=== PATIENT | male | born 1950 | race Caucasian/White ===

== ENCOUNTER 2016-08-18 12:33 | Outpatient (CLI) | payer BC, OTHER ==
[~2016-08-18] VITALS: Ht 182.9 cm; Wt 64.2 kg
[~2016-08-18 12:33] MED LIST: HYDR-3454 PO; MULT-974 PO; OMG1KC PO; TRAM50TA2 PO; [UNRECOGNIZED DRUG - OTHER] PO
--- OUTSIDE RECORDS SUMMARY | 2016-08-18 12:37 | XMS REPORT | Continuity of Care Document ---
Author Author [facility] Organization [facility] Address Unknown Phone Unavailable Care Team Providers Care Laborer Starch Factory Name Role Phone PÉREZ GREEN DO PCP Insurance Providers Payer Name Policy Number Subscriber Name Relationship [facility] [id number] Lc Hines 18 Self / Same As Patient Advance Directives Directive Response Recorded Date/Time Advance Directives No 11/25/15 4:27pm Health Care Power of Reinforcing Steel Worker Wire Mesh No 11/25/15 4:27pm Organ Donor No 11/25/15 4:27pm Problems Active Problems Medical Problem Onset Date Status Malignant melanoma of skin of left elbow Unknown Acute Medications Current Home Medications Medication Dose Units Route Directions Days/Qty Instructions Start Date [place] 3 Polyunsat Fatty Acids 1,000 Mg 1,000 [...] Discharge/Depart Date Attending Provider Registered Clinic [facility] 02/02/16 8:57am PRICILLA CURRAN Discharged Recurring [facility] 01/26/16 2:26pm 11:59pm JENIFFER PEREZ MD
[2016-08-18] MEDS ORDERED: ACYC200C PO (12:52)
[2016-08-18 12:54] VITALS: BP 119/76
== END 2016-08-18 14:08 | disposition home or self-care (01) ==
LOC: PREOP 12:33
PROVIDERS: ATTEND Surgery
DX: Z01.818 Encounter for other preprocedural examination (principal); Z11.2 Encounter for screening for other bacterial diseases; C43.59 Malignant melanoma of other part of trunk
CPT/HCPCS: 87081

== ENCOUNTER 2016-08-24 08:28 | Day surgery (SDC) | payer BC, OTHER ==
[~2016-08-24] VITALS: Ht 182.9 cm; Wt 64.2 kg
[2016-08-24] VITALS (7 sets, daily range): BP systolic 130–151; BP diastolic 71–88
[~2016-08-24 08:28] MED LIST changes: +ACYC200C PO
--- OUTSIDE RECORDS SUMMARY | 2016-08-24 08:31 | XMS REPORT | Continuity of Care Document ---
Author Author [facility] Organization [facility] Address Unknown Phone Unavailable Care Team Providers Care Head Greenskeeper Name Role Phone PÉREZ GREEN DO PCP Insurance Providers Payer Name Policy Number Subscriber Name Relationship [facility] [id number] Lc Hines 18 Self / Same As Patient Advance Directives Directive Response Recorded Date/Time Advance Directives No 08/18/16 12:48pm Health Care Power of Frozen Yogurt Maker No 08/18/16 12:48pm Organ Donor No 08/18/16 12:48pm Resuscitation Status Full Code 08/18/16 12:48pm Problems Active Problems Medical Problem Onset Date Status Malignant melanoma of skin of left elbow Unknown Acute Medications Current Home Medications Medication Dose Units Route Directions Days/Qty Instructions Start Date [place] 3 Polyunsat Fatty Acids 1,000 Mg 1,000 Mg Oral Daily 10/27/15 Multivitamin 1 Each 1 Each Oral Daily 10/27/15 Acyclovir 200 Mg 200 Mg Oral Three Times A Day 08/18/16 Past Home Medications Medication Directions Ordered Status [Canxida] , 1 Tab Oral Daily 10/27/15 Discontinued Tramadol Hcl 50 Mg Tablet, 50 Mg Oral Every 12 Hours as needed for Pain 10/27 Discontinued Tramadol Hcl 50 Mg Tablet, 50 Mg Oral Every 12 Hours as needed for Pain 10/27 Discontinued Hydrocodone/Acetaminophen 1 Each Tablet, 1 Each Oral Every 4HRS as needed for Pain 11/25/15 Discontinued Hydrocodone/Acetaminophen 1 Each Tablet, 1 Each Oral Every 4HRS as needed for Pain 11/25/15 Discontinued Social History Social History Problem Response Recorded Date/Time Alcohol Use Denies Use 11/25/2015 4:23pm Recreational Drug Use No 11/25/2015 4:23pm Recent Foreign Travel No 08/18/2016 12:42pm Recent Infectious Disease Exposure No 08/18/2016 12:42pm Sexually Transmitted Disease Y HERPES 08/18/2016 12:48pm HIV/AIDS No 08/18/2016 12:48pm Smoking Status Never a Smoker 08/18/2016 12:48pm Recent Hopitalizations No 08/18/2016 12:48pm Sexually Transmitted Disease Y HERPES 08/18/2016 12:48pm Query Response Start Date Stop Date Smoking Status Never a Smoker Hospital Discharge Instructions No hospital discharge instructions. Plan of Care Discharge Date 08/18/16 2:08pm Prescriptions See Medication Section Functional Status No functional status results. Allergies, Adverse Reactions, Alerts Allergen Type Severity Reaction Status Last Updated epinephrine HCl Allergy Unknown Active 10/28/15 Lidocaine Allergy Unknown Active 10/28/15 Epinephrine Allergy Unknown Active 10/28/15 Immunizations No immunization records. Vital Signs Acute Vital Signs Vital Response Date/Time Pulse Rate (adult) 102 bpm (60 - 90) 08/18/2016 12:54pm Respiratory Rate 16 bpm (12 - 24) 08/18/2016 12:54pm O2 Sat by Pulse Oximetry 97 % (88 - 100) 08/18/2016 12:54pm Blood Pressure 119/76 mm Hg 08/18/2016 12:54pm Blood Pressure Mean 90 mm Hg 08/18/2016 12:54pm Pain Numeric Pain Scale 0-No Pain 08/18/2016 12:54pm Height (Feet) 6 feet 08/18/2016 12:42pm Height (Inches) 0.00 inches 08/18/2016 12:42pm Height (Calculated Centimeters) 182.943039 cm 08/18/2016 12:42pm Weight (Pounds) 141 pounds 08/18/2016 12:42pm Weight (Ounces) 8.0 oz 08/18/2016 12:42pm Weight (Calculated Grams) 09977.32 gm 08/18/2016 12:42pm Weight (Calculated Kilograms) 64.851903 kilograms 08/18/2016 12:42pm Calculated BMI 19.2 08/18/2016 12:42pm Results Laboratory Results Test Name Result Units Flags Reference Collection Date/Time Result Date/ Time Comments White Blood Count 6.1 10^3/uL 4.3-11.0 07/12/2016 1:43pm 07/12/2016 1: 50pm Red Blood Count 4.41 10^6/uL 4.35-5.85 07/12/2016 1:43pm 07/12/2016 1: 50pm Hemoglobin 14.6 G/DL 13.3-17.7 07/12/2016 1:43pm 07/12/2016 1:50pm Hematocrit 42 % 40-54 07/12/2016 1:43pm 07/12/2016 1:50pm Mean Corpuscular Volume 96 FL 80-99 07/12/2016 1:43pm 07/12/2016 1: 50pm Mean Corpuscular Hemoglobin 33 PG 25-34 07/12/2016 1:43pm 07/12/2016 1: 50pm Mean Corpuscular Hemoglobin Concent 35 G/DL 32-36 07/12/2016 1:43pm 1:50pm Red Cell Distribution Width 12.5 % 10.0-14.5 07/12/2016 1:43pm 2015 1:50pm Platelet Count 233 10^3/uL 130-400 07/12/2016 1:43pm 07/12/2016 1:50pm Mean Platelet Volume 10.2 FL 7.4-10.4 07/12/2016 1:43pm 07/12/2016 1: 50pm Neutrophils (%) (Auto) 76 % H 42-75 07/12/2016 1:43pm 07/12/2016 1:50pm Lymphocytes (%) (Auto) 14 % 12-44 07/12/2016 1:43pm 07/12/2016 1:50pm Monocytes (%) (Auto) 9 % 0-12 07/12/2016 1:43pm 07/12/2016 1:50pm Eosinophils (%) (Auto) 0 % 0-10 07/12/2016 1:43pm 07/12/2016 1:50pm Basophils (%) (Auto) 1 % 0-10 07/12/2016 1:43pm 07/12/2016 1:50pm Neutrophils # (Auto) 4.7 X 10^3 1.8-7.8 07/12/2016 1:43pm 07/12/2016 1: 50pm Lymphocytes # (Auto) 0.9 X 10^3 L 1.0-4.0 07/12/2016 1:43pm 07/12/2016 1: 50pm Monocytes # (Auto) 0.5 X 10^3 0.0-1.0 07/12/2016 1:43pm 07/12/2016 1: 50pm Eosinophils # (Auto) 0.0 10^3/uL 0.0-0.3 07/12/2016 1:43pm 07/12/2016 1 :50pm Basophils # (Auto) 0.0 10^3/uL 0.0-0.1 07/12/2016 1:43pm 07/12/2016 1: 50pm Sodium Level 138 MMOL/L 135-145 07/12/2016 1:43pm 07/12/2016 2:32pm Potassium Level 4.4 MMOL/L 3.6-5.0 07/12/2016 1:43pm 07/12/2016 2:32pm Chloride Level 104 MMOL/L 98-107 07/12/2016 1:43pm 07/12/2016 2:32pm Carbon Dioxide Level 26 MMOL/L 21-32 07/12/2016 1:43pm 07/12/2016 2: 32pm Anion Gap 8 MMOL/L 5-14 07/12/2016 1:43pm 07/12/2016 2:32pm Blood Urea Nitrogen 19 MG/DL H 7-18 07/12/2016 1:43pm 07/12/2016 2:32pm Creatinine 1.07 MG/DL 0.60-1.30 07/12/2016 1:43pm 07/12/2016 2:32pm BUN/Creatinine Ratio 18 07/12/2016 1:43pm 07/12/2016 2:32pm Estimat Glomerular Filtration Rate > 60 07/12/2016 1:43pm 2015 2:32pm GFR INTERPRETIVE DATA UNITS FOR ESTIMATED GFR (eGFR): mL/min/1.73 M2 REFERENCE RANGE FOR ESTIMATED GFR (eGFR) eGFR NORMAL eGFR >60 MODERATELY DECREASED eGFR 30-59 SEVERLY DECREASED eGFR 15-29 KIDNEY FAILURE <15 (OR DIALYSIS) Glucose Level 159 MG/DL H 70-105 07/12/2016 1:43pm 07/12/2016 2:32pm Calcium Level 9.7 MG/DL 8.5-10.1 07/12/2016 1:43pm 07/12/2016 2:32pm Total Bilirubin 1.7 MG/DL H 0.1-1.0 07/12/2016 1:43pm 07/12/2016 2:32pm Alkaline Phosphatase 55 U/L 40-136 07/12/2016 1:43pm 07/12/2016 2:32pm Aspartate Amino Transf (AST/SGOT) 29 U/L 5-34 07/12/2016 1:43pm 2015 2:32pm Alanine Aminotransferase (ALT/SGPT) 22 U/L 0-55 07/12/2016 1:43pm 07/12 2:32pm Lactate Dehydrogenase 201 U/L 125-220 07/12/2016 1:43pm 07/12/2016 2: 32pm Total Protein 6.9 G/DL 6.4-8.2 07/12/2016 1:43pm 07/12/2016 2:32pm Albumin 4.5 G/DL 3.2-4.5 07/12/2016 1:43pm 07/12/2016 2:32pm Procedures No known history of procedures. Encounters Encounter Location Arrival/Admit Date Discharge/Depart Date Attending Provider Departed Clinic [facility] 08/18/16 12:33pm 08/18/16 2: 08pm JAMIE NGUYEN MD Registered Clinic [facility] 08/02/16 2:02pm JENIFFER PEREZ MD Registered Recurring [facility] 07/29/16 10:56am JENIFFER PEREZ MD Registered Clinic [facility] 07/19/16 8:15am JENIFFER PEREZ MD
--- OUTSIDE RECORDS SUMMARY | 2016-08-24 08:32 | XMS REPORT | Continuity of Care Document ---
Author Author [facility] Organization [facility] Address Unknown Phone Unavailable Care Team Providers Care Microsoft Dynamics Manager Architect Name Role Phone PÉREZ GREEN DO PCP Insurance Providers Payer Name Policy Number Subscriber Name Relationship [facility] [id number] Lc Hines 18 Self / Same As Patient Advance Directives Directive Response Recorded Date/Time Advance Directives No 08/18/16 12:48pm Health Care Power of Aircraft Cleaning Supervisor No 08/18/16 12:48pm Organ Donor No 08/18/16 12:48pm Resuscitation Status Full Code 08/18/16 12:48pm Problems Active Problems Medical Problem Onset Date Status Malignant melanoma of skin of left elbow Unknown Acute Medications Current Home Medications Medication Dose Units Route Directions Days/Qty Instructions Start Date [place] 3 Polyunsat Fatty Acids 1,000 Mg 1,000 [...] 0.00 inches 08/18/2016 12:42pm Height (Calculated Centimeters) 182.836843 cm 08/18/2016 12:42pm Weight (Pounds) 141 pounds 08/18/2016 12:42pm Weight (Ounces) 8.0 oz 08/18/2016 12:42pm Weight (Calculated Grams) 15494.32 gm 08/18/2016 12:42pm Weight (Calculated Kilograms) 64.810560 kilograms 08/18/2016 12:42pm Calculated BMI 19.2 08/18/2016 [...] Discharge/Depart Date Attending Provider Departed Clinic [facility] 08/18/16 12:33pm 08/18/16 2: 08pm JAMIE NGUYEN MD Registered Clinic [facility] 08/02/16 2:02pm JENIFFER PEREZ MD Registered Recurring [facility] 07/29/16 10:56am JENIFFER PEREZ MD Registered Clinic [facility] 07/19/16 8:15am JENIFFER PEREZ MD
[2016-08-24] MEDS ORDERED: ceFAZolin 1 GM/NS 50 ML IVPB IV ONE ×2 (08:45)
[2016-08-24] MEDS ORDERED: MIDAZOLAM 2 MG/2 ML (VERSED) VIAL IV ONE (09:30)
[2016-08-24] MEDS ORDERED: proPOfol 200 MG/20 ML (DIPRIVAN) VIAL IV ONE (09:31)
[2016-08-24] MEDS ORDERED: LACTATED RINGERS 1,000 ML IV ONE ×2 (09:31→11:27)
[2016-08-24] MEDS ORDERED: LIDOCAINE JELLY 2% (XYLOCAINE) 5 ML TUBE ONE (09:31)
[2016-08-24] MEDS ORDERED: MIDAZOLAM 2 MG/2 ML (VERSED) VIAL ONE (09:31)
[2016-08-24] MEDS ORDERED: ONDANSETRON 4 MG/2 ML (SDV) Z0FRAN ONE (09:31)
[2016-08-24] MEDS ORDERED: ROCURONIUM 50 MG/5 ML (ZEMURON) VIAL IV ONE (09:31)
[2016-08-24] MEDS ORDERED: LIDOCAINE PF 2% 10 ML (XYLOCAINE) AMP ONE (09:31)
[2016-08-24] MEDS ORDERED: fentaNYL INJECTION 100 MCG/2 ML AMP ONE (09:32)
[2016-08-24] MEDS ORDERED: BUP/EPI 0.25% 1:200,000 (MARCAINE) 30 ML VIAL ONE (09:41)
[2016-08-24] MEDS: LACTATED RINGERS 1,000 ML IV PRN ×2 (09:44→10:53)
--- NOTE | 2016-08-24 10:00 | Progress Note-Pre Operative ---
Pre-Operative Progress Note H&P Reviewed The H&P was reviewed, patient examined and no changes noted. Date H&P Reviewed: Aug 24, 2016 Time H&P Reviewed: 10:00 Pre-Operative Diagnosis: metastatic melanoma of the left axilla JAMIE NGUYEN MD Aug 24, 2016 10:00 am
[2016-08-24] MEDS ORDERED: PHENYLEPHRINE 100 MCG/ML 10 ML (ANESTHESIA) SYR ONE (11:28)
[2016-08-24] MEDS ORDERED: SEVOFLURANE (ULTANE) 15 ML INHAL SOLN ONE ×2 (11:46→12:08)
--- NOTE | 2016-08-24 12:19 | Progress Note-Post Operative ---
Post-Operative Progess Note Pre-Operative Diagnosis metastatic melanoma of the left axilla Post-Operative Diagnosis same Post-Op Procedure Note Date of Procedure: Aug 24, 2016 Name of Procedure: completion lymphadenectomy of left axilla Anesthesia Type Gen. Estimated blood loss (mL): 200 mL Specimen(s) collected left axillary contents JAMIE NGUYEN MD Aug 24, 2016 12:19 pm
[2016-08-24] MEDS ORDERED: fentaNYL INJECTION 100 MCG/2 ML AMP IV PRN (12:30)
[2016-08-24] MEDS ORDERED: ONDANSETRON 4 MG/2 ML (SDV) Z0FRAN IVP PRN ×2 (12:30)
[2016-08-24] MEDS ORDERED: MEPERIDINE (DEMEROL) INJ 50 MG/ML IVP PRN (12:30)
[2016-08-24] MEDS ORDERED: morphine INJ 10 MG/ML 1ML (SYR OR VIAL) ONE (12:40)
[2016-08-24] MEDS: morphine INJ 10 MG/ML 1ML (SYR OR VIAL) IVP PRN ×2 (12:57→13:13)
--- NOTE | 2016-08-24 13:14 | OPERATIVE REPORT ---
PROCEDURE PHYSICIAN: JAMIE NGUYEN DATE OF PROCEDURE: 08/24/2016 PREOPERATIVE DIAGNOSIS: Metastatic melanoma left axilla. POSTOPERATIVE DIAGNOSIS: Metastatic melanoma left axilla. OPERATION: Completion lymphadenectomy left axilla. SURGEON: Curtis ANESTHESIA: General anesthesia. BLOOD LOSS: 200 mL. FLUIDS: 2 liters of crystalloids. TYPE OF WOUND: Type I (clean wound). INDICATION FOR PROCEDURE: This gentleman presented with metastatic melanoma involving the left axilla. Therefore, it was felt reasonable to perform completion lymphadenectomy. Informed consent was obtained after reviewing the operative details and complications of hematoma, postoperative bleeding and nerve damage. DESCRIPTION OF PROCEDURE: He was placed supine on the operating table and general anesthesia induced. A gram of Ancef was administered intravenously as prophylaxis against wound infection. Sequential compression devices were placed around his legs, to minimize the risk of venous thrombosis. Left axilla was prepared and draped in the usual sterile manner. Preemptive analgesia was established using 0.25% Marcaine with epinephrine. An elliptical incision was made incorporating the previous scar and a cluster of lymph glands identified. They were adherent to the axillary vein, which was carefully . There did not appear to be direct infiltration to the axillary vein itself. Some tributaries of the axillary vein had to be controlled using 2-0 silk sutures and Ligaclips. A few lymph glands belonging to axillary level III were excised and sent separately for histologic examination. There was tumor infiltration into the thoracodorsal nerve, which had to be sacrificed close to the axillary vein. The tissue surrounding sacrificed nerve was sent as a separate specimen. The long thoracic nerve was free and preserved. Hemostasis was optimized using Ligaclips on the axillary, irrigated with saline. A 19 [place] Raj-Tavares drain was left in the axilla, being secured with 2-0 silk sutures. Incision was then closed using 3-0 Vicryl for the subcutaneous tissue and 4-0 Vicryl for skin in a subcuticular fashion. He tolerated the procedure well, was extubated in the operating room and taken to the recovery room in stable condition. Ransom, sponges, and instruments were correct at the end of the operation. Job ID: [id number] Dictated Date: 08/24/2016 12:16:41 Structural Iron Worker Date: 08/24/2016 13:06:36 / cyndy RUSS
[2016-08-24] MEDS: LACTATED RINGERS 1,000 ML IV SCH ×2 (14:41→22:00)
[2016-08-24] MEDS ORDERED: CHLORASEPTIC SPRAY 177 ML LIQUID MC PRN (16:00)
[2016-08-24] MEDS ORDERED: FLU TRIvalent (5 YOA+) 2016-17 (AFLURIA) 0.5 ML IM ONE (16:15)
[2016-08-24] MEDS: ceFAZolin INJECTION 1,000 MG in NORMAL SALINE (BAXTER MINI) 50 ML IV SCH (16:49)
[2016-08-24] MEDS: HYDROcodone/APAP 5 MG/325 MG (LORTAB) TAB PO PRN (21:58)
[2016-08-25] VITALS: BP 150/80
[2016-08-25] MEDS: ceFAZolin INJECTION 1,000 MG in NORMAL SALINE (BAXTER MINI) 50 ML IV SCH (00:04)
[2016-08-25 04:00] VITALS: BP 127/72
[2016-08-25] MEDS: LACTATED RINGERS 1,000 ML IV SCH (04:53)
[2016-08-25] MEDS: HYDROcodone/APAP 5 MG/325 MG (LORTAB) TAB PO PRN (04:53)
[2016-08-25 08:57] VITALS: BP 126/61
[2016-08-25] MEDS ORDERED: HYDR-3729 PO (12:04)
--- NOTE | 2016-08-25 12:06 | Discharge Inst-Simple/Standard ---
Discharge Inst-Standard Discharge Medications New, Converted or Re-Newed RX: RX on Chart Patient Instructions/Follow Up Plan of Care/Instructions/FU: Ryanne killian. Please have him call my office on Monday regarding the output from the drain Activity as Tolerated: No Goal: Off work until seen Discharge Diet: No Restrictions Planned Outpatient Orders/Ref. Pneu Vac Indicated: Yes JAMIE NGUYEN MD Aug 25, 2016 12:06 pm
[2016-08-25] MEDS ORDERED: DOCU-143 PO (12:18)
[2016-08-25 12:30] VITALS: BP 126/61
[2016-08-25] MEDS ORDERED: ENOXAPARIN 40 MG/0.4 ML (LOVENOX) SYR SC SCH (12:30)
--- NOTE | 2016-08-25 13:27 | Progress Note-Standard ---
Standard Progress Note Progress Notes/Assess & Plan Progress/Assessment & Plan 08/25/16:pain control adequate. Minimal drainage from the Raj-Tavares. Operative details reviewed. Could be discharged with short-term follow-up. Final Diagnosis metastatic melanoma of left axilla JAMIE NGUYEN MD Aug 25, 2016 1:27 pm
== END 2016-08-25 12:50 | disposition home or self-care (01) ==
LOC: SDC 08:28 → 4TH 13:40 → SDC 08-25 12:50
PROVIDERS: ATTEND Surgery
DX: C43.62 Malignant melanoma of left upper limb, including shoulder (principal); C77.3 Secondary and unspecified malignant neoplasm of axilla and upper limb lymph nodes
CPT/HCPCS: 88305; 94664

== ENCOUNTER 2016-10-04 14:08 | Outpatient (RCR) | payer BC, OTHER ==
--- OUTSIDE RECORDS SUMMARY | 2016-07-12 13:40 | XMS REPORT | Continuity of Care Document ---
Author Author [facility] Organization [facility] Address Unknown Phone Unavailable Care Team Providers Care Customer Technical Services Manager Name Role Phone PÉREZ GREEN DO PCP Insurance Providers Payer Name Policy Number Subscriber Name Relationship [facility] [id number] Lc Hines 18 Self / Same As Patient Advance Directives Directive Response Recorded Date/Time Advance Directives No 11/25/15 4:27pm Health Care Power of Bitumen Plant Operator No 11/25/15 4:27pm Organ Donor No 11/25/15 4:27pm Problems Active Problems Medical Problem Onset Date Status Malignant melanoma of skin of left elbow Unknown Acute Medications Current Home Medications Medication Dose Units Route Directions Days/Qty Instructions Start Date [place] 3 Polyunsat Fatty Acids 1,000 Mg 1,000 Mg Oral Daily 10/27/15 Multivitamin 1 Each 1 Each Oral Daily 10/27/15 [Canxida] 1 Tab Oral Daily 10/27/15 Hydrocodone/Acetaminophen 1 Each 1 Each Oral Every 4HRS as needed for Pain 30 11/25/15 Hydrocodone/Acetaminophen 1 Each 1 Each Oral Every 4HRS as needed for Pain 30 11/25/15 Past Home Medications Medication Directions Ordered Status Tramadol Hcl 50 Mg Tablet, 50 Mg Oral Every 12 Hours as needed for Pain 10/27 Discontinued Tramadol Hcl 50 Mg Tablet, 50 Mg Oral Every 12 Hours as needed for Pain 10/27 Discontinued Social History Social History Problem Response Recorded Date/Time Alcohol Use Denies Use 11/25/2015 4:23pm Recreational Drug Use No 11/25/2015 4:23pm Recent Foreign Travel N [place] 01/25/2016 10:15am Sexually Transmitted Disease Y HERPES 11/25/2015 4:23pm HIV/AIDS No 11/25/2015 4:23pm Hospital Discharge Instructions Current inpatient/outpatient. Discharge instructions are currently unavailable. Plan of Care Prescriptions Functional Status No functional status results. Allergies, Adverse Reactions, Alerts Allergen Type Severity Reaction Status Last Updated epinephrine HCl Allergy Unknown Active 10/28/15 Lidocaine Allergy Unknown Active 10/28/15 Epinephrine Allergy Unknown Active 10/28/15 Immunizations No immunization records. Vital Signs No known vital signs results. Results Laboratory Results Test Name Result Units Flags Reference Collection Date/Time Result Date/ Time Comments White Blood Count 7.2 10^3/uL 4.3-11.0 01/05/2016 2:01/05/2016 2: 28pm Red Blood Count 4.17 10^6/uL L 4.35-5.85 01/05/2016 2:01/05/2016 2: 28pm Hemoglobin 13.6 G/DL 13.3-17.7 01/05/2016 2:01/05/2016 2:28pm Hematocrit 39 % L 40-54 01/05/2016 2:01/05/2016 2:28pm Mean Corpuscular Volume 94 FL 80-99 01/05/2016 2:01/05/2016 2: 28pm Mean Corpuscular Hemoglobin 33 PG 25-34 01/05/2016 2:01/05/2016 2: 28pm Mean Corpuscular Hemoglobin Concent 35 G/DL 32-36 01/05/2016 2: 2:28pm Red Cell Distribution Width 12.8 % 10.0-14.5 01/05/2016 2:2015 2:28pm Platelet Count 210 10^3/uL 130-400 01/05/2016 2:01/05/2016 2:28pm Mean Platelet Volume 9.9 FL 7.4-10.4 01/05/2016 2:01/05/2016 2: 28pm Neutrophils (%) (Auto) 67 % 42-75 01/05/2016 2:01/05/2016 2:28pm Lymphocytes (%) (Auto) 22 % 12-44 01/05/2016 2:01/05/2016 2:28pm Monocytes (%) (Auto) 9 % 0-12 01/05/2016 2:01/05/2016 2:28pm Eosinophils (%) (Auto) 1 % 0-10 01/05/2016 2:01/05/2016 2:28pm Basophils (%) (Auto) 1 % 0-10 01/05/2016 2:01/05/2016 2:28pm Neutrophils # (Auto) 4.8 X 10^3 1.8-7.8 01/05/2016 2:01/05/2016 2: 28pm Lymphocytes # (Auto) 1.6 X 10^3 1.0-4.0 01/05/2016 2:01/05/2016 2: 28pm Monocytes # (Auto) 0.7 X 10^3 0.0-1.0 01/05/2016 2:01/05/2016 2: 28pm Eosinophils # (Auto) 0.1 10^3/uL 0.0-0.3 01/05/2016 2:01/05/2016 2 :28pm Basophils # (Auto) 0.0 10^3/uL 0.0-0.1 01/05/2016 2:01/05/2016 2: 28pm Sodium Level 141 MMOL/L 135-145 01/05/2016 2:01/05/2016 2:56pm Potassium Level 4.4 MMOL/L 3.6-5.0 01/05/2016 2:01/05/2016 2:56pm Chloride Level 106 MMOL/L 98-107 01/05/2016 2:01/05/2016 2:56pm Carbon Dioxide Level 26 MMOL/L 21-32 01/05/2016 2:01/05/2016 2: 56pm Anion Gap 9 MMOL/L 5-14 01/05/2016 2:01/05/2016 2:56pm Blood Urea Nitrogen 20 MG/DL H 7-18 01/05/2016 2:01/05/2016 2:56pm Creatinine 0.98 MG/DL 0.60-1.30 01/05/2016 2:01/05/2016 2:56pm BUN/Creatinine Ratio 20 01/05/2016 2:01/05/2016 2:56pm Estimat Glomerular Filtration Rate > 60 01/05/2016 2:2015 2:56pm GFR INTERPRETIVE DATA UNITS FOR ESTIMATED GFR (eGFR): mL/min/1.73 M2 REFERENCE RANGE FOR ESTIMATED GFR (eGFR) eGFR NORMAL eGFR >60 MODERATELY DECREASED eGFR 30-59 SEVERLY DECREASED eGFR 15-29 KIDNEY FAILURE <15 (OR DIALYSIS) Glucose Level 81 MG/DL 70-105 01/05/2016 2:01/05/2016 2:56pm Calcium Level 9.5 MG/DL 8.5-10.1 01/05/2016 2:01/05/2016 2:56pm Total Bilirubin 1.4 MG/DL H 0.1-1.0 01/05/2016 2:pm 01/05/2016 2:56pm Alkaline Phosphatase 53 U/L 40-136 01/05/2016 2:01/05/2016 2:56pm Aspartate Amino Transf (AST/SGOT) 21 U/L 5-34 01/05/2016 2:pm 2015 2:56pm Alanine Aminotransferase (ALT/SGPT) 19 U/L 0-55 01/05/2016 2:pm 01/04 2:56pm Lactate Dehydrogenase 166 U/L 125-220 11/16/2015 2:41pm 11/16/2015 3: 15pm Total Protein 6.7 G/DL 6.4-8.2 01/05/2016 2:01/05/2016 2:56pm Albumin 4.3 G/DL 3.2-4.5 01/05/2016 2:pm 01/05/2016 2:56pm Procedures No known history of procedures. Encounters Encounter Location Arrival/Admit Date Discharge/Depart Date Attending Provider Registered Clinic [facility] 02/02/16 8:57am PRICILLA CURRAN Discharged Recurring [facility] 01/26/16 2:26pm 11:59pm JENIFFER PEREZ MD
[2016-07-12 13:46] LABS: BASOPHILS % (AUTO) 1 % (0-10); EOSINOPHILS % (AUTO) 0 % (0-10); LYMPHOCYTES # (AUTO) 0.9 X 10^3 (1.0-4.0); LYMPHOCYTES % (AUTO) 14 % (12-44); MEAN CORPUSCULAR HEMOGLOBIN 33 PG (25-34); MEAN CORPUSCULAR HGB CONC 35 G/DL (32-36); MEAN CORPUSCULAR VOLUME 96 FL (80-99); MEAN PLATELET VOLUME 10.2 FL (7.4-10.4); MONOCYTES # (AUTO) 0.5 X 10^3 (0.0-1.0); MONOCYTES % (AUTO) 9 % (0-12); NEUTROPHILS # (AUTO) 4.7 X 10^3 (1.8-7.8); NEUTROPHILS % (AUTO) 76 % (42-75); PLATELET COUNT 233 10^3/uL (130-400); RED BLOOD COUNT 4.41 10^6/uL (4.35-5.85); RED CELL DISTRIBUTION WIDTH 12.5 % (10.0-14.5); WHITE BLOOD COUNT 6.1 10^3/uL (4.3-11.0)
[2016-07-12 14:31] LABS: ALANINE AMINOTRANSFERASE 22 U/L (0-55); ALBUMIN 4.5 G/DL (3.2-4.5); ANION GAP 8 MMOL/L (5-14); ASPARTATE AMINO TRANSFERASE 29 U/L (5-34); BILIRUBIN,TOTAL 1.7 MG/DL (0.1-1.0); BLOOD UREA NITROGEN 19 MG/DL (7-18); BUN/CREATININE RATIO 18; CALCIUM 9.7 MG/DL (8.5-10.1); CARBON DIOXIDE 26 MMOL/L (21-32); CHLORIDE 104 MMOL/L (98-107); CREATININE SERUM 1.07 MG/DL (0.60-1.30); GFR ESTIMATED > 60; GLUCOSE 159 MG/DL (70-105); LACTATE DEHYDROGENASE 201 U/L (125-220); POTASSIUM 4.4 MMOL/L (3.6-5.0); SODIUM 138 MMOL/L (135-145); TOTAL PROTEIN 6.9 G/DL (6.4-8.2)
[2016-09-05 15:08] LABS: BASOPHILS # (AUTO) 0.1 10^3/uL (0.0-0.1); BASOPHILS % (AUTO) 1 % (0-10); EOSINOPHILS # (AUTO) 0.1 10^3/uL (0.0-0.3); EOSINOPHILS % (AUTO) 2 % (0-10); LYMPHOCYTES # (AUTO) 1.4 X 10^3 (1.0-4.0); LYMPHOCYTES % (AUTO) 21 % (12-44); MEAN CORPUSCULAR HEMOGLOBIN 33 PG (25-34); MEAN CORPUSCULAR HGB CONC 34 G/DL (32-36); MEAN CORPUSCULAR VOLUME 95 FL (80-99); MEAN PLATELET VOLUME 9.7 FL (7.4-10.4); MONOCYTES # (AUTO) 0.8 X 10^3 (0.0-1.0); MONOCYTES % (AUTO) 11 % (0-12); NEUTROPHILS # (AUTO) 4.4 X 10^3 (1.8-7.8); NEUTROPHILS % (AUTO) 66 % (42-75); PLATELET COUNT 259 10^3/uL (130-400); RED BLOOD COUNT 4.39 10^6/uL (4.35-5.85); RED CELL DISTRIBUTION WIDTH 12.8 % (10.0-14.5); WHITE BLOOD COUNT 6.7 10^3/uL (4.3-11.0)
[2016-09-05 15:44] LABS: ALANINE AMINOTRANSFERASE 16 U/L (0-55); ALBUMIN 4.2 G/DL (3.2-4.5); ANION GAP 8 MMOL/L (5-14); ASPARTATE AMINO TRANSFERASE 20 U/L (5-34); BILIRUBIN,DIRECT 0.2 MG/DL (0.0-0.3); BILIRUBIN,TOTAL 0.8 MG/DL (0.1-1.0); BLOOD UREA NITROGEN 24 MG/DL (7-18); BUN/CREATININE RATIO 24; CALCIUM 9.5 MG/DL (8.5-10.1); CARBON DIOXIDE 27 MMOL/L (21-32); CHLORIDE 104 MMOL/L (98-107); CREATININE SERUM 1.02 MG/DL (0.60-1.30); GFR ESTIMATED > 60; GLUCOSE 105 MG/DL (70-105); LACTATE DEHYDROGENASE 207 U/L (125-220); POTASSIUM 4.5 MMOL/L (3.6-5.0); SODIUM 139 MMOL/L (135-145)
[2016-09-13 16:09] LABS: THYROID STIMULATING HORMONE 3.5 UIU/ML (0.35-4.94)
[2016-09-20 15:09] LABS: BASOPHILS % (AUTO) 1 % (0-10); EOSINOPHILS # (AUTO) 0.1 10^3/uL (0.0-0.3); EOSINOPHILS % (AUTO) 2 % (0-10); LYMPHOCYTES # (AUTO) 1.5 X 10^3 (1.0-4.0); LYMPHOCYTES % (AUTO) 22 % (12-44); MEAN CORPUSCULAR HEMOGLOBIN 33 PG (25-34); MEAN CORPUSCULAR HGB CONC 35 G/DL (32-36); MEAN CORPUSCULAR VOLUME 95 FL (80-99); MONOCYTES # (AUTO) 0.9 X 10^3 (0.0-1.0); MONOCYTES % (AUTO) 13 % (0-12); NEUTROPHILS # (AUTO) 4.1 X 10^3 (1.8-7.8); NEUTROPHILS % (AUTO) 62 % (42-75); PLATELET COUNT 211 10^3/uL (130-400); RED BLOOD COUNT 4.13 10^6/uL (4.35-5.85); RED CELL DISTRIBUTION WIDTH 12.8 % (10.0-14.5); WHITE BLOOD COUNT 6.5 10^3/uL (4.3-11.0)
[2016-09-20 15:48] LABS: ANION GAP 8 MMOL/L (5-14); BLOOD UREA NITROGEN 24 MG/DL (7-18); BUN/CREATININE RATIO 26; CALCIUM 9.2 MG/DL (8.5-10.1); CARBON DIOXIDE 25 MMOL/L (21-32); CHLORIDE 105 MMOL/L (98-107); CREATININE SERUM 0.93 MG/DL (0.60-1.30); GFR ESTIMATED > 60; GLUCOSE 92 MG/DL (70-105); SODIUM 138 MMOL/L (135-145)
[2016-09-27 15:33] LABS: BASOPHILS # (AUTO) 0.1 10^3/uL (0.0-0.1); BASOPHILS % (AUTO) 1 % (0-10); EOSINOPHILS # (AUTO) 0.1 10^3/uL (0.0-0.3); EOSINOPHILS % (AUTO) 2 % (0-10); LYMPHOCYTES # (AUTO) 1.3 X 10^3 (1.0-4.0); LYMPHOCYTES % (AUTO) 19 % (12-44); MEAN CORPUSCULAR HEMOGLOBIN 33 PG (25-34); MEAN CORPUSCULAR HGB CONC 35 G/DL (32-36); MEAN CORPUSCULAR VOLUME 96 FL (80-99); MONOCYTES # (AUTO) 0.8 X 10^3 (0.0-1.0); MONOCYTES % (AUTO) 13 % (0-12); NEUTROPHILS # (AUTO) 4.4 X 10^3 (1.8-7.8); NEUTROPHILS % (AUTO) 66 % (42-75); PLATELET COUNT 217 10^3/uL (130-400); RED BLOOD COUNT 4.21 10^6/uL (4.35-5.85); RED CELL DISTRIBUTION WIDTH 12.9 % (10.0-14.5); WHITE BLOOD COUNT 6.7 10^3/uL (4.3-11.0)
[2016-09-27 16:32] LABS: ANION GAP 9 MMOL/L (5-14); BLOOD UREA NITROGEN 23 MG/DL (7-18); BUN/CREATININE RATIO 26; CALCIUM 9.3 MG/DL (8.5-10.1); CARBON DIOXIDE 26 MMOL/L (21-32); CHLORIDE 105 MMOL/L (98-107); CREATININE SERUM 0.88 MG/DL (0.60-1.30); GFR ESTIMATED > 60; GLUCOSE 71 MG/DL (70-105); POTASSIUM 4.8 MMOL/L (3.6-5.0); SODIUM 140 MMOL/L (135-145)
[~2016-10-04 14:08] MED LIST changes: +ACETAMINOPHEN 325 MG TAB (TYLENOL) CANCER CTR ONE; +ACETAMINOPHEN 325 MG TAB (TYLENOL) CANCER CTR PO PRN; +DOCU-143 PO; +HYDR-3729 PO; +NS IV 500 ML (CANCER CENTER) 500 ML ONE; +NS IV 500 ML (CANCER CENTER) IV SCH; +NS IV SCH; +PEMBROLIZUMAB 200 MG in NS (IVPB) CANCER CENTER 50 ML IV SCH; +PEMBROLIZUMAB IV SCH
[2016-10-04 14:40] LABS: BASOPHILS # (AUTO) 0.1 10^3/uL (0.0-0.1); BASOPHILS % (AUTO) 1 % (0-10); EOSINOPHILS # (AUTO) 0.1 10^3/uL (0.0-0.3); EOSINOPHILS % (AUTO) 1 % (0-10); LYMPHOCYTES # (AUTO) 1.3 X 10^3 (1.0-4.0); LYMPHOCYTES % (AUTO) 16 % (12-44); MEAN CORPUSCULAR HEMOGLOBIN 33 PG (25-34); MEAN CORPUSCULAR HGB CONC 35 G/DL (32-36); MEAN CORPUSCULAR VOLUME 96 FL (80-99); MEAN PLATELET VOLUME 10.2 FL (7.4-10.4); MONOCYTES # (AUTO) 0.9 X 10^3 (0.0-1.0); MONOCYTES % (AUTO) 11 % (0-12); NEUTROPHILS # (AUTO) 5.9 X 10^3 (1.8-7.8); NEUTROPHILS % (AUTO) 72 % (42-75); PLATELET COUNT 230 10^3/uL (130-400); RED BLOOD COUNT 4.29 10^6/uL (4.35-5.85); WHITE BLOOD COUNT 8.3 10^3/uL (4.3-11.0)
[2016-10-04 15:17] LABS: ALANINE AMINOTRANSFERASE 18 U/L (0-55); ALBUMIN 3.8 G/DL (3.2-4.5); ANION GAP 9 MMOL/L (5-14); ASPARTATE AMINO TRANSFERASE 27 U/L (5-34); BLOOD UREA NITROGEN 19 MG/DL (7-18); BUN/CREATININE RATIO 20; CARBON DIOXIDE 23 MMOL/L (21-32); CHLORIDE 109 MMOL/L (98-107); CREATININE SERUM 0.95 MG/DL (0.60-1.30); GFR ESTIMATED > 60; GLUCOSE 91 MG/DL (70-105); LACTATE DEHYDROGENASE 266 U/L (125-220); MAGNESIUM 2.1 MG/DL (1.8-2.4); POTASSIUM 4.6 MMOL/L (3.6-5.0); SODIUM 141 MMOL/L (135-145); TOTAL PROTEIN 6.7 G/DL (6.4-8.2)
[2016-10-04 15:41] LABS: THYROID STIMULATING HORMONE 0.46 UIU/ML (0.35-4.94)
== END 2016-10-10 | disposition home or self-care (01) ==
LOC: ONC 14:08
PROVIDERS: ATTEND Internal Medicine Hematology & Oncology
DX: C43.62 Malignant melanoma of left upper limb, including shoulder (principal); C77.3 Secondary and unspecified malignant neoplasm of axilla and upper limb lymph nodes
CPT/HCPCS: 36415; 80048; 80053; 82248; 83615; 83735; 84439; 84443; 85025; 96413; 99213

== ENCOUNTER 2017-01-03 14:26 | Outpatient (RCR) | payer BC, OTHER ==
--- OUTSIDE RECORDS SUMMARY | 2016-10-11 10:03 | XMS REPORT | Continuity of Care Document ---
Author Author [facility] Organization [facility] Address Unknown Phone Unavailable Care Team Providers Care Branch Customer Service Representative Name Role Phone PÉREZ GREEN DO PCP Insurance Providers Payer Name Policy Number Subscriber Name Relationship [facility] [id number] Lc Hines 18 Self / Same As Patient Advance Directives Directive Response Recorded Date/Time Advance Directives No 08/18/16 12:48pm Health Care Power of Nursing Techn No 08/18/16 12:48pm Organ Donor No 08/18/16 12:48pm Resuscitation Status Full Code 08/18/16 12:48pm Problems Active Problems Medical Problem Onset Date Status Malignant melanoma of skin of left elbow Unknown Acute Medications Current Home Medications Medication Dose Units Route Directions Days/Qty Instructions Start Date [place] 3 Polyunsat Fatty Acids 1,000 Mg 1,000 [...] 0.00 inches 08/18/2016 12:42pm Height (Calculated Centimeters) 182.753710 cm 08/18/2016 12:42pm Weight (Pounds) 141 pounds 08/18/2016 12:42pm Weight (Ounces) 8.0 oz 08/18/2016 12:42pm Weight (Calculated Grams) 65001.32 gm 08/18/2016 12:42pm Weight (Calculated Kilograms) 64.813232 kilograms 08/18/2016 12:42pm Calculated BMI 19.2 08/18/2016 [...] Discharge/Depart Date Attending Provider Departed Clinic [facility] 08/18/16 12:33pm 08/18/16 2: 08pm JAMIE NGUYEN MD Registered Clinic [facility] 08/02/16 2:02pm JENIFFER PEREZ MD Registered Recurring [facility] 07/29/16 10:56am JENIFFER PEREZ MD Registered Clinic [facility] 07/19/16 8:15am JENIFFER PEREZ MD
[2016-10-11 12:13] LABS: BASOPHILS % (AUTO) 1 % (0-10); EOSINOPHILS % (AUTO) 0 % (0-10); LYMPHOCYTES # (AUTO) 0.8 X 10^3 (1.0-4.0); LYMPHOCYTES % (AUTO) 10 % (12-44); MEAN CORPUSCULAR HEMOGLOBIN 33 PG (25-34); MEAN CORPUSCULAR HGB CONC 35 G/DL (32-36); MEAN CORPUSCULAR VOLUME 95 FL (80-99); MEAN PLATELET VOLUME 10.1 FL (7.4-10.4); MONOCYTES # (AUTO) 0.8 X 10^3 (0.0-1.0); MONOCYTES % (AUTO) 10 % (0-12); NEUTROPHILS # (AUTO) 6.4 X 10^3 (1.8-7.8); NEUTROPHILS % (AUTO) 79 % (42-75); PLATELET COUNT 243 10^3/uL (130-400); RED BLOOD COUNT 4.61 10^6/uL (4.35-5.85)
[2016-10-11 12:47] LABS: ALANINE AMINOTRANSFERASE 18 U/L (0-55); ANION GAP 9 MMOL/L (5-14); ASPARTATE AMINO TRANSFERASE 23 U/L (5-34); BILIRUBIN,TOTAL 1.2 MG/DL (0.1-1.0); BLOOD UREA NITROGEN 21 MG/DL (7-18); BUN/CREATININE RATIO 25; CARBON DIOXIDE 22 MMOL/L (21-32); CHLORIDE 108 MMOL/L (98-107); CREATININE SERUM 0.83 MG/DL (0.60-1.30); GFR ESTIMATED > 60; GLUCOSE 94 MG/DL (70-105); LACTATE DEHYDROGENASE 187 U/L (125-220); POTASSIUM 4.4 MMOL/L (3.6-5.0); SODIUM 139 MMOL/L (135-145); TOTAL PROTEIN 6.5 G/DL (6.4-8.2)
[2016-10-18 15:26] LABS: BASOPHILS # (AUTO) 0.1 10^3/uL (0.0-0.1); BASOPHILS % (AUTO) 1 % (0-10); EOSINOPHILS # (AUTO) 0.1 10^3/uL (0.0-0.3); EOSINOPHILS % (AUTO) 1 % (0-10); LYMPHOCYTES # (AUTO) 1.2 X 10^3 (1.0-4.0); LYMPHOCYTES % (AUTO) 17 % (12-44); MEAN CORPUSCULAR HEMOGLOBIN 33 PG (25-34); MEAN CORPUSCULAR HGB CONC 35 G/DL (32-36); MEAN CORPUSCULAR VOLUME 96 FL (80-99); MEAN PLATELET VOLUME 9.9 FL (7.4-10.4); MONOCYTES # (AUTO) 0.9 X 10^3 (0.0-1.0); MONOCYTES % (AUTO) 13 % (0-12); NEUTROPHILS # (AUTO) 4.8 X 10^3 (1.8-7.8); NEUTROPHILS % (AUTO) 68 % (42-75); PLATELET COUNT 232 10^3/uL (130-400); RED BLOOD COUNT 4.38 10^6/uL (4.35-5.85); WHITE BLOOD COUNT 7.1 10^3/uL (4.3-11.0)
[2016-10-18 15:58] LABS: ANION GAP 6 MMOL/L (5-14); BLOOD UREA NITROGEN 24 MG/DL (7-18); BUN/CREATININE RATIO 25; CARBON DIOXIDE 28 MMOL/L (21-32); CHLORIDE 107 MMOL/L (98-107); CREATININE SERUM 0.95 MG/DL (0.60-1.30); GFR ESTIMATED > 60; GLUCOSE 93 MG/DL (70-105); POTASSIUM 4.8 MMOL/L (3.6-5.0); SODIUM 141 MMOL/L (135-145)
[2016-10-25 15:17] LABS: BASOPHILS % (AUTO) 1 % (0-10); EOSINOPHILS # (AUTO) 0.1 10^3/uL (0.0-0.3); EOSINOPHILS % (AUTO) 1 % (0-10); LYMPHOCYTES # (AUTO) 1.2 X 10^3 (1.0-4.0); LYMPHOCYTES % (AUTO) 17 % (12-44); MEAN CORPUSCULAR HEMOGLOBIN 33 PG (25-34); MEAN CORPUSCULAR HGB CONC 34 G/DL (32-36); MEAN CORPUSCULAR VOLUME 96 FL (80-99); MEAN PLATELET VOLUME 9.7 FL (7.4-10.4); MONOCYTES # (AUTO) 0.7 X 10^3 (0.0-1.0); MONOCYTES % (AUTO) 10 % (0-12); NEUTROPHILS % (AUTO) 71 % (42-75); PLATELET COUNT 239 10^3/uL (130-400); RED BLOOD COUNT 4.46 10^6/uL (4.35-5.85); WHITE BLOOD COUNT 7.1 10^3/uL (4.3-11.0)
[2016-10-25 15:59] LABS: ANION GAP 10 MMOL/L (5-14); BLOOD UREA NITROGEN 17 MG/DL (7-18); BUN/CREATININE RATIO 19; CALCIUM 9.3 MG/DL (8.5-10.1); CARBON DIOXIDE 26 MMOL/L (21-32); CHLORIDE 106 MMOL/L (98-107); CREATININE SERUM 0.89 MG/DL (0.60-1.30); GFR ESTIMATED > 60; GLUCOSE 87 MG/DL (70-105); POTASSIUM 4.6 MMOL/L (3.6-5.0); SODIUM 142 MMOL/L (135-145)
[2016-11-01 14:07] LABS: BASOPHILS # (AUTO) 0.1 10^3/uL (0.0-0.1); BASOPHILS % (AUTO) 1 % (0-10); EOSINOPHILS # (AUTO) 0.5 10^3/uL (0.0-0.3); EOSINOPHILS % (AUTO) 6 % (0-10); LYMPHOCYTES # (AUTO) 1.1 X 10^3 (1.0-4.0); LYMPHOCYTES % (AUTO) 14 % (12-44); MEAN CORPUSCULAR HEMOGLOBIN 33 PG (25-34); MEAN CORPUSCULAR HGB CONC 35 G/DL (32-36); MEAN CORPUSCULAR VOLUME 96 FL (80-99); MEAN PLATELET VOLUME 10.3 FL (7.4-10.4); MONOCYTES # (AUTO) 0.8 X 10^3 (0.0-1.0); MONOCYTES % (AUTO) 11 % (0-12); NEUTROPHILS # (AUTO) 5.2 X 10^3 (1.8-7.8); NEUTROPHILS % (AUTO) 68 % (42-75); PLATELET COUNT 227 10^3/uL (130-400); RED BLOOD COUNT 4.66 10^6/uL (4.35-5.85); RED CELL DISTRIBUTION WIDTH 13.1 % (10.0-14.5); WHITE BLOOD COUNT 7.6 10^3/uL (4.3-11.0)
[2016-11-01 14:29] LABS: ALANINE AMINOTRANSFERASE 25 U/L (0-55); ANION GAP 9 MMOL/L (5-14); ASPARTATE AMINO TRANSFERASE 28 U/L (5-34); BILIRUBIN,TOTAL 1.2 MG/DL (0.1-1.0); BLOOD UREA NITROGEN 19 MG/DL (7-18); BUN/CREATININE RATIO 20; CALCIUM 9.3 MG/DL (8.5-10.1); CARBON DIOXIDE 25 MMOL/L (21-32); CHLORIDE 107 MMOL/L (98-107); CREATININE SERUM 0.93 MG/DL (0.60-1.30); GFR ESTIMATED > 60; GLUCOSE 110 MG/DL (70-105); LACTATE DEHYDROGENASE 219 U/L (125-220); MAGNESIUM 2.1 MG/DL (1.8-2.4); POTASSIUM 3.9 MMOL/L (3.6-5.0); SODIUM 141 MMOL/L (135-145)
[2016-11-08 15:16] LABS: RED BLOOD COUNT 4.58 10^6/uL (4.35-5.85); WHITE BLOOD COUNT 8.4 10^3/uL (4.3-11.0)
[2016-11-08 15:17] LABS: BASOPHILS % (AUTO) 1 % (0-10); EOSINOPHILS # (AUTO) 0.8 10^3/uL (0.0-0.3); EOSINOPHILS % (AUTO) 9 % (0-10); LYMPHOCYTES % (AUTO) 11 % (12-44); MEAN CORPUSCULAR HEMOGLOBIN 33 PG (25-34); MEAN CORPUSCULAR HGB CONC 35 G/DL (32-36); MEAN CORPUSCULAR VOLUME 95 FL (80-99); MEAN PLATELET VOLUME 10.2 FL (7.4-10.4); MONOCYTES # (AUTO) 1.1 X 10^3 (0.0-1.0); MONOCYTES % (AUTO) 13 % (0-12); NEUTROPHILS # (AUTO) 5.6 X 10^3 (1.8-7.8); NEUTROPHILS % (AUTO) 66 % (42-75); PLATELET COUNT 189 10^3/uL (130-400); RED CELL DISTRIBUTION WIDTH 12.9 % (10.0-14.5)
[2016-11-08 16:07] LABS: ANION GAP 7 MMOL/L (5-14); BLOOD UREA NITROGEN 24 MG/DL (7-18); BUN/CREATININE RATIO 27; CARBON DIOXIDE 27 MMOL/L (21-32); CHLORIDE 106 MMOL/L (98-107); CREATININE SERUM 0.89 MG/DL (0.60-1.30); GFR ESTIMATED > 60; GLUCOSE 87 MG/DL (70-105); POTASSIUM 4.7 MMOL/L (3.6-5.0); SODIUM 140 MMOL/L (135-145)
[2016-11-15 15:26] LABS: BASOPHILS # (AUTO) 0.1 10^3/uL (0.0-0.1); BASOPHILS % (AUTO) 1 % (0-10); EOSINOPHILS # (AUTO) 3.1 10^3/uL (0.0-0.3); EOSINOPHILS % (AUTO) 26 % (0-10); LYMPHOCYTES % (AUTO) 8 % (12-44); MEAN CORPUSCULAR HEMOGLOBIN 33 PG (25-34); MEAN CORPUSCULAR HGB CONC 36 G/DL (32-36); MEAN CORPUSCULAR VOLUME 93 FL (80-99); MEAN PLATELET VOLUME 10.2 FL (7.4-10.4); MONOCYTES # (AUTO) 0.9 X 10^3 (0.0-1.0); MONOCYTES % (AUTO) 8 % (0-12); NEUTROPHILS # (AUTO) 6.9 X 10^3 (1.8-7.8); NEUTROPHILS % (AUTO) 57 % (42-75); PLATELET COUNT 199 10^3/uL (130-400); RED BLOOD COUNT 4.59 10^6/uL (4.35-5.85); RED CELL DISTRIBUTION WIDTH 12.7 % (10.0-14.5)
[2016-11-15 15:55] LABS: ANION GAP 6 MMOL/L (5-14); BLOOD UREA NITROGEN 24 MG/DL (7-18); BUN/CREATININE RATIO 24; CALCIUM 8.9 MG/DL (8.5-10.1); CARBON DIOXIDE 26 MMOL/L (21-32); CHLORIDE 109 MMOL/L (98-107); GFR ESTIMATED > 60; GLUCOSE 87 MG/DL (70-105); POTASSIUM 4.1 MMOL/L (3.6-5.0); SODIUM 141 MMOL/L (135-145)
[2016-11-22 14:09] LABS: BASOPHILS # (AUTO) 0.1 10^3/uL (0.0-0.1); BASOPHILS % (AUTO) 1 % (0-10); EOSINOPHILS # (AUTO) 3.1 10^3/uL (0.0-0.3); EOSINOPHILS % (AUTO) 25 % (0-10); LYMPHOCYTES # (AUTO) 0.9 X 10^3 (1.0-4.0); LYMPHOCYTES % (AUTO) 8 % (12-44); MEAN CORPUSCULAR HEMOGLOBIN 33 PG (25-34); MEAN CORPUSCULAR HGB CONC 35 G/DL (32-36); MEAN CORPUSCULAR VOLUME 94 FL (80-99); MEAN PLATELET VOLUME 9.9 FL (7.4-10.4); MONOCYTES # (AUTO) 0.9 X 10^3 (0.0-1.0); MONOCYTES % (AUTO) 8 % (0-12); NEUTROPHILS # (AUTO) 7.3 X 10^3 (1.8-7.8); NEUTROPHILS % (AUTO) 60 % (42-75); PLATELET COUNT 228 10^3/uL (130-400); RED BLOOD COUNT 4.38 10^6/uL (4.35-5.85); RED CELL DISTRIBUTION WIDTH 13.2 % (10.0-14.5); WHITE BLOOD COUNT 12.3 10^3/uL (4.3-11.0)
[2016-11-22 14:38] LABS: ALANINE AMINOTRANSFERASE 19 U/L (0-55); ALBUMIN 3.3 G/DL (3.2-4.5); ANION GAP 8 MMOL/L (5-14); ASPARTATE AMINO TRANSFERASE 27 U/L (5-34); BILIRUBIN,TOTAL 1.2 MG/DL (0.1-1.0); BLOOD UREA NITROGEN 24 MG/DL (7-18); BUN/CREATININE RATIO 26; CALCIUM 8.2 MG/DL (8.5-10.1); CARBON DIOXIDE 23 MMOL/L (21-32); CHLORIDE 110 MMOL/L (98-107); CREATININE SERUM 0.93 MG/DL (0.60-1.30); GFR ESTIMATED > 60; GLUCOSE 88 MG/DL (70-105); LACTATE DEHYDROGENASE 255 U/L (125-220); MAGNESIUM 2.1 MG/DL (1.8-2.4); POTASSIUM 4.1 MMOL/L (3.6-5.0); SODIUM 141 MMOL/L (135-145); TOTAL PROTEIN 5.8 G/DL (6.4-8.2)
[2016-11-22 14:57] LABS: THYROID STIMULATING HORMONE 1.77 UIU/ML (0.35-4.94)
[2016-11-29 11:23] LABS: BASOPHILS % (AUTO) 0 % (0-10); EOSINOPHILS # (AUTO) 2.2 10^3/uL (0.0-0.3); EOSINOPHILS % (AUTO) 24 % (0-10); LYMPHOCYTES # (AUTO) 0.7 X 10^3 (1.0-4.0); LYMPHOCYTES % (AUTO) 7 % (12-44); MEAN CORPUSCULAR HEMOGLOBIN 32 PG (25-34); MEAN CORPUSCULAR HGB CONC 34 G/DL (32-36); MEAN CORPUSCULAR VOLUME 94 FL (80-99); MEAN PLATELET VOLUME 9.6 FL (7.4-10.4); MONOCYTES # (AUTO) 0.7 X 10^3 (0.0-1.0); MONOCYTES % (AUTO) 8 % (0-12); NEUTROPHILS # (AUTO) 5.5 X 10^3 (1.8-7.8); NEUTROPHILS % (AUTO) 60 % (42-75); PLATELET COUNT 193 10^3/uL (130-400); RED BLOOD COUNT 4.25 10^6/uL (4.35-5.85); RED CELL DISTRIBUTION WIDTH 13.3 % (10.0-14.5); WHITE BLOOD COUNT 9.1 10^3/uL (4.3-11.0)
[2016-11-29 11:49] LABS: ALANINE AMINOTRANSFERASE 20 U/L (0-55); ALBUMIN 3.4 G/DL (3.2-4.5); ANION GAP 6 MMOL/L (5-14); ASPARTATE AMINO TRANSFERASE 26 U/L (5-34); BILIRUBIN,TOTAL 0.8 MG/DL (0.1-1.0); BLOOD UREA NITROGEN 20 MG/DL (7-18); BUN/CREATININE RATIO 24; CALCIUM 8.3 MG/DL (8.5-10.1); CARBON DIOXIDE 24 MMOL/L (21-32); CHLORIDE 109 MMOL/L (98-107); CREATININE SERUM 0.83 MG/DL (0.60-1.30); GFR ESTIMATED > 60; GLUCOSE 107 MG/DL (70-105); POTASSIUM 3.9 MMOL/L (3.6-5.0); SODIUM 139 MMOL/L (135-145); TOTAL PROTEIN 5.5 G/DL (6.4-8.2)
[2016-12-06 15:35] LABS: BASOPHILS # (AUTO) 0.1 10^3/uL (0.0-0.1); BASOPHILS % (AUTO) 1 % (0-10); EOSINOPHILS # (AUTO) 2.6 10^3/uL (0.0-0.3); EOSINOPHILS % (AUTO) 33 % (0-10); LYMPHOCYTES # (AUTO) 0.8 X 10^3 (1.0-4.0); LYMPHOCYTES % (AUTO) 10 % (12-44); MEAN CORPUSCULAR HEMOGLOBIN 33 PG (25-34); MEAN CORPUSCULAR HGB CONC 35 G/DL (32-36); MEAN CORPUSCULAR VOLUME 95 FL (80-99); MEAN PLATELET VOLUME 9.6 FL (7.4-10.4); MONOCYTES # (AUTO) 0.9 X 10^3 (0.0-1.0); MONOCYTES % (AUTO) 11 % (0-12); NEUTROPHILS # (AUTO) 3.6 X 10^3 (1.8-7.8); NEUTROPHILS % (AUTO) 46 % (42-75); PLATELET COUNT 187 10^3/uL (130-400); RED BLOOD COUNT 4.16 10^6/uL (4.35-5.85); RED CELL DISTRIBUTION WIDTH 13.2 % (10.0-14.5); WHITE BLOOD COUNT 7.9 10^3/uL (4.3-11.0)
[2016-12-06 15:56] LABS: ANION GAP 8 MMOL/L (5-14); BLOOD UREA NITROGEN 20 MG/DL (7-18); BUN/CREATININE RATIO 23; CALCIUM 8.9 MG/DL (8.5-10.1); CARBON DIOXIDE 24 MMOL/L (21-32); CHLORIDE 108 MMOL/L (98-107); CREATININE SERUM 0.88 MG/DL (0.60-1.30); GFR ESTIMATED > 60; GLUCOSE 90 MG/DL (70-105); POTASSIUM 4.2 MMOL/L (3.6-5.0); SODIUM 140 MMOL/L (135-145)
[2016-12-13 15:38] LABS: BASOPHILS # (AUTO) 0.1 10^3/uL (0.0-0.1); BASOPHILS % (AUTO) 1 % (0-10); EOSINOPHILS # (AUTO) 2.7 10^3/uL (0.0-0.3); EOSINOPHILS % (AUTO) 33 % (0-10); LYMPHOCYTES # (AUTO) 0.8 X 10^3 (1.0-4.0); LYMPHOCYTES % (AUTO) 10 % (12-44); MEAN CORPUSCULAR HEMOGLOBIN 32 PG (25-34); MEAN CORPUSCULAR HGB CONC 34 G/DL (32-36); MEAN CORPUSCULAR VOLUME 95 FL (80-99); MONOCYTES # (AUTO) 0.8 X 10^3 (0.0-1.0); MONOCYTES % (AUTO) 10 % (0-12); NEUTROPHILS % (AUTO) 48 % (42-75); PLATELET COUNT 237 10^3/uL (130-400); RED BLOOD COUNT 4.28 10^6/uL (4.35-5.85); RED CELL DISTRIBUTION WIDTH 13.7 % (10.0-14.5); WHITE BLOOD COUNT 8.3 10^3/uL (4.3-11.0)
[2016-12-13 16:22] LABS: ANION GAP 5 MMOL/L (5-14); BLOOD UREA NITROGEN 21 MG/DL (7-18); BUN/CREATININE RATIO 21; CALCIUM 9.2 MG/DL (8.5-10.1); CARBON DIOXIDE 29 MMOL/L (21-32); CHLORIDE 108 MMOL/L (98-107); CREATININE SERUM 0.98 MG/DL (0.60-1.30); GFR ESTIMATED > 60; GLUCOSE 92 MG/DL (70-105); POTASSIUM 4.5 MMOL/L (3.6-5.0); SODIUM 142 MMOL/L (135-145)
[2016-12-20 11:44] LABS: BASOPHILS # (AUTO) 0.1 10^3/uL (0.0-0.1); BASOPHILS % (AUTO) 1 % (0-10); EOSINOPHILS # (AUTO) 2.7 10^3/uL (0.0-0.3); EOSINOPHILS % (AUTO) 28 % (0-10); LYMPHOCYTES # (AUTO) 0.9 X 10^3 (1.0-4.0); LYMPHOCYTES % (AUTO) 10 % (12-44); MEAN CORPUSCULAR HEMOGLOBIN 32 PG (25-34); MEAN CORPUSCULAR HGB CONC 34 G/DL (32-36); MEAN CORPUSCULAR VOLUME 94 FL (80-99); MEAN PLATELET VOLUME 9.3 FL (7.4-10.4); MONOCYTES # (AUTO) 0.8 X 10^3 (0.0-1.0); MONOCYTES % (AUTO) 8 % (0-12); NEUTROPHILS % (AUTO) 53 % (42-75); PLATELET COUNT 224 10^3/uL (130-400); RED BLOOD COUNT 4.29 10^6/uL (4.35-5.85); RED CELL DISTRIBUTION WIDTH 13.1 % (10.0-14.5); WHITE BLOOD COUNT 9.4 10^3/uL (4.3-11.0)
[2016-12-20 12:14] LABS: ALANINE AMINOTRANSFERASE 31 U/L (0-55); ALBUMIN 3.5 G/DL (3.2-4.5); ANION GAP 7 MMOL/L (5-14); ASPARTATE AMINO TRANSFERASE 31 U/L (5-34); BILIRUBIN,TOTAL 0.8 MG/DL (0.1-1.0); BLOOD UREA NITROGEN 18 MG/DL (7-18); BUN/CREATININE RATIO 21; CALCIUM 8.8 MG/DL (8.5-10.1); CARBON DIOXIDE 24 MMOL/L (21-32); CHLORIDE 110 MMOL/L (98-107); CREATININE SERUM 0.84 MG/DL (0.60-1.30); GFR ESTIMATED > 60; GLUCOSE 97 MG/DL (70-105); LACTATE DEHYDROGENASE 224 U/L (125-220); POTASSIUM 3.9 MMOL/L (3.6-5.0); SODIUM 141 MMOL/L (135-145)
[2016-12-20 12:37] LABS: THYROID STIMULATING HORMONE 1.94 UIU/ML (0.35-4.94)
[2016-12-27 15:17] LABS: BASOPHILS % (AUTO) 0 % (0-10); EOSINOPHILS % (AUTO) 42 % (0-10); LYMPHOCYTES # (AUTO) 0.9 X 10^3 (1.0-4.0); LYMPHOCYTES % (AUTO) 8 % (12-44); MEAN CORPUSCULAR HEMOGLOBIN 33 PG (25-34); MEAN CORPUSCULAR HGB CONC 35 G/DL (32-36); MEAN CORPUSCULAR VOLUME 95 FL (80-99); MEAN PLATELET VOLUME 9.2 FL (7.4-10.4); MONOCYTES % (AUTO) 9 % (0-12); NEUTROPHILS # (AUTO) 4.9 X 10^3 (1.8-7.8); NEUTROPHILS % (AUTO) 42 % (42-75); PLATELET COUNT 225 10^3/uL (130-400); RED BLOOD COUNT 4.02 10^6/uL (4.35-5.85); RED CELL DISTRIBUTION WIDTH 13.6 % (10.0-14.5); WHITE BLOOD COUNT 11.8 10^3/uL (4.3-11.0)
[2016-12-27 16:03] LABS: ANION GAP 5 MMOL/L (5-14); BLOOD UREA NITROGEN 23 MG/DL (7-18); BUN/CREATININE RATIO 28; CALCIUM 8.8 MG/DL (8.5-10.1); CARBON DIOXIDE 29 MMOL/L (21-32); CHLORIDE 108 MMOL/L (98-107); CREATININE SERUM 0.81 MG/DL (0.60-1.30); GFR ESTIMATED > 60; GLUCOSE 86 MG/DL (70-105); POTASSIUM 4.1 MMOL/L (3.6-5.0); SODIUM 142 MMOL/L (135-145)
[~2017-01-03] VITALS: Ht 181.6 cm; Wt 62.6 kg
[~2017-01-03 14:26] MED LIST changes: -ACETAMINOPHEN 325 MG TAB (TYLENOL) CANCER CTR PO PRN; +ACETAMINOPHEN 500 MG TAB (TYLENOL) CANCER CTR PO PRN; +IPILIMUMAB IV SCH; +NIVOLUMAB IV SCH; +NS IV 1000 ML (CANCER CTR) IV SCH; -NS IV 500 ML (CANCER CENTER) IV SCH; -PEMBROLIZUMAB 200 MG in NS (IVPB) CANCER CENTER 50 ML IV SCH; -PEMBROLIZUMAB IV SCH
[2017-01-03 15:01] LABS: BASOPHILS # (AUTO) 0.1 10^3/uL (0.0-0.1); BASOPHILS % (AUTO) 1 % (0-10); EOSINOPHILS # (AUTO) 7.6 10^3/uL (0.0-0.3); EOSINOPHILS % (AUTO) 55 % (0-10); LYMPHOCYTES # (AUTO) 1.2 X 10^3 (1.0-4.0); LYMPHOCYTES % (AUTO) 8 % (12-44); MEAN CORPUSCULAR HEMOGLOBIN 33 PG (25-34); MEAN CORPUSCULAR HGB CONC 35 G/DL (32-36); MEAN CORPUSCULAR VOLUME 95 FL (80-99); MEAN PLATELET VOLUME 9.2 FL (7.4-10.4); MONOCYTES % (AUTO) 7 % (0-12); NEUTROPHILS # (AUTO) 4.1 X 10^3 (1.8-7.8); NEUTROPHILS % (AUTO) 29 % (42-75); PLATELET COUNT 250 10^3/uL (130-400); RED BLOOD COUNT 4.15 10^6/uL (4.35-5.85); RED CELL DISTRIBUTION WIDTH 13.5 % (10.0-14.5)
[2017-01-03 16:21] LABS: ANION GAP 6 MMOL/L (5-14); BLOOD UREA NITROGEN 24 MG/DL (7-18); BUN/CREATININE RATIO 30; CARBON DIOXIDE 27 MMOL/L (21-32); CHLORIDE 107 MMOL/L (98-107); GFR ESTIMATED > 60; GLUCOSE 89 MG/DL (70-105); POTASSIUM 4.5 MMOL/L (3.6-5.0); SODIUM 140 MMOL/L (135-145)
== END 2017-01-09 | disposition home or self-care (01) ==
LOC: ONC 14:26
PROVIDERS: ATTEND Internal Medicine Hematology & Oncology
DX: Z51.0 Encounter for antineoplastic radiation therapy (principal); Z51.11 Encounter for antineoplastic chemotherapy; C43.62 Malignant melanoma of left upper limb, including shoulder; C77.3 Secondary and unspecified malignant neoplasm of axilla and upper limb lymph nodes; F41.9 Anxiety disorder, unspecified; Z79.899 Other long term (current) drug therapy
CPT/HCPCS: 36415; 77290; 77295; 77332; 77334; 77336; 77417; 77470; 80048; 80053; 83615; 83735; 84439; 84443; 85025; 96413; 96417; 99213; 99214

== ENCOUNTER 2017-01-10 11:15 | Outpatient (RCR) | payer BC, OTHER ==
[~2017-01-10] VITALS: Ht 181.6 cm; Wt 61.7 kg
[~2017-01-10 11:15] MED LIST changes: -ACETAMINOPHEN 325 MG TAB (TYLENOL) CANCER CTR ONE; -ACETAMINOPHEN 500 MG TAB (TYLENOL) CANCER CTR PO PRN; -IPILIMUMAB IV SCH; -NIVOLUMAB IV SCH; -NS IV 1000 ML (CANCER CTR) IV SCH; -NS IV 500 ML (CANCER CENTER) 500 ML ONE; -NS IV SCH
[2017-01-10 11:46] LABS: BASOPHILS # (AUTO) 0.1 10^3/uL (0.0-0.1); BASOPHILS % (AUTO) 1 % (0-10); EOSINOPHILS # (AUTO) 1.8 10^3/uL (0.0-0.3); EOSINOPHILS % (AUTO) 23 % (0-10); LYMPHOCYTES # (AUTO) 0.9 X 10^3 (1.0-4.0); LYMPHOCYTES % (AUTO) 11 % (12-44); MEAN CORPUSCULAR HEMOGLOBIN 33 PG (25-34); MEAN CORPUSCULAR HGB CONC 35 G/DL (32-36); MEAN CORPUSCULAR VOLUME 95 FL (80-99); MEAN PLATELET VOLUME 9.5 FL (7.4-10.4); MONOCYTES # (AUTO) 0.7 X 10^3 (0.0-1.0); MONOCYTES % (AUTO) 9 % (0-12); NEUTROPHILS # (AUTO) 4.3 X 10^3 (1.8-7.8); NEUTROPHILS % (AUTO) 56 % (42-75); PLATELET COUNT 243 10^3/uL (130-400); RED BLOOD COUNT 4.36 10^6/uL (4.35-5.85); RED CELL DISTRIBUTION WIDTH 13.7 % (10.0-14.5); WHITE BLOOD COUNT 7.8 10^3/uL (4.3-11.0)
[2017-01-10 12:20] LABS: ALANINE AMINOTRANSFERASE 33 U/L (0-55); ALBUMIN 3.4 G/DL (3.2-4.5); ANION GAP 8 MMOL/L (5-14); ASPARTATE AMINO TRANSFERASE 35 U/L (5-34); BILIRUBIN,TOTAL 1.1 MG/DL (0.1-1.0); BLOOD UREA NITROGEN 16 MG/DL (7-18); BUN/CREATININE RATIO 20; CARBON DIOXIDE 26 MMOL/L (21-32); CHLORIDE 109 MMOL/L (98-107); CREATININE SERUM 0.79 MG/DL (0.60-1.30); GFR ESTIMATED > 60; GLUCOSE 93 MG/DL (70-105); LACTATE DEHYDROGENASE 240 U/L (125-220); MAGNESIUM 1.9 MG/DL (1.8-2.4); SODIUM 143 MMOL/L (135-145); TOTAL PROTEIN 6.1 G/DL (6.4-8.2)
[2017-01-10 12:43] LABS: THYROID STIMULATING HORMONE 3.14 UIU/ML (0.35-4.94)
[2017-01-10] MEDS ORDERED: NIVOLUMAB 200 MG, NIVOLUMAB 40 MG in NS (IVPB) CANCER CENTER 50 ML IV SCH (13:15)
== END 2017-01-16 11:05 | disposition home or self-care (01) ==
LOC: ONC 11:15
PROVIDERS: ATTEND Internal Medicine Hematology & Oncology
DX: Z51.11 Encounter for antineoplastic chemotherapy (principal); C43.62 Malignant melanoma of left upper limb, including shoulder; C77.3 Secondary and unspecified malignant neoplasm of axilla and upper limb lymph nodes
CPT/HCPCS: 36415; 80053; 83615; 83735; 84439; 84443; 85025; 96413; 99213

== ENCOUNTER → 2017-03-01 | Outpatient (CLI) | payer MEDICARE, OTHER ==
[~2017-03-01] MED LIST changes: +BARIUM SUSPENSION 2.1% (VANILLA SILQ) 450 ML PO ONE; +CATHETER FLUSH 10 ML SYR IV PRN; +IOHEXOL 350 MG/ML 100 ML (OMNIPAQUE 350) VIAL IV ONE; +NS 100 ML (IVPB) BAG IV ONE
--- NOTE | 2017-03-01 17:52 | Diagnostic Imaging Report ---
PROCEDURE: CT chest with contrast, CT abdomen and pelvis with and without contrast. TECHNIQUE: Pre and post intravenous contrast axial imaging of the abdomen and pelvis and post contrast axial imaging of the chest were performed. INDICATION: Melanoma. COMPARISON: Comparison PET/CT of 07/19/2016. FINDINGS: CT CHEST: There are surgical clips seen in the left axilla. The previously seen significantly enlarged lymph nodes in the left axilla are largely resolved with nonspecific remaining slight fullness in the left axillary fat which could represent post operative findings. There is a prevascular lymph node measuring 8 mm short axis between the SVC and the brachiocephalic artery without change from the PET. It appeared non-hypermetabolic on the PET. There is another mildly prominent lymph node also in the precarinal region less than a centimeter in short axis also unchanged from the previous study and was not hypermetabolic on the recent PET. No significant lymphadenopathy in the michel. The thoracic aorta is 3.9 cm in caliber. The heart size is normal. No pericardial or pleural effusion. The lungs demonstrate nonspecific mixed density nodules up to 9 mm in size in the left lower lobe, axial image 35 and left upper lobe axial image 27 both near the pleural surface. These are not seen on 08/08/2016. The morphology is nonspecific and these could represent focal pneumonitis. Early metastasis cannot be excluded however. The osseous structures appear grossly unremarkable. CT ABDOMEN AND PELVIS: The liver, the gallbladder, the spleen, the pancreas, and the adrenal glands appear unremarkable. The kidneys have symmetric enhancement and contrast excretion. There is no hydronephrosis. The abdominal aorta is normal in caliber. No para-aortic significantly enlarged lymph node is seen. The urinary bladder appears unremarkable. The osseous structures appear grossly unremarkable. There is a sclerotic focus measuring 1.3 cm in the right iliac bone similar to the prior exams presumably related to a bony island. IMPRESSION: CT CHEST: 1. Interval resolution or resection of previously seen enlarged left axillary lymph nodes with remaining nonspecific stranding in the axilla. 2. Development of mixed density pulmonary nodules in the left upper and left lower lobes which could relate to pneumonitis. Metastatic disease is less likely based on its morphology, but cannot be excluded. CT ABDOMEN AND PELVIS: There is a 1.3 cm mildly sclerotic focus in the right iliac bone similar to the prior exams likely related to a bony island. No evidence of metastasis. Dictated by: Dictated on workstation # [id number]
== END ==
LOC: RAD 13:28
PROVIDERS: ATTEND Internal Medicine Hematology & Oncology
DX: R91.8 Other nonspecific abnormal finding of lung field (principal); M85.88 Other specified disorders of bone density and structure, other site; C43.62 Malignant melanoma of left upper limb, including shoulder
CPT/HCPCS: 71260; 74178

== ENCOUNTER 2017-03-08 13:53 | Outpatient (RCR) | payer MEDICARE, OTHER ==
[2017-01-17 15:02] LABS: BASOPHILS % (AUTO) 0 % (0-10); EOSINOPHILS # (AUTO) 3.4 10^3/uL (0.0-0.3); EOSINOPHILS % (AUTO) 36 % (0-10); LYMPHOCYTES # (AUTO) 1.1 X 10^3 (1.0-4.0); LYMPHOCYTES % (AUTO) 11 % (12-44); MEAN CORPUSCULAR HEMOGLOBIN 33 PG (25-34); MEAN CORPUSCULAR HGB CONC 34 G/DL (32-36); MEAN CORPUSCULAR VOLUME 96 FL (80-99); MEAN PLATELET VOLUME 9.2 FL (7.4-10.4); MONOCYTES # (AUTO) 0.9 X 10^3 (0.0-1.0); MONOCYTES % (AUTO) 10 % (0-12); NEUTROPHILS % (AUTO) 43 % (42-75); PLATELET COUNT 236 10^3/uL (130-400); RED BLOOD COUNT 4.02 10^6/uL (4.35-5.85); RED CELL DISTRIBUTION WIDTH 13.8 % (10.0-14.5); WHITE BLOOD COUNT 9.5 10^3/uL (4.3-11.0)
[2017-01-17 15:42] LABS: ANION GAP 7 MMOL/L (5-14); BLOOD UREA NITROGEN 21 MG/DL (7-18); BUN/CREATININE RATIO 25; CALCIUM 8.9 MG/DL (8.5-10.1); CARBON DIOXIDE 28 MMOL/L (21-32); CHLORIDE 107 MMOL/L (98-107); CREATININE SERUM 0.84 MG/DL (0.60-1.30); GFR ESTIMATED > 60; GLUCOSE 93 MG/DL (70-105); POTASSIUM 4.5 MMOL/L (3.6-5.0); SODIUM 142 MMOL/L (135-145)
[2017-01-24 14:06] LABS: BASOPHILS # (AUTO) 0.1 10^3/uL (0.0-0.1); BASOPHILS % (AUTO) 1 % (0-10); EOSINOPHILS # (AUTO) 3.4 10^3/uL (0.0-0.3); EOSINOPHILS % (AUTO) 32 % (0-10); LYMPHOCYTES # (AUTO) 1.3 X 10^3 (1.0-4.0); LYMPHOCYTES % (AUTO) 12 % (12-44); MEAN CORPUSCULAR HEMOGLOBIN 33 PG (25-34); MEAN CORPUSCULAR HGB CONC 34 G/DL (32-36); MEAN CORPUSCULAR VOLUME 97 FL (80-99); MEAN PLATELET VOLUME 9.8 FL (7.4-10.4); MONOCYTES % (AUTO) 10 % (0-12); NEUTROPHILS # (AUTO) 4.8 X 10^3 (1.8-7.8); NEUTROPHILS % (AUTO) 45 % (42-75); PLATELET COUNT 223 10^3/uL (130-400); RED BLOOD COUNT 4.17 10^6/uL (4.35-5.85); RED CELL DISTRIBUTION WIDTH 13.6 % (10.0-14.5); WHITE BLOOD COUNT 10.6 10^3/uL (4.3-11.0)
[2017-01-24 15:17] LABS: ALANINE AMINOTRANSFERASE 27 U/L (0-55); ALBUMIN 2.8 GM/DL (3.2-4.5); ANION GAP 3 MMOL/L (5-14); ASPARTATE AMINO TRANSFERASE 27 U/L (5-34); BILIRUBIN,TOTAL 0.8 MG/DL (0.1-1.0); BLOOD UREA NITROGEN 16 MG/DL (7-18); BUN/CREATININE RATIO 25 (0-20); CALCIUM 7.2 MG/DL (8.5-10.1); CARBON DIOXIDE 21 MMOL/L (21-32); CHLORIDE 117 MMOL/L (98-107); CREATININE SERUM 0.64 MG/DL (0.60-1.30); GFR ESTIMATED > 60; GLUCOSE 90 MG/DL (70-105); LACTATE DEHYDROGENASE 225 U/L (125-220); POTASSIUM 3.2 MMOL/L (3.6-5.0); SODIUM 141 MMOL/L (135-145); TOTAL PROTEIN 4.5 GM/DL (6.4-8.2)
[2017-01-31 15:11] LABS: BASOPHILS # (AUTO) 0.1 10^3/uL (0.0-0.1); BASOPHILS % (AUTO) 1 % (0-10); EOSINOPHILS # (AUTO) 4.3 10^3/uL (0.0-0.3); EOSINOPHILS % (AUTO) 36 % (0-10); LYMPHOCYTES # (AUTO) 1.5 X 10^3 (1.0-4.0); LYMPHOCYTES % (AUTO) 12 % (12-44); MEAN CORPUSCULAR HEMOGLOBIN 33 PG (25-34); MEAN CORPUSCULAR HGB CONC 34 G/DL (32-36); MEAN CORPUSCULAR VOLUME 97 FL (80-99); MEAN PLATELET VOLUME 9.7 FL (7.4-10.4); MONOCYTES % (AUTO) 9 % (0-12); NEUTROPHILS # (AUTO) 5.1 X 10^3 (1.8-7.8); NEUTROPHILS % (AUTO) 43 % (42-75); PLATELET COUNT 258 10^3/uL (130-400); RED BLOOD COUNT 4.16 10^6/uL (4.35-5.85); RED CELL DISTRIBUTION WIDTH 13.4 % (10.0-14.5); WHITE BLOOD COUNT 12.1 10^3/uL (4.3-11.0)
[2017-01-31 15:25] LABS: ANION GAP 8 MMOL/L (5-14); BLOOD UREA NITROGEN 18 MG/DL (7-18); BUN/CREATININE RATIO 20 (0-20); CALCIUM 9.4 MG/DL (8.5-10.1); CARBON DIOXIDE 26 MMOL/L (21-32); CHLORIDE 109 MMOL/L (98-107); GFR ESTIMATED > 60; GLUCOSE 91 MG/DL (70-105); HEMOLYSIS 2 (-100-29); ICTERUS 0.1 (-100-1.9); LIPEMIA 93 (-100-49); POTASSIUM 4.5 MMOL/L (3.6-5.0); SODIUM 143 MMOL/L (135-145)
[2017-02-07 14:20] LABS: BASOPHILS # (AUTO) 0.1 10^3/uL (0.0-0.1); BASOPHILS % (AUTO) 1 % (0-10); EOSINOPHILS # (AUTO) 3.5 10^3/uL (0.0-0.3); EOSINOPHILS % (AUTO) 32 % (0-10); LYMPHOCYTES # (AUTO) 1.1 X 10^3 (1.0-4.0); LYMPHOCYTES % (AUTO) 11 % (12-44); MEAN CORPUSCULAR HEMOGLOBIN 33 PG (25-34); MEAN CORPUSCULAR HGB CONC 35 G/DL (32-36); MEAN CORPUSCULAR VOLUME 96 FL (80-99); MEAN PLATELET VOLUME 9.3 FL (7.4-10.4); MONOCYTES % (AUTO) 9 % (0-12); NEUTROPHILS # (AUTO) 5.1 X 10^3 (1.8-7.8); NEUTROPHILS % (AUTO) 47 % (42-75); PLATELET COUNT 235 10^3/uL (130-400); RED BLOOD COUNT 3.98 10^6/uL (4.35-5.85); RED CELL DISTRIBUTION WIDTH 13.5 % (10.0-14.5); WHITE BLOOD COUNT 10.8 10^3/uL (4.3-11.0)
[2017-02-07 14:41] LABS: ALANINE AMINOTRANSFERASE 27 U/L (0-55); ALBUMIN 3.4 GM/DL (3.2-4.5); ANION GAP 6 MMOL/L (5-14); ASPARTATE AMINO TRANSFERASE 31 U/L (5-34); BILIRUBIN,TOTAL 0.9 MG/DL (0.1-1.0); BLOOD UREA NITROGEN 18 MG/DL (7-18); BUN/CREATININE RATIO 24; CALCIUM 8.7 MG/DL (8.5-10.1); CARBON DIOXIDE 27 MMOL/L (21-32); CHLORIDE 107 MMOL/L (98-107); CREATININE SERUM 0.75 MG/DL (0.60-1.30); GFR ESTIMATED > 60; GLUCOSE 98 MG/DL (70-105); HEMOLYSIS 12 (-100-29); ICTERUS 0.8 (-100-1.9); LIPEMIA 20 (-100-49); POTASSIUM 4.2 MMOL/L (3.6-5.0); SODIUM 140 MMOL/L (135-145); TOTAL PROTEIN 5.8 GM/DL (6.4-8.2)
[2017-02-07 15:04] LABS: THYROID STIMULATING HORMONE 3.59 UIU/ML (0.35-4.94)
[2017-02-15 14:53] LABS: BASOPHILS # (AUTO) 0.1 10^3/uL (0.0-0.1); BASOPHILS % (AUTO) 1 % (0-10); EOSINOPHILS # (AUTO) 3.3 10^3/uL (0.0-0.3); EOSINOPHILS % (AUTO) 31 % (0-10); LYMPHOCYTES # (AUTO) 1.2 X 10^3 (1.0-4.0); LYMPHOCYTES % (AUTO) 11 % (12-44); MEAN CORPUSCULAR HEMOGLOBIN 34 PG (25-34); MEAN CORPUSCULAR HGB CONC 35 G/DL (32-36); MEAN CORPUSCULAR VOLUME 97 FL (80-99); MEAN PLATELET VOLUME 9.3 FL (7.4-10.4); MONOCYTES # (AUTO) 0.8 X 10^3 (0.0-1.0); MONOCYTES % (AUTO) 8 % (0-12); NEUTROPHILS # (AUTO) 5.2 X 10^3 (1.8-7.8); NEUTROPHILS % (AUTO) 49 % (42-75); PLATELET COUNT 225 10^3/uL (130-400); RED CELL DISTRIBUTION WIDTH 13.5 % (10.0-14.5); WHITE BLOOD COUNT 10.6 10^3/uL (4.3-11.0)
[2017-02-15 15:51] LABS: ANION GAP 7 MMOL/L (5-14); BLOOD UREA NITROGEN 22 MG/DL (7-18); BUN/CREATININE RATIO 27; CALCIUM 9.1 MG/DL (8.5-10.1); CARBON DIOXIDE 26 MMOL/L (21-32); CHLORIDE 108 MMOL/L (98-107); CREATININE SERUM 0.82 MG/DL (0.60-1.30); GFR ESTIMATED > 60; GLUCOSE 87 MG/DL (70-105); POTASSIUM 4.8 MMOL/L (3.6-5.0); SODIUM 141 MMOL/L (135-145)
[2017-02-21 14:23] LABS: BASOPHILS # (AUTO) 0.1 10^3/uL (0.0-0.1); BASOPHILS % (AUTO) 1 % (0-10); EOSINOPHILS # (AUTO) 2.3 10^3/uL (0.0-0.3); EOSINOPHILS % (AUTO) 26 % (0-10); LYMPHOCYTES # (AUTO) 1.1 X 10^3 (1.0-4.0); LYMPHOCYTES % (AUTO) 13 % (12-44); MEAN CORPUSCULAR HEMOGLOBIN 33 PG (25-34); MEAN CORPUSCULAR HGB CONC 34 G/DL (32-36); MEAN CORPUSCULAR VOLUME 97 FL (80-99); MEAN PLATELET VOLUME 9.7 FL (7.4-10.4); MONOCYTES # (AUTO) 0.7 X 10^3 (0.0-1.0); MONOCYTES % (AUTO) 9 % (0-12); NEUTROPHILS # (AUTO) 4.4 X 10^3 (1.8-7.8); NEUTROPHILS % (AUTO) 52 % (42-75); PLATELET COUNT 208 10^3/uL (130-400); RED BLOOD COUNT 4.09 10^6/uL (4.35-5.85); WHITE BLOOD COUNT 8.5 10^3/uL (4.3-11.0)
[2017-02-21 14:46] LABS: ALANINE AMINOTRANSFERASE 20 U/L (0-55); ALBUMIN 3.7 GM/DL (3.2-4.5); ANION GAP 6 MMOL/L (5-14); ASPARTATE AMINO TRANSFERASE 26 U/L (5-34); BILIRUBIN,TOTAL 0.9 MG/DL (0.1-1.0); BLOOD UREA NITROGEN 16 MG/DL (7-18); BUN/CREATININE RATIO 19; CARBON DIOXIDE 25 MMOL/L (21-32); CHLORIDE 109 MMOL/L (98-107); CREATININE SERUM 0.84 MG/DL (0.60-1.30); GFR ESTIMATED > 60; GLUCOSE 109 MG/DL (70-105); MAGNESIUM 2.1 MG/DL (1.8-2.4); POTASSIUM 4.4 MMOL/L (3.6-5.0); SODIUM 140 MMOL/L (135-145); TOTAL PROTEIN 6.8 GM/DL (6.4-8.2)
[2017-02-21 15:07] LABS: THYROID STIMULATING HORMONE 4.96 UIU/ML (0.35-4.94)
[2017-02-28 10:28] LABS: BASOPHILS % (AUTO) 0 % (0-10); EOSINOPHILS # (AUTO) 2.2 10^3/uL (0.0-0.3); EOSINOPHILS % (AUTO) 24 % (0-10); LYMPHOCYTES % (AUTO) 11 % (12-44); MEAN CORPUSCULAR HEMOGLOBIN 33 PG (25-34); MEAN CORPUSCULAR HGB CONC 34 G/DL (32-36); MEAN CORPUSCULAR VOLUME 97 FL (80-99); MEAN PLATELET VOLUME 9.3 FL (7.4-10.4); MONOCYTES # (AUTO) 0.9 X 10^3 (0.0-1.0); MONOCYTES % (AUTO) 10 % (0-12); NEUTROPHILS # (AUTO) 5.2 X 10^3 (1.8-7.8); NEUTROPHILS % (AUTO) 56 % (42-75); PLATELET COUNT 226 10^3/uL (130-400); RED BLOOD COUNT 4.07 10^6/uL (4.35-5.85); WHITE BLOOD COUNT 9.3 10^3/uL (4.3-11.0)
[2017-02-28 11:05] LABS: ANION GAP 7 MMOL/L (5-14); BLOOD UREA NITROGEN 17 MG/DL (7-18); BUN/CREATININE RATIO 20; CALCIUM 9.3 MG/DL (8.5-10.1); CARBON DIOXIDE 27 MMOL/L (21-32); CHLORIDE 106 MMOL/L (98-107); CREATININE SERUM 0.85 MG/DL (0.60-1.30); GFR ESTIMATED > 60; GLUCOSE 95 MG/DL (70-105); POTASSIUM 4.4 MMOL/L (3.6-5.0); SODIUM 140 MMOL/L (135-145)
[~2017-03-08] VITALS: Ht 181.6 cm; Wt 64.0 kg
[~2017-03-08 13:53] MED LIST changes: -BARIUM SUSPENSION 2.1% (VANILLA SILQ) 450 ML PO ONE; -CATHETER FLUSH 10 ML SYR IV PRN; -IOHEXOL 350 MG/ML 100 ML (OMNIPAQUE 350) VIAL IV ONE; +NIVOLUMAB 200 MG, NIVOLUMAB 40 MG in NS (IVPB) CANCER CENTER 50 ML IV SCH; -NS 100 ML (IVPB) BAG IV ONE
[2017-03-08 14:26] LABS: BASOPHILS # (AUTO) 0.1 10^3/uL (0.0-0.1); BASOPHILS % (AUTO) 1 % (0-10); EOSINOPHILS # (AUTO) 1.7 10^3/uL (0.0-0.3); EOSINOPHILS % (AUTO) 18 % (0-10); LYMPHOCYTES # (AUTO) 1.3 X 10^3 (1.0-4.0); LYMPHOCYTES % (AUTO) 14 % (12-44); MEAN CORPUSCULAR HEMOGLOBIN 33 PG (25-34); MEAN CORPUSCULAR HGB CONC 34 G/DL (32-36); MEAN CORPUSCULAR VOLUME 97 FL (80-99); MEAN PLATELET VOLUME 9.7 FL (7.4-10.4); MONOCYTES # (AUTO) 0.9 X 10^3 (0.0-1.0); MONOCYTES % (AUTO) 9 % (0-12); NEUTROPHILS # (AUTO) 5.5 X 10^3 (1.8-7.8); NEUTROPHILS % (AUTO) 58 % (42-75); PLATELET COUNT 251 10^3/uL (130-400); RED BLOOD COUNT 4.21 10^6/uL (4.35-5.85); WHITE BLOOD COUNT 9.4 10^3/uL (4.3-11.0)
[2017-03-08 15:00] LABS: ALANINE AMINOTRANSFERASE 18 U/L (0-55); ALBUMIN 3.8 GM/DL (3.2-4.5); ANION GAP 4 MMOL/L (5-14); ASPARTATE AMINO TRANSFERASE 21 U/L (5-34); BILIRUBIN,TOTAL 0.9 MG/DL (0.1-1.0); BLOOD UREA NITROGEN 19 MG/DL (7-18); BUN/CREATININE RATIO 24; CALCIUM 9.2 MG/DL (8.5-10.1); CARBON DIOXIDE 28 MMOL/L (21-32); CHLORIDE 108 MMOL/L (98-107); GFR ESTIMATED > 60; GLUCOSE 101 MG/DL (70-105); LACTATE DEHYDROGENASE 186 U/L (125-220); POTASSIUM 4.2 MMOL/L (3.6-5.0); SODIUM 140 MMOL/L (135-145); TOTAL PROTEIN 6.9 GM/DL (6.4-8.2)
[2017-03-08 15:21] LABS: THYROID STIMULATING HORMONE 4.14 UIU/ML (0.35-4.94)
== END 2017-03-15 16:23 | disposition home or self-care (01) ==
LOC: ONC 13:53
PROVIDERS: ATTEND Internal Medicine Hematology & Oncology
DX: Z51.11 Encounter for antineoplastic chemotherapy (principal); C43.62 Malignant melanoma of left upper limb, including shoulder; C77.3 Secondary and unspecified malignant neoplasm of axilla and upper limb lymph nodes; D22.5 Melanocytic nevi of trunk; F41.9 Anxiety disorder, unspecified; K08.89 Other specified disorders of teeth and supporting structures; Z79.899 Other long term (current) drug therapy
CPT/HCPCS: 36415; 80048; 80053; 83615; 83735; 84439; 84443; 85025; 96413

== ENCOUNTER 2017-05-02 10:09 | Outpatient (CLI) | payer MEDICARE, OTHER ==
[~2017-05-02] VITALS: Ht 182.9 cm; Wt 66.9 kg
[~2017-05-02 10:09] MED LIST changes: -NIVOLUMAB 200 MG, NIVOLUMAB 40 MG in NS (IVPB) CANCER CENTER 50 ML IV SCH
== END 2017-05-02 10:43 ==
LOC: PREOP 10:09
PROVIDERS: ATTEND Surgery
DX: Z01.818 Encounter for other preprocedural examination (principal); L98.9 Disorder of the skin and subcutaneous tissue, unspecified; Z85.820 Personal history of malignant melanoma of skin

== ENCOUNTER 2017-05-02 14:16 | Outpatient (RCR) | payer MEDICARE, OTHER ==
[2017-03-21 11:09] LABS: BASOPHILS # (AUTO) 0.1 10^3/uL (0.0-0.1); BASOPHILS % (AUTO) 1 % (0-10); EOSINOPHILS # (AUTO) 1.3 10^3/uL (0.0-0.3); EOSINOPHILS % (AUTO) 14 % (0-10); LYMPHOCYTES # (AUTO) 1.3 X 10^3 (1.0-4.0); LYMPHOCYTES % (AUTO) 13 % (12-44); MEAN CORPUSCULAR HEMOGLOBIN 33 PG (25-34); MEAN CORPUSCULAR HGB CONC 34 G/DL (32-36); MEAN CORPUSCULAR VOLUME 96 FL (80-99); MEAN PLATELET VOLUME 9.5 FL (7.4-10.4); MONOCYTES % (AUTO) 10 % (0-12); NEUTROPHILS # (AUTO) 5.7 X 10^3 (1.8-7.8); NEUTROPHILS % (AUTO) 61 % (42-75); PLATELET COUNT 228 10^3/uL (130-400); RED BLOOD COUNT 4.11 10^6/uL (4.35-5.85); RED CELL DISTRIBUTION WIDTH 12.6 % (10.0-14.5); WHITE BLOOD COUNT 9.4 10^3/uL (4.3-11.0)
[2017-03-21 11:37] LABS: ALANINE AMINOTRANSFERASE 15 U/L (0-55); ALBUMIN 3.8 GM/DL (3.2-4.5); ANION GAP 9 MMOL/L (5-14); ASPARTATE AMINO TRANSFERASE 22 U/L (5-34); BILIRUBIN,TOTAL 0.8 MG/DL (0.1-1.0); BLOOD UREA NITROGEN 18 MG/DL (7-18); BUN/CREATININE RATIO 22; CALCIUM 9.3 MG/DL (8.5-10.1); CARBON DIOXIDE 25 MMOL/L (21-32); CHLORIDE 106 MMOL/L (98-107); CREATININE SERUM 0.83 MG/DL (0.60-1.30); GFR ESTIMATED > 60; GLUCOSE 94 MG/DL (70-105); LACTATE DEHYDROGENASE 184 U/L (125-220); POTASSIUM 4.3 MMOL/L (3.6-5.0); SODIUM 140 MMOL/L (135-145); TOTAL PROTEIN 6.8 GM/DL (6.4-8.2)
[2017-04-03 14:09] LABS: BASOPHILS # (AUTO) 0.1 10^3/uL (0.0-0.1); BASOPHILS % (AUTO) 1 % (0-10); EOSINOPHILS # (AUTO) 0.9 10^3/uL (0.0-0.3); EOSINOPHILS % (AUTO) 11 % (0-10); LYMPHOCYTES # (AUTO) 1.2 X 10^3 (1.0-4.0); LYMPHOCYTES % (AUTO) 15 % (12-44); MEAN CORPUSCULAR HEMOGLOBIN 32 PG (25-34); MEAN CORPUSCULAR HGB CONC 34 G/DL (32-36); MEAN CORPUSCULAR VOLUME 94 FL (80-99); MEAN PLATELET VOLUME 9.7 FL (7.4-10.4); MONOCYTES # (AUTO) 0.9 X 10^3 (0.0-1.0); MONOCYTES % (AUTO) 12 % (0-12); NEUTROPHILS % (AUTO) 62 % (42-75); PLATELET COUNT 225 10^3/uL (130-400); RED BLOOD COUNT 4.07 10^6/uL (4.35-5.85); RED CELL DISTRIBUTION WIDTH 12.7 % (10.0-14.5); WHITE BLOOD COUNT 8.1 10^3/uL (4.3-11.0)
[2017-04-03 14:38] LABS: ALANINE AMINOTRANSFERASE 18 U/L (0-55); ALBUMIN 3.6 GM/DL (3.2-4.5); ANION GAP 7 MMOL/L (5-14); ASPARTATE AMINO TRANSFERASE 23 U/L (5-34); BILIRUBIN,TOTAL 0.6 MG/DL (0.1-1.0); BLOOD UREA NITROGEN 20 MG/DL (7-18); BUN/CREATININE RATIO 25; CALCIUM 8.9 MG/DL (8.5-10.1); CARBON DIOXIDE 25 MMOL/L (21-32); CHLORIDE 107 MMOL/L (98-107); CREATININE SERUM 0.79 MG/DL (0.60-1.30); GFR ESTIMATED > 60; GLUCOSE 103 MG/DL (70-105); LACTATE DEHYDROGENASE 193 U/L (125-220); MAGNESIUM 1.7 MG/DL (1.8-2.4); POTASSIUM 4.1 MMOL/L (3.6-5.0); SODIUM 139 MMOL/L (135-145); TOTAL PROTEIN 6.2 GM/DL (6.4-8.2)
[2017-04-18 14:57] LABS: BASOPHILS % (AUTO) 1 % (0-10); EOSINOPHILS # (AUTO) 0.5 10^3/uL (0.0-0.3); EOSINOPHILS % (AUTO) 7 % (0-10); LYMPHOCYTES # (AUTO) 1.5 X 10^3 (1.0-4.0); LYMPHOCYTES % (AUTO) 20 % (12-44); MEAN CORPUSCULAR HEMOGLOBIN 32 PG (25-34); MEAN CORPUSCULAR HGB CONC 34 G/DL (32-36); MEAN CORPUSCULAR VOLUME 93 FL (80-99); MEAN PLATELET VOLUME 9.6 FL (7.4-10.4); MONOCYTES # (AUTO) 0.8 X 10^3 (0.0-1.0); MONOCYTES % (AUTO) 10 % (0-12); NEUTROPHILS # (AUTO) 4.8 X 10^3 (1.8-7.8); NEUTROPHILS % (AUTO) 63 % (42-75); PLATELET COUNT 231 10^3/uL (130-400); RED BLOOD COUNT 4.24 10^6/uL (4.35-5.85); RED CELL DISTRIBUTION WIDTH 12.2 % (10.0-14.5); WHITE BLOOD COUNT 7.7 10^3/uL (4.3-11.0)
[2017-04-18 15:19] LABS: ALANINE AMINOTRANSFERASE 18 U/L (0-55); ALBUMIN 3.8 GM/DL (3.2-4.5); ANION GAP 9 MMOL/L (5-14); ASPARTATE AMINO TRANSFERASE 27 U/L (5-34); BLOOD UREA NITROGEN 16 MG/DL (7-18); BUN/CREATININE RATIO 17; CALCIUM 9.1 MG/DL (8.5-10.1); CARBON DIOXIDE 23 MMOL/L (21-32); CHLORIDE 108 MMOL/L (98-107); CREATININE SERUM 0.94 MG/DL (0.60-1.30); GFR ESTIMATED > 60; GLUCOSE 99 MG/DL (70-105); LACTATE DEHYDROGENASE 221 U/L (125-220); POTASSIUM 4.1 MMOL/L (3.6-5.0); SODIUM 140 MMOL/L (135-145); TOTAL PROTEIN 6.9 GM/DL (6.4-8.2)
[~2017-05-02 14:16] MED LIST changes: +NIVOLUMAB 200 MG, NIVOLUMAB 40 MG in NS (IVPB) CANCER CENTER 50 ML IV SCH
[2017-05-02 14:35] LABS: BASOPHILS % (AUTO) 1 % (0-10); EOSINOPHILS # (AUTO) 0.4 10^3/uL (0.0-0.3); EOSINOPHILS % (AUTO) 6 % (0-10); LYMPHOCYTES # (AUTO) 1.3 X 10^3 (1.0-4.0); LYMPHOCYTES % (AUTO) 19 % (12-44); MEAN CORPUSCULAR HEMOGLOBIN 31 PG (25-34); MEAN CORPUSCULAR HGB CONC 34 G/DL (32-36); MEAN CORPUSCULAR VOLUME 93 FL (80-99); MEAN PLATELET VOLUME 9.6 FL (7.4-10.4); MONOCYTES # (AUTO) 0.7 X 10^3 (0.0-1.0); MONOCYTES % (AUTO) 11 % (0-12); NEUTROPHILS # (AUTO) 4.3 X 10^3 (1.8-7.8); NEUTROPHILS % (AUTO) 64 % (42-75); PLATELET COUNT 232 10^3/uL (130-400); RED BLOOD COUNT 4.41 10^6/uL (4.35-5.85); RED CELL DISTRIBUTION WIDTH 12.6 % (10.0-14.5); WHITE BLOOD COUNT 6.7 10^3/uL (4.3-11.0)
[2017-05-02 15:05] LABS: ALANINE AMINOTRANSFERASE 19 U/L (0-55); ALBUMIN 3.9 GM/DL (3.2-4.5); ANION GAP 7 MMOL/L (5-14); ASPARTATE AMINO TRANSFERASE 24 U/L (5-34); BILIRUBIN,TOTAL 1.1 MG/DL (0.1-1.0); BLOOD UREA NITROGEN 21 MG/DL (7-18); BUN/CREATININE RATIO 25; CARBON DIOXIDE 23 MMOL/L (21-32); CHLORIDE 108 MMOL/L (98-107); CREATININE SERUM 0.85 MG/DL (0.60-1.30); GFR ESTIMATED > 60; GLUCOSE 104 MG/DL (70-105); LACTATE DEHYDROGENASE 207 U/L (125-220); POTASSIUM 4.3 MMOL/L (3.6-5.0); SODIUM 138 MMOL/L (135-145); TOTAL PROTEIN 6.3 GM/DL (6.4-8.2)
[2017-05-02 15:26] LABS: THYROID STIMULATING HORMONE 3.78 UIU/ML (0.35-4.94)
[2017-05-05] MEDS ORDERED: TRAM50TA2 PO (10:53)
== END 2017-05-11 13:24 | disposition home or self-care (01) ==
LOC: ONC 14:16
PROVIDERS: ATTEND Internal Medicine Hematology & Oncology
DX: Z51.11 Encounter for antineoplastic chemotherapy (principal); C43.62 Malignant melanoma of left upper limb, including shoulder; C77.3 Secondary and unspecified malignant neoplasm of axilla and upper limb lymph nodes; D22.5 Melanocytic nevi of trunk; F41.9 Anxiety disorder, unspecified; K08.89 Other specified disorders of teeth and supporting structures; Z79.899 Other long term (current) drug therapy
CPT/HCPCS: 36415; 80053; 83615; 83735; 84443; 85025; 96413

== ENCOUNTER 2017-05-05 08:41 | Day surgery (SDC) | payer MEDICARE, OTHER ==
[~2017-05-05] VITALS: Ht 182.9 cm; Wt 66.9 kg
[~2017-05-05 08:41] MED LIST changes: -NIVOLUMAB 200 MG, NIVOLUMAB 40 MG in NS (IVPB) CANCER CENTER 50 ML IV SCH
[2017-05-05 09:05] VITALS: BP 167/97
--- NOTE | 2017-05-05 09:06 | Progress Note-Pre Operative ---
Pre-Operative Progress Note H&P Reviewed The H&P was reviewed, patient examined and no changes noted. Date Seen by Provider: Apr 27, 2017 Time Seen by Provider: 12:50 Date H&P Reviewed: May 05, 2017 Time H&P Reviewed: 09:06 Pre-Operative Diagnosis: Skin lesions*5 JAMIE NGUYEN MD May 05, 2017 9:06 am
[2017-05-05] MEDS ORDERED: ceFAZolin 1 GM/NS 50 ML IVPB IV ONE ×2 (09:15)
[2017-05-05] MEDS ORDERED: LACTATED RINGERS 1,000 ML IV PRN (09:37)
[2017-05-05] MEDS ORDERED: MIDAZOLAM 2 MG/2 ML (VERSED) VIAL ONE (09:42)
[2017-05-05] MEDS ORDERED: fentaNYL INJECTION 100 MCG/2 ML AMP ONE (09:44)
[2017-05-05] MEDS ORDERED: proPOfol 200 MG/20 ML (DIPRIVAN) VIAL IV ONE (09:46)
--- NOTE | 2017-05-05 10:52 | Operative Report ---
Operative Report Date of Procedure/Surgery May 05, 2017 Surgeon (s) JAMIE NGUYEN MD Bike Mechanic (s): not applicable Post-Operative Diagnosis 1 cm skin lesions, right popliteal region, left lateral thigh and left scapular region(3) Procedure Performed excision of 1 cm skin lesions 5 Description of Procedure Anesthesia Type: MAC Estimated blood loss (mL): minimal Specimen(s) collected/removed skin lesions 5 Description of the Procedure indication for the procedure: This gentleman has been managed for metastatic melanoma involving his left upper extremity. He was found to have a total of 4 pigmented lesions, a centimeter each, involving the right popliteal region, left lateral thigh and 2 lesions over the left scapular region. During the immediate preoperative assessment, he requested sedation of an itchy lesion over the left scapular region and I agreed to do so. Informed consent was obtained after reviewing the procedures in detail. Description of the procedure initially, he was placed supine on the operative table and our MICROFILMER administered a very small dose of sedation by the patient's request. A gram of Ancef was administered intravenously as prophylaxis against wound infection 1. Excision of lesion right popliteal region: After adequate antiseptic preparation, local anesthesia was achieved using 0.5 percent Marcaine with epinephrine. An elliptical incision 2 cm x 1 cm was made and the lesion excised down to the subcutaneous tissue. The defect was closed using 4-0 nylon , and a continuous fashion. 2. Excision of lesion left lateral thigh: A similar excision was performed, after making an incision 2 cm long by 1 cm in width over the left lateral thigh. The defect was closed using 4-0 nylon, in an interrupted fashion 3. Excision of lesions 3left scapular region: He was placed in right lateral decubitus position to achieve optimal exposure of the involved region. Local anesthesia was achieved using 0.5 percent Marcaine with epinephrine. Each of the 3 lesions was excised by making an incision 2 cm long by 1 cm wide, the defect being closed with 5-0 nylon sutures, and an interrupted fashion He tolerated the procedures well and was taken to the recovery room in a stable condition. Findings of the Procedure see operative report Allergies and Home Medications Allergies Coded Allergies: epinephrine (Verified Allergy, Unknown, 10/28/15) epinephrine HCl (Verified Allergy, Unknown, 10/28/15) lidocaine (Unverified Allergy, Unknown, 10/28/15) Home Medications Multivitamin 1 Each Tablet, 1 TAB PO DAILY, (Reported) Ryegate 3 Polyunsat Fatty Acids 1,000 Mg Cap, 1,000 MG PO DAILY, (Reported) JAMIE NGUYEN MD May 05, 2017 10:52 am
[2017-05-05] MEDS ORDERED: TRAM50TA2 PO (10:53)
--- NOTE | 2017-05-05 10:54 | Discharge Inst-Simple/Standard ---
Discharge Inst-Standard Discharge Medications New, Converted or Re-Newed RX: RX on Chart Patient Instructions/Follow Up Plan of Care/Instructions/FU: dressings off in 48 hours. Follow-up with my nurse in 10 days for suture removal Activity as Tolerated: Yes Discharge Diet: No Restrictions JAMIE NGUYEN MD May 05, 2017 10:54 am
[2017-05-05 11:25] VITALS: BP 124/67
[2017-05-05 11:55] VITALS: BP 117/69
[2017-05-05 12:15] VITALS: BP 117/69
== END 2017-05-05 12:30 | disposition home or self-care (01) ==
LOC: SDC 08:41
PROVIDERS: ATTEND Surgery
DX: D23.71 Other benign neoplasm of skin of right lower limb, including hip (principal); L82.1 Other seborrheic keratosis; L57.0 Actinic keratosis; Z85.820 Personal history of malignant melanoma of skin
CPT/HCPCS: 87081

== ENCOUNTER → 2017-06-08 | Outpatient (CLI) | payer MEDICARE, OTHER ==
[~2017-06-08] MED LIST changes: +BARIUM SUSPENSION 2.1% (VANILLA SILQ) 450 ML PO ONE; +CATHETER FLUSH 10 ML SYR IV PRN; +IOHEXOL 350 MG/ML 100 ML (OMNIPAQUE 350) VIAL IV ONE; +NS 100 ML (IVPB) BAG IV ONE
--- NOTE | 2017-06-08 16:47 | Diagnostic Imaging Report ---
Whole body bone scan. Technique: After the intravenous administration of 25 mCi of Technetium 99m MDP, whole body delayed phase bone scan images were obtained with lateral views of the head and neck and the chest regions. INDICATION: Malignant melanoma. FINDINGS: There is normal distribution of the tracer in the osseous structures. Mild degenerative changes in the shoulders, SI joints, and knees and ankles are seen. There is renal and urinary bladder excretion noted with no suspicious foci of significant increased activity seen to suggest bone metastasis. IMPRESSION: No scintigraphic evidence of osseous metastasis. Dictated by: Dictated on workstation # [id number]
--- NOTE | 2017-06-08 18:43 | Diagnostic Imaging Report ---
PROCEDURE: CT chest, abdomen, and pelvis with contrast. TECHNIQUE: Multiple contiguous axial images were obtained through the chest, abdomen, and pelvis after the administration of intravenous contrast. INDICATION: Melanoma. 100 mL of Omnipaque-350 was administered intravenously. FINDINGS: CT chest: The lungs demonstrate no significant consolidation, mass or suspicious nodule. The heart size is normal. No pericardial or pleural effusion. The thoracic aorta is normal in caliber. No mediastinal mass or significantly enlarged lymph node is seen. No hilar lymphadenopathy seen. Surgical clips in the left axilla are noted. Mild stranding of the fat in left axilla is seen, probably related to scarring. The osseous structures appear grossly unremarkable. CT abdomen and pelvis: The liver, the gallbladder, the spleen, the pancreas and adrenal glands appear unremarkable. The kidneys have symmetric enhancement and excretion. There is no hydronephrosis. The abdominal aorta is normal in caliber. No para-aortic significantly enlarged lymph node is seen. There is no pelvic mass. The urinary bladder appears unremarkable. The prostate is 4.9 cm in transverse dimension. Minimally enlarged. The osseous structures demonstrate fusion of the SI joints. IMPRESSION: CT chest: Surgical clips in the left axilla. No evidence of metastasis. CT of the abdomen and pelvis: No evidence of metastasis. Dictated by: Dictated on workstation # [id number]
== END ==
LOC: CARD 10:50
PROVIDERS: ATTEND Internal Medicine Hematology & Oncology
DX: C43.62 Malignant melanoma of left upper limb, including shoulder (principal); C77.9 Secondary and unspecified malignant neoplasm of lymph node, unspecified
CPT/HCPCS: 71260; 74177; 78306

== ENCOUNTER 2017-08-09 13:43 | Outpatient (RCR) | payer MEDICARE, OTHER ==
[2017-05-16 15:25] LABS: BASOPHILS % (AUTO) 1 % (0-10); EOSINOPHILS # (AUTO) 0.3 10^3/uL (0.0-0.3); EOSINOPHILS % (AUTO) 5 % (0-10); HEMATOCRIT 38 % (40-54); HEMOGLOBIN 13.1 G/DL (13.3-17.7); LYMPHOCYTES # (AUTO) 1.1 X 10^3 (1.0-4.0); LYMPHOCYTES % (AUTO) 18 % (12-44); MEAN CORPUSCULAR HEMOGLOBIN 32 PG (25-34); MEAN CORPUSCULAR HGB CONC 34 G/DL (32-36); MEAN CORPUSCULAR VOLUME 93 FL (80-99); MEAN PLATELET VOLUME 9.8 FL (7.4-10.4); MONOCYTES # (AUTO) 0.7 X 10^3 (0.0-1.0); MONOCYTES % (AUTO) 11 % (0-12); NEUTROPHILS # (AUTO) 3.9 X 10^3 (1.8-7.8); NEUTROPHILS % (AUTO) 66 % (42-75); PLATELET COUNT 226 10^3/uL (130-400); RED BLOOD COUNT 4.12 10^6/uL (4.35-5.85); RED CELL DISTRIBUTION WIDTH 12.5 % (10.0-14.5)
[2017-05-16 15:47] LABS: ALANINE AMINOTRANSFERASE 17 U/L (0-55); ALBUMIN 3.7 GM/DL (3.2-4.5); ALKALINE PHOSPHATASE 56 U/L (40-136); BILIRUBIN,TOTAL 0.8 MG/DL (0.1-1.0); BUN/CREATININE RATIO 26; CALCIUM 8.9 MG/DL (8.5-10.1); CARBON DIOXIDE 25 MMOL/L (21-32); CHLORIDE 110 MMOL/L (98-107); CREATININE SERUM 0.82 MG/DL (0.60-1.30); GFR ESTIMATED > 60; GLUCOSE 126 MG/DL (70-105); POTASSIUM 4.2 MMOL/L (3.6-5.0); SODIUM 141 MMOL/L (135-145); TOTAL PROTEIN 6.7 GM/DL (6.4-8.2)
[2017-05-30 15:21] LABS: BASOPHILS % (AUTO) 1 % (0-10); EOSINOPHILS # (AUTO) 0.2 10^3/uL (0.0-0.3); EOSINOPHILS % (AUTO) 2 % (0-10); HEMATOCRIT 40 % (40-54); HEMOGLOBIN 13.4 G/DL (13.3-17.7); LYMPHOCYTES % (AUTO) 16 % (12-44); MEAN CORPUSCULAR HEMOGLOBIN 31 PG (25-34); MEAN CORPUSCULAR HGB CONC 34 G/DL (32-36); MEAN CORPUSCULAR VOLUME 92 FL (80-99); MEAN PLATELET VOLUME 9.8 FL (7.4-10.4); MONOCYTES # (AUTO) 0.8 X 10^3 (0.0-1.0); MONOCYTES % (AUTO) 12 % (0-12); NEUTROPHILS # (AUTO) 4.5 X 10^3 (1.8-7.8); NEUTROPHILS % (AUTO) 69 % (42-75); PLATELET COUNT 246 10^3/uL (130-400); RED BLOOD COUNT 4.31 10^6/uL (4.35-5.85); RED CELL DISTRIBUTION WIDTH 12.6 % (10.0-14.5); WHITE BLOOD COUNT 6.5 10^3/uL (4.3-11.0)
[2017-05-30 15:41] LABS: ALANINE AMINOTRANSFERASE 16 U/L (0-55); ALBUMIN 3.9 GM/DL (3.2-4.5); ALKALINE PHOSPHATASE 66 U/L (40-136); BILIRUBIN,TOTAL 1.1 MG/DL (0.1-1.0); BUN/CREATININE RATIO 22; CALCIUM 9.3 MG/DL (8.5-10.1); CARBON DIOXIDE 24 MMOL/L (21-32); CHLORIDE 109 MMOL/L (98-107); CREATININE SERUM 0.96 MG/DL (0.60-1.30); GFR ESTIMATED > 60; GLUCOSE 110 MG/DL (70-105); POTASSIUM 4.2 MMOL/L (3.6-5.0); SODIUM 142 MMOL/L (135-145); TOTAL PROTEIN 7.2 GM/DL (6.4-8.2)
[2017-06-13 15:19] LABS: BASOPHILS % (AUTO) 1 % (0-10); EOSINOPHILS # (AUTO) 0.1 10^3/uL (0.0-0.3); EOSINOPHILS % (AUTO) 2 % (0-10); HEMATOCRIT 39 % (40-54); HEMOGLOBIN 13.5 G/DL (13.3-17.7); LYMPHOCYTES # (AUTO) 0.9 X 10^3 (1.0-4.0); LYMPHOCYTES % (AUTO) 13 % (12-44); MEAN CORPUSCULAR HEMOGLOBIN 32 PG (25-34); MEAN CORPUSCULAR HGB CONC 35 G/DL (32-36); MEAN CORPUSCULAR VOLUME 92 FL (80-99); MONOCYTES # (AUTO) 0.6 X 10^3 (0.0-1.0); MONOCYTES % (AUTO) 9 % (0-12); NEUTROPHILS # (AUTO) 4.8 X 10^3 (1.8-7.8); NEUTROPHILS % (AUTO) 76 % (42-75); PLATELET COUNT 229 10^3/uL (130-400); RED BLOOD COUNT 4.26 10^6/uL (4.35-5.85); RED CELL DISTRIBUTION WIDTH 12.7 % (10.0-14.5); WHITE BLOOD COUNT 6.4 10^3/uL (4.3-11.0)
[2017-06-13 15:41] LABS: ALANINE AMINOTRANSFERASE 16 U/L (0-55); ALBUMIN 3.8 GM/DL (3.2-4.5); ALKALINE PHOSPHATASE 61 U/L (40-136); BILIRUBIN,TOTAL 0.8 MG/DL (0.1-1.0); BUN/CREATININE RATIO 25; CALCIUM 8.9 MG/DL (8.5-10.1); CARBON DIOXIDE 23 MMOL/L (21-32); CHLORIDE 107 MMOL/L (98-107); CREATININE SERUM 0.79 MG/DL (0.60-1.30); GFR ESTIMATED > 60; GLUCOSE 108 MG/DL (70-105); POTASSIUM 4.1 MMOL/L (3.6-5.0); SODIUM 140 MMOL/L (135-145); TOTAL PROTEIN 6.7 GM/DL (6.4-8.2)
[2017-06-27 15:13] LABS: BASOPHILS # (AUTO) 0.1 10^3/uL (0.0-0.1); BASOPHILS % (AUTO) 1 % (0-10); EOSINOPHILS # (AUTO) 0.2 10^3/uL (0.0-0.3); EOSINOPHILS % (AUTO) 3 % (0-10); HEMATOCRIT 41 % (40-54); HEMOGLOBIN 14.1 G/DL (13.3-17.7); LYMPHOCYTES % (AUTO) 16 % (12-44); MEAN CORPUSCULAR HEMOGLOBIN 32 PG (25-34); MEAN CORPUSCULAR HGB CONC 35 G/DL (32-36); MEAN CORPUSCULAR VOLUME 91 FL (80-99); MEAN PLATELET VOLUME 9.7 FL (7.4-10.4); MONOCYTES # (AUTO) 0.7 X 10^3 (0.0-1.0); MONOCYTES % (AUTO) 10 % (0-12); NEUTROPHILS # (AUTO) 4.5 X 10^3 (1.8-7.8); NEUTROPHILS % (AUTO) 70 % (42-75); PLATELET COUNT 237 10^3/uL (130-400); RED BLOOD COUNT 4.43 10^6/uL (4.35-5.85); RED CELL DISTRIBUTION WIDTH 12.8 % (10.0-14.5); WHITE BLOOD COUNT 6.4 10^3/uL (4.3-11.0)
[2017-06-27 15:33] LABS: ALANINE AMINOTRANSFERASE 18 U/L (0-55); ALBUMIN 3.8 GM/DL (3.2-4.5); ALKALINE PHOSPHATASE 70 U/L (40-136); BILIRUBIN,TOTAL 0.8 MG/DL (0.1-1.0); BUN/CREATININE RATIO 27; CALCIUM 9.2 MG/DL (8.5-10.1); CARBON DIOXIDE 25 MMOL/L (21-32); CHLORIDE 108 MMOL/L (98-107); CREATININE SERUM 0.84 MG/DL (0.60-1.30); GFR ESTIMATED > 60; GLUCOSE 115 MG/DL (70-105); POTASSIUM 4.1 MMOL/L (3.6-5.0); SODIUM 140 MMOL/L (135-145); TOTAL PROTEIN 6.8 GM/DL (6.4-8.2)
[2017-07-11 15:07] LABS: BASOPHILS % (AUTO) 0 % (0-10); EOSINOPHILS # (AUTO) 0.1 10^3/uL (0.0-0.3); EOSINOPHILS % (AUTO) 0 % (0-10); HEMATOCRIT 38 % (40-54); HEMOGLOBIN 13.3 G/DL (13.3-17.7); LYMPHOCYTES % (AUTO) 9 % (12-44); MEAN CORPUSCULAR HEMOGLOBIN 32 PG (25-34); MEAN CORPUSCULAR HGB CONC 35 G/DL (32-36); MEAN CORPUSCULAR VOLUME 92 FL (80-99); MEAN PLATELET VOLUME 9.9 FL (7.4-10.4); MONOCYTES # (AUTO) 1.5 X 10^3 (0.0-1.0); MONOCYTES % (AUTO) 12 % (0-12); NEUTROPHILS # (AUTO) 9.7 X 10^3 (1.8-7.8); NEUTROPHILS % (AUTO) 79 % (42-75); PLATELET COUNT 224 10^3/uL (130-400); RED BLOOD COUNT 4.18 10^6/uL (4.35-5.85); RED CELL DISTRIBUTION WIDTH 12.8 % (10.0-14.5); WHITE BLOOD COUNT 12.2 10^3/uL (4.3-11.0)
[2017-07-11 15:25] LABS: ALANINE AMINOTRANSFERASE 22 U/L (0-55); ALBUMIN 3.7 GM/DL (3.2-4.5); ALKALINE PHOSPHATASE 75 U/L (40-136); BILIRUBIN,TOTAL 1.2 MG/DL (0.1-1.0); BUN/CREATININE RATIO 21; CALCIUM 9.1 MG/DL (8.5-10.1); CARBON DIOXIDE 25 MMOL/L (21-32); CHLORIDE 105 MMOL/L (98-107); CREATININE SERUM 0.91 MG/DL (0.60-1.30); GFR ESTIMATED > 60; GLUCOSE 99 MG/DL (70-105); POTASSIUM 4.1 MMOL/L (3.6-5.0); SODIUM 139 MMOL/L (135-145); TOTAL PROTEIN 7.1 GM/DL (6.4-8.2)
[2017-07-25 15:25] LABS: BASOPHILS % (AUTO) 0 % (0-10); EOSINOPHILS # (AUTO) 0.2 10^3/uL (0.0-0.3); EOSINOPHILS % (AUTO) 2 % (0-10); HEMATOCRIT 38 % (40-54); HEMOGLOBIN 12.8 G/DL (13.3-17.7); LYMPHOCYTES % (AUTO) 13 % (12-44); MEAN CORPUSCULAR HEMOGLOBIN 31 PG (25-34); MEAN CORPUSCULAR HGB CONC 34 G/DL (32-36); MEAN CORPUSCULAR VOLUME 93 FL (80-99); MEAN PLATELET VOLUME 9.7 FL (7.4-10.4); MONOCYTES # (AUTO) 0.8 X 10^3 (0.0-1.0); MONOCYTES % (AUTO) 10 % (0-12); NEUTROPHILS # (AUTO) 5.6 X 10^3 (1.8-7.8); NEUTROPHILS % (AUTO) 74 % (42-75); PLATELET COUNT 332 10^3/uL (130-400); RED CELL DISTRIBUTION WIDTH 12.8 % (10.0-14.5); WHITE BLOOD COUNT 7.6 10^3/uL (4.3-11.0)
[2017-07-25 15:46] LABS: ALANINE AMINOTRANSFERASE 11 U/L (0-55); ALBUMIN 3.7 GM/DL (3.2-4.5); ALKALINE PHOSPHATASE 70 U/L (40-136); BILIRUBIN,TOTAL 0.6 MG/DL (0.1-1.0); BUN/CREATININE RATIO 28; CARBON DIOXIDE 27 MMOL/L (21-32); CHLORIDE 104 MMOL/L (98-107); CREATININE SERUM 0.81 MG/DL (0.60-1.30); GFR ESTIMATED > 60; GLUCOSE 103 MG/DL (70-105); SODIUM 140 MMOL/L (135-145); TOTAL PROTEIN 6.9 GM/DL (6.4-8.2)
[~2017-08-09] VITALS: Ht 181.6 cm; Wt 64.9 kg
[~2017-08-09 13:43] MED LIST changes: -BARIUM SUSPENSION 2.1% (VANILLA SILQ) 450 ML PO ONE; -CATHETER FLUSH 10 ML SYR IV PRN; -IOHEXOL 350 MG/ML 100 ML (OMNIPAQUE 350) VIAL IV ONE; +NIVOLUMAB 200 MG, NIVOLUMAB 40 MG in NS (IVPB) CANCER CENTER 50 ML IV SCH; -NS 100 ML (IVPB) BAG IV ONE
[2017-08-09 14:04] LABS: BASOPHILS % (AUTO) 1 % (0-10); EOSINOPHILS # (AUTO) 0.2 10^3/uL (0.0-0.3); EOSINOPHILS % (AUTO) 3 % (0-10); HEMATOCRIT 39 % (40-54); LYMPHOCYTES # (AUTO) 1.4 X 10^3 (1.0-4.0); LYMPHOCYTES % (AUTO) 20 % (12-44); MEAN CORPUSCULAR HEMOGLOBIN 31 PG (25-34); MEAN CORPUSCULAR HGB CONC 34 G/DL (32-36); MEAN CORPUSCULAR VOLUME 93 FL (80-99); MEAN PLATELET VOLUME 10.2 FL (7.4-10.4); MONOCYTES # (AUTO) 0.6 X 10^3 (0.0-1.0); MONOCYTES % (AUTO) 9 % (0-12); NEUTROPHILS # (AUTO) 4.6 X 10^3 (1.8-7.8); NEUTROPHILS % (AUTO) 68 % (42-75); PLATELET COUNT 225 10^3/uL (130-400); RED BLOOD COUNT 4.16 10^6/uL (4.35-5.85); RED CELL DISTRIBUTION WIDTH 12.8 % (10.0-14.5); WHITE BLOOD COUNT 6.8 10^3/uL (4.3-11.0)
[2017-08-09 14:29] LABS: ALANINE AMINOTRANSFERASE 16 U/L (0-55); ALBUMIN 3.7 GM/DL (3.2-4.5); ALKALINE PHOSPHATASE 60 U/L (40-136); BILIRUBIN,TOTAL 0.6 MG/DL (0.1-1.0); BUN/CREATININE RATIO 26; CALCIUM 8.9 MG/DL (8.5-10.1); CARBON DIOXIDE 25 MMOL/L (21-32); CHLORIDE 108 MMOL/L (98-107); CREATININE SERUM 0.81 MG/DL (0.60-1.30); GFR ESTIMATED > 60; GLUCOSE 117 MG/DL (70-105); POTASSIUM 4.2 MMOL/L (3.6-5.0); SODIUM 142 MMOL/L (135-145)
== END 2017-08-14 | disposition home or self-care (01) ==
LOC: ONC 13:43
PROVIDERS: ATTEND Internal Medicine Hematology & Oncology
DX: Z51.11 Encounter for antineoplastic chemotherapy (principal); C43.62 Malignant melanoma of left upper limb, including shoulder; C77.3 Secondary and unspecified malignant neoplasm of axilla and upper limb lymph nodes; D22.5 Melanocytic nevi of trunk; F41.9 Anxiety disorder, unspecified; Z79.899 Other long term (current) drug therapy
CPT/HCPCS: 36415; 80053; 83615; 84443; 85025; 96413; 99213

== ENCOUNTER → 2017-08-31 | Outpatient (CLI) | payer MEDICARE, OTHER ==
[~2017-08-31] MED LIST changes: +BARIUM SUSPENSION 2.1% (VANILLA SILQ) 450 ML PO ONE; +CATHETER FLUSH 10 ML SYR IV PRN; +IOHEXOL 350 MG/ML 100 ML (OMNIPAQUE 350) VIAL IV ONE; -NIVOLUMAB 200 MG, NIVOLUMAB 40 MG in NS (IVPB) CANCER CENTER 50 ML IV SCH; +NS 100 ML (IVPB) BAG IV ONE
--- NOTE | 2017-08-31 13:21 | Diagnostic Imaging Report ---
PROCEDURE: CT chest with contrast, CT abdomen and pelvis with and without contrast. TECHNIQUE: Pre and post intravenous contrast axial imaging of the abdomen and pelvis and post contrast axial imaging of the chest were performed. INDICATION: Melanoma. The previous CT chest, abdomen and pelvis exam of 06/08/17 failed to show any sign of metastatic disease related to the patient's diagnosis of melanoma. FINDINGS: On this exam, the images through the thorax show that the heart size is within normal limits and stable when compared to the prior study. Sparse coronary artery calcifications are noted. The ascending aorta is not abnormally dilated and there is no sign of a dissection. The pulmonary arteries are not fully opacified but there is no defect within the arteries to indicate a pulmonary embolus. There is no mediastinal or hilar adenopathy. The postsurgical changes involving the left axilla seen previously are again evident and no different. The lungs are clear and well aerated. There is no sign of a parenchymal nodule. The images through the abdomen and pelvis show no sign of a mass or any free fluid collection. The liver is homogeneous and not enlarged. The spleen, pancreas, adrenals, kidneys, gallbladder, aorta and inferior vena cava are unremarkable for an acute abnormality. The stomach is filled with oral contrast and difficult to assess. The prostate gland is not enlarged and the urinary bladder is grossly unremarkable. The appendix was not well visualized but there are no indirect signs of acute appendicitis. The bone windows show no sign of a fracture or of a destructive lesion. IMPRESSION: 1. The postsurgical changes involving the left axilla seen previously appear stable. No new abnormality has developed in this area that would suggest recurrent neoplasm. 2. The overall appearance of the chest, abdomen and pelvis is also no different than on the prior exam. There is no sign of a mass to suggest metastatic disease and there is no acute abnormality identified. Dictated by: Dictated on workstation # [id number]
--- NOTE | 2017-08-31 15:17 | Diagnostic Imaging Report ---
INDICATION: Melanoma. TECHNIQUE: The patient was administered 26.9 mCi of technetium 99m MDP intravenously and whole body imaging was performed after a three-hour delay. COMPARISON: Comparison is made with prior study from 06/08/2017. FINDINGS: There is normal uptake of activity by the axial and appendicular skeleton. There is uptake by both kidneys with excretion into the urinary bladder. No abnormal foci of tracer accumulation are seen to suggest occult fracture or osseous metastatic disease. IMPRESSION: Stable whole body bone scan, with no scintigraphic evidence of osseous metastatic disease. Dictated by: Dictated on workstation # [id number]
== END ==
LOC: CARD 10:57
PROVIDERS: ATTEND Nurse Practitioner Adult Health
DX: C43.62 Malignant melanoma of left upper limb, including shoulder (principal)
CPT/HCPCS: 71260; 74178; 78306

== ENCOUNTER 2017-11-14 14:21 | Outpatient (RCR) | payer MEDICARE, OTHER ==
[2017-08-22 14:21] LABS: BASOPHILS % (AUTO) 1 % (0-10); EOSINOPHILS # (AUTO) 0.2 10^3/uL (0.0-0.3); EOSINOPHILS % (AUTO) 2 % (0-10); HEMATOCRIT 38 % (40-54); HEMOGLOBIN 12.9 G/DL (13.3-17.7); LYMPHOCYTES # (AUTO) 1.4 X 10^3 (1.0-4.0); LYMPHOCYTES % (AUTO) 19 % (12-44); MEAN CORPUSCULAR HEMOGLOBIN 32 PG (25-34); MEAN CORPUSCULAR HGB CONC 34 G/DL (32-36); MEAN CORPUSCULAR VOLUME 92 FL (80-99); MEAN PLATELET VOLUME 10.2 FL (7.4-10.4); MONOCYTES # (AUTO) 0.7 X 10^3 (0.0-1.0); MONOCYTES % (AUTO) 9 % (0-12); NEUTROPHILS % (AUTO) 69 % (42-75); PLATELET COUNT 217 10^3/uL (130-400); RED BLOOD COUNT 4.07 10^6/uL (4.35-5.85); RED CELL DISTRIBUTION WIDTH 13.1 % (10.0-14.5); WHITE BLOOD COUNT 7.3 10^3/uL (4.3-11.0)
[2017-08-22 14:38] LABS: ALANINE AMINOTRANSFERASE 15 U/L (0-55); ALBUMIN 3.8 GM/DL (3.2-4.5); ALKALINE PHOSPHATASE 58 U/L (40-136); BILIRUBIN,TOTAL 0.8 MG/DL (0.1-1.0); BUN/CREATININE RATIO 27; CARBON DIOXIDE 24 MMOL/L (21-32); CHLORIDE 106 MMOL/L (98-107); CREATININE SERUM 0.81 MG/DL (0.60-1.30); GFR ESTIMATED > 60; GLUCOSE 104 MG/DL (70-105); POTASSIUM 4.1 MMOL/L (3.6-5.0); SODIUM 139 MMOL/L (135-145); TOTAL PROTEIN 6.7 GM/DL (6.4-8.2)
[2017-10-03 15:07] LABS: BASOPHILS % (AUTO) 1 % (0-10); EOSINOPHILS # (AUTO) 0.2 10^3/uL (0.0-0.3); EOSINOPHILS % (AUTO) 4 % (0-10); HEMATOCRIT 37 % (40-54); HEMOGLOBIN 13.2 G/DL (13.3-17.7); LYMPHOCYTES # (AUTO) 1.1 X 10^3 (1.0-4.0); LYMPHOCYTES % (AUTO) 17 % (12-44); MEAN CORPUSCULAR HEMOGLOBIN 32 PG (25-34); MEAN CORPUSCULAR HGB CONC 35 G/DL (32-36); MEAN CORPUSCULAR VOLUME 91 FL (80-99); MEAN PLATELET VOLUME 9.9 FL (7.4-10.4); MONOCYTES # (AUTO) 0.8 X 10^3 (0.0-1.0); MONOCYTES % (AUTO) 12 % (0-12); NEUTROPHILS # (AUTO) 4.2 X 10^3 (1.8-7.8); NEUTROPHILS % (AUTO) 66 % (42-75); PLATELET COUNT 225 10^3/uL (130-400); RED BLOOD COUNT 4.11 10^6/uL (4.35-5.85); RED CELL DISTRIBUTION WIDTH 13.2 % (10.0-14.5); WHITE BLOOD COUNT 6.4 10^3/uL (4.3-11.0)
[2017-10-03 15:38] LABS: ALANINE AMINOTRANSFERASE 15 U/L (0-55); ALBUMIN 3.8 GM/DL (3.2-4.5); ALKALINE PHOSPHATASE 66 U/L (40-136); BILIRUBIN,TOTAL 0.7 MG/DL (0.1-1.0); BUN/CREATININE RATIO 28; CALCIUM 9.1 MG/DL (8.5-10.1); CARBON DIOXIDE 23 MMOL/L (21-32); CHLORIDE 108 MMOL/L (98-107); CREATININE SERUM 0.86 MG/DL (0.60-1.30); GFR ESTIMATED > 60; GLUCOSE 105 MG/DL (70-105); POTASSIUM 3.9 MMOL/L (3.6-5.0); SODIUM 140 MMOL/L (135-145); TOTAL PROTEIN 6.7 GM/DL (6.4-8.2)
[2017-10-31 14:31] LABS: BASOPHILS % (AUTO) 1 % (0-10); EOSINOPHILS # (AUTO) 0.1 10^3/uL (0.0-0.3); EOSINOPHILS % (AUTO) 2 % (0-10); HEMATOCRIT 35 % (40-54); LYMPHOCYTES # (AUTO) 1.2 X 10^3 (1.0-4.0); LYMPHOCYTES % (AUTO) 21 % (12-44); MEAN CORPUSCULAR HEMOGLOBIN 31 PG (25-34); MEAN CORPUSCULAR HGB CONC 34 G/DL (32-36); MEAN CORPUSCULAR VOLUME 92 FL (80-99); MEAN PLATELET VOLUME 9.3 FL (7.4-10.4); MONOCYTES # (AUTO) 0.8 X 10^3 (0.0-1.0); MONOCYTES % (AUTO) 14 % (0-12); NEUTROPHILS # (AUTO) 3.8 X 10^3 (1.8-7.8); NEUTROPHILS % (AUTO) 63 % (42-75); PLATELET COUNT 256 10^3/uL (130-400); RED BLOOD COUNT 3.83 10^6/uL (4.35-5.85); RED CELL DISTRIBUTION WIDTH 12.8 % (10.0-14.5)
[2017-10-31 14:54] LABS: ALANINE AMINOTRANSFERASE 17 U/L (0-55); ALBUMIN 3.7 GM/DL (3.2-4.5); ALKALINE PHOSPHATASE 63 U/L (40-136); BILIRUBIN,TOTAL 0.7 MG/DL (0.1-1.0); BUN/CREATININE RATIO 28; CALCIUM 8.8 MG/DL (8.5-10.1); CARBON DIOXIDE 26 MMOL/L (21-32); CHLORIDE 106 MMOL/L (98-107); CREATININE SERUM 0.78 MG/DL (0.60-1.30); GFR ESTIMATED > 60; GLUCOSE 88 MG/DL (70-105); POTASSIUM 4.2 MMOL/L (3.6-5.0); SODIUM 139 MMOL/L (135-145); TOTAL PROTEIN 6.5 GM/DL (6.4-8.2)
[~2017-11-14] VITALS: Ht 181.6 cm; Wt 65.3 kg
[~2017-11-14 14:21] MED LIST changes: -BARIUM SUSPENSION 2.1% (VANILLA SILQ) 450 ML PO ONE; -CATHETER FLUSH 10 ML SYR IV PRN; -IOHEXOL 350 MG/ML 100 ML (OMNIPAQUE 350) VIAL IV ONE; +NIVOLUMAB 200 MG, NIVOLUMAB 40 MG in NS (IVPB) CANCER CENTER 50 ML IV SCH; -NS 100 ML (IVPB) BAG IV ONE
== END 2017-11-20 | disposition home or self-care (01) ==
LOC: ONC 14:21
PROVIDERS: ATTEND Internal Medicine Hematology & Oncology
DX: Z51.11 Encounter for antineoplastic chemotherapy (principal); C43.62 Malignant melanoma of left upper limb, including shoulder; C77.3 Secondary and unspecified malignant neoplasm of axilla and upper limb lymph nodes; D22.5 Melanocytic nevi of trunk; F41.9 Anxiety disorder, unspecified; Z79.899 Other long term (current) drug therapy
CPT/HCPCS: 36415; 80053; 83615; 84443; 85025; 96413

== ENCOUNTER → 2017-11-21 | Outpatient (CLI) | payer MEDICARE, OTHER ==
[~2017-11-21] MED LIST changes: +BARIUM SUSPENSION 2.1% (VANILLA SILQ) 450 ML PO ONE; +CATHETER FLUSH 10 ML SYR IV PRN; +IOHEXOL 350 MG/ML 100 ML (OMNIPAQUE 350) VIAL IV ONE; -NIVOLUMAB 200 MG, NIVOLUMAB 40 MG in NS (IVPB) CANCER CENTER 50 ML IV SCH; +NS 250 ML (IVPB) BAG IV ONE
--- NOTE | 2017-11-21 16:09 | Diagnostic Imaging Report ---
PROCEDURE: CT chest with contrast, CT abdomen and pelvis with and without contrast. TECHNIQUE: Pre and post intravenous contrast axial imaging of the abdomen and pelvis and post contrast axial imaging of the chest were performed. INDICATION: Melanoma. COMPARISON: Exam compared with 08/31/2017. FINDINGS: Chest: There are postsurgical changes to the left axilla without evidence of residual or recurrent mass and no findings of adenopathy. There is no pleural or pericardial effusion. There is no lung mass or suspicious pulmonary nodule. There is no hilar or mediastinal lymphadenopathy. No evidence for pneumonia. No suspicious osseous pattern. Abdomen and pelvis: The liver and spleen are unremarkable. The pancreas is unremarkable. There is no adrenal mass. There is no abdominal adenopathy or ascites. Imaging through the pelvis reveals suspicion for abnormal nodular bowel wall thickening of a segment of the tortuous pelvic small bowel with regional soft tissue induration of the adjacent fat. This reflects a change in appearance from previous exams and malignancy cannot be excluded. I would recommend correlative CT fusion PET as further evaluation to see if the process is hypermetabolic. This does not result in bowel obstruction. There is no evidence for viscus perforation. The remaining small bowel as well as the large bowel appeared normal. The pelvic sidewalls are unremarkable. The ilioinguinal chains are unremarkable. IMPRESSION: 1. Chest: Stable postsurgical change to the left axilla. No findings of thoracic neoplasm. 2. Abdomen: Stable unremarkable abdominal CT. 3. Pelvis: Abnormal appearance of the lower distal pelvic small bowel loops which showed irregular wall thickening and distortion and infiltration of the adjacent soft tissues, suspicious for malignancy. This results in no bowel obstruction. Metabolic PET CT is suggested as its further evaluation. Dictated by: Dictated on workstation # [id number]
--- NOTE | 2017-11-21 16:24 | Diagnostic Imaging Report ---
INDICATION: Malignant melanoma. TECHNIQUE: The patient was administered 26.4 mCi of technetium 99m MDP intravenously and whole body imaging was performed following a 3 hour delay. COMPARISON: Prior whole body bone scan from 08/31/2017. FINDINGS: Normal uptake by the kidneys and excretion into the urinary bladder are seen. There is normal uptake by the axial and appendicular skeleton. No abnormal foci of tracer accumulation are identified. IMPRESSION: Continued unremarkable whole body bone scan with no findings to suggest osseous metastatic disease. Dictated by: Dictated on workstation # [id number]
== END ==
LOC: CARD 10:48
PROVIDERS: ATTEND Nurse Practitioner Adult Health
DX: C43.62 Malignant melanoma of left upper limb, including shoulder (principal)
CPT/HCPCS: 71260; 74178; 78306

== ENCOUNTER 2017-12-13 08:57 | Outpatient (CLI) | payer MEDICARE, OTHER ==
[~2017-12-13] VITALS: Ht 182.9 cm; Wt 64.9 kg
[~2017-12-13 08:57] MED LIST changes: -BARIUM SUSPENSION 2.1% (VANILLA SILQ) 450 ML PO ONE; -CATHETER FLUSH 10 ML SYR IV PRN; -IOHEXOL 350 MG/ML 100 ML (OMNIPAQUE 350) VIAL IV ONE; -NS 250 ML (IVPB) BAG IV ONE
== END 2017-12-13 09:40 ==
LOC: PREOP 08:57
PROVIDERS: ATTEND Surgery
DX: Z01.818 Encounter for other preprocedural examination (principal); Z08 Encounter for follow-up examination after completed treatment for malignant neoplasm; Z85.820 Personal history of malignant melanoma of skin

== ENCOUNTER 2017-12-14 07:08 | Day surgery (SDC) | payer MEDICARE, OTHER ==
[~2017-12-14] VITALS: Ht 182.9 cm; Wt 64.9 kg
--- OUTSIDE RECORDS SUMMARY | 2017-12-14 07:14 | XMS REPORT | Continuity of Care Document ---
Author Author [facility] Organization [facility] Address Unknown Phone Unavailable Allergies Active Description Code Type Severity Reaction Onset Reported/Identified Relationship to Patient Clinical Status Yes epinephrine [id number] Drug Allergy Unknown N/A 10/28/2015 Yes epinephrine HCl [id number] Drug Allergy Unknown N/A 10/28/2015 Yes lidocaine [id number] Drug Allergy Unknown N/A 10/28/2015 Medications There is no data. 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, I 07/13/1104 CHRIS ERVIN, JENIFFER Dia Ot C77.3 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 07/13/1104 CHRIS ERVIN, JENIFFER Dia Ot Z51.11 ENCOUNTER FOR ANTINEOPLASTIC CHEMOTHERAP 2012 Ot 914.0 ABRASION HAND 2012 Ot E000.8 OTHER EXTERNAL CAUSE STATUS 2012 Ot E849.0 ACCIDENT IN HOME 2012 Ot E888.9 FALL NOS 2012 Ot V03.7 TETANUS TOXOID INOCULAT 10/27/2015 PATRICK ERVIN, JAMIE James Ot L98.9 DISORDER OF THE SKIN AND SUBCUTANEOUS TI 10/27/2015 PATRICK ERVIN, JAMIE James Ot Z01.818 ENCOUNTER FOR OTHER PREPROCEDURAL EXAMIN 10/27/2015 PATRICK ERVIN, JAMIE James Ot Z11.2 ENCOUNTER FOR SCREENING FOR OTHER BACTER 10/28/2015 PATRICK ERVIN, JAMIE James Ot D22.62 MELANOCYTIC NEVI OF LEFT UPPER LIMB, INC 10/28/2015 PATRICK ERVIN, JAMIE James Ot L98.9 10/28/2015 PATRICK ERVIN, JAMIE James Ot Z01.818 10/28/2015 PATRICK ERVIN, JAMIE James Ot Z11.2 10/29/2015 PATRICK ERVIN, JAMIE James Ot D22.62 11/11/2015 PATRICK ERVIN, JAMIE James Ot C43.62 11/23/2015 PATRICK ERVIN, JAMIE James Ot C43.9 MALIGNANT MELANOMA OF SKIN, UNSPECIFIED 11/23/2015 PATRICK ERVIN, JAMIE James Ot L98.9 DISORDER OF THE SKIN AND SUBCUTANEOUS TI 11/23/2015 JAMIE NGUYEN MD Ot Z01.818 ENCOUNTER FOR OTHER PREPROCEDURAL EXAMIN 11/25/2015 JAMIE NGUYEN MD Ot C43.62 11/26/2015 PATRICK ERVIN, JAMIE James Ot 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, I 11/26/2015 PATRICK ERVIN, JAMIE James Ot C77.3 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 11/26/2015 PATRICK ERVIN, JAMIE James Ot 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 11/26/2015 PATRICK ERVIN, JAMIE James Ot L82.1 OTHER SEBORRHEIC KERATOSIS 12/05/2015 PATRICK ERVIN, JAMIE James Ot 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, I 12/05/2015 PATRICK ERVIN, JAMIE James Ot C77.3 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 12/05/2015 PATRICK ERVIN, JAMIE James Ot 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 12/05/2015 PATRICK ERVIN, JAMIE James Ot L82.1 OTHER SEBORRHEIC KERATOSIS 12/23/2015 CHRIS ERVIN, JENIFFER Dia Ot 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, I 02/03/2016 PRICILLA CURRAN LICENSED PSYCHOLOGIST MANAGER Ot 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, I 02/14/2016 CHRIS ERVIN, JENIFFER Dia Ot 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, I 02/18/2016 PRICILLA CURRAN LICENSED PSYCHOLOGIST MANAGER Ot 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, I 02/19/2016 PRICILLA CURRAN LICENSED PSYCHOLOGIST MANAGER Ot 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, I 02/19/2016 JAMIE NGUYEN MD Ot 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, I 02/19/2016 PRICILLA CURRAN LICENSED PSYCHOLOGIST MANAGER Ot 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, I 02/19/2016 JENIFFER PEREZ MD Ot 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, I 03/07/2016 JENIFFER PEREZ MD Ot 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, I 03/15/2016 JENIFFER PEREZ MD, Ot 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, I 04/29/2016 JENIFFER PEREZ MD Ot 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, I 06/12/2016 JENIFFER PEREZ MD Ot 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, I 06/12/2016 JENIFFER PEREZ MD Ot C77.3 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 06/13/2016 JENIFFER PEREZ MD, Ot 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, I 06/13/2016 JENIFFER PEREZ MD, Ot C77.3 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 06/14/2016 JENIFFER PEREZ MD, Ot 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, I 06/14/2016 JENIFFER PEREZ MD, Ot C77.3 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 07/13/2016 JENIFFER PEREZ MD Ot 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, I 07/19/2016 PATRICK ERVIN, JAMIE James Ot 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, I 07/19/2016 PRICILLA CURRAN Ot 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, I 07/19/2016 JENIFFER PEREZ MD Ot 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, I 07/19/2016 JENIFFER PEREZ MD, Ot C77.3 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 07/20/2016 JENIFFER PEREZ MD Ot 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, I 07/20/2016 JENIFFER PEREZ MD Ot 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 07/25/2016 JENIFFER PEREZ MD Ot 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, I 07/25/2016 JENIFFER PEREZ MD Ot 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 07/27/2016 JENIFFER PEREZ MD Ot 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, I 07/27/2016 JENIFFER PEREZ MD Ot C77.3 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 07/27/2016 JENIFFER PEREZ MD Ot 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, I 07/27/2016 CHRIS ERVIN, JENIFFER Dia Ot 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 08/03/2016 JENIFFER PEREZ MD Ot 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, I 08/18/2016 PATRICK ERVIN, JAMIE James Ot 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 08/18/2016 JAMIE NGUYEN MD Ot Z01.818 ENCOUNTER FOR OTHER PREPROCEDURAL EXAMIN 08/18/2016 PATRICK ERVIN, JAMIE James Ot Z11.2 ENCOUNTER FOR SCREENING FOR OTHER BACTER 08/18/2016 JENIFFER PEREZ MD Ot 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, I 08/18/2016 JENIFFER PEREZ MD Ot 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 08/18/2016 JENIFFER PEREZ MD Ot 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, I 08/18/2016 JENIFFER PEREZ MD Ot 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, I 08/18/2016 JENIFFER PEREZ MD Ot C77.3 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 08/25/2016 PATRICK ERVIN, JAMIE James Ot 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, I 08/25/2016 PATRICK ERVIN, JAMIE James Ot C77.3 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 08/25/2016 PATRICK ERVIN, JAMIE James Ot 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, I 08/25/2016 PATRICK ERVIN, JAMIE James Ot C77.3 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 08/26/2016 PATRICK ERVIN, JAMIE James Ot 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, I 08/26/2016 PATRICK ERVIN, JAMIE James Ot C77.3 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 10/10/2016 JENIFFER PEREZ MD Ot 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, I 10/10/2016 JENIFFER PEREZ MD Ot C77.3 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 10/11/2016 JENIFFER PEREZ MD Ot 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, I 10/11/2016 JENIFFER PEREZ MD Ot C77.3 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 10/12/2016 JENIFFER PEREZ MD Ot 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, I 10/12/2016 JENIFFER PEREZ MD, Ot C77.3 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 11/01/2016 PATRICK ERVIN, JAMIE James Ot 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, I 11/01/2016 PRICILLA CURRAN Ot 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, I 11/01/2016 JENIFFER PEREZ MD Ot 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, I 11/01/2016 JENIFFER PEREZ MD Ot 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3 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 11/29/2016 JENIFFER PEREZ MD Ot Z51.11 ENCOUNTER FOR ANTINEOPLASTIC CHEMOTHERAP 01/09/2017 JENIFFER PEREZ MD, Ot 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, I 01/09/2017 JENIFFER PEREZ MD, Ot C77.3 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 01/09/2017 JENIFFER PEREZ MD Ot F41.9 ANXIETY DISORDER, UNSPECIFIED 01/09/2017 JENIFFER PEREZ MD Ot Z51.0 ENCOUNTER FOR ANTINEOPLASTIC RADIATION T 01/09/2017 JENIFFER PEREZ MD Ot Z51.11 ENCOUNTER FOR ANTINEOPLASTIC CHEMOTHERAP 01/09/2017 JENIFFER PEREZ MD Ot Z79.899 OTHER ALF (CURRENT) DRUG THERAPY 01/10/2017 JENIFFER PEREZ MD, Ot 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, I 01/10/2017 JENIFFER PEREZ MD, Ot C77.3 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 01/10/2017 JENIFFER PEREZ MD Ot Z51.11 ENCOUNTER FOR ANTINEOPLASTIC CHEMOTHERAP 01/16/2017 JENIFFER PEREZ MD, Ot 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, I 01/16/2017 JENIFFER PEREZ MD, Ot C77.3 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 01/16/2017 JENIFFER PEREZ MD Ot Z51.11 ENCOUNTER FOR ANTINEOPLASTIC CHEMOTHERAP 01/16/2017 PATRICK ERVIN, JAMIE M Ot 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, I 01/16/2017 PRICILLA CURRAN Ot 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, I 01/16/2017 JENIFFER PEREZ MD, Ot 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11 ENCOUNTER FOR ANTINEOPLASTIC CHEMOTHERAP 01/19/2017 JENIFFER PEREZ MD, Ot 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, I 01/19/2017 JENIFFER PEREZ MD, Ot C77.3 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 01/19/2017 JENIFFER PEREZ MD Ot Z51.11 ENCOUNTER FOR ANTINEOPLASTIC CHEMOTHERAP 01/19/2017 JENIFFER PEREZ MD Ot 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, I 01/19/2017 JENIFFER PEERZ MD, Ot C77.3 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 01/19/2017 JENIFFER PEREZ MD, Ot Z51.11 ENCOUNTER FOR ANTINEOPLASTIC CHEMOTHERAP 01/24/2017 JENIFFER PEREZ MD, Ot 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, I 01/24/2017 JENIFFER PEREZ MD, Ot C77.3 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 01/24/2017 JENIFFER PEREZ MD, Ot Z51.11 ENCOUNTER FOR ANTINEOPLASTIC CHEMOTHERAP 02/07/2017 JENIFFER PEREZ MD, Ot3.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, I 02/07/2017 JENIFFER PEREZ MD, Ot C77.3 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 02/07/2017 JENIFFER PEREZ MD, Ot Z51.11 ENCOUNTER FOR ANTINEOPLASTIC CHEMOTHERAP 02/17/2017 JENIFFER PEREZ MD, Ot 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, I 02/17/2017 JENIFFER PEREZ MD, Ot C77.3 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 02/17/2017 JENIFFER PEREZ MD, Ot 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 02/17/2017 JENIFFER PEREZ MD Ot F41.9 ANXIETY DISORDER, UNSPECIFIED 02/17/2017 JENIFFER PEREZ MD Ot K08.89 OTHER SPECIFIED DISORDERS OF TEETH AND S 02/17/2017 JENIFFER PEREZ MD, Ot Z51.11 ENCOUNTER FOR ANTINEOPLASTIC CHEMOTHERAP 02/17/2017 JENIFFER PEREZ MD, Ot Z79.899 OTHER LIBRARY SPECIALIST (CURRENT) DRUG THERAPY 03/10/2017 JENIFFER PEREZ MD, Ot 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, I 03/10/2017 JENIFFER PEREZ MD, Ot M85.88 OTH DISRD OF BONE DENSITY AND STRUCTURE, 03/10/2017 JENIFFER PEREZ MD Ot R91.8 OTHER NONSPECIFIC ABNORMAL FINDING OF [place]OME[place] 03/14/2017 JENIFFER PEREZ MD, Ot 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, I 03/14/2017 JENIFFER PEREZ MD, Ot C77.3 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 03/14/2017 JENIFFER PEREZ MD, Ot 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 03/14/2017 JENIFFER PEREZ MD, Ot F41.9 ANXIETY DISORDER, UNSPECIFIED 03/14/2017 JENIFFER PEREZ MD Ot K08.89 OTHER SPECIFIED DISORDERS OF TEETH AND S 03/14/2017 JENIFFER PEREZ MD Ot Z51.11 ENCOUNTER FOR ANTINEOPLASTIC CHEMOTHERAP 03/14/2017 JENIFFER PEREZ MD, Ot Z79.899 OTHER ALF (CURRENT) DRUG THERAPY 03/15/2017 JENIFFER PEREZ MD, Ot 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, I 03/15/2017 JENIFFER PEREZ MD Ot C77.3 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 03/15/2017 JENIFFER PEREZ MD Ot 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 03/15/2017 JENIFFER PEREZ MD, Ot F41.9 ANXIETY DISORDER, UNSPECIFIED 03/15/2017 JENIFFER PEREZ MD Ot K08.89 OTHER SPECIFIED DISORDERS OF TEETH AND S 03/15/2017 JENIFFER PEREZ MD Ot Z51.11 ENCOUNTER FOR ANTINEOPLASTIC CHEMOTHERAP 03/15/2017 JENIFFER PEREZ MD, Ot Z79.899 OTHER LIBRARY SPECIALIST (CURRENT) DRUG THERAPY 03/22/2017 MECHE CASTILLO Ot 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, I 03/22/2017 MECHE CASTILLO Ot C77.3 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 03/22/2017 MECHE CASTILLO Ot 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 03/22/2017 MECHE CASTILLO Ot F41.9 ANXIETY DISORDER, UNSPECIFIED 03/22/2017 MECHE CASTILLO Ot K08.89 OTHER SPECIFIED DISORDERS OF TEETH AND S 03/22/2017 MECHE CASTILLO Ot Z51.11 ENCOUNTER FOR ANTINEOPLASTIC CHEMOTHERAP 03/22/2017 MECHE CASTILLO Ot Z79.899 OTHER ALF (CURRENT) DRUG THERAPY 03/23/2017 JENIFFER PEREZ MD, Ot 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, I 03/23/2017 JENIFFER PEREZ MD Ot M85.88 OTH DISRD OF BONE DENSITY AND STRUCTURE, 03/23/2017 JENIFFER PEREZ MD Ot R91.8 OTHER NONSPECIFIC ABNORMAL FINDING OF ROME[place] 04/06/2017 JENIFFER PEREZ MD, Ot 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, I 04/06/2017 CHRIS ERVIN JENIFFER Dia Ot C77.3 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 04/06/2017 JENIFFER PEREZ MD Ot F41.9 ANXIETY DISORDER, UNSPECIFIED 04/06/2017 JENIFFER PEREZ MD Ot Z51.0 ENCOUNTER FOR ANTINEOPLASTIC RADIATION T 04/06/2017 JENIFFER PEREZ MD Ot Z51.11 ENCOUNTER FOR ANTINEOPLASTIC CHEMOTHERAP 04/06/2017 JENIFFER PEREZ MD Ot Z79.899 OTHER ALF (CURRENT) DRUG THERAPY 05/02/2017 PATRICK ERVIN, JAMIE James Ot L98.9 DISORDER OF THE SKIN AND SUBCUTANEOUS TI 05/02/2017 JAMIE NGUYEN MD Ot Z01.818 ENCOUNTER FOR OTHER PREPROCEDURAL EXAMIN 05/02/2017 JAMIE NGUYEN MD Ot Z85.820 PERSONAL HISTORY OF MALIGNANT MELANOMA O 05/05/2017 PATIRCK ERVIN, JAMIE James Ot D23.71 OTH BENIGN NEOPLASM SKIN/ RIGHT LOWER LI 05/05/2017 JAMIE NGUYEN MD, Ot L57.0 ACTINIC KERATOSIS 05/05/2017 JAMIE NGUYEN MD Ot L82.1 OTHER SEBORRHEIC KERATOSIS 05/05/2017 JAMIE NGUYEN MD Ot Z85.820 PERSONAL HISTORY OF MALIGNANT MELANOMA O 05/05/2017 MECHE CASTILLO Ot 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, I 05/05/2017 MECHE CASTILLO Ot C77.3 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 05/05/2017 MECHE CASTILLO Ot 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 05/05/2017 MECHE CASTILLO Ot F41.9 ANXIETY DISORDER, UNSPECIFIED 05/05/2017 MECHE CASTILLO Ot K08.89 OTHER SPECIFIED DISORDERS OF TEETH AND S 05/05/2017 MECHE CASTILLO Ot Z51.11 ENCOUNTER FOR ANTINEOPLASTIC CHEMOTHERAP 05/05/2017 MECHE CASTILLO Ot Z79.899 OTHER ALF (CURRENT) DRUG THERAPY 05/09/2017 JAMIE NGUYEN MD Ot D23.71 OTH BENIGN NEOPLASM SKIN/ RIGHT LOWER LI 05/09/2017 JAMIE NGUYEN MD Ot L57.0 ACTINIC KERATOSIS 05/09/2017 JAMIE NGUYEN MD M Ot L82.1 OTHER SEBORRHEIC KERATOSIS 05/09/2017 PATRICK ERVIN, JAMIE James Ot Z85.820 PERSONAL HISTORY OF MALIGNANT MELANOMA O 05/11/2017 PATRICK ERVIN, JAMIE James Ot D23.71 OTH BENIGN NEOPLASM SKIN/ RIGHT LOWER LI 05/11/2017 PATRICK ERVIN, JAMIE James Ot L57.0 ACTINIC KERATOSIS 05/11/2017 PATRICK ERVIN, JAMIE James Ot L82.1 OTHER SEBORRHEIC KERATOSIS 05/11/2017 PATRICK ERVIN, JAMIE James Ot Z85.820 PERSONAL HISTORY OF MALIGNANT MELANOMA O 05/11/2017 SHANI CASTILLOAN N Ot 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, I 05/11/2017 JONATHAN, BOBAN N Ot C77.3 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 05/11/2017 JONATHAN, BOBAN N Ot 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 05/11/2017 JONATHAN, BOBAN N Ot F41.9 ANXIETY DISORDER, UNSPECIFIED 05/11/2017 JONATHAN BOBAN N Ot K08.89 OTHER SPECIFIED DISORDERS OF TEETH AND S 05/11/2017 JONATHAN BOBAN N Ot Z51.11 ENCOUNTER FOR ANTINEOPLASTIC CHEMOTHERAP 05/11/2017 JONATHAN, BOBAN N Ot Z79.899 OTHER ALF (CURRENT) DRUG THERAPY 05/17/2017 JONATHAN BOBAN N Ot 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, I 05/17/2017 JONATHAN BOBAN N Ot C77.3 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 05/17/2017 JONATHAN BOBAN N Ot 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 05/17/2017 JONATHAN BOBAN N Ot F41.9 ANXIETY DISORDER, UNSPECIFIED 05/17/2017 JONATHAN BOBAN N Ot Z51.11 ENCOUNTER FOR ANTINEOPLASTIC CHEMOTHERAP 05/17/2017 JONATHAN BOBAN N Ot Z79.899 OTHER ALF (CURRENT) DRUG THERAPY 05/17/2017 PATRICK ERVIN, JAMIE James Ot D23.71 OTH BENIGN NEOPLASM SKIN/ RIGHT LOWER LI 05/17/2017 PATRICK ERVIN, JAMIE James Ot L57.0 ACTINIC KERATOSIS 05/17/2017 PATRICK ERVIN, JAMIE James Ot L82.1 OTHER SEBORRHEIC KERATOSIS 05/17/2017 PATRICK ERVIN, JAMIE M Ot Z85.820 PERSONAL HISTORY OF MALIGNANT MELANOMA O 06/12/2017 JONATHAN SHANIMC N Ot 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, I 06/12/2017 MECHE CASTILLO N Ot C77.9 SECONDARY AND UNSP MALIGNANT NEOPLASM OF 06/14/2017 PATRICK ERVIN, JAMIE James Ot D23.71 OTH BENIGN NEOPLASM SKIN/ RIGHT LOWER LI 06/14/2017 PATRICK ERVIN, JAMIE James Ot L57.0 ACTINIC KERATOSIS 06/14/2017 PATRICK ERVIN, JAMIE James Ot L82.1 OTHER SEBORRHEIC KERATOSIS 06/14/2017 PATRICK ERVIN, JAMIE James Ot Z85.820 PERSONAL HISTORY OF MALIGNANT MELANOMA O 06/27/2017 MECHE CASTILLO N Ot 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, I 06/27/2017 JONATHAN MECHE N Ot C77.3 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 06/27/2017 JONATHAN SHANIAN N Ot 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 06/27/2017 JONATHAN SHANIAN N Ot F41.9 ANXIETY DISORDER, UNSPECIFIED 06/27/2017 JONATHAN BOBAN N Ot Z51.11 ENCOUNTER FOR ANTINEOPLASTIC CHEMOTHERAP 06/27/2017 JONATHAN BOBAN N Ot Z79.899 OTHER ALF (CURRENT) DRUG THERAPY 06/30/2017 JONATHAN SHANIAN N Ot 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, I 06/30/2017 JONATHAN SHANIAN N Ot C77.9 SECONDARY AND UNSP MALIGNANT NEOPLASM OF 07/07/2017 JONATHAN SHANIAN N Ot 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, I 07/07/2017 JONATHAN BOBAN N Ot C77.3 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 07/07/2017 JONATHAN, BOBAN N Ot 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 07/07/2017 JONATHAN SHANIAN N Ot F41.9 ANXIETY DISORDER, UNSPECIFIED 07/07/2017 JONATHANSHANIAN N Ot Z51.11 ENCOUNTER FOR ANTINEOPLASTIC CHEMOTHERAP 07/07/2017 SHANI CASTILLOAN N Ot Z79.899 OTHER ALF (CURRENT) DRUG THERAPY 07/11/2017 MECHE CASTILLO N Ot 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, I 07/11/2017 JONATHANMECHE EDWARD N Ot C77.3 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 07/11/2017 JONATHANMECHE EDWARD N Ot 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 07/11/2017 JONATHANMECHE N Ot F41.9 ANXIETY DISORDER, UNSPECIFIED 07/11/2017 JONATHANMECHE N Ot Z51.11 ENCOUNTER FOR ANTINEOPLASTIC CHEMOTHERAP 07/11/2017 JONATHAN BOBAN N Ot Z79.899 OTHER LIBRARY SPECIALIST (CURRENT) DRUG THERAPY 07/26/2017 PATRICK ERVIN, JAMIE James Ot 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, I 07/26/2017 PRICILLA CURRANP Ot 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, I 07/26/2017 CHRIS ERVIN, JENIFFER Dia Ot 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, I 07/26/2017 CHRIS ERVIN, JENIFFER Dia Ot 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 07/26/2017 CHRIS ERVIN, JENIFFER Dia Ot 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, I 07/26/2017 CHRIS ERVIN, JENIFFER Dia Ot 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, I 07/26/2017 CHRIS ERVIN, JENIFFER Dia Ot M85.88 OTH DISRD OF BONE DENSITY AND STRUCTURE, 07/26/2017 CHRIS ERVIN, JENIFFER Dia Ot R91.8 OTHER NONSPECIFIC ABNORMAL FINDING OF ROMEO 07/26/2017 MECHE CASTILLO N Ot 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, I 07/26/2017 JONATHANMECHE N Ot C77.3 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 07/26/2017 JONATHANMECHE N Ot 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 07/26/2017 JONATHANMECHE N Ot F41.9 ANXIETY DISORDER, UNSPECIFIED 07/26/2017 JONATHAN [facility] N Ot Z51.11 ENCOUNTER FOR ANTINEOPLASTIC CHEMOTHERAP 07/26/2017 JONATHANMECHE N Ot Z79.899 OTHER LIBRARY SPECIALIST (CURRENT) DRUG THERAPY 07/26/2017 JONATHANMECHE EDWARD N Ot 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, I 07/26/2017 MECHE CASTILLO N Ot C77.9 SECONDARY AND UNSP MALIGNANT NEOPLASM OF 08/09/2017 MECHE CASTILLO N Ot 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, I 08/09/2017 MECHE CASTILLO N Ot C77.3 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 08/09/2017 MECHE CASTILLO N Ot 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 08/09/2017 MECHE CASTILLO N Ot F41.9 ANXIETY DISORDER, UNSPECIFIED 08/09/2017 JONATHANMECHE EDWARD N Ot Z51.11 ENCOUNTER FOR ANTINEOPLASTIC CHEMOTHERAP 08/09/2017 MECHE CASTILLO N Ot Z79.899 OTHER LIBRARY SPECIALIST (CURRENT) DRUG THERAPY 08/14/2017 MECHE CASTILLO N Ot 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, I 08/14/2017 MECHE CSATILLO N Ot C77.3 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 08/14/2017 MECHE CASTILLO N Ot 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 08/14/2017 MECHE CASTILLO N Ot F41.9 ANXIETY DISORDER, UNSPECIFIED 08/14/2017 JONATHANEMCHE N Ot Z51.11 ENCOUNTER FOR ANTINEOPLASTIC CHEMOTHERAP 08/14/2017 JONATHAN BOBAN N Ot Z79.899 OTHER ALF (CURRENT) DRUG THERAPY 08/16/2017 MECHE CASTILLO N Ot 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, I 08/16/2017 MECHE CASTILLO N Ot C77.3 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 08/16/2017 JONATHANMECHE N Ot 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 08/16/2017 JONATHANMECHE N Ot F41.9 ANXIETY DISORDER, UNSPECIFIED 08/16/2017 JONATHAN [facility] N Ot Z51.11 ENCOUNTER FOR ANTINEOPLASTIC CHEMOTHERAP 08/16/2017 JONATHAN BOBAN N Ot Z79.899 OTHER LIBRARY SPECIALIST (CURRENT) DRUG THERAPY 09/01/2017 PRICILLA CURRAN LICENSED PSYCHOLOGIST MANAGER Ot 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, I 09/01/2017 PRICILLA CURRAN LICENSED PSYCHOLOGIST MANAGER Ot 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, I 09/06/2017 PRICILLA CURRAN LICENSED PSYCHOLOGIST MANAGER Ot 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, I 09/12/2017 JONATHANMECHE N Ot 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, I 09/12/2017 JONATAHN, BOBAN N Ot C77.3 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 09/12/2017 JONATHAN, BOBAN N Ot 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 09/12/2017 JONATHAN, BOBAN N Ot F41.9 ANXIETY DISORDER, UNSPECIFIED 09/12/2017 JONATHAN, BOBAN N Ot Z51.11 ENCOUNTER FOR ANTINEOPLASTIC CHEMOTHERAP 09/12/2017 JONATHAN, BOBAN N Ot Z79.899 OTHER ALF (CURRENT) DRUG THERAPY 09/20/2017 JONATHAN BOBAN N Ot 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, I 09/20/2017 JONATHAN, BOBAN N Ot C77.3 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 09/20/2017 JONATHAN, BOBAN N Ot 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 09/20/2017 JONATHAN, BOBAN N Ot F41.9 ANXIETY DISORDER, UNSPECIFIED 09/20/2017 JONATHAN, BOBAN N Ot Z51.11 ENCOUNTER FOR ANTINEOPLASTIC CHEMOTHERAP 09/20/2017 JONATHAN, BOBAN N Ot Z79.899 OTHER ALF (CURRENT) DRUG THERAPY 09/27/2017 PRICILLA CURRAN LICENSED PSYCHOLOGIST MANAGER Ot 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, I 10/03/2017 JONATHANSHANIMC N Ot 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, I 10/03/2017 JONATHAN, BOBAN N Ot C77.3 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 10/03/2017 JONATHAN, BOBAN N Ot 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 10/03/2017 JONATHAN, BOBAN N Ot F41.9 ANXIETY DISORDER, UNSPECIFIED 10/03/2017 JONATHAN, BOBAN N Ot Z51.11 ENCOUNTER FOR ANTINEOPLASTIC CHEMOTHERAP 10/03/2017 JONATHAN, BOBAN N Ot Z79.899 OTHER LIBRARY SPECIALIST (CURRENT) DRUG THERAPY 10/09/2017 JONATHANSHANIAN N Ot 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, I 10/09/2017 JONATHAN, BOBAN N Ot C77.3 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 10/09/2017 JONATHAN, BOBAN N Ot 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 10/09/2017 JONATHAN, BOBAN N Ot F41.9 ANXIETY DISORDER, UNSPECIFIED 10/09/2017 JONATHAN, BOBAN N Ot Z51.11 ENCOUNTER FOR ANTINEOPLASTIC CHEMOTHERAP 10/09/2017 JONATHAN, BOBAN N Ot Z79.899 OTHER LIBRARY SPECIALIST (CURRENT) DRUG THERAPY 11/20/2017 JONATHAN, BOBAN N Ot 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, I 11/20/2017 JONATHAN, BOBAN N Ot C77.3 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 11/20/2017 JONATHAN, BOBAN N Ot 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 11/20/2017 JONATHAN, BOBAN N Ot F41.9 ANXIETY DISORDER, UNSPECIFIED 11/20/2017 JONATHAN, BOBAN N Ot Z51.11 ENCOUNTER FOR ANTINEOPLASTIC CHEMOTHERAP 11/20/2017 JONATHAN, BOBAN N Ot Z79.899 OTHER LIBRARY SPECIALIST (CURRENT) DRUG THERAPY 11/22/2017 PRICILLA CURRAN Ot 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, I 11/27/2017 JONATHAN SHANIAN N Ot 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, I 11/27/2017 JONATHAN, BOBAN N Ot C77.3 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 11/27/2017 OJNATHAN, BOBAN N Ot 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 11/27/2017 JONATHAN, BOBAN N Ot F41.9 ANXIETY DISORDER, UNSPECIFIED 11/27/2017 JONATHAN, BOBAN N Ot Z51.11 ENCOUNTER FOR ANTINEOPLASTIC CHEMOTHERAP 11/27/2017 JONATHAN, BOBAN N Ot Z79.899 OTHER LIBRARY SPECIALIST (CURRENT) DRUG THERAPY 11/28/2017 JONATHAN, BOBAN N Ot 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, I 11/28/2017 JONATHAN, BOBAN N Ot C77.3 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 11/28/2017 MECHE CASTILLO Ot 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 11/28/2017 MECHE CASTILLO Ot F41.9 ANXIETY DISORDER, UNSPECIFIED 11/28/2017 MECHE CASTILLO Ot Z51.11 ENCOUNTER FOR ANTINEOPLASTIC CHEMOTHERAP 11/28/2017 MECHE CASTILLO Ot Z79.899 OTHER ALF (CURRENT) DRUG THERAPY 12/06/2017 MECHE CASTILLO Ot 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, I 12/06/2017 MECHE CASTILLO Ot R59.0 LOCALIZED ENLARGED LYMPH NODES 12/12/2017 NANCY CURRANRASHID Rashida LICENSED PSYCHOLOGIST MANAGER Ot 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, I Procedures There is no data. Results Test Result Range Methicillin resistant Staphylococcus aureus (MRSA) screening culture - 13:30 Methicillin resistant Staphylococcus aureus (MRSA) screening culture NEG NRG Methicillin resistant Staphylococcus aureus (MRSA) screening culture - 09:00 Methicillin resistant Staphylococcus aureus (MRSA) screening culture NEG NRG Complete blood count (CBC) with automated white blood cell (WBC) differential - 08/09/17 13:50 Blood leukocytes automated count (number/volume) 6.8 10*3/uL 4.3-11.0 Blood erythrocytes automated count (number/volume) 4.16 10*6/uL 4.35-5.85 Venous blood hemoglobin measurement (mass/volume) 13.0 g/dL 13.3-17.7 Blood hematocrit (volume fraction) 39 % 40-54 Automated erythrocyte mean corpuscular volume 93 [foz_us] 80-99 Automated erythrocyte mean corpuscular hemoglobin (mass per erythrocyte) 31 pg 25-34 Automated erythrocyte mean corpuscular hemoglobin concentration measurement ( mass/volume) 34 g/dL 32-36 Automated erythrocyte distribution width ratio 12.8 % 10.0-14.5 Automated blood platelet count (count/volume) 225 10*3/uL 130-400 Automated blood platelet mean volume measurement 10.2 [foz_us] 7.4-10.4 Automated blood neutrophils/100 leukocytes 68 % 42-75 Automated blood lymphocytes/100 leukocytes 20 % 12-44 Blood monocytes/100 leukocytes 9 % 0-12 Automated blood eosinophils/100 leukocytes 3 % 0-10 Automated blood basophils/100 leukocytes 1 % 0-10 Blood neutrophils automated count (number/volume) 4.6 10*3 1.8-7.8 Blood lymphocytes automated count (number/volume) 1.4 10*3 1.0-4.0 Blood monocytes automated count (number/volume) 0.6 10*3 0.0-1.0 Automated eosinophil count 0.2 10*3/uL 0.0-0.3 Automated blood basophil count (count/volume) 0.0 10*3/uL 0.0-0.1 Comprehensive metabolic panel - 08/09/17 13:50 Serum or plasma sodium measurement (moles/volume) 142 mmol/L 135-145 Serum or plasma potassium measurement (moles/volume) 4.2 mmol/L 3.6-5.0 Serum or plasma chloride measurement (moles/volume) 108 mmol/L 98-107 Carbon dioxide 25 mmol/L 21-32 Serum or plasma anion gap determination (moles/volume) 9 mmol/L 5-14 Serum or plasma urea nitrogen measurement (mass/volume) 21 mg/dL 7-18 Serum or plasma creatinine measurement (mass/volume) 0.81 mg/dL 0.60-1.30 Serum or plasma urea nitrogen/creatinine mass ratio 26 NRG Serum or plasma creatinine measurement with calculation of estimated glomerular filtration rate > NRG Serum or plasma glucose measurement (mass/volume) 117 mg/dL 70-105 Serum or plasma calcium measurement (mass/volume) 8.9 mg/dL 8.5-10.1 Serum or plasma total bilirubin measurement (mass/volume) 0.6 mg/dL 0.1-1.0 Serum or plasma alkaline phosphatase measurement (enzymatic activity/volume) 60 U/L 40-136 Serum or plasma aspartate aminotransferase measurement (enzymatic activity/ volume) 20 U/L 5-34 Serum or plasma alanine aminotransferase measurement (enzymatic activity/volume ) 16 U/L 0-55 Serum or plasma protein measurement (mass/volume) 7.0 g/dL 6.4-8.2 Serum or plasma albumin measurement (mass/volume) 3.7 g/dL 3.2-4.5 Lactate dehydrogenase 1 [enzymatic activity/volume] in serum or plasma - 13:50 Lactate dehydrogenase 1 [enzymatic activity/volume] in serum or plasma 159 U/L 125-220 THYROID STIMULATING HORMONE - 08/09/17 13:50 THYROID STIMULATING HORMONE 5.00 u[iU]/mL 0.35-4.94 Encounters ACCT No. Visit Date/Time Discharge Status Pt. Type Provider Facility Loc./Unit Complaint [id number] 12/13/2017 08:57:00 12/13/2017 09:40:00 DIS Outpatient JAMIE NGUYEN MD [facility] PREOP COLONOSCOPY [id number] 12/05/2017 07:59:00 12/05/2017 23:59:59 CLS Outpatient MECHE CASTILLO [facility] RAD R93.[address] SCAN [id number] 11/21/2017 10:48:00 11/21/2017 23:59:59 CLS Outpatient PRICILLA CURRAN LICENSED PSYCHOLOGIST MANAGER [facility] CARD C43.62 [id number] 11/14/2017 14:21:00 11/20/2017 00:01:00 DIS Outpatient MECHE CASTILLO [facility] ONC [id number] 08/31/2017 11:15:00 08/31/2017 23:59:59 CLS Preadmit PRICILLA CURRAN S LICENSED PSYCHOLOGIST MANAGER [facility] RAD C43.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 OF LT UPPER LIMB [id number] 08/31/2017 10:57:00 08/31/2017 23:59:59 CLS Outpatient PRICILLA CURRAN LICENSED PSYCHOLOGIST MANAGER [facility] CARD C43.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 OF LT UPPER LIMB [id number] 08/09/2017 13:43:00 08/14/2017 00:01:00 DIS Outpatient MECHE CASTILLO [facility] ONC [id number] 06/08/2017 10:50:00 06/08/2017 23:59:59 CLS Outpatient MECHE CASTILLO [facility] CARD MALIGNANT MELANOMA OF LT UPPER LIMB [id number] 05/02/2017 14:16:00 05/11/2017 13:24:00 DIS Outpatient MECHE CASTILLO [facility] ONC [id number] 05/05/2017 08:41:00 05/05/2017 12:30:00 DIS Outpatient JAMIE NGUYEN MD Via [facility] SKIN LESIONS/HX MELANOMA [id number] 05/02/2017 10:09:00 05/02/2017 10:43:00 DIS Outpatient JAMIE NGUYEN MD [facility] PREOP EXC. MULTIPLE LESIONS [id number] 03/08/2017 13:53:00 03/15/2017 16:23:00 DIS Outpatient JENIFFER PEREZ MD [facility] ONC [id number] 03/01/2017 13:28:00 03/01/2017 23:59:59 CLS Outpatient JENIFFER PEREZ MD [facility] RAD R59.0 AXILLARY LYMPHADENOPATHY [id number] 01/10/2017 11:15:00 01/16/2017 11:05:00 DIS Outpatient JENIFFER PEREZ MD [facility] ONC [id number] 01/03/2017 14:26:00 01/09/2017 00:01:00 DIS Outpatient JENIFFER PEREZ MD [facility] ONC [id number] 10/04/2016 14:08:00 10/10/2016 00:01:00 DIS Outpatient JENIFFER PEREZ MD [facility] ONC [id number] 08/24/2016 08:28:00 08/25/2016 12:50:00 DIS Outpatient JAMIE NGUYEN MD [facility] METASTATIC MELANOMA LEFT AXILLA [id number] 08/18/2016 12:33:00 08/18/2016 14:08:00 DIS Outpatient JAMIE NGUYEN MD [facility] PREOP METASTATIC MELANOMA LEFT AXILLA [id number] 08/02/2016 14:02:00 08/02/2016 23:59:59 CLS Outpatient JENIFFER PEREZ MD [facility] RAD C43.62 [id number] 07/19/2016 08:15:00 07/19/2016 23:59:59 CLS Outpatient JENIFFER PEREZ MD [facility] RAD METASTATIC MELANOMA [id number] 03/14/2016 14:47:00 06/12/2016 00:01:00 DIS Outpatient JENIFFER PEREZ MD [facility] ONC [id number] 01/26/2016 14:26:00 02/14/2016 00:01:00 DIS Outpatient JENIFFER PEREZ MD [facility] ONC [id number] 02/02/2016 13:13:00 02/02/2016 23:59:59 CLS Outpatient PRICILLA CURRAN [facility] ONC [id number] 11/25/2015 06:22:00 11/26/2015 12:40:00 DIS Outpatient JAMIE NGUYEN MD [facility] RAD MELANOMA [id number] 11/23/2015 10:43:00 11/23/2015 14:11:00 DIS Outpatient JAMIE NGUYEN MD [facility] PREOP MELONMA [id number] 11/10/2015 10:13:00 11/10/2015 23:59:59 CLS Outpatient JAMIE NGUYEN MD [facility] RAD MELANOMA, LEFT ELBOW SKIN LESION [id number] 10/28/2015 09:56:00 10/28/2015 14:20:00 DIS Outpatient JAMIE NGUYEN MD [facility] SDC LESION LATERAL ASPECT LEFT ELBOW [id number] 10/27/2015 12:50:00 10/27/2015 14:50:00 DIS Outpatient JAMIE NGUYEN MD [facility] PREOP LESION OVER LATERAL ASPECT LEFT ELBOW [id number] 12/14/2017 07:08:00 ACT Outpatient JAMIE NGUYEN MD [facility] ENDO ABNORMAL CT/ABNORMAL PET SCAN/ HX OF MALIGNANT DALI [id number] 12/12/2017 14:22:00 ACT Outpatient MECHE CASTILLO [facility] ONC [id number] 2012 07:20:00 Document Registration
[2017-12-14] MEDS ORDERED: NS IV 500 ML 500 ML IV PRN (10:27)
[2017-12-14] MEDS ORDERED: NALOXONE 0.4 MG/ML 1 ML (NARCAN) VIAL IVP PRN (10:30)
[2017-12-14] MEDS ORDERED: FLUMAZENIL (ROMAZICON) 0.1 MG/ML 5 ML VIAL INJ PRN (10:30)
[2017-12-14] MEDS ORDERED: NS IV 500 ML 500 ML ONE (10:35)
[2017-12-14 10:48] VITALS: BP 146/80
[2017-12-14] MEDS ORDERED: fentaNYL INJECTION 100 MCG/2 ML AMP ONE ×2 (11:11→11:24)
[2017-12-14] MEDS ORDERED: MIDAZOLAM 2 MG/2 ML (VERSED) VIAL ONE ×5 (11:11→11:24)
--- NOTE | 2017-12-14 11:16 | History & Physicial ---
History of Present Illness History of Present Illness Reason for visit/HPI to undergo colonoscopy, to evaluate increased activity seen along the descending colon, on a recent PET scan, performed for post management assessment of malignant melanoma involving his left upper extremity. Date of Admission 12/14/17 Date Seen by Provider: December 14, 2017 Time Seen by Provider: 11:13 I consulted on this patient on 12/14/17 11:13 Attending Physician Jamie Acevedo MD Admitting Physician Maribel Fiore DO Consult Allergies and Home Medications Allergies Coded Allergies: epinephrine (Verified Allergy, Unknown, 10/28/15) epinephrine HCl (Verified Allergy, Unknown, 10/28/15) lidocaine (Unverified Allergy, Unknown, 10/28/15) Home Medications Multivitamin 1 Each Tablet, 1 TAB PO DAILY, (Reported) [place] 3 Polyunsat Fatty Acids 1,000 Mg Cap, 1,000 MG PO DAILY, (Reported) Patient Home Medication List Home Medication List Reviewed: Yes Past Mnvhdyh-Ituodl-Gadpcj Hx Patient Social History Marrital Status: Employed/Student: retired Alcohol Use: Denies Use Recreational Drug Use: No Smoking Status: Never a Smoker Recent Foreign Travel: No Contact w/other who traveled: No Recent Hopitalizations: No Recent Infectious Disease Expo: No Immunizations Up To Date Tetanus Booster (TDap): Unknown Seasonal Allergies Seasonal Allergies: No Surgeries Yes (CYST ON BUTTOCK, LESION FROM ELBOW, SKIN GRAFT TO ELBOW, LYMPH NODE FROM AX ) Respiratory No Currently Using CPAP: No Currently Using BIPAP: No Cardiovascular No (FAST HEART RATE AT TIMES) Neurological No Reproductive System Hx Reproductive Disorders: No Sexually Transmitted Disease: No HIV/AIDS: No Gastrointestinal No Musculoskeletal Yes (MILD) Arthritis Endocrine History of Endocrine Disorders: No HEENT Loss of Vision: Denies Hearing Impairment: Denies Cancer Yes (ON ELBOW) Melanoma Psychosocial History of Psychiatric Problem: Yes (ABOUT SURGERY) Behavioral Health Disorders: Anxiety Integumentary History of Skin or Integumenta: No Blood Transfusions History of Blood Disorders: No Adverse Reaction to a Blood Tr: No Family Medical History Family Hx: Cardiovascular disease 19 MOTHER Constitutional: no symptoms reported EENTM: no symptoms reported Respiratory: no symptoms reported Cardiovascular: no symptoms reported Gastrointestinal: no symptoms reported Genitourinary: no symptoms reported Musculoskeletal: no symptoms reported Skin: no symptoms reported Psychiatric/Neurological: No Symptoms Reported Physical Exam Vital Signs Vital Signs - First Documented 12/14/17 10:48 Temp 98.4 Pulse 78 Resp 18 B/P (MAP) 146/80 (102) Pulse Ox 100 O2 Delivery Room Air Capillary Refill : General Appearance: Anxious Neck: Normal Inspection Respiratory: Lungs Clear Cardiovascular: Regular Rate, Rhythm Gastrointestinal: Non Tender, Soft Rectal: Deferred Back: Normal Inspection Extremity: Normal Inspection, Other Neurologic/Psychiatric: Alert, Oriented x3 Skin: Warm/Dry Comments no local recurrence over his left upper extremity. No recurrence in his axilla. No supraclavicular lymph nodes palpable. Assessment/Plan Assessment and Plan gentleman with previously resected melanoma from left upper extremity. Abnormal PET scan with increased activity along the descending colon and the pelvis. Details of colonoscopy reviewed Admission Diagnosis Admission Status: Other (Outpt Proc) JAMIE ACEVEDO MD December 14, 2017 11:16 am
--- NOTE | 2017-12-14 11:17 | Conscious Sedation/ASA ---
Conscious Sedation Pre-Proced Time Reviewed: 11:16 ASA Class: 2 Airway Mallampati Classification: (ewiiaapaayp appropriate class) I. II. III, IV Lungs Heart ASA score ASA 1: a normal healthy patient ASA 2: a patient with a mild systemic disease (mid diabetes, controlled hypertension, obesity ASA 3: a patient with a severe systemic disease that limits activity (angina , COPD, prior Myocardial infarction) ASA 4: a patient with an incapacitating disease that is a constant threat to life (CHF, renal failure) ASA 5: a moribund patient not expected to survive 24 hrs. (ruptured aneurysm) ASA 6: a declared brain patient whose organs are being harvested. For emergent operations, add the letter E after the classification Grade 1 Sedation Plan: Discussed options with patient/fam Note The patient is an appropriate candidate to undergo the planned procedure, sedation, and anesthesia. The patient immediately re-assessed prior to indication. JAMIE NGUYEN MD December 14, 2017 11:17 am
[2017-12-14] MEDS: MIDAZOLAM 2 MG/2 ML (VERSED) VIAL IVP PRN ×5 (11:19→11:31)
[2017-12-14] MEDS: fentaNYL INJECTION 100 MCG/2 ML AMP IVP PRN ×4 (11:20→11:29)
--- NOTE | 2017-12-14 11:48 | Endo Procedure Record ---
Endo Procedure Report Date of Procedure Last Colonoscopy: Yes December 14, 2017 Surgeon (s) JAMIE NGUYEN MD Post Procedure/Op Diagnosis Normal colonoscopy Procedure Performed Colonoscopy to cecum Description of Procedure Anesthesia Type: Conscious Sedation Specimen(s) collected/removed none Description of the Procedure Indication for the procedure: A follow-up PET scan performed regarding treated melanoma involving the left upper extremity, showed increased activity along the descending colon. Therefore, it was felt reasonable to perform colonoscopy. He denied any relevant family history of colon cancer, nor any personal symptoms. Informed consent was obtained after reviewing the procedure in detail. Description of procedure: He was placed in left lateral decubitus position and his vital signs were monitored. Conscious sedation was achieved using Versed and fentanyl. Digital rectal examination was unremarkable. The colonoscope was then introduced in the rectum and advanced all the way up to the cecum. The quality of bowel preparation was excellent. The scope was then withdrawn slowly and the mucosa examined in a systematic fashion. There was no abnormality He tolerated the procedure well and was taken back to the nursing area in a stable condition. Impression: Abnormal PET scan with increased activity along the descending colon. No findings on colonoscopy Copy Copies To 1: MECHE CASTILLO Copies To 2: PÉREZ GREEN XAVIER M MD December 14, 2017 11:48 am
--- NOTE | 2017-12-14 11:49 | Discharge Inst-Simple/Standard ---
Discharge Inst-Standard Discharge Medications New, Converted or Re-Newed RX: Other Patient Instructions/Follow Up Plan of Care/Instructions/FU: We shall call him regarding further course of management Activity as Tolerated: Yes Discharge Diet: No Restrictions JAMIE NGUYEN MD December 14, 2017 11:49 am
[2017-12-14 12:10] VITALS: BP 117/64
[2017-12-14 12:39] VITALS: BP 118/73
[2017-12-14 12:46] VITALS: BP 118/73
== END 2017-12-14 12:50 | disposition home or self-care (01) ==
LOC: ENDO 07:08
PROVIDERS: ATTEND Surgery
DX: R93.3 Abnormal findings on diagnostic imaging of other parts of digestive tract (principal); C43.62 Malignant melanoma of left upper limb, including shoulder

== ENCOUNTER 2018-01-03 05:42 | Outpatient (CLI) | payer MEDICARE, OTHER ==
[~2018-01-03] VITALS: Ht 182.9 cm; Wt 64.9 kg
== END 2018-01-03 14:06 ==
LOC: PREOP 05:42
PROVIDERS: ATTEND Surgery
DX: Z01.818 Encounter for other preprocedural examination (principal); R19.09 Other intra-abdominal and pelvic swelling, mass and lump

== ENCOUNTER 2018-01-22 05:47 | Inpatient (IN) | payer MEDICARE, OTHER ==
[~2018-01-22] VITALS: Ht 182.9 cm; Wt 64.9 kg
[2018-01-22] MEDS ORDERED: LACTATED RINGERS 1,000 ML IV PRN (06:39)
[2018-01-22 06:40] VITALS: BP 150/81
[2018-01-22 06:43] LABS: BASOPHILS % (AUTO) 1 % (0-10); EOSINOPHILS # (AUTO) 0.1 10^3/uL (0.0-0.3); EOSINOPHILS % (AUTO) 1 % (0-10); HEMATOCRIT 32 % (40-54); HEMOGLOBIN 10.5 G/DL (13.3-17.7); LYMPHOCYTES # (AUTO) 0.8 X 10^3 (1.0-4.0); LYMPHOCYTES % (AUTO) 16 % (12-44); MEAN CORPUSCULAR HEMOGLOBIN 26 PG (25-34); MEAN CORPUSCULAR HGB CONC 32 G/DL (32-36); MEAN CORPUSCULAR VOLUME 79 FL (80-99); MEAN PLATELET VOLUME 9.4 FL (7.4-10.4); MONOCYTES # (AUTO) 0.6 X 10^3 (0.0-1.0); MONOCYTES % (AUTO) 11 % (0-12); NEUTROPHILS # (AUTO) 3.6 X 10^3 (1.8-7.8); NEUTROPHILS % (AUTO) 71 % (42-75); PLATELET COUNT 296 10^3/uL (130-400); RED BLOOD COUNT 4.08 10^6/uL (4.35-5.85); RED CELL DISTRIBUTION WIDTH 14.3 % (10.0-14.5); WHITE BLOOD COUNT 5.1 10^3/uL (4.3-11.0)
[2018-01-22] MEDS ORDERED: KETAMINE HCL 100 MG/ML 5 ML VIAL ONE (06:44)
[2018-01-22] MEDS ORDERED: ONDANSETRON 4 MG/2 ML (SDV) Z0FRAN ONE (06:44)
[2018-01-22] MEDS ORDERED: ROCURONIUM 10 MG/ML 5 ML SYRINGE IV ONE ×2 (06:44→09:15)
[2018-01-22] MEDS ORDERED: DEXAMETHASONE 10 MG/ML (DECADRON) 1 ML VIAL ONE (06:44)
[2018-01-22] MEDS ORDERED: MIDAZOLAM 2 MG/2 ML (VERSED) VIAL ONE (06:44)
[2018-01-22] MEDS ORDERED: proPOfol 200 MG/20 ML (DIPRIVAN) VIAL IV ONE (06:44)
[2018-01-22] MEDS ORDERED: ceFAZolin INJECTION 1,000 MG in NS (IVPB) 50 ML IV ONE (06:45)
[2018-01-22] MEDS ORDERED: fentaNYL INJECTION 100 MCG/2 ML AMP ONE ×2 (06:45→08:42)
[2018-01-22] MEDS ORDERED: SEVOFLURANE (ULTANE) 15 ML INHAL SOLN ONE ×12 (06:57→11:38)
[2018-01-22] MEDS: LACTATED RINGERS 1,000 ML IV PRN ×3 (06:58→10:10)
[2018-01-22] MEDS ORDERED: BUPIVACAINE 0.5% 30 ML (SENSORCAINE) VIAL ONE (07:19)
[2018-01-22] MEDS ORDERED: MIDAZOLAM 2 MG/2 ML (VERSED) VIAL IV NR (07:23)
[2018-01-22] MEDS ORDERED: metroNIDAZOLE 500MG/100ML IVPB 100 ML ONE (08:03)
--- NOTE | 2018-01-22 08:03 | Progress Note-Pre Operative ---
Pre-Operative Progress Note H&P Reviewed The H&P was reviewed, patient examined and no changes noted. Date Seen by Provider: December 21, 2017 Time Seen by Provider: 11:20 Date H&P Reviewed: Jan 22, 2018 Time H&P Reviewed: 08:03 Pre-Operative Diagnosis: Metastatic melanoma JAMIE NGUYEN MD Jan 22, 2018 8:03 am
--- NOTE | 2018-01-22 08:07 | History & Physicial ---
History of Present Illness History of Present Illness Reason for visit/HPI To undergo robotic assisted laparoscopy and biopsy of a mass in the pelvis/ possible small bowel resection Date of Admission 01/22/18 Date Seen by Provider: Jan 22, 2018 Time Seen by Provider: 08:04 I consulted on this patient on 01/22/18 08:03 Attending Physician Jamie Acevedo MD Admitting Physician Maribel Fiore DO Consult Allergies and Home Medications Allergies Coded Allergies: epinephrine (Verified Allergy, Unknown, 10/28/15) epinephrine HCl (Verified Allergy, Unknown, 10/28/15) lidocaine (Unverified Allergy, Unknown, 10/28/15) Home Medications Multivitamin 1 Each Tablet, 1 TAB PO DAILY, (Reported) [place] 3 Polyunsat Fatty Acids 1,000 Mg Cap, 1,000 MG PO DAILY, (Reported) Patient Home Medication List Home Medication List Reviewed: Yes Past Ssqhnxk-Zonutk-Txhqfz Hx Patient Social History Marrital Status: Employed/Student: retired Alcohol Use: Denies Use Recreational Drug Use: No Smoking Status: Never a Smoker Recent Foreign Travel: No Contact w/other who traveled: No Recent Hopitalizations: No Recent Infectious Disease Expo: No Immunizations Up To Date Tetanus Booster (TDap): Unknown Seasonal Allergies Seasonal Allergies: No Surgeries Yes Respiratory No Currently Using CPAP: No Currently Using BIPAP: No Cardiovascular No (FAST HEART RATE AT TIMES) Neurological No Reproductive System Hx Reproductive Disorders: No Sexually Transmitted Disease: No HIV/AIDS: No Genitourinary No Gastrointestinal Yes (PELVIC MASS) Musculoskeletal No (MILD) Arthritis Endocrine History of Endocrine Disorders: No HEENT History of HEENT Disorders: No Loss of Vision: Denies Hearing Impairment: Denies Cancer Yes (ON ELBOW) Melanoma Psychosocial History of Psychiatric Problem: No (ABOUT SURGERY) Behavioral Health Disorders: Anxiety Integumentary History of Skin or Integumenta: No Blood Transfusions History of Blood Disorders: No Adverse Reaction to a Blood Tr: No Family Medical History Family Hx: Cardiovascular disease 19 MOTHER Constitutional: no symptoms reported EENTM: no symptoms reported Respiratory: no symptoms reported Cardiovascular: no symptoms reported Gastrointestinal: no symptoms reported Genitourinary: no symptoms reported Musculoskeletal: no symptoms reported Skin: see HPI Psychiatric/Neurological: Anxiety Physical Exam Vital Signs Vital Signs - First Documented 01/22/18 06:40 Temp 98.7 Pulse 89 Resp 18 B/P (MAP) 150/81 (104) Pulse Ox 100 O2 Delivery Room Air Capillary Refill : General Appearance: Anxious Neck: Normal Inspection Respiratory: Lungs Clear Cardiovascular: Regular Rate, Rhythm Gastrointestinal: Non Tender, Soft Rectal: Deferred Extremity: Normal Inspection Neurologic/Psychiatric: Alert, Oriented x3 Skin: Warm/Dry Assessment/Plan Assessment and Plan Gentleman with previous melanoma of left upper extremity with positive PET scan .For robotic assisted biopsy/small bowel resection Admission Diagnosis Admission Status: Other (Same Day Surgery) JAMIE ACEVEDO MD Jan 22, 2018 8:07 am
[2018-01-22] MEDS ORDERED: metroNIDAZOLE 500MG/100ML IVPB 100 ML IV NR (09:10)
--- NOTE | 2018-01-22 11:38 | Operative Report ---
Operative Report Date of Procedure/Surgery Jan 22, 2018 Surgeon (s) JAMIE NGUYEN MD Trimmer Operator Three Knife (s): N/A Post-Operative Diagnosis Metastatic melanoma involving proximal ileum Procedure Performed Robotic assisted small bowel resection with anastomosis Description of Procedure Anesthesia Type: General Estimated blood loss (mL): 25 mL Specimen(s) collected/removed Small bowel with melanoma Description of the Procedure Indication for the procedure: This gentleman has been treated for malignant melanoma of the left upper extremity with axillary lymph node metastasis. Follow-up head CT showed increased activity in the pelvis and the left side of the abdomen. Colonoscopy was negative for any mucosal lesions. Therefore, obtaining histologic diagnosis of the mass in the pelvis was felt to be reasonable. Since percutaneous technique by the interventional radiologist was not feasible, it is felt reasonable to perform laparoscopy using robotic assistance, make the definitive diagnosis and possibly resect the small bowel, should metastatic involvement be discovered. Informed consent was obtained after reviewing the operative details and complications of wound infection, anastomotic leak and intra-abdominal abscess. Description of procedure: He was placed supine on the operative table and general anesthesia induced. A gram of Ancef and 500 mg of Flagyl were administered intravenously as prophylaxis against wound infection. Sequential compression devices were placed around his legs, to minimize the risk of venous thrombosis. A Jenkins catheter was placed to decompress the bladder during surgery. It was removed at the end of the operation. Abdomen was prepared and draped in the usual sterile manner. Pneumoperitoneum was established using a Veress needle introduced over the supra-umbilical region. A 12 mm trocar was placed and anatomy visualized using the high definition, 3-dimensional laparoscope associated with da Gabriele system. Under direct view, I placed and 8 mm trocar over the left side abdomen followed by a 12 mm trocar over the right side of the abdomen facilitate placing the robotic stapler. An additional 8 mm trocar was placed over the left lower quadrant to facilitate using the third arm of the robotic system. The patient was turned into Trendelenburg position and the robotic system docked in place. Laparoscopic survey confirmed involvement of the proximal ileum tumor, the area be adherent to the rectum and another loop of distal ileum. The mass was gently from the rectum and the loop of distal ileum. I examined the left side of the abdomen and did not encounter any additional tumor deposits. Ascitic fluid was found in the pelvis and suctioned out. In addition, an uncomplicated Meckel's diverticulum was also identified. It became clear that small bowel resection would be the ideal approach. The involved segment of the proximal ileum was resected using 3.5 mm robotic stapler. The mesentery was controlled using the vessel sealing device. An isoperistaltic anastomosis was created using a 3.5 mm robotic stapler. The common enterotomy was closed using a first layer of 20V LOC sutures and a Lembert's layer with 2-0 Vicryl. The denuded area of the rectum and the distal small bowel was oversewn with 2-0 Vicryl with the robotic assistance. There is no disruption of the muscle layers of the involved segments. A 4 cm Pfannenstiel incision was made and the specimen removed using a wound protecting device. This incision was closed using 3-0 PDS for the peritoneum and #1 Prolene for the fascia. Subcutaneous tissue was approximated using 3-0 Vicryl and skin using 4-0 Vicryl, in a subcuticular fashion. The fascia over all the incisions was closed using #1 Vicryl. Skin incisions were closed using 4-0 Vicryl, in a subcuticular fashion. 0.5 percent Marcaine with epinephrine was infiltrated along the incisions preemptively and at the conclusion of the operation. He tolerated the procedure well, was extubated in the operating room and taken to the recovery room in a stable condition. Findings of the Procedure See op report Allergies and Home Medications Allergies Coded Allergies: epinephrine (Verified Allergy, Unknown, 10/28/15) epinephrine HCl (Verified Allergy, Unknown, 10/28/15) lidocaine (Unverified Allergy, Unknown, 10/28/15) Home Medications Multivitamin 1 Each Tablet, 1 TAB PO DAILY, (Reported) [place] 3 Polyunsat Fatty Acids 1,000 Mg Cap, 1,000 MG PO DAILY, (Reported) Patient Home Medication List Home Medication List Reviewed: Yes JAMIE NGUYEN MD Jan 22, 2018 11:38 am
[2018-01-22] MEDS ORDERED: ONDANSETRON 4 MG/2 ML (SDV) Z0FRAN IVP PRN ×2 (11:45→12:15)
[2018-01-22] MEDS ORDERED: GLYCOPYRROLATE 0.2 MG/ML (ROBINUL) 2 ML VIAL ONE (11:54)
[2018-01-22] MEDS ORDERED: NEOSTIGMINE 1 MG/ML 5 ML SYRINGE ONE (11:54)
[2018-01-22] MEDS ORDERED: fentaNYL INJECTION 100 MCG/2 ML AMP IVP PRN (12:15)
[2018-01-22] MEDS ORDERED: PROMETHAZINE INJ 25 MG/ML (PHENERGAN) AMP IVP PRN (12:15)
[2018-01-22] MEDS: morphine INJ 10 MG/ML 1ML (SYR OR VIAL) IVP PRN ×2 (12:35→12:40)
[2018-01-22 13:00] VITALS: BP 137/63
[2018-01-22] MEDS: fentaNYL INJECTION 100 MCG/2 ML AMP IV PRN ×2 (15:00→22:31)
[2018-01-22] MEDS: LACTATED RINGERS 1,000 ML IV SCH ×2 (15:33→21:24)
[2018-01-22] MEDS: ceFAZolin INJECTION 1,000 MG in NS (IVPB) 50 ML IV SCH ×2 (15:36→22:02)
[2018-01-22] MEDS ORDERED: LIDOCAINE UROJET 2% GEL 10 ML PKG ONE ×2 (17:26→21:56)
[2018-01-22] MEDS: metroNIDAZOLE 500MG/100ML IVPB 100 ML IV SCH ×2 (17:32→23:13)
[2018-01-22 19:20] VITALS: BP 134/68
[2018-01-23] VITALS: BP 102/70
[2018-01-23] MEDS: fentaNYL INJECTION 100 MCG/2 ML AMP IV PRN (03:15)
[2018-01-23] MEDS: LACTATED RINGERS 1,000 ML IV SCH ×2 (03:15→11:41)
[2018-01-23 04:20] VITALS: BP 110/64
[2018-01-23 08:00] VITALS: BP 121/65
--- NOTE | 2018-01-23 08:16 | Anesthesia-General Post-Op ---
General Patient Condition Mental Status/LOC: Same as Preop Cardiovascular: Satisfactory Nausea/Vomiting: Absent Respiratory: Satisfactory Pain: Controlled Complications: Absent Post Op Complications Complications None Follow Up Care/Instructions Patient Instructions None needed. Anesthesia/Patient Condition Patient Condition Patient is doing well, no complaints, stable vital signs, no apparent adverse anesthesia problems. No complications reported per nursing. D/C home per [facility] [place]: No CLEMENTE POSADAS CRNA Jan 23, 2018 08:16
[2018-01-23] MEDS: HYDROcodone/APAP 5 MG/325 MG (LORTAB) TAB PO PRN ×4 (08:48→23:09)
[2018-01-23 12:00] VITALS: BP 109/58
--- NOTE | 2018-01-23 12:29 | Progress Note-Standard ---
Standard Progress Note Progress Notes/Assess & Plan Date Seen by Provider: Jan 23, 2018 Time Seen by Provider: 11:30 Progress/Assessment & Plan Extremely anxious. Low-grade fever at 100.5 this morning, currently afebrile. No abdominal distention. Bladder function improved and he has been able to void spontaneously. Will advance diet slowly Final Diagnosis Small bowel mass. Metastatic melanoma JAMIE NGUYEN MD Jan 23, 2018 12:29
[2018-01-23] MEDS: METOCLOPRAMIDE INJ 10 MG/2 ML (REGLAN) IVP SCH ×3 (13:32→23:09)
[2018-01-23] MEDS: ENOXAPARIN 40 MG/0.4 ML (LOVENOX) SYR SC SCH (13:32)
[2018-01-23 16:00] VITALS: BP 120/60
[2018-01-23 20:00] VITALS: BP 141/65
[2018-01-24 00:05] VITALS: BP 125/74
[2018-01-24] MEDS: fentaNYL INJECTION 100 MCG/2 ML AMP IV PRN (00:22)
[2018-01-24] MEDS: HYDROcodone/APAP 5 MG/325 MG (LORTAB) TAB PO PRN (03:54)
[2018-01-24] MEDS: METOCLOPRAMIDE INJ 10 MG/2 ML (REGLAN) IVP SCH ×2 (05:58→12:10)
[2018-01-24 08:00] VITALS: BP 163/72
[2018-01-24] MEDS ORDERED: oxyCODONE/APAP 5/325MG (PERCOCET 5) TABLET PO PRN (08:45)
[2018-01-24] MEDS: ENOXAPARIN 40 MG/0.4 ML (LOVENOX) SYR SC SCH (12:13)
--- NOTE | 2018-01-24 14:55 | Progress Note-Standard ---
Standard Progress Note Progress Notes/Assess & Plan Date Seen by Provider: Jan 24, 2018 Time Seen by Provider: 14:53 Progress/Assessment & Plan Extremely anxious. Low-grade fever at 100.5 this morning, currently afebrile. No abdominal distention. Bladder function improved and he has been able to void spontaneously. Will advance diet slowly 01/24/18: Extremely anxious. Afebrile, has passed flatus. No abdominal distension. Incisions dry. Could be discharged home Final Diagnosis Metastatic melanoma JAMIE NGUYEN MD Jan 24, 2018 2:54 pm
[2018-01-24] MEDS ORDERED: OXYC-197 PO (14:56)
--- NOTE | 2018-01-24 14:59 | Discharge Inst-Simple/Standard ---
Discharge Inst-Standard Discharge Medications New, Converted or Re-Newed RX: RX on Chart Patient Instructions/Follow Up Plan of Care/Instructions/FU: May shower. F/U in 10 days. We would call him with path reports Activity as Tolerated: No Goal: No lifting Discharge Diet: No Restrictions JAMIE NGUYEN MD Jan 24, 2018 2:59 pm
--- NOTE | 2018-01-24 15:02 | Discharge Summary ---
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 Small bowel resction completed using robotic technique. Reasonable recovery. Passing flatus and tolerating diet Discharge Summary Procedures Robotic assisted small bowel resection Consultations None Discharge Physical Examination Allergies: Coded Allergies: epinephrine (Verified Allergy, Unknown, 10/28/15) epinephrine HCl (Verified Allergy, Unknown, 10/28/15) lidocaine (Unverified Allergy, Unknown, 10/28/15) Vitals & I&Os Vital Signs Date Time Temp Pulse Resp B/P (MAP) Pulse Ox O2 Delivery O2 Flow Rate FiO2 01/24/18 08:00 98.9 77 22 163/72 (102) 99 Room Air 01/22/18 17:08 2.00 Hospital Course Labs (last 24 hrs) Laboratory Tests 01/22/18 06:30: White Blood Count 5.1, Red Blood Count 4.08L, Hemoglobin 10.5L, Hematocrit 32L, Mean Corpuscular Volume 79L, Mean Corpuscular Hemoglobin 26, Mean Corpuscular Hemoglobin Concent 32, Red Cell Distribution Width 14.3, Platelet Count 296, Mean Platelet Volume 9.4, Neutrophils (%) (Auto) 71, Lymphocytes (%) (Auto) 16, Monocytes (%) (Auto) 11, Eosinophils (%) (Auto) 1, Basophils (%) (Auto) 1, Neutrophils # (Auto) 3.6, Lymphocytes # (Auto) 0.8L, Monocytes # (Auto) 0.6, Eosinophils # (Auto) 0.1, Basophils # (Auto) 0.0 Microbiology 01/22/18 MRSA Screen - Final, Complete MRSA not isolated Pending Labs Microbiology Date/Time Source Procedure Growth Status 01/22/18 06:30 Nasal MRSA Screen - Final MRSA not isolated Complete Laboratory Tests 01/22/18 06:30: White Blood Count 5.1, Red Blood Count 4.08, Hemoglobin 10.5, Hematocrit 32, Mean Corpuscular Volume 79, Mean Corpuscular Hemoglobin 26, Mean Corpuscular Hemoglobin Concent 32, Red Cell Distribution Width 14.3, Platelet Count 296, Mean Platelet Volume 9.4, Neutrophils (%) (Auto) 71, Lymphocytes (%) (Auto) 16, Monocytes (%) (Auto) 11, Eosinophils (%) (Auto) 1, Basophils (%) (Auto) 1, Neutrophils # (Auto) 3.6, Lymphocytes # (Auto) 0.8, Monocytes # (Auto) 0.6, Eosinophils # (Auto) 0.1, Basophils # (Auto) 0.0 Discharge Home Medications: Active Scripts Active Percocet 5-325 mg Tablet (Oxycodone HCl/Acetaminophen) 1 Each Tablet 1 Tab PO Q6H Reported Multi-Vitamin Daily (Multivitamin) 1 Each Tablet 1 Tab PO DAILY Fish Oil 1,000 mg Capsule ([place] 3 Polyunsat Fatty Acids) 1,000 Mg Cap 1,000 Mg PO DAILY Instructions to patient/family Please see electronic discharge instructions given to patient. Clinical Quality Measures DVT/VTE Risk/Contraindication: Risk Factor Score Per Nursin RFS Level Per Nursing on Admit: 2=Moderate JAMIE NGUYEN MD Jan 24, 2018 3:02 pm
[2018-01-24 15:21] VITALS: BP 135/74
[2018-01-24 16:30] VITALS: BP 135/74
[2018-01-24 17:15] VITALS: BP 135/74
--- OUTSIDE RECORDS SUMMARY | 2018-01-29 11:30 | XMS REPORT | Continuity of Care Document ---
Author Author [facility] Organization [facility] Address Unknown Phone Unavailable Allergies Active Description Code Type Severity Reaction Onset Reported/Identified Relationship to Patient Clinical Status Yes epinephrine [id number] Drug Allergy Unknown N/A 10/28/2015 Yes epinephrine HCl [id number] Drug Allergy Unknown N/A 10/28/2015 Yes lidocaine [id number] Drug Allergy Unknown N/A 10/28/2015 Medications There is no data. 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, I 07/13/1104 CHRIS ERVIN, JENIFFER Dia Ot C77.3 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 07/13/1104 CHRIS ERVIN, JENIFEFR Dia Ot Z51.11 ENCOUNTER FOR ANTINEOPLASTIC CHEMOTHERAP [...] LEFT UPPER LIMB, I 02/03/2016 PRICILLA CURRAN CASINO MANAGER Ot 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, I 02/14/2016 CHRIS ERVIN, JENIFFER Dia Ot 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, I 02/18/2016 PRICILLA CURRAN CASINO MANAGER Ot 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, I 02/19/2016 PRICILLA CURRAN CASINO MANAGER Ot 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, I 02/19/2016 JAMIE NGUYEN MD Ot 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, I 02/19/2016 PRICILLA CURRAN CASINO MANAGER Ot C43.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 OF LEFT [...] 01/09/2017 JENIFFER PEREZ MD Ot Z79.899 OTHER [facility] (CURRENT) DRUG THERAPY 01/10/2017 JENIFFER PEREZ MD, [...] 02/17/2017 JENIFFER PEREZ MD, Ot 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 03/10/2017 JENIFFER PEREZ MD, [...] 03/14/2017 JENIFFER PEREZ MD, Ot Z79.899 OTHER [facility] (CURRENT) DRUG THERAPY 03/15/2017 JENIFFER PEREZ MD, [...] 03/15/2017 JENIFFER PEREZ MD, Ot 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 03/22/2017 MECHE CASTILLO Ot [...] CHEMOTHERAP 03/22/2017 MECHE CASTILLO Ot Z79.899 OTHER [facility] (CURRENT) DRUG THERAPY 03/23/2017 JENIFFER PEREZ MD, [...] 04/06/2017 JENIFFER PEREZ MD Ot Z79.899 OTHER [facility] (CURRENT) DRUG THERAPY 05/02/2017 PATRICK ERVIN, JAMIE James Ot L98.9 DISORDER OF THE SKIN AND SUBCUTANEOUS TI 05/02/2017 JAMIE NGUYEN MD Ot Z01.818 ENCOUNTER FOR OTHER PREPROCEDURAL EXAMIN 05/02/2017 JAMIE NGUYEN MD Ot Z85.820 PERSONAL HISTORY OF MALIGNANT MELANOMA O 05/05/2017 PATRICK ERVIN, JAMIE James Ot D23.71 OTH [...] CHEMOTHERAP 05/05/2017 MECHE CASTILLO Ot Z79.899 OTHER [facility] (CURRENT) DRUG THERAPY 05/09/2017 JAMIE NGUYEN MD [...] 05/11/2017 JONATHAN, BOBAN N Ot Z79.899 OTHER [facility] (CURRENT) DRUG THERAPY 05/17/2017 JONATHAN BOBAN N [...] 05/17/2017 JONATHAN BOBAN N Ot Z79.899 OTHER [facility] (CURRENT) DRUG THERAPY 05/17/2017 PATRICK ERVIN, JAMIE James Ot D23.71 OTH BENIGN NEOPLASM SKIN/ RIGHT LOWER LI 05/17/2017 PATRICK ERVIN, JAMIE James Ot L57.0 ACTINIC KERATOSIS 05/17/2017 PATRICK ERVIN, AJMIE James Ot L82.1 OTHER SEBORRHEIC KERATOSIS 05/17/2017 PATRICK ERVIN, JAIME M Ot Z85.820 PERSONAL HISTORY OF MALIGNANT [...] 06/27/2017 JONATHAN BOBAN N Ot Z79.899 OTHER [facility] (CURRENT) DRUG THERAPY 06/30/2017 JONATHAN SHANIAN N [...] 07/07/2017 SHANI CASTILLOAN N Ot Z79.899 OTHER [facility] (CURRENT) DRUG THERAPY 07/11/2017 MECHE CASTILLO N [...] 07/11/2017 JONATHAN BOBAN N Ot 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 07/26/2017 PATRICK ERVIN, JAMIE [...] CHEMOTHERAP 07/26/2017 JONATHANMECHE N Ot 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 07/26/2017 JONATHANMECHE EDWARD N [...] 08/09/2017 MECHE CASTILLO N Ot 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 08/14/2017 MECHE CASTILLO N Ot 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, I 08/14/2017 MECHE CASTILLO N Ot C77.3 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 08/14/2017 MECHE CASTILLO N Ot 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 08/14/2017 MECHE CASTILLO N Ot F41.9 ANXIETY DISORDER, UNSPECIFIED 08/14/2017 JONATHANMECHE N Ot Z51.11 ENCOUNTER FOR ANTINEOPLASTIC CHEMOTHERAP 08/14/2017 JONATHAN BOBAN N Ot Z79.899 OTHER [facility] (CURRENT) DRUG THERAPY 08/16/2017 MECHE CASTILLO N [...] 08/16/2017 JONATHAN BOBAN N Ot 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 09/01/2017 PRICILLA CURRAN CASINO MANAGER Ot 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, I 09/01/2017 PRICILLA CURRAN CASINO MANAGER Ot 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, I 09/06/2017 PRICILLA CURRAN CASINO MANAGER Ot 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, I 09/12/2017 JONATHANMECHE N Ot 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, I 09/12/2017 JONATHAN, BOBAN N Ot C77.3 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 09/12/2017 JONATHAN, BOBAN N Ot 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 09/12/2017 JONATHAN, BOBAN N Ot F41.9 ANXIETY DISORDER, UNSPECIFIED 09/12/2017 JONATHAN, BOBAN N Ot Z51.11 ENCOUNTER FOR ANTINEOPLASTIC CHEMOTHERAP 09/12/2017 JONATHAN, BOBAN N Ot Z79.899 OTHER [facility] (CURRENT) DRUG THERAPY 09/20/2017 JONATHAN BOBAN N [...] 09/20/2017 JONATHAN, BOBAN N Ot Z79.899 OTHER [facility] (CURRENT) DRUG THERAPY 09/27/2017 PRICILLA CURRAN CASINO MANAGER Ot C43.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 OF LEFT [...] 10/03/2017 JONATHAN, BOBAN N Ot 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 10/09/2017 JONATHANSHANIAN N Ot 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, I 10/09/2017 JONATHAN, BOBAN N Ot C77.3 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 10/09/2017 JONATHAN, BOBAN N Ot 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 10/09/2017 JONATHAN, BOBAN N Ot F41.9 ANXIETY DISORDER, UNSPECIFIED 10/09/2017 JONATHAN, BOBAN N Ot Z51.11 ENCOUNTER FOR ANTINEOPLASTIC CHEMOTHERAP 10/09/2017 JONTAHAN, BOBAN N Ot 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 11/20/2017 JONATHAN, BOBAN N [...] 11/20/2017 JONATHAN, BOBAN N Ot 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 11/22/2017 PRICILLA CURRAN Ot 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, I 11/27/2017 JONATHAN SHANIAN N Ot 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, I 11/27/2017 JONATHAN, BOBAN N Ot C77.3 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 11/27/2017 JONATHAN, BOBAN N Ot 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 11/27/2017 JONATHAN, BOBAN N Ot F41.9 ANXIETY DISORDER, UNSPECIFIED 11/27/2017 JONATHAN, BOBAN N Ot Z51.11 ENCOUNTER FOR ANTINEOPLASTIC CHEMOTHERAP 11/27/2017 JONATHAN, BOBAN N Ot 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 11/28/2017 JONATHAN, BOBAN N Ot 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, I 11/28/2017 JONATHAN, BOBAN N Ot C77.3 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 11/28/2017 MECHE CASTILLO Mesfin Ot 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 11/28/2017 MECHE CASTILLO [employer] Ot F41.9 ANXIETY DISORDER, UNSPECIFIED 11/28/2017 MECHE CASTILLO [employer] Ot Z51.11 ENCOUNTER FOR ANTINEOPLASTIC CHEMOTHERAP 11/28/2017 MECHE CASTILLO [employer] Ot Z79.899 OTHER [facility] (CURRENT) DRUG THERAPY 12/06/2017 MECHE CASTILLO [employer] Ot 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, I 12/06/2017 MECHE CASTILLO Mesfin Ot R59.0 LOCALIZED ENLARGED LYMPH NODES 12/12/2017 PRICILLA CURRAN Ot 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, I 12/14/2017 PATRICK ERVIN, JAMIE James Ot Z01.818 ENCOUNTER FOR OTHER PREPROCEDURAL EXAMIN 12/14/2017 PATRICK ERVIN, JAMIE James Ot Z08 ENCNTR FOR FOLLOW-UP EXAM AFTER TRTMT FO 12/14/2017 PATRICK ERVIN, JAMIE James Ot Z85.820 PERSONAL HISTORY OF MALIGNANT MELANOMA O 12/14/2017 PATRICK ERVIN, JAMIE James Ot 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, I 12/14/2017 JAMIE NGUYEN MD Ot R93.3 ABNORMAL FINDINGS ON DX IMAGING OF PRT D 12/15/2017 JAMIE NGUYEN MD Ot 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, I 12/15/2017 JAMIE NGUYEN MD Ot R93.3 ABNORMAL FINDINGS ON DX IMAGING OF PRT D 12/15/2017 JAMIE NGUYEN MD Ot 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, I 12/15/2017 JAMIE NGUYEN MD Ot R93.3 ABNORMAL FINDINGS ON DX IMAGING OF PRT D 12/20/2017 JAMIE NGUYEN MD Ot 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, I 12/20/2017 JAMIE NGUYEN MD Ot R93.3 ABNORMAL FINDINGS ON DX IMAGING OF PRT D 12/20/2017 JONATHAN, MECHE Toure Ot 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, I 12/20/2017 JONATHANMECHE EDWARD Mesfin Ot C77.3 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 12/20/2017 MECHE CASTILLO N Ot 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 12/20/2017 MECHE CASTILLO N Ot F41.9 ANXIETY DISORDER, UNSPECIFIED 12/20/2017 MECHE CASTILLO N Ot Z51.11 ENCOUNTER FOR ANTINEOPLASTIC CHEMOTHERAP 12/20/2017 MECHE CASTILLO N Ot Z79.899 OTHER [facility] (CURRENT) DRUG THERAPY 12/27/2017 MECHE CASTILLO N Ot 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, I 12/27/2017 MECHE CASTILLO N Ot R59.0 LOCALIZED ENLARGED LYMPH NODES 01/04/2018 PATRICK ERVIN, JAMIE James Ot R19.09 OTHER INTRA-ABDOMINAL AND PELVIC SWELLIN 01/04/2018 PATRICK ERVIN, JAMIE James Ot Z01.818 ENCOUNTER FOR OTHER PREPROCEDURAL EXAMIN 01/05/2018 MECHE CASTILLO N Ot 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, I 01/05/2018 MECHE CASTILLO Ot C77.3 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 01/05/2018 MECHE CASTILLO N Ot 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 01/05/2018 MECHE CASTILLO N Ot F41.9 ANXIETY DISORDER, UNSPECIFIED 01/05/2018 MECHE CASTILLO N Ot Z51.11 ENCOUNTER FOR ANTINEOPLASTIC CHEMOTHERAP 01/05/2018 MECHE CASTILLO N Ot Z79.899 OTHER [facility] (CURRENT) DRUG THERAPY Procedures There is no data. Results Test [...] 13:50 THYROID STIMULATING HORMONE 5.00 u[iU]/mL 0.35-4.94 Complete blood count (CBC) with automated white blood cell (WBC) differential - 01/22/18 06:30 Blood leukocytes automated count (number/volume) 5.1 10*3/uL 4.3-11.0 Blood erythrocytes automated count (number/volume) 4.08 10*6/uL 4.35-5.85 Venous blood hemoglobin measurement (mass/volume) 10.5 g/dL 13.3-17.7 Blood hematocrit (volume fraction) 32 % 40-54 Automated erythrocyte mean corpuscular volume 79 [foz_us] 80-99 Automated erythrocyte mean corpuscular hemoglobin (mass per erythrocyte) 26 pg 25-34 Automated erythrocyte mean corpuscular hemoglobin concentration measurement ( mass/volume) 32 g/dL 32-36 Automated erythrocyte distribution width ratio 14.3 % 10.0-14.5 Automated blood platelet count (count/volume) 296 10*3/uL 130-400 Automated blood platelet mean volume measurement 9.4 [foz_us] 7.4-10.4 Automated blood neutrophils/100 leukocytes 71 % 42-75 Automated blood lymphocytes/100 leukocytes 16 % 12-44 Blood monocytes/100 leukocytes 11 % 0-12 Automated blood eosinophils/100 leukocytes 1 % 0-10 Automated blood basophils/100 leukocytes 1 % 0-10 Blood neutrophils automated count (number/volume) 3.6 10*3 1.8-7.8 Blood lymphocytes automated count (number/volume) 0.8 10*3 1.0-4.0 Blood monocytes automated count (number/volume) 0.6 10*3 0.0-1.0 Automated eosinophil count 0.1 10*3/uL 0.0-0.3 Automated blood basophil count (count/volume) 0.0 10*3/uL 0.0-0.1 Methicillin resistant Staphylococcus aureus (MRSA) screening culture - 06:30 Methicillin resistant Staphylococcus aureus (MRSA) screening culture NEG NRG Encounters ACCT No. Visit Date/Time Discharge Status Pt. Type Provider Facility Loc./Unit Complaint [id number] 01/10/2018 08:00:00 01/10/2018 23:59:59 CLS Preadmit JAMIE NGUYEN MD [facility] SDC PELVIC MASS [id number] 01/03/2018 05:42:00 01/03/2018 14:06:00 DIS Outpatient JAMIE NGUYEN MD [facility] PREOP PELVIC MASS [id number] 12/26/2017 14:30:00 12/26/2017 23:59:59 CLS Outpatient MECHE CASTILLO [facility] ONC [id number] 12/14/2017 07:08:00 12/14/2017 12:50:00 DIS Outpatient AJMIE NGUYEN MD [facility] ENDO ABNORMAL CT/ ABNORMAL PET SCAN/ HX OF MALIGNANT DALI [id number] 12/13/2017 08:57:00 12/13/2017 09:40:00 DIS Outpatient JAMIE NGUYEN MD [facility] PREOP COLONOSCOPY [id number] 12/05/2017 07:59:00 12/05/2017 23:59:59 CLS Outpatient MECHE CASTILLO [facility] RAD R93.[address] SCAN [id number] 11/21/2017 10:48:00 11/21/2017 23:59:59 CLS Outpatient PRICILLA CURRAN [facility] CARD C43.62 [id number] 11/14/2017 14:21:00 11/20/2017 00:01:00 DIS Outpatient MECHE CASTILLO [facility] ONC [id number] 08/31/2017 11:15:00 08/31/2017 23:59:59 CLS Preadmit PRICILLA CURRAN CASINO MANAGER [facility] RAD C43.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 OF LT UPPER LIMB [id number] 08/31/2017 10:57:00 08/31/2017 23:59:59 CLS Outpatient PRICILLA CURRAN CASINO MANAGER [facility] CARD C43.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 OF LT UPPER LIMB [id number] 08/09/2017 13:43:00 08/14/2017 00:01:00 DIS Outpatient MECHE CASTILLO [facility] ONC [id number] 06/08/2017 10:50:00 06/08/2017 23:59:59 CLS Outpatient MECHE CASTILLO [facility] CARD MALIGNANT MELANOMA OF LT UPPER LIMB [id number] 05/02/2017 14:16:00 05/11/2017 13:24:00 DIS Outpatient MECHE CASTILLO [facility] ONC [id number] 05/05/2017 08:41:00 05/05/2017 12:30:00 DIS [facility] M[facility]OMA [id number] 05/02/2017 10:09:00 05/02/2017 10:43:00 DIS Outpatient JAMIE NGUYEN MD [facility] PREOP EXC. MULTIPLE LESIONS [id number] 03/08/2017 13:53:00 03/15/2017 16:23:00 DIS Outpatient JENIFFER PEREZ MD [facility] ONC [id number] 03/01/2017 13:28:00 03/01/2017 23:59:59 CLS Outpatient JENIFFER PEREZ MD [facility] RAD R59.0 AXILLARY LYMPHADENOPATHY [id number] 01/10/2017 11:15:00 01/16/2017 11:05:00 DIS Outpatient JENIFFER PEREZ MD [facility] ONC [id number] 01/03/2017 14:26:00 01/09/2017 00:01:00 DIS Outpatient JENIFFER PEREZ MD [facility] ONC [id number] 10/04/2016 14:08:00 10/10/2016 00:01:00 DIS Outpatient JENIFFER PEREZ MD [facility] ONC [id number] 08/24/2016 08:28:00 08/25/2016 12:50:00 DIS Outpatient JAMIE NGUYEN MD [facility] SDC METASTATIC MELANOMA LEFT AXILLA [id number] 08/18/2016 12:33:00 08/18/2016 14:08:00 DIS Outpatient JAMIE NGUYEN MD [facility] PREOP METASTATIC MELANOMA LEFT AXILLA [id number] 08/02/2016 14:02:00 08/02/2016 23:59:59 CLS Outpatient JENIFFER PEREZ MD [facility] RAD C43.62 [id number] 07/19/2016 08:15:00 07/19/2016 23:59:59 CLS Outpatient JENIFFER PEREZ MD [facility] RAD METASTATIC MELANOMA [id number] 03/14/2016 14:47:00 06/12/2016 00:01:00 DIS Outpatient JENIFFER PEREZ MD [facility] ONC [id number] 01/26/2016 14:26:00 02/14/2016 00:01:00 DIS Outpatient JENIFFER PEREZ MD [facility] ONC [id number] 02/02/2016 13:13:00 02/02/2016 23:59:59 CLS Outpatient PRICILLA CURRAN [facility] ONC [id number] 11/25/2015 06:22:00 11/26/2015 12:40:00 DIS Outpatient JAMIE NGUYEN MD [facility] RAD MELANOMA [id number] 11/23/2015 10:43:00 11/23/2015 14:11:00 DIS Outpatient JAMIE NGUYEN MD [facility] PREOP MELONMA [id number] 11/10/2015 10:13:00 11/10/2015 23:59:59 CLS Outpatient JAMIE NGUYEN MD [facility] RAD MELANOMA, LEFT ELBOW SKIN LESION [id number] 10/28/2015 09:56:00 10/28/2015 14:20:00 DIS Outpatient JAMIE NGUYEN MD [facility] LESION LATERAL ASPECT LEFT ELBOW [id number] 10/27/2015 12:50:00 10/27/2015 14:50:00 DIS Outpatient JAMIE NGUYEN MD [facility] PREOP LESION OVER LATERAL ASPECT LEFT ELBOW [id number] 2012 07:20:00 Document Registration
== END 2018-01-24 17:15 | disposition home or self-care (01) | DRG 331 ==
LOC: SDC 05:47 → 4TH 11:28 → SDC 14:55 → 4TH 14:55 → SDC 01-24 17:15 → 4TH 01-24 17:15
PROVIDERS: ADMIT Surgery; ATTEND Surgery
PROC: 8E0W0CZ Robotic Assisted Procedure of Trunk Region, Open Approach (ICD-10-PCS; 2018-01-22)
PROC: 0DBB0ZZ Excision of Ileum, Open Approach (ICD-10-PCS; principal; 2018-01-22 08:09)
DX: C78.4 Secondary malignant neoplasm of small intestine (principal); Z85.820 Personal history of malignant melanoma of skin
CPT/HCPCS: 36415; 85025; 87081; 88309; 88341; 88342; 94664; 94760

== ENCOUNTER 2018-02-08 09:11 | Outpatient (RCR) | payer MEDICARE, OTHER ==
[2017-11-28 14:56] LABS: BASOPHILS % (AUTO) 1 % (0-10); EOSINOPHILS # (AUTO) 0.1 10^3/uL (0.0-0.3); EOSINOPHILS % (AUTO) 1 % (0-10); HEMATOCRIT 33 % (40-54); HEMOGLOBIN 10.8 G/DL (13.3-17.7); LYMPHOCYTES # (AUTO) 1.3 X 10^3 (1.0-4.0); LYMPHOCYTES % (AUTO) 20 % (12-44); MEAN CORPUSCULAR HEMOGLOBIN 29 PG (25-34); MEAN CORPUSCULAR HGB CONC 33 G/DL (32-36); MEAN CORPUSCULAR VOLUME 88 FL (80-99); MEAN PLATELET VOLUME 9.5 FL (7.4-10.4); MONOCYTES # (AUTO) 0.8 X 10^3 (0.0-1.0); MONOCYTES % (AUTO) 13 % (0-12); NEUTROPHILS # (AUTO) 4.2 X 10^3 (1.8-7.8); NEUTROPHILS % (AUTO) 66 % (42-75); PLATELET COUNT 283 10^3/uL (130-400); RED BLOOD COUNT 3.71 10^6/uL (4.35-5.85); RED CELL DISTRIBUTION WIDTH 12.7 % (10.0-14.5); WHITE BLOOD COUNT 6.4 10^3/uL (4.3-11.0)
[2017-11-28 15:16] LABS: ALANINE AMINOTRANSFERASE 15 U/L (0-55); ALBUMIN 3.7 GM/DL (3.2-4.5); ALKALINE PHOSPHATASE 58 U/L (40-136); BILIRUBIN,TOTAL 0.7 MG/DL (0.1-1.0); BUN/CREATININE RATIO 31; CALCIUM 8.8 MG/DL (8.5-10.1); CARBON DIOXIDE 25 MMOL/L (21-32); CHLORIDE 107 MMOL/L (98-107); GFR ESTIMATED > 60; GLUCOSE 90 MG/DL (70-105); POTASSIUM 4.3 MMOL/L (3.6-5.0); SODIUM 138 MMOL/L (135-145); TOTAL PROTEIN 6.5 GM/DL (6.4-8.2)
[~2018-02-08] VITALS: Ht 181.6 cm; Wt 65.3 kg
[~2018-02-08 09:11] MED LIST changes: +NIVOLUMAB 200 MG, NIVOLUMAB 40 MG in NS (IVPB) CANCER CENTER 50 ML IV SCH; +OXYC-197 PO
[2018-02-08 09:32] LABS: BASOPHILS # (AUTO) 0.1 10^3/uL (0.0-0.1); BASOPHILS % (AUTO) 1 % (0-10); EOSINOPHILS # (AUTO) 0.1 10^3/uL (0.0-0.3); EOSINOPHILS % (AUTO) 2 % (0-10); HEMATOCRIT 31 % (40-54); HEMOGLOBIN 10.2 G/DL (13.3-17.7); LYMPHOCYTES # (AUTO) 1.4 X 10^3 (1.0-4.0); LYMPHOCYTES % (AUTO) 24 % (12-44); MEAN CORPUSCULAR HEMOGLOBIN 26 PG (25-34); MEAN CORPUSCULAR HGB CONC 33 G/DL (32-36); MEAN CORPUSCULAR VOLUME 79 FL (80-99); MONOCYTES # (AUTO) 0.7 X 10^3 (0.0-1.0); MONOCYTES % (AUTO) 12 % (0-12); NEUTROPHILS # (AUTO) 3.7 X 10^3 (1.8-7.8); NEUTROPHILS % (AUTO) 62 % (42-75); PLATELET COUNT 356 10^3/uL (130-400); RED BLOOD COUNT 3.94 10^6/uL (4.35-5.85)
[2018-02-08 10:09] LABS: ALANINE AMINOTRANSFERASE 12 U/L (0-55); ALBUMIN 3.7 GM/DL (3.2-4.5); ALKALINE PHOSPHATASE 50 U/L (40-136); BILIRUBIN,TOTAL 0.5 MG/DL (0.1-1.0); BUN/CREATININE RATIO 24; CALCIUM 9.1 MG/DL (8.5-10.1); CARBON DIOXIDE 23 MMOL/L (21-32); CHLORIDE 108 MMOL/L (98-107); CREATININE SERUM 0.79 MG/DL (0.60-1.30); GFR ESTIMATED > 60; GLUCOSE 108 MG/DL (70-105); POTASSIUM 4.4 MMOL/L (3.6-5.0); SODIUM 139 MMOL/L (135-145); TOTAL PROTEIN 6.4 GM/DL (6.4-8.2)
== END 2018-02-26 | disposition home or self-care (01) ==
LOC: ONC 09:11
PROVIDERS: ATTEND Internal Medicine Hematology & Oncology
DX: Z51.11 Encounter for antineoplastic chemotherapy (principal); C43.62 Malignant melanoma of left upper limb, including shoulder; C77.3 Secondary and unspecified malignant neoplasm of axilla and upper limb lymph nodes; D22.5 Melanocytic nevi of trunk; F41.9 Anxiety disorder, unspecified; Z79.899 Other long term (current) drug therapy
CPT/HCPCS: 36415; 80053; 83615; 84443; 85025; 96413; 99213

== ENCOUNTER 2018-02-27 14:43 | Outpatient (RCR) | payer MEDICARE, OTHER ==
[~2018-02-27] VITALS: Ht 182.9 cm; Wt 60.3 kg
[2018-02-27 14:08] LABS: BASOPHILS % (AUTO) 1 % (0-10); EOSINOPHILS # (AUTO) 0.1 10^3/uL (0.0-0.3); EOSINOPHILS % (AUTO) 3 % (0-10); HEMATOCRIT 31 % (40-54); HEMOGLOBIN 9.8 G/DL (13.3-17.7); LYMPHOCYTES # (AUTO) 1.2 X 10^3 (1.0-4.0); LYMPHOCYTES % (AUTO) 22 % (12-44); MEAN CORPUSCULAR HEMOGLOBIN 25 PG (25-34); MEAN CORPUSCULAR HGB CONC 32 G/DL (32-36); MEAN CORPUSCULAR VOLUME 77 FL (80-99); MEAN PLATELET VOLUME 9.8 FL (7.4-10.4); MONOCYTES # (AUTO) 0.6 X 10^3 (0.0-1.0); MONOCYTES % (AUTO) 11 % (0-12); NEUTROPHILS # (AUTO) 3.4 X 10^3 (1.8-7.8); NEUTROPHILS % (AUTO) 63 % (42-75); PLATELET COUNT 300 10^3/uL (130-400); RED CELL DISTRIBUTION WIDTH 16.1 % (10.0-14.5); WHITE BLOOD COUNT 5.3 10^3/uL (4.3-11.0)
[2018-02-27 14:27] LABS: ALANINE AMINOTRANSFERASE 9 U/L (0-55); ALBUMIN 3.9 GM/DL (3.2-4.5); ALKALINE PHOSPHATASE 51 U/L (40-136); BILIRUBIN,TOTAL 0.7 MG/DL (0.1-1.0); BUN/CREATININE RATIO 24; CALCIUM 9.3 MG/DL (8.5-10.1); CARBON DIOXIDE 25 MMOL/L (21-32); CHLORIDE 109 MMOL/L (98-107); CREATININE SERUM 0.79 MG/DL (0.60-1.30); GFR ESTIMATED > 60; GLUCOSE 113 MG/DL (70-105); SODIUM 141 MMOL/L (135-145); TOTAL PROTEIN 6.9 GM/DL (6.4-8.2)
[2018-02-27] MEDS ORDERED: PEMBROLIZUMAB 200 MG in NS (IVPB) CANCER CENTER 50 ML IV SCH (14:45)
[2018-02-27] MEDS ORDERED: NS IV 500 ML (CANCER CENTER) IV SCH (15:00)
== END 2018-03-05 10:20 | disposition home or self-care (01) ==
LOC: ONC 14:43
PROVIDERS: ATTEND Internal Medicine Hematology & Oncology
DX: Z51.11 Encounter for antineoplastic chemotherapy (principal); C43.62 Malignant melanoma of left upper limb, including shoulder; C77.3 Secondary and unspecified malignant neoplasm of axilla and upper limb lymph nodes; D22.5 Melanocytic nevi of trunk; F41.9 Anxiety disorder, unspecified; Z79.899 Other long term (current) drug therapy
CPT/HCPCS: 36415; 80053; 83615; 85025; 96413

== ENCOUNTER 2018-04-10 14:15 | Outpatient (RCR) | payer MEDICARE, OTHER ==
[2018-03-20 14:36] LABS: BASOPHILS % (AUTO) 1 % (0-10); EOSINOPHILS # (AUTO) 0.1 10^3/uL (0.0-0.3); EOSINOPHILS % (AUTO) 2 % (0-10); HEMATOCRIT 30 % (40-54); HEMOGLOBIN 9.6 G/DL (13.3-17.7); LYMPHOCYTES # (AUTO) 1.4 X 10^3 (1.0-4.0); LYMPHOCYTES % (AUTO) 26 % (12-44); MEAN CORPUSCULAR HEMOGLOBIN 24 PG (25-34); MEAN CORPUSCULAR HGB CONC 32 G/DL (32-36); MEAN CORPUSCULAR VOLUME 77 FL (80-99); MEAN PLATELET VOLUME 9.5 FL (7.4-10.4); MONOCYTES # (AUTO) 0.7 X 10^3 (0.0-1.0); MONOCYTES % (AUTO) 13 % (0-12); NEUTROPHILS # (AUTO) 3.3 X 10^3 (1.8-7.8); NEUTROPHILS % (AUTO) 59 % (42-75); PLATELET COUNT 297 10^3/uL (130-400); RED BLOOD COUNT 3.95 10^6/uL (4.35-5.85); RED CELL DISTRIBUTION WIDTH 16.5 % (10.0-14.5); WHITE BLOOD COUNT 5.5 10^3/uL (4.3-11.0)
[2018-03-20 14:56] LABS: ALANINE AMINOTRANSFERASE 12 U/L (0-55); ALBUMIN 3.9 GM/DL (3.2-4.5); ALKALINE PHOSPHATASE 52 U/L (40-136); BILIRUBIN,TOTAL 0.7 MG/DL (0.1-1.0); BUN/CREATININE RATIO 23; CALCIUM 8.9 MG/DL (8.5-10.1); CARBON DIOXIDE 26 MMOL/L (21-32); CHLORIDE 106 MMOL/L (98-107); CREATININE SERUM 0.78 MG/DL (0.60-1.30); GFR ESTIMATED > 60; GLUCOSE 101 MG/DL (70-105); POTASSIUM 4.1 MMOL/L (3.6-5.0); SODIUM 139 MMOL/L (135-145); TOTAL PROTEIN 6.6 GM/DL (6.4-8.2)
[~2018-04-10 14:15] MED LIST changes: -NIVOLUMAB 200 MG, NIVOLUMAB 40 MG in NS (IVPB) CANCER CENTER 50 ML IV SCH; +NS IV 500 ML (CANCER CENTER) IV SCH; -OXYC-197 PO; +OXYC1TAB87 PO; +PEMBROLIZUMAB 200 MG in NS (IVPB) CANCER CENTER 50 ML IV SCH
[2018-04-10 14:37] LABS: BASOPHILS % (AUTO) 1 % (0-10); EOSINOPHILS # (AUTO) 0.1 10^3/uL (0.0-0.3); EOSINOPHILS % (AUTO) 1 % (0-10); HEMATOCRIT 30 % (40-54); HEMOGLOBIN 9.6 G/DL (13.3-17.7); LYMPHOCYTES # (AUTO) 1.5 X 10^3 (1.0-4.0); LYMPHOCYTES % (AUTO) 23 % (12-44); MEAN CORPUSCULAR HEMOGLOBIN 25 PG (25-34); MEAN CORPUSCULAR HGB CONC 32 G/DL (32-36); MEAN CORPUSCULAR VOLUME 76 FL (80-99); MEAN PLATELET VOLUME 9.7 FL (7.4-10.4); MONOCYTES # (AUTO) 0.7 X 10^3 (0.0-1.0); MONOCYTES % (AUTO) 12 % (0-12); NEUTROPHILS % (AUTO) 63 % (42-75); PLATELET COUNT 288 10^3/uL (130-400); RED BLOOD COUNT 3.92 10^6/uL (4.35-5.85); RED CELL DISTRIBUTION WIDTH 17.1 % (10.0-14.5); WHITE BLOOD COUNT 6.3 10^3/uL (4.3-11.0)
[2018-04-10 14:58] LABS: ALANINE AMINOTRANSFERASE 8 U/L (0-55); ALBUMIN 3.9 GM/DL (3.2-4.5); ALKALINE PHOSPHATASE 56 U/L (40-136); BILIRUBIN,TOTAL 0.8 MG/DL (0.1-1.0); BUN/CREATININE RATIO 23; CALCIUM 9.2 MG/DL (8.5-10.1); CARBON DIOXIDE 22 MMOL/L (21-32); CHLORIDE 106 MMOL/L (98-107); CREATININE SERUM 0.84 MG/DL (0.60-1.30); GFR ESTIMATED > 60; GLUCOSE 105 MG/DL (70-105); POTASSIUM 4.3 MMOL/L (3.6-5.0); SODIUM 140 MMOL/L (135-145); TOTAL PROTEIN 6.8 GM/DL (6.4-8.2)
[2018-05-01 14:27] LABS: BASOPHILS % (AUTO) 0 % (0-10); EOSINOPHILS # (AUTO) 0.1 10^3/uL (0.0-0.3); EOSINOPHILS % (AUTO) 2 % (0-10); HEMATOCRIT 34 % (40-54); HEMOGLOBIN 11.2 G/DL (13.3-17.7); LYMPHOCYTES # (AUTO) 1.5 X 10^3 (1.0-4.0); LYMPHOCYTES % (AUTO) 22 % (12-44); MEAN CORPUSCULAR HEMOGLOBIN 27 PG (25-34); MEAN CORPUSCULAR HGB CONC 33 G/DL (32-36); MEAN CORPUSCULAR VOLUME 81 FL (80-99); MEAN PLATELET VOLUME 9.7 FL (7.4-10.4); MONOCYTES # (AUTO) 0.6 X 10^3 (0.0-1.0); MONOCYTES % (AUTO) 9 % (0-12); NEUTROPHILS # (AUTO) 4.6 X 10^3 (1.8-7.8); NEUTROPHILS % (AUTO) 67 % (42-75); PLATELET COUNT 273 10^3/uL (130-400); RED BLOOD COUNT 4.13 10^6/uL (4.35-5.85); RED CELL DISTRIBUTION WIDTH 23.4 % (10.0-14.5); WHITE BLOOD COUNT 6.9 10^3/uL (4.3-11.0)
[2018-05-01 14:51] LABS: ALANINE AMINOTRANSFERASE 12 U/L (0-55); ALBUMIN 3.9 GM/DL (3.2-4.5); ALKALINE PHOSPHATASE 51 U/L (40-136); BILIRUBIN,TOTAL 0.8 MG/DL (0.1-1.0); BUN/CREATININE RATIO 23; CALCIUM 9.4 MG/DL (8.5-10.1); CARBON DIOXIDE 27 MMOL/L (21-32); CHLORIDE 107 MMOL/L (98-107); CREATININE SERUM 0.81 MG/DL (0.60-1.30); GFR ESTIMATED > 60; GLUCOSE 107 MG/DL (70-105); POTASSIUM 4.3 MMOL/L (3.6-5.0); SODIUM 142 MMOL/L (135-145); TOTAL PROTEIN 6.7 GM/DL (6.4-8.2)
== END 2018-05-01 14:26 | disposition home or self-care (01) ==
LOC: ONC 14:15
PROVIDERS: ATTEND Internal Medicine Hematology & Oncology
DX: Z51.11 Encounter for antineoplastic chemotherapy (principal); C43.62 Malignant melanoma of left upper limb, including shoulder; C77.3 Secondary and unspecified malignant neoplasm of axilla and upper limb lymph nodes; D22.5 Melanocytic nevi of trunk; F41.9 Anxiety disorder, unspecified; Z79.899 Other long term (current) drug therapy
CPT/HCPCS: 36415; 80053; 82728; 83540; 83615; 84443; 85025; 96413

== ENCOUNTER 2018-05-01 14:28 | Outpatient (RCR) | payer MEDICARE, OTHER ==
[~2018-05-01] VITALS: Ht 182.9 cm; Wt 63.5 kg
[~2018-05-01 14:28] MED LIST changes: -NS IV 500 ML (CANCER CENTER) IV SCH; -PEMBROLIZUMAB 200 MG in NS (IVPB) CANCER CENTER 50 ML IV SCH
[2018-05-01] MEDS ORDERED: NS IV 500 ML (CANCER CENTER) IV SCH (14:30)
[2018-05-01] MEDS ORDERED: PEMBROLIZUMAB 200 MG in NS (IVPB) CANCER CENTER 50 ML IV SCH (14:30)
== END 2018-05-13 | disposition home or self-care (01) ==
LOC: ONC 14:28
PROVIDERS: ATTEND Internal Medicine Hematology & Oncology
DX: Z51.11 Encounter for antineoplastic chemotherapy (principal); C43.62 Malignant melanoma of left upper limb, including shoulder; C77.3 Secondary and unspecified malignant neoplasm of axilla and upper limb lymph nodes; D22.5 Melanocytic nevi of trunk; F41.9 Anxiety disorder, unspecified; Z79.899 Other long term (current) drug therapy
CPT/HCPCS: 36415; 96413

== ENCOUNTER 2018-05-22 14:02 | Outpatient (RCR) | payer MEDICARE, OTHER ==
[~2018-05-22 14:02] MED LIST changes: +NS IV 500 ML (CANCER CENTER) IV SCH; +PEMBROLIZUMAB 200 MG in NS (IVPB) CANCER CENTER 50 ML IV SCH
[2018-05-22 14:17] LABS: BASOPHILS % (AUTO) 1 % (0-10); EOSINOPHILS # (AUTO) 0.1 10^3/uL (0.0-0.3); EOSINOPHILS % (AUTO) 2 % (0-10); HEMATOCRIT 37 % (40-54); HEMOGLOBIN 12.1 G/DL (13.3-17.7); LYMPHOCYTES # (AUTO) 1.4 X 10^3 (1.0-4.0); LYMPHOCYTES % (AUTO) 20 % (12-44); MEAN CORPUSCULAR HEMOGLOBIN 28 PG (25-34); MEAN CORPUSCULAR HGB CONC 33 G/DL (32-36); MEAN CORPUSCULAR VOLUME 85 FL (80-99); MEAN PLATELET VOLUME 9.4 FL (7.4-10.4); MONOCYTES # (AUTO) 0.7 X 10^3 (0.0-1.0); MONOCYTES % (AUTO) 11 % (0-12); NEUTROPHILS # (AUTO) 4.8 X 10^3 (1.8-7.8); NEUTROPHILS % (AUTO) 67 % (42-75); PLATELET COUNT 264 10^3/uL (130-400); RED BLOOD COUNT 4.31 10^6/uL (4.35-5.85); RED CELL DISTRIBUTION WIDTH 22.6 % (10.0-14.5); WHITE BLOOD COUNT 7.1 10^3/uL (4.3-11.0)
[2018-05-22 14:40] LABS: ALANINE AMINOTRANSFERASE 15 U/L (0-55); ALKALINE PHOSPHATASE 51 U/L (40-136); BILIRUBIN,TOTAL 0.5 MG/DL (0.1-1.0); BUN/CREATININE RATIO 23; CALCIUM 9.5 MG/DL (8.5-10.1); CARBON DIOXIDE 24 MMOL/L (21-32); CHLORIDE 107 MMOL/L (98-107); CREATININE SERUM 0.84 MG/DL (0.60-1.30); GFR ESTIMATED > 60; GLUCOSE 108 MG/DL (70-105); POTASSIUM 4.3 MMOL/L (3.6-5.0); SODIUM 139 MMOL/L (135-145)
[2018-06-12 14:35] LABS: BASOPHILS % (AUTO) 0 % (0-10); EOSINOPHILS # (AUTO) 0.1 10^3/uL (0.0-0.3); EOSINOPHILS % (AUTO) 1 % (0-10); HEMATOCRIT 39 % (40-54); HEMOGLOBIN 12.9 G/DL (13.3-17.7); LYMPHOCYTES # (AUTO) 1.3 X 10^3 (1.0-4.0); LYMPHOCYTES % (AUTO) 19 % (12-44); MEAN CORPUSCULAR HEMOGLOBIN 29 PG (25-34); MEAN CORPUSCULAR HGB CONC 34 G/DL (32-36); MEAN CORPUSCULAR VOLUME 86 FL (80-99); MEAN PLATELET VOLUME 9.6 FL (7.4-10.4); MONOCYTES # (AUTO) 0.7 X 10^3 (0.0-1.0); MONOCYTES % (AUTO) 10 % (0-12); NEUTROPHILS # (AUTO) 4.6 X 10^3 (1.8-7.8); NEUTROPHILS % (AUTO) 69 % (42-75); PLATELET COUNT 290 10^3/uL (130-400); RED BLOOD COUNT 4.46 10^6/uL (4.35-5.85); RED CELL DISTRIBUTION WIDTH 20.3 % (10.0-14.5); WHITE BLOOD COUNT 6.7 10^3/uL (4.3-11.0)
[2018-06-12 14:52] LABS: ALANINE AMINOTRANSFERASE 12 U/L (0-55); ALKALINE PHOSPHATASE 55 U/L (40-136); BILIRUBIN,TOTAL 0.5 MG/DL (0.1-1.0); BUN/CREATININE RATIO 21; CALCIUM 9.8 MG/DL (8.5-10.1); CARBON DIOXIDE 25 MMOL/L (21-32); CHLORIDE 106 MMOL/L (98-107); GFR ESTIMATED > 60; GLUCOSE 93 MG/DL (70-105); POTASSIUM 4.3 MMOL/L (3.6-5.0); SODIUM 140 MMOL/L (135-145)
== END 2018-06-12 14:19 | disposition home or self-care (01) ==
LOC: ONC 14:02
PROVIDERS: ATTEND Internal Medicine Hematology & Oncology
DX: Z51.11 Encounter for antineoplastic chemotherapy (principal); C43.62 Malignant melanoma of left upper limb, including shoulder; C77.3 Secondary and unspecified malignant neoplasm of axilla and upper limb lymph nodes; D22.5 Melanocytic nevi of trunk; F41.9 Anxiety disorder, unspecified; Z79.899 Other long term (current) drug therapy
CPT/HCPCS: 36415; 80053; 83615; 85025; 96413

== ENCOUNTER → 2018-06-28 | Outpatient (CLI) | payer MEDICARE, OTHER ==
[~2018-06-28] MED LIST changes: +BARIUM SUSPENSION 2.1% (VANILLA SILQ) 450 ML PO ONE; +CATHETER FLUSH 10 ML SYR IV PRN; +IOHEXOL 350 MG/ML 100 ML (OMNIPAQUE 350) VIAL IV ONE; +NS 250 ML (IVPB) BAG IV ONE; -NS IV 500 ML (CANCER CENTER) IV SCH; -PEMBROLIZUMAB 200 MG in NS (IVPB) CANCER CENTER 50 ML IV SCH; +RECEIVED CONTRAST (Hold Metformin) IV SCH
--- NOTE | 2018-06-28 13:15 | Diagnostic Imaging Report ---
PROCEDURE: CT chest with contrast, CT abdomen and pelvis with and without contrast. TECHNIQUE: Pre and post intravenous contrast axial imaging of the abdomen and pelvis and post contrast axial imaging of the chest were performed. INDICATION: Malignant melanoma. Comparison is made with prior CT from 11/21/2017. CT CHEST: There are surgical clips in left axilla. No definite axillary lymphadenopathy is detected. No mediastinal or hilar lymphadenopathy is detected. Trace pericardial fluid is identified. There is no pleural effusion. No pulmonary mass or nodule is seen. No infiltrate is detected. IMPRESSION: Stable CT of the chest. No thoracic lymphadenopathy or evidence of pulmonary metastatic disease is identified. CT ABDOMEN AND PELVIS: No discrete liver mass is seen. There are small stones layering within the gallbladder. No biliary duct dilatation is identified. The pancreas and spleen are unremarkable. No adrenal mass is detected. The kidneys are unremarkable. Aorta is non-aneurysmal. Small lymph nodes in the central retroperitoneum appears stable. There is a markedly thick-walled loop of small bowel in the left abdomen measuring up to a thickness of 15 mm. This may correspond with the area of hypermetabolism noted on PET scan from November. All other bowel loops are unremarkable. No obstruction is seen. There is some free fluid in the pelvis. The bladder and prostate are unremarkable. No definite pelvic lymphadenopathy is seen on today's study. The hypermetabolic mass in the pelvis on prior PET is not visible on today's study. IMPRESSION: 1. Marked wall thickening involving a segment of small bowel in the left abdomen. Features are concerning with either a small bowel neoplasm, lymphoma or metastasis. No bowel obstruction is seen. 2. Resolution of previously described mass in the right para midline of the pelvis on study from 11/21/2017. 3. Cholelithiasis. Dictated by: Dictated on workstation # [id number]
--- NOTE | 2018-06-28 16:02 | Diagnostic Imaging Report ---
INDICATION: Melanoma. TECHNIQUE: Patient was administered 24.7 mCi of technetium 99m MDP intravenously and whole body imaging was performed after a three-hour delay. COMPARISON: Comparison is made with whole blood bone scan from 11/21/2017. FINDINGS: Normal uptake of activity within the axial and appendicular skeleton is seen. There is activity within both kidneys and the urinary bladder. No abnormal foci are seen to suggest osseous metastatic disease. IMPRESSION: Stable whole-body bone scan. No scintigraphic findings of osseous metastatic disease are identified. Dictated by: Dictated on workstation # [id number]
== END ==
LOC: RAD 11:45
PROVIDERS: ATTEND Internal Medicine Hematology & Oncology
DX: C43.62 Malignant melanoma of left upper limb, including shoulder (principal); C78.4 Secondary malignant neoplasm of small intestine; K80.20 Calculus of gallbladder without cholecystitis without obstruction
CPT/HCPCS: 71260; 74178; 78306

== ENCOUNTER → 2018-08-21 | Outpatient (CLI) | payer MEDICARE, OTHER ==
[~2018-08-21] MED LIST changes: -BARIUM SUSPENSION 2.1% (VANILLA SILQ) 450 ML PO ONE; -CATHETER FLUSH 10 ML SYR IV PRN; -IOHEXOL 350 MG/ML 100 ML (OMNIPAQUE 350) VIAL IV ONE; -NS 250 ML (IVPB) BAG IV ONE; -RECEIVED CONTRAST (Hold Metformin) IV SCH
--- NOTE | 2018-08-21 15:36 | Diagnostic Imaging Report ---
INDICATION: Small bowel mass as well as history of malignant melanoma. Study is performed for restaging. TECHNIQUE: Serum blood glucose level at the time of injection was 85 mg/dL. The patient was administered 10.8 mCi of F-18 FDG intravenously administered in the right forearm and whole body PET imaging was performed. In addition, noncontrast CT was performed for attenuation correction and anatomic correlation. COMPARISON: Correlation is made with prior whole body PET/CT from 12/05/2017 [address] well as conventional CT study from 06/28/2018. FINDINGS: There is symmetric activity throughout the brain. The soft tissues of the neck are unremarkable. No mediastinal or hilar hypermetabolism is identified. Previously noted borderline activity in the michel bilaterally is similar to prior exam. No pulmonary parenchymal hypermetabolism is identified. Imaging through the abdomen demonstrates physiologic activity within the GI and tracts. There is an intense region of hypermetabolism in the left abdomen just below the level of the left kidney with SUV max of approximately 17.5. This does correspond to the significant wall thickening involving small bowel loops at this location on recent CT. No central retroperitoneal hypermetabolism is seen. Previously noted intense activity in the low pelvis is no longer present. Imaging of the lower extremities is unremarkable. IMPRESSION: 1. Intense hypermetabolism in the left abdomen, which appears to be associated with small bowel loops. This does correlate with the marked bowel wall thickening noted on recent CT and is suspicious for small bowel neoplasm or lymphoma. 2. Previously noted pelvic hypermetabolism has resolved. 3. Unchanged borderline metabolism bilateral michel. Dictated by: Dictated on workstation # [id number]
== END ==
LOC: RAD 10:51
PROVIDERS: ATTEND Nurse Practitioner Adult Health
DX: C43.62 Malignant melanoma of left upper limb, including shoulder (principal); C78.4 Secondary malignant neoplasm of small intestine; K63.89 Other specified diseases of intestine

== ENCOUNTER → 2018-08-24 | Outpatient (CLI) | payer MEDICARE, OTHER ==
--- NOTE | 2018-08-24 09:26 | Diagnostic Imaging Report ---
INDICATION: Right upper quadrant pain. TECHNIQUE: Multiple grayscale sonographic images were obtained of the right upper quadrant of the abdomen. CORRELATION STUDY: None FINDINGS: LIVER: There is uniform echotexture within the visualized portions of the liver. Liver length at 14.4 cm. GALLBLADDER: Multiple shadowing gallstones are present. COMMON BILE DUCT: Nondilated at 3 mm. PANCREAS: Visualized portions appearing unremarkable. RIGHT KIDNEY: Measures 10.3 cm. No hydronephrosis. AORTA/IVC: Not well visualized. OTHER: None. IMPRESSION: 1. Cholelithiasis with multiple gallstones present. No additional findings to suggest acute cholecystitis. Dictated by: Dictated on workstation # [id number]
== END ==
LOC: RAD 08:30
PROVIDERS: ATTEND Surgery
DX: K80.20 Calculus of gallbladder without cholecystitis without obstruction (principal)
CPT/HCPCS: 76705

== ENCOUNTER 2018-09-04 08:46 | Outpatient (CLI) | payer MEDICARE, OTHER ==
[~2018-09-04] VITALS: Ht 182.9 cm; Wt 64.2 kg
[2018-09-04] MEDS ORDERED: FERR159T2 PO (09:02)
[2018-09-04] MEDS ORDERED: TAMS0.4C2 PO (09:02)
[2018-09-04 09:24] VITALS: BP 143/79
== END 2018-09-04 09:25 | disposition home or self-care (01) ==
LOC: PREOP 08:46
PROVIDERS: ATTEND Surgery
DX: Z01.818 Encounter for other preprocedural examination (principal)
CPT/HCPCS: 87081

== ENCOUNTER 2018-09-04 14:49 | Outpatient (RCR) | payer MEDICARE, OTHER ==
[2018-07-03 14:41] LABS: ALANINE AMINOTRANSFERASE 15 U/L (0-55); ALBUMIN 3.8 GM/DL (3.2-4.5); ALKALINE PHOSPHATASE 60 U/L (40-136); BILIRUBIN,TOTAL 0.7 MG/DL (0.1-1.0); BUN/CREATININE RATIO 23; CALCIUM 9.4 MG/DL (8.5-10.1); CARBON DIOXIDE 24 MMOL/L (21-32); CHLORIDE 106 MMOL/L (98-107); CREATININE SERUM 0.81 MG/DL (0.60-1.30); GFR ESTIMATED > 60; GLUCOSE 116 MG/DL (70-105); POTASSIUM 4.5 MMOL/L (3.6-5.0); SODIUM 140 MMOL/L (135-145); TOTAL PROTEIN 6.9 GM/DL (6.4-8.2)
[2018-07-03 15:03] LABS: BASOPHILS % (AUTO) 0 % (0-10); EOSINOPHILS # (AUTO) 0.1 10^3/uL (0.0-0.3); EOSINOPHILS % (AUTO) 1 % (0-10); HEMATOCRIT 36 % (40-54); HEMOGLOBIN 12.1 G/DL (13.3-17.7); LYMPHOCYTES # (AUTO) 0.7 X 10^3 (1.0-4.0); LYMPHOCYTES % (AUTO) 12 % (12-44); MEAN CORPUSCULAR HEMOGLOBIN 29 PG (25-34); MEAN CORPUSCULAR HGB CONC 34 G/DL (32-36); MEAN CORPUSCULAR VOLUME 88 FL (80-99); MEAN PLATELET VOLUME 9.3 FL (7.4-10.4); MONOCYTES # (AUTO) 0.6 X 10^3 (0.0-1.0); MONOCYTES % (AUTO) 11 % (0-12); NEUTROPHILS # (AUTO) 4.5 X 10^3 (1.8-7.8); NEUTROPHILS % (AUTO) 76 % (42-75); PLATELET COUNT 263 10^3/uL (130-400); RED CELL DISTRIBUTION WIDTH 17.4 % (10.0-14.5); WHITE BLOOD COUNT 5.9 10^3/uL (4.3-11.0)
[2018-07-24 14:19] LABS: BASOPHILS # (AUTO) 0.1 10^3/uL (0.0-0.1); BASOPHILS % (AUTO) 1 % (0-10); EOSINOPHILS # (AUTO) 0.1 10^3/uL (0.0-0.3); EOSINOPHILS % (AUTO) 2 % (0-10); HEMATOCRIT 37 % (40-54); HEMOGLOBIN 12.4 G/DL (13.3-17.7); LYMPHOCYTES # (AUTO) 1.3 X 10^3 (1.0-4.0); LYMPHOCYTES % (AUTO) 18 % (12-44); MEAN CORPUSCULAR HEMOGLOBIN 30 PG (25-34); MEAN CORPUSCULAR HGB CONC 33 G/DL (32-36); MEAN CORPUSCULAR VOLUME 91 FL (80-99); MEAN PLATELET VOLUME 9.3 FL (7.4-10.4); MONOCYTES # (AUTO) 0.7 X 10^3 (0.0-1.0); MONOCYTES % (AUTO) 10 % (0-12); NEUTROPHILS % (AUTO) 70 % (42-75); PLATELET COUNT 252 10^3/uL (130-400); RED CELL DISTRIBUTION WIDTH 15.4 % (10.0-14.5); WHITE BLOOD COUNT 7.1 10^3/uL (4.3-11.0)
[2018-07-24 14:36] LABS: ALANINE AMINOTRANSFERASE 14 U/L (0-55); ALBUMIN 3.7 GM/DL (3.2-4.5); ALKALINE PHOSPHATASE 64 U/L (40-136); BILIRUBIN,TOTAL 0.6 MG/DL (0.1-1.0); BUN/CREATININE RATIO 22; CALCIUM 9.3 MG/DL (8.5-10.1); CARBON DIOXIDE 25 MMOL/L (21-32); CHLORIDE 106 MMOL/L (98-107); CREATININE SERUM 0.83 MG/DL (0.60-1.30); GFR ESTIMATED > 60; GLUCOSE 97 MG/DL (70-105); POTASSIUM 4.4 MMOL/L (3.6-5.0); SODIUM 140 MMOL/L (135-145); TOTAL PROTEIN 6.6 GM/DL (6.4-8.2)
[2018-08-15 15:12] LABS: BASOPHILS % (AUTO) 1 % (0-10); EOSINOPHILS # (AUTO) 0.1 10^3/uL (0.0-0.3); EOSINOPHILS % (AUTO) 1 % (0-10); HEMATOCRIT 38 % (40-54); HEMOGLOBIN 12.7 G/DL (13.3-17.7); LYMPHOCYTES # (AUTO) 1.2 X 10^3 (1.0-4.0); LYMPHOCYTES % (AUTO) 18 % (12-44); MEAN CORPUSCULAR HEMOGLOBIN 31 PG (25-34); MEAN CORPUSCULAR HGB CONC 33 G/DL (32-36); MEAN CORPUSCULAR VOLUME 92 FL (80-99); MEAN PLATELET VOLUME 9.2 FL (7.4-10.4); MONOCYTES # (AUTO) 0.7 X 10^3 (0.0-1.0); MONOCYTES % (AUTO) 10 % (0-12); NEUTROPHILS # (AUTO) 4.7 X 10^3 (1.8-7.8); NEUTROPHILS % (AUTO) 70 % (42-75); PLATELET COUNT 295 10^3/uL (130-400); RED CELL DISTRIBUTION WIDTH 14.3 % (10.0-14.5); WHITE BLOOD COUNT 6.6 10^3/uL (4.3-11.0)
[2018-08-15 15:43] LABS: ALANINE AMINOTRANSFERASE 15 U/L (0-55); ALBUMIN 3.9 GM/DL (3.2-4.5); ALKALINE PHOSPHATASE 62 U/L (40-136); BILIRUBIN,TOTAL 0.6 MG/DL (0.1-1.0); BUN/CREATININE RATIO 23; CALCIUM 9.4 MG/DL (8.5-10.1); CARBON DIOXIDE 24 MMOL/L (21-32); CHLORIDE 105 MMOL/L (98-107); CREATININE SERUM 0.84 MG/DL (0.60-1.30); GFR ESTIMATED > 60; GLUCOSE 93 MG/DL (70-105); POTASSIUM 4.1 MMOL/L (3.6-5.0); SODIUM 141 MMOL/L (135-145)
[~2018-09-04] VITALS: Ht 182.9 cm; Wt 64.0 kg
[~2018-09-04 14:49] MED LIST changes: +FERR159T2 PO; +NS IV 500 ML (CANCER CENTER) IV SCH; +PEMBROLIZUMAB 200 MG in NS (IVPB) CANCER CENTER 50 ML IV SCH; +TAMS0.4C2 PO
[2018-09-10] MEDS ORDERED: ACHD5005 PO ×4 (11:51→11:56)
== END 2018-09-10 | disposition home or self-care (01) ==
LOC: ONC 14:49
PROVIDERS: ATTEND Internal Medicine Hematology & Oncology
DX: Z51.11 Encounter for antineoplastic chemotherapy (principal); C43.62 Malignant melanoma of left upper limb, including shoulder; C77.3 Secondary and unspecified malignant neoplasm of axilla and upper limb lymph nodes; D22.5 Melanocytic nevi of trunk; F41.9 Anxiety disorder, unspecified; Z79.899 Other long term (current) drug therapy
CPT/HCPCS: 36415; 80053; 82728; 83615; 85025; 96413; 99213

== ENCOUNTER 2018-09-07 05:58 | Inpatient (IN) | payer MEDICARE, OTHER ==
[~2018-09-07] VITALS: Ht 182.9 cm; Wt 64.2 kg
[~2018-09-07 05:58] MED LIST changes: -NS IV 500 ML (CANCER CENTER) IV SCH; -PEMBROLIZUMAB 200 MG in NS (IVPB) CANCER CENTER 50 ML IV SCH
[2018-09-07 06:15] VITALS: BP 126/85
[2018-09-07] MEDS: LACTATED RINGERS 1,000 ML IV PRN ×2 (06:30→08:20)
[2018-09-07] MEDS ORDERED: fentaNYL INJECTION 100 MCG/2 ML AMP ONE (06:54)
[2018-09-07] MEDS ORDERED: MIDAZOLAM 2 MG/2 ML (VERSED) VIAL ONE (06:54)
[2018-09-07] MEDS ORDERED: ONDANSETRON 4 MG/2 ML (SDV) Z0FRAN ONE (06:54)
[2018-09-07] MEDS ORDERED: LIDOCAINE PF 2% 5 ML (XYLOCAINE) VIAL ONE (06:54)
[2018-09-07] MEDS ORDERED: DEXAMETHASONE 10 MG/ML (DECADRON) 1 ML VIAL ONE (06:54)
[2018-09-07] MEDS ORDERED: proPOfol 200 MG/20 ML (DIPRIVAN) VIAL IV ONE (06:54)
[2018-09-07] MEDS ORDERED: ROCURONIUM 10 MG/ML 5 ML SYRINGE IV ONE (06:57)
[2018-09-07] MEDS ORDERED: SEVOFLURANE (ULTANE) 15 ML INHAL SOLN ONE ×17 (06:57→11:39)
[2018-09-07] MEDS ORDERED: CATHETER FLUSH 10 ML SYR IV PRN (07:15)
[2018-09-07] MEDS ORDERED: metroNIDAZOLE 500MG/100ML IVPB 100 ML IV ONE (07:15)
[2018-09-07] MEDS ORDERED: MIDAZOLAM 2 MG/2 ML (VERSED) VIAL IV ONE (07:15)
[2018-09-07] MEDS ORDERED: ceFAZolin INJECTION 1,000 MG in NS (IVPB) 50 ML IV ONE (07:15)
[2018-09-07] MEDS ORDERED: ONDANSETRON 4 MG/2 ML (SDV) Z0FRAN IV ONE (07:15)
[2018-09-07] MEDS ORDERED: BUPIVACAINE 0.5% 30 ML (SENSORCAINE) VIAL ONE (07:44)
[2018-09-07] MEDS ORDERED: BUP/EPI 0.5% 1:200,000 (SENSORCAINE) 30 ML VIAL ONE ×2 (07:44→11:31)
--- NOTE | 2018-09-07 07:51 | Progress Note-Pre Operative ---
Pre-Operative Progress Note H&P Reviewed The H&P was reviewed, patient examined and no changes noted. 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 Galstones. Lipoma of right thigh JAMIE NGUYEN MD Sep 07, 2018 07:51
[2018-09-07] MEDS ORDERED: NEOSTIGMINE 1 MG/ML 5 ML SYRINGE ONE (10:45)
[2018-09-07] MEDS ORDERED: GLYCOPYRROLATE 0.2 MG/ML (ROBINUL) 2 ML VIAL ONE (10:45)
[2018-09-07] MEDS ORDERED: PHENYLEPHRINE 100 MCG/ML 10 ML (ANESTHESIA) SYR ONE (11:32)
--- NOTE | 2018-09-07 11:58 | Operative Report ---
Operative Report Date of Procedure/Surgery Sep 07, 2018 Surgeon (s) JAMIE NGUYEN MD [employer] Vice President (s): N/A Post-Operative Diagnosis Same Procedure Performed Robotic assisted small bowel resection with intracorporeal anastomosis Robotic-assisted cholecystectomy Excision of 3 cm subcutaneous lipoma right thigh Description of Procedure Anesthesia Type: General Estimated blood loss (mL): 25 mL Specimen(s) collected/removed Small bowel with metastatic melanoma. Gallbladder with stones. Lipoma from the right thigh Description of the Procedure Indication for the procedures: This gentleman presented with a metastatic melanoma lesion in his proximal small bowel. In addition, symptomatic gallstones were also discovered. With regard to the former, he was offered resection using minimally invasive technique with robotic assistance and intracorporeal anastomosis. Concomitant cholecystectomy was felt to be reasonable. During the preoperative evaluation, he requested excision of a 3 cm , long-standing, subcutaneous lipoma over the right proximal thigh. I agreed to do so. With regard to the operative procedures, expected recovery, complications of wound infection, intra-abdominal abscess, anastomotic leak etc. were discussed with him. Informed consent was obtained. Description of the procedures: He was placed supine on the operative table and general anesthesia induced. A gram of Ancef and 5 mg of Flagyl were administered intravenously as prophylaxis against wound infection. Sequential compression devices were placed around his legs, to minimize the risk of venous thrombosis. A Jenkins catheter was placed to decompress the bladder during surgery. It was removed at the end of the operation. Robotic assisted small bowel resection with anastomosis: Abdomen was prepared and draped in the usual sterile manner. Pneumoperitoneum was established using a Veress needle introduced infero-lateral to the umbilicus on the right side. Intra-abdominal pressure was maintained at 15 mmHg,, using carbon dioxide insufflation. A 12 mm trocar was placed and anatomy visualized using the high definition, 3-dimensional laparoscope, associated with da Gabriele system. Under direct view, I placed an 8 mm trocar over the right upper quadrant and the epigastrium, followed by a 12 mm stapler trocar over the right lower quadrant. An additional 12 mm trocar was placed lateral to the camera port, to facilitate using an dental assistant instructor's grasper. The robotic system was then docked in place. Small bowel was examined from the duodenojejunal function. An apple core lesion was discovered along the proximal jejunum. The rest of the small bowel was intact. A segment of the small bowel with clear, microscopic margins, about 20 cm in length, was resected, the bowel ends being divided using 3.5 mm robotic hunter. Mesentery was controlled using the vessel sealing device. An isoperistaltic anastomosis was created using the same, 3.5 mm stapler. The common enterotomy was closed using 2 layers of 2-0V LOC sutures and a third layer of Lembert's sutures with 3-0 Vicryl. Hemostasis was satisfactory. The specimen was then temporarily anchored to the abdominal wall along the left lower quadrant to be removed at the end of the operation. Robotic-assisted cholecystectomy: An additional 8 mm trocar was placed along the left side of the abdomen and the patient was turned into a reverse Trendelenburg position. The robotic system was initially undocked at the conclusion of the small bowel resection and re-docked, after repositioning the operating table. The fundus of the gallbladder was retracted cephalad and the infundibulum grasped with Cadiere forceps. Peritoneum overlying Calot's triangle was incised using hook cautery, delineating the cystic duct and artery. Both were divided between locking clips. Cholecystomy was then completed using the hook cautery. The gallbladder and the resected small bowel were placed in an Endo Catch bag and removed using a Pfannenstiel incision, about 4 cm in length, deploying a wound protection device. Peritoneum overlying the Pfannenstiel incision was closed using 3-0 PDS. Fascia was closed using #2 Prolene. Subcutaneous tissue was approximated using 3-0 Vicryl and skin using 4-0 Vicryl. The fascia over each of the incision over the abdomen was closed using #1 Vicryl. Skin incisions were closed using 4-0 Vicryl, in a tubular fashion. 0.5 percent Marcaine with epinephrine was infiltrated along the incisions, both preemptively and at the conclusion of the operation. Excision of subcutaneous lipoma right thigh: After adequate and dissected preparation, preemptive analgesia was established using 0.5 percent Marcaine with epinephrine. A 3 cm vertical incision was made and the lipoma excised intact. Hemostasis was achieved using cautery and the incision closed using 3- 0 Vicryl for the subcutaneous tissue and 4-0 Vicryl for skin, in a subcuticular fashion. Steri-Strips and a nonadherent dressing were then applied. He tolerated the procedures well, was extubated in the operative room and taken to the recovery room in a stable condition. Findings of the Procedure See op report Allergies and Home Medications Allergies Coded Allergies: epinephrine (Verified Allergy, Unknown, 10/28/15) epinephrine HCl (Verified Allergy, Unknown, 10/28/15) lidocaine (Unverified Allergy, Unknown, 10/28/15) Home Medications Ferrous Sulfate, Dried Unknown Strength Tablet.er, 65 MG PO BID, (Reported) Multivitamin 1 Each Tablet, 1 TAB PO DAILY, (Reported) [place] 3 Polyunsat Fatty Acids 1,000 Mg Cap, 1,000 MG PO DAILY, (Reported) Tamsulosin HCl 0.4 Mg Cap.er.24h, 0.4 MG PO DAILY, (Reported) Patient Home Medication List Home Medication List Reviewed: Yes JAMIE NGUYEN MD Sep 07, 2018 11:58
[2018-09-07] MEDS ORDERED: ONDANSETRON 4 MG/2 ML (SDV) Z0FRAN IVP PRN ×2 (12:00→12:15)
[2018-09-07] MEDS ORDERED: HYDROcodone/APAP 5 MG/325 MG (LORTAB) TAB PO PRN (12:00)
[2018-09-07] MEDS ORDERED: HYDROmorphone 2 MG/ML VIAL (DILAUDID) IV ONE (12:15)
[2018-09-07] MEDS ORDERED: morphine INJ 10 MG/ML 1ML (SYR OR VIAL) IVP ONE (12:15)
[2018-09-07] MEDS ORDERED: MEPERIDINE (DEMEROL) INJ 50 MG/ML IVP ONE (12:15)
[2018-09-07] MEDS ORDERED: morphine INJ 10 MG/ML 1ML (SYR OR VIAL) ONE (12:41)
[2018-09-07] MEDS: LACTATED RINGERS 1,000 ML IV SCH ×3 (12:51→20:41)
[2018-09-07 13:25] VITALS: BP 142/77
[2018-09-07] MEDS ORDERED: KETOROLAC 15 MG/ML VIAL ONE (13:47)
[2018-09-07] MEDS: ceFAZolin 2 GM IV Premixed 50 ML IV SCH ×2 (14:36→23:07)
[2018-09-07] MEDS: fentaNYL INJECTION 100 MCG/2 ML AMP IV PRN ×3 (14:36→20:48)
[2018-09-07] MEDS: metroNIDAZOLE 500MG/100ML IVPB 100 ML IV SCH (15:47)
[2018-09-07 16:25] VITALS: BP 129/72
--- NOTE | 2018-09-07 18:18 | NUR ---
ABNER LEVY admitted to room 433-1, with an admitting diagnosis of S/P ROBOTIC ASSISTED SMALL BOWEL RESESECTION WITH CHOLECYSTECTOMY , on 09/07/18 from [facility] via BED, accompanied by .ABNER LEVY introduced to surroundings, call light, bed controls, phone, TV, temperature control, lights, meal times, smoking policy, visitor policy, side rail policy, bathrooms and showers. Patient Rights given to patient in the handbook.ABNER LEVY verbalizes understanding that [facility] is not responsible for the loss or damage to any personal effects or valuables that are kept in the patients posession during their hospitalization.
--- NOTE | 2018-09-07 18:19 | NUR ---
1600 PT UNABLE TO VOID AFTER STANDING AND TRYING SEVERAL TIMES. BLADDER SCAN SHOWED 510ML OF URINE. DR NGUYEN NOTIFIED AND NEW ORDERS RECEIVED TO STRAIGHT CATH IF > 500. 1615 PT STRAIGHT CATHED USING STERILE TECHNIQUE WITH 550 ML OF LIGHT VIOLA URINE NOTED. PT STATES " I FEEL BETTER." NO FURTHER NEEDS NOTED CALL LIGHT AND OTHER PERSONAL ITEMS WITHIN REACH WILL CONTINUE TO MONITOR.
--- NOTE | 2018-09-07 19:26 | NUR ---
LATE ENTRY: 1520 DR NGUYEN ON FLOOR VERBAL ORDER RECEIVED TO GIVE ONE TIME DOSE OF TORADOL 15MG IVC X 1. MEDICATION GIVEN. SEE EMAR
[2018-09-07 20:00] VITALS: BP 137/66
[2018-09-08] VITALS: BP 119/71
[2018-09-08] MEDS: metroNIDAZOLE 500MG/100ML IVPB 100 ML IV SCH (00:21)
--- NOTE | 2018-09-08 02:30 | NUR ---
PT COULD NOT URINATE. SCANNED PTS BLADDER. 275 RESIDUAL. PT STATED HE WOULD TRY TO URINATE AGAIN LATER
[2018-09-08 04:00] VITALS: BP 106/62
[2018-09-08] MEDS: fentaNYL INJECTION 100 MCG/2 ML AMP IV PRN ×4 (04:17→20:11)
--- NOTE | 2018-09-08 05:00 | NUR ---
0445 THIS RN ASKED PT TO TRY URINATING. PT COULDN'T URINATE. THIS RN SCANNED THE BLADDER. 525 RESIDUAL. 0505 THIS RN PERFORMED A STRAIGHT CATH ON THE PT. REMOVED 500ML FROM BLADDER. PT TOLERATED WELL
[2018-09-08 08:00] VITALS: BP 119/65
[2018-09-08] MEDS: LACTATED RINGERS 1,000 ML IV SCH ×2 (08:08→18:01)
[2018-09-08] MEDS: TAMSULOSIN 0.4 MG (FLOMAX) CAP PO SCH (08:08)
[2018-09-08 12:22] VITALS: BP 108/59
--- NOTE | 2018-09-08 13:20 | Progress Note-Standard ---
Standard Progress Note Progress Notes/Assess & Plan Date Seen by a Provider: Sep 08, 2018 Time Seen by a Provider: 12:30 Progress/Assessment & Plan extremely anxious. Urinary retention over night requiring catheterization. Low -grade fever of 100F last night, afebrile now. Incisions dry. Passed flatus. Final Diagnosis metastatic melanoma involving the small bowel. Gallstones JAMIE NGUYEN MD Sep 08, 2018 13:20
[2018-09-08] MEDS ORDERED: oxyCODONE/APAP 5/325MG (PERCOCET 5) TABLET PO PRN (13:30)
[2018-09-08] MEDS ORDERED: KETOROLAC 15 MG/ML VIAL IVP NR (13:47)
--- NOTE | 2018-09-08 14:00 | NUR ---
TORADOL GIVEN IV SLOWLY ORDERED.
[2018-09-08] MEDS: ENOXAPARIN 40 MG/0.4 ML (LOVENOX) SYR SC SCH (14:03)
--- NOTE | 2018-09-08 14:15 | NUR ---
UP WITH ASSISTANCE. REESE. FAIR WITH LESS LOWER ABD. PAIN. AMBULATED WITH ASSISTANCE. DEEP BREATHING ENCOURAGED.
--- NOTE | 2018-09-08 14:28 | NUR ---
FENTANYL 100 MCG GIVEN IV SLOWLY FOR C/O OF SEVERE LOWER ABD. PAIN AND UNABLE TO GET UP FROM THE BED TO VOID BECAUSE OF THE PAIN.
--- NOTE | 2018-09-08 14:30 | NUR ---
BLADDER JLAK=811 CC. STOOD UP TO VOID AND VOIDED 200 CC DARK VIOLA URINE WITHOUT DIFFICULTY. AT BEDSIDE.
[2018-09-08 16:59] VITALS: BP 126/65
--- NOTE | 2018-09-08 17:39 | Anesthesia-General Post-Op ---
General Patient Condition Mental Status/LOC: Same as Preop Cardiovascular: Satisfactory Nausea/Vomiting: Absent Respiratory: Satisfactory Pain: Controlled Complications: Absent Post Op Complications Complications None Follow Up Care/Instructions Patient Instructions None needed. Anesthesia/Patient Condition Patient Condition Patient is doing well, no complaints, stable vital signs, no apparent adverse anesthesia problems. No complications reported per nursing. REEMA NOYOLA CRNA Sep 08, 2018 17:39
--- NOTE | 2018-09-08 18:13 | NUR ---
PT. REFUSED THIS NURSE TO REMOVE BAND AIDES FROM ABD. X [address] TO ANT. ABD. X 1 LAP SITE WITH STERI-STRIPS D/I ICE TO RIGHT LOWER INC. AREA. SL BRUISING NOTED TO RLQ ABD. LAP SITE.
[2018-09-08 20:50] VITALS: BP 123/68
[2018-09-09 00:55] VITALS: BP 130/78
[2018-09-09] MEDS: fentaNYL INJECTION 100 MCG/2 ML AMP IV PRN ×2 (01:27→21:37)
[2018-09-09 04:00] VITALS: BP 118/65
[2018-09-09 08:00] VITALS: BP 128/72
[2018-09-09] MEDS: TAMSULOSIN 0.4 MG (FLOMAX) CAP PO SCH (09:13)
[2018-09-09 12:00] VITALS: BP 152/79
--- NOTE | 2018-09-09 12:28 | Progress Note-Standard ---
Standard Progress Note Progress Notes/Assess & Plan Date Seen by a Provider: Sep 09, 2018 Time Seen by a Provider: 11:40 Progress/Assessment & Plan extremely anxious. Urinary retention over night requiring catheterization. Low -grade fever of 100F last night, afebrile now. Incisions dry. Passed flatus. less anxious. Afebrile. Has had bowel movements. Reports pain over the right lower quadrant. Minimal postoperative erythema. Could be discharged home tomorrow morning Final Diagnosis metastatic melanoma. Gallstones. Lipoma of the right thigh JAMIE NGUYEN MD Sep 09, 2018 12:28
[2018-09-09] MEDS: ENOXAPARIN 40 MG/0.4 ML (LOVENOX) SYR SC SCH (12:35)
[2018-09-09] MEDS: HYDROcodone/APAP 7.5 MG/325 MG (LORTAB, LORCET PLUS) TABLET PO PRN ×2 (12:39→16:58)
[2018-09-09 16:00] VITALS: BP 128/71
[2018-09-09 20:00] VITALS: BP 129/68
[2018-09-10] MEDS: fentaNYL INJECTION 100 MCG/2 ML AMP IV PRN ×2 (00:09→05:34)
[2018-09-10 00:17] VITALS: BP 140/71
[2018-09-10 04:12] VITALS: BP 144/70
[2018-09-10 08:00] VITALS: BP 131/87
[2018-09-10] MEDS: TAMSULOSIN 0.4 MG (FLOMAX) CAP PO SCH (09:12)
[2018-09-10] MEDS: HYDROcodone/APAP 7.5 MG/325 MG (LORTAB, LORCET PLUS) TABLET PO PRN ×2 (09:13→13:21)
[2018-09-10] MEDS ORDERED: ACHD5005 PO ×4 (11:51→11:56)
--- NOTE | 2018-09-10 11:54 | Discharge Inst-Simple/Standard ---
Discharge Inst-Standard Discharge Medications New, Converted or Re-Newed RX: RX on Chart Patient Instructions/Follow Up Plan of Care/Instructions/FU: may shower. Follow-up in 2 weeks Activity as Tolerated: No Goal: no lifting over 20 pounds Discharge Diet: No Restrictions Planned Outpatient Orders/Ref. Pneu Vac Indicated: Yes JAMIE NGUYEN MD Sep 10, 2018 11:54
--- NOTE | 2018-09-10 11:57 | Discharge Summary ---
Diagnosis/Chief Complaint Date of Admission Sep 07, 2018 at 05:58 Date of Discharge 09/10/18 Discharge Date: Sep 10, 2018 Discharge Time: 14:00 Admission Diagnosis Admission Diagnosis metastatic lesion in the small bowel from melanoma. Gallstones Discharge Diagnosis same Reason Hospital Visit to undergo an elective resection of small bowel involved by metastatic melanoma using minimally invasive technique with robotic assistance. Incidental gallstones to be addressed by concomitant cholecystectomy. Discharge Summary Procedures robotic-assisted small bowel resection with cholecystectomy Consultations none Discharge Physical Examination Allergies: Coded Allergies: epinephrine (Verified Allergy, Unknown, 10/28/15) epinephrine HCl (Verified Allergy, Unknown, 10/28/15) lidocaine (Unverified Allergy, Unknown, 10/28/15) Vitals & I&Os Vital Signs Date Time Temp Pulse Resp B/P (MAP) Pulse Ox O2 Delivery O2 Flow Rate FiO2 09/10/18 08:35 Room Air 09/10/18 08:00 97.6 91 20 131/87 (102) 96 Discharge Home Medications: Active Scripts Active Hydrocodone/Acetaminophen 5/325mg Tablet (Acetaminophen/Hydrocodone Bitart) 1 Tab Tab 1-2 Tab PO Q6H PRN MDD 10 Reported Iron (Ferrous Sulfate, Dried) Unknown Strength Tablet.er 65 Mg PO BID Tamsulosin HCl 0.4 Mg Cap.er.24h 0.4 Mg PO DAILY Multi-Vitamin Daily (Multivitamin) 1 Each Tablet 1 Tab PO DAILY Fish Oil 1,000 mg Capsule ([place] 3 Polyunsat Fatty Acids) 1,000 Mg Cap 1,000 Mg PO DAILY Instructions to patient/family Please see electronic discharge instructions given to patient. Clinical Quality Measures DVT/VTE Risk/Contraindication: Risk Factor Score Per Nursin RFS Level Per Nursing on Admit: 4+=Very High JAMIE NGUYEN MD Sep 10, 2018 11:57
[2018-09-10] MEDS ORDERED: FLU QUADRIvalent (5+ YOA) 2018-2019 (AFLURIA) 0.5 ML IM ONE (12:00)
[2018-09-10] MEDS: ENOXAPARIN 40 MG/0.4 ML (LOVENOX) SYR SC SCH (13:21)
[2018-09-10 17:22] VITALS: BP 131/87
== END 2018-09-10 15:20 | disposition home or self-care (01) | DRG 358 ==
LOC: 4TH 05:58 → SURG 05:59 → 4TH 13:35
PROVIDERS: ADMIT Surgery; ATTEND Surgery
PROC: 8E0W4CZ Robotic Assisted Procedure of Trunk Region, Percutaneous Endoscopic Approach (ICD-10-PCS; 2018-09-07)
PROC: 0DB84ZX Excision of Small Intestine, Percutaneous Endoscopic Approach, Diagnostic (ICD-10-PCS; principal; 2018-09-07 08:01)
PROC: 0FT44ZZ Resection of Gallbladder, Percutaneous Endoscopic Approach (ICD-10-PCS; 2018-09-07 08:01)
PROC: 0JBL3ZZ Excision of Right Upper Leg Subcutaneous Tissue and Fascia, Percutaneous Approach (ICD-10-PCS; 2018-09-07 08:01)
DX: C78.4 Secondary malignant neoplasm of small intestine (principal); K80.20 Calculus of gallbladder without cholecystitis without obstruction; D17.23 Benign lipomatous neoplasm of skin and subcutaneous tissue of right leg; C43.62 Malignant melanoma of left upper limb, including shoulder; D50.9 Iron deficiency anemia, unspecified; E03.9 Hypothyroidism, unspecified; F41.9 Anxiety disorder, unspecified; R33.9 Retention of urine, unspecified
CPT/HCPCS: 94664

== ENCOUNTER 2018-12-11 14:34 | Outpatient (RCR) | payer MEDICARE, OTHER ==
[2018-10-09 14:53] LABS: BASOPHILS % (AUTO) 1 % (0-10); EOSINOPHILS # (AUTO) 0.3 10^3/uL (0.0-0.3); EOSINOPHILS % (AUTO) 6 % (0-10); HEMATOCRIT 38 % (40-54); HEMOGLOBIN 12.8 G/DL (13.3-17.7); LYMPHOCYTES # (AUTO) 1.3 X 10^3 (1.0-4.0); LYMPHOCYTES % (AUTO) 23 % (12-44); MEAN CORPUSCULAR HEMOGLOBIN 31 PG (25-34); MEAN CORPUSCULAR HGB CONC 34 G/DL (32-36); MEAN CORPUSCULAR VOLUME 93 FL (80-99); MEAN PLATELET VOLUME 9.6 FL (7.4-10.4); MONOCYTES # (AUTO) 0.6 X 10^3 (0.0-1.0); MONOCYTES % (AUTO) 10 % (0-12); NEUTROPHILS # (AUTO) 3.4 X 10^3 (1.8-7.8); NEUTROPHILS % (AUTO) 61 % (42-75); PLATELET COUNT 225 10^3/uL (130-400); RED CELL DISTRIBUTION WIDTH 13.6 % (10.0-14.5); WHITE BLOOD COUNT 5.5 10^3/uL (4.3-11.0)
[2018-10-09 15:10] LABS: ALANINE AMINOTRANSFERASE 13 U/L (0-55); ALBUMIN 4.1 GM/DL (3.2-4.5); ALKALINE PHOSPHATASE 53 U/L (40-136); BILIRUBIN,TOTAL 0.7 MG/DL (0.1-1.0); BUN/CREATININE RATIO 24; CALCIUM 9.7 MG/DL (8.5-10.1); CARBON DIOXIDE 26 MMOL/L (21-32); CHLORIDE 107 MMOL/L (98-107); CREATININE SERUM 0.83 MG/DL (0.60-1.30); GFR ESTIMATED > 60; GLUCOSE 108 MG/DL (70-105); POTASSIUM 4.3 MMOL/L (3.6-5.0); SODIUM 141 MMOL/L (135-145); TOTAL PROTEIN 6.9 GM/DL (6.4-8.2)
[2018-10-30 15:22] LABS: BASOPHILS # (AUTO) 0.1 10^3/uL (0.0-0.1); BASOPHILS % (AUTO) 1 % (0-10); EOSINOPHILS # (AUTO) 0.7 10^3/uL (0.0-0.3); EOSINOPHILS % (AUTO) 11 % (0-10); HEMATOCRIT 40 % (40-54); HEMOGLOBIN 13.5 G/DL (13.3-17.7); LYMPHOCYTES # (AUTO) 1.5 X 10^3 (1.0-4.0); LYMPHOCYTES % (AUTO) 25 % (12-44); MEAN CORPUSCULAR HEMOGLOBIN 31 PG (25-34); MEAN CORPUSCULAR HGB CONC 34 G/DL (32-36); MEAN CORPUSCULAR VOLUME 93 FL (80-99); MONOCYTES # (AUTO) 0.5 X 10^3 (0.0-1.0); MONOCYTES % (AUTO) 9 % (0-12); NEUTROPHILS # (AUTO) 3.2 X 10^3 (1.8-7.8); NEUTROPHILS % (AUTO) 54 % (42-75); PLATELET COUNT 218 10^3/uL (130-400); RED CELL DISTRIBUTION WIDTH 13.3 % (10.0-14.5); WHITE BLOOD COUNT 5.9 10^3/uL (4.3-11.0)
[2018-10-30 15:41] LABS: ALANINE AMINOTRANSFERASE 14 U/L (0-55); ALBUMIN 4.2 GM/DL (3.2-4.5); ALKALINE PHOSPHATASE 56 U/L (40-136); BILIRUBIN,TOTAL 0.7 MG/DL (0.1-1.0); BUN/CREATININE RATIO 24; CALCIUM 9.4 MG/DL (8.5-10.1); CARBON DIOXIDE 24 MMOL/L (21-32); CHLORIDE 107 MMOL/L (98-107); CREATININE SERUM 0.85 MG/DL (0.60-1.30); GFR ESTIMATED > 60; GLUCOSE 93 MG/DL (70-105); POTASSIUM 4.2 MMOL/L (3.6-5.0); SODIUM 141 MMOL/L (135-145); TOTAL PROTEIN 6.9 GM/DL (6.4-8.2)
[2018-11-20 14:55] LABS: BASOPHILS # (AUTO) 0.1 10^3/uL (0.0-0.1); BASOPHILS % (AUTO) 1 % (0-10); EOSINOPHILS # (AUTO) 1.5 10^3/uL (0.0-0.3); EOSINOPHILS % (AUTO) 20 % (0-10); HEMATOCRIT 41 % (40-54); HEMOGLOBIN 13.8 G/DL (13.3-17.7); LYMPHOCYTES # (AUTO) 1.3 X 10^3 (1.0-4.0); LYMPHOCYTES % (AUTO) 17 % (12-44); MEAN CORPUSCULAR HEMOGLOBIN 32 PG (25-34); MEAN CORPUSCULAR HGB CONC 34 G/DL (32-36); MEAN CORPUSCULAR VOLUME 93 FL (80-99); MEAN PLATELET VOLUME 9.3 FL (7.4-10.4); MONOCYTES # (AUTO) 0.6 X 10^3 (0.0-1.0); MONOCYTES % (AUTO) 8 % (0-12); NEUTROPHILS # (AUTO) 4.1 X 10^3 (1.8-7.8); NEUTROPHILS % (AUTO) 54 % (42-75); PLATELET COUNT 219 10^3/uL (130-400); WHITE BLOOD COUNT 7.6 10^3/uL (4.3-11.0)
[2018-11-20 15:13] LABS: ALANINE AMINOTRANSFERASE 13 U/L (0-55); ALBUMIN 4.2 GM/DL (3.2-4.5); ALKALINE PHOSPHATASE 60 U/L (40-136); BILIRUBIN,TOTAL 1.2 MG/DL (0.1-1.0); BUN/CREATININE RATIO 20; CALCIUM 9.9 MG/DL (8.5-10.1); CARBON DIOXIDE 26 MMOL/L (21-32); CHLORIDE 110 MMOL/L (98-107); CREATININE SERUM 0.84 MG/DL (0.60-1.30); GFR ESTIMATED > 60; GLUCOSE 124 MG/DL (70-105); POTASSIUM 4.1 MMOL/L (3.6-5.0); SODIUM 142 MMOL/L (135-145)
[~2018-12-11] VITALS: Ht 182.9 cm; Wt 61.7 kg
[~2018-12-11 14:34] MED LIST changes: +ACHD5005 PO; -HYDR-3454 PO; +HYDR-3455 PO; +NS IV 500 ML (CANCER CENTER) IV SCH; +PEMBROLIZUMAB 200 MG in NS (IVPB) CANCER CENTER 50 ML IV SCH
[2018-12-11 14:50] LABS: BASOPHILS # (AUTO) 0.1 10^3/uL (0.0-0.1); BASOPHILS % (AUTO) 1 % (0-10); EOSINOPHILS # (AUTO) 1.5 10^3/uL (0.0-0.3); EOSINOPHILS % (AUTO) 22 % (0-10); HEMATOCRIT 41 % (40-54); HEMOGLOBIN 13.8 G/DL (13.3-17.7); LYMPHOCYTES # (AUTO) 1.1 X 10^3 (1.0-4.0); LYMPHOCYTES % (AUTO) 17 % (12-44); MEAN CORPUSCULAR HEMOGLOBIN 32 PG (25-34); MEAN CORPUSCULAR HGB CONC 34 G/DL (32-36); MEAN CORPUSCULAR VOLUME 94 FL (80-99); MEAN PLATELET VOLUME 9.5 FL (7.4-10.4); MONOCYTES # (AUTO) 0.6 X 10^3 (0.0-1.0); MONOCYTES % (AUTO) 9 % (0-12); NEUTROPHILS # (AUTO) 3.4 X 10^3 (1.8-7.8); NEUTROPHILS % (AUTO) 51 % (42-75); PLATELET COUNT 222 10^3/uL (130-400); RED CELL DISTRIBUTION WIDTH 14.3 % (10.0-14.5); WHITE BLOOD COUNT 6.7 10^3/uL (4.3-11.0)
[2018-12-11 15:16] LABS: ALANINE AMINOTRANSFERASE 14 U/L (0-55); ALBUMIN 4.2 GM/DL (3.2-4.5); ALKALINE PHOSPHATASE 50 U/L (40-136); BILIRUBIN,TOTAL 1.2 MG/DL (0.1-1.0); BUN/CREATININE RATIO 17; CALCIUM 9.7 MG/DL (8.5-10.1); CARBON DIOXIDE 23 MMOL/L (21-32); CHLORIDE 106 MMOL/L (98-107); CREATININE SERUM 0.86 MG/DL (0.60-1.30); GFR ESTIMATED > 60; GLUCOSE 101 MG/DL (70-105); POTASSIUM 4.3 MMOL/L (3.6-5.0); SODIUM 138 MMOL/L (135-145); TOTAL PROTEIN 6.9 GM/DL (6.4-8.2)
[2018-12-11 15:36] LABS: FREE T4 (FREE THYROXINE) 0.83 NG/DL (0.70-1.48)
== END 2018-12-24 | disposition home or self-care (01) ==
LOC: ONC 14:34
PROVIDERS: ATTEND Internal Medicine Hematology & Oncology
DX: Z51.11 Encounter for antineoplastic chemotherapy (principal); C43.62 Malignant melanoma of left upper limb, including shoulder; C77.3 Secondary and unspecified malignant neoplasm of axilla and upper limb lymph nodes; D22.5 Melanocytic nevi of trunk; F41.9 Anxiety disorder, unspecified; Z79.899 Other long term (current) drug therapy
CPT/HCPCS: 36415; 80053; 83615; 84439; 84443; 85025; 96413; 99213

== ENCOUNTER 2019-01-01 08:30 | Emergency (ER) | payer MEDICARE, OTHER ==
[~2019-01-01] VITALS: Ht 185.4 cm; Wt 61.2 kg
[~2019-01-01 08:30] MED LIST changes: -NS IV 500 ML (CANCER CENTER) IV SCH; -PEMBROLIZUMAB 200 MG in NS (IVPB) CANCER CENTER 50 ML IV SCH
[2019-01-01 08:50] VITALS: BP_SYST 118; BP_SYST 132; BP_SYST 149; BP_DIAS 80; BP_DIAS 85; BP_DIAS 87
--- NOTE | 2019-01-01 08:56 | ED Cardiac General ---
History of Present Illness General Chief Complaint: General Problems/Pain Stated Complaint: WEAKNESS Source: patient Exam Limitations: no limitations History of Present Illness Date Seen by Provider: January 01, 2019 Time Seen by Provider: 08:30 Initial Comments The patient presents to ER by EMS from his home where he was bailing water out of his basement with a bucket and after about 20 or 30 trips he said he started feeling palpitations lightheaded and like he was going to black out. He denies falling or striking his head. He says he has no pain anywhere. He does not have a history of syncope, CAD. He says he felt his heart was beating very fast in his chest and then it would drop a beat and then continue. No swelling in his hands or feet. No history of CHF. He does have a history of melanoma still undergoing treatment by Dr. Larson status post skin grafts on his left upper extremity and trunk. 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 He has lost quite a bit of weight due to this. He does not have any shortness of breath does not use oxygen or have a history of COPD or asthma. He does not smoke cigarettes and he does have high blood pressure. He denies hypercholesterolemia. He says he took a medicine for his heart under the tongue but denies that it was nitroglycerin and he said that and rest helped him feel better. It happened about 30-45 minutes prior to summons and EMS. Allergies and Home Medications Allergies Coded Allergies: epinephrine (Verified Allergy, Unknown, 01/01/19) epinephrine HCl (Verified Allergy, Unknown, 01/01/19) lidocaine (Unverified Allergy, Unknown, 01/01/19) Home Medications Ferrous Sulfate, Dried Unknown Strength Tablet.er, 65 MG PO BID, (Reported) Hydrocodone Bit/Acetaminophen 1 Tab Tab, 1-2 TAB PO Q6H PRN for PAIN-MODERATE Prescribed by: JAMIE NGUYEN on 09/10/18 1151 Hydrocodone Bit/Acetaminophen 1 Tab Tab, 1-2 TAB PO Q6H PRN for PAIN-MODERATE Prescribed by: JAMIE NGUYEN on 09/10/18 1156 Multivitamin 1 Each Tablet, 1 TAB PO DAILY, (Reported) [place] 3 Polyunsat Fatty Acids 1,000 Mg Cap, 1,000 MG PO DAILY, (Reported) Tamsulosin HCl 0.4 Mg Cap.er.24h, 0.4 MG PO DAILY, (Reported) Patient Home Medication List Home Medication List Reviewed: Yes Review of Systems Review of Systems Constitutional: No chills, No fever, No malaise; weakness EENTM: No Blurred Vision, No Double Vision Respiratory: Denies Cough, Denies Shortness of Air, Denies SOA With Exertion Cardiovascular: Denies Chest Pain, Denies Edema; Irregular Heart Rate, Lightheadedness, Palpitations, Syncope (near) Gastrointestinal: Denies Abdomen Distended, Denies Abdominal Pain, Denies Blood Streaked Stools, Denies Constipated, Denies Diarrhea, Denies Nausea Genitourinary: Denies Burning, Denies Discharge Musculoskeletal: No back pain, No joint pain Skin: No pruritus, No rash Psychiatric/Neurological: Denies Headache, Denies Numbness Past Swbpyax-Ctvxyv-Drhfio Hx Patient Social History Alcohol Use: Denies Use Recreational Drug Use: No Smoking Status: Never a Smoker Recent Hopitalizations: No Immunizations Up To Date Tetanus Booster (TDap): Unknown PED Vaccines UTD: No Seasonal Allergies Seasonal Allergies: No Past Medical History Surgeries: Yes (small bowel sx, melanoma removed from elbow x2, axillary lymph node removed) Respiratory: No Currently Using CPAP: No Currently Using BIPAP: No Cardiac: No (FAST HEART RATE AT TIMES) Neurological: No Reproductive Disorders: No Sexually Transmitted Disease: No HIV/AIDS: No Genitourinary: No Gastrointestinal: Yes (colon lesion) Gall Bladder Disease Musculoskeletal: No (MILD) Arthritis Endocrine: No HEENT: No Loss of Vision: Denies Hearing Impairment: Denies Cancer: Yes (ON ELBOW) Melanoma Psychosocial: No (ABOUT SURGERY) Anxiety Integumentary: No Blood Disorders: No Adverse Reaction/Blood Tranf: No Family Medical History Cardiovascular disease 18 MOTHER Physical Exam Vital Signs Vital Signs - First Documented 01/01/19 08:40 Temp 97.6 Pulse 105 Resp 19 B/P (MAP) 131/89 (103) Pulse Ox 99 Capillary Refill : Height, Weight, BMI Height: 6'0.00" Weight: 141lbs. 9.0oz. 64.439524cp; 19.2 BMI Method:Stated General Appearance: No Apparent Distress, WD/WN HEENT: PERRL/EOMI, Pharynx Normal, Moist Mucous Membranes Neck: Full Range of Motion, Normal Inspection, Non Tender, Supple Respiratory: Chest Non Tender, Lungs Clear, Normal Breath Sounds, No Accessory Muscle Use, No Respiratory Distress Cardiovascular: Regular Rate, Rhythm, Normal Peripheral Pulses Gastrointestinal: Normal Bowel Sounds, Non Tender, Soft Extremity: Normal Capillary Refill, Normal Inspection, Normal Range of Motion, Non Tender, No Calf Tenderness, No Pedal Edema Neurologic/Psychiatric: Alert, Oriented x3, No Motor/Sensory Deficits, Normal Mood/Affect, engineering assistant II-XII Norm as Tested Skin: Normal Color, Warm/Dry Progress/Results/Core Measures Results/Orders Lab Results Laboratory Tests Test 01/01/19 08:35 01/01/19 08:39 01/01/19 10:47 Range/Units Urine Color YELLOW Urine Clarity CLEAR Urine pH 7 5-9 Urine Specific [place] 1.005 L 1.016-1.022 Urine Protein NEGATIVE NEGATIVE Urine Glucose (UA) NEGATIVE NEGATIVE Urine Ketones 1+ H NEGATIVE Urine Nitrite NEGATIVE NEGATIVE Urine Bilirubin NEGATIVE NEGATIVE Urine Urobilinogen NORMAL NORMAL MG/DL Urine Leukocyte Esterase NEGATIVE NEGATIVE Urine RBC (Auto) NEGATIVE NEGATIVE Urine RBC RARE /HPF Urine WBC NONE /HPF Urine Squamous Epithelial Cells RARE /HPF Urine Crystals NONE /LPF Urine Bacteria NEGATIVE /HPF Urine Casts NONE /LPF Urine Mucus NEGATIVE /LPF Urine Culture Indicated NO White Blood Count 5.9 4.3-11.0 10^3/uL Red Blood Count 4.60 4.35-5.85 10^6/uL Hemoglobin 14.8 13.3-17.7 G/DL Hematocrit 42 40-54 % Mean Corpuscular Volume 92 80-99 FL Mean Corpuscular Hemoglobin 32 25-34 PG Mean Corpuscular Hemoglobin Concent 35 32-36 G/DL Red Cell Distribution Width 14.1 10.0-14.5 % Platelet Count 241 130-400 10^3/uL Mean Platelet Volume 9.7 7.4-10.4 FL Neutrophils (%) (Auto) 63 42-75 % Lymphocytes (%) (Auto) 18 12-44 % Monocytes (%) (Auto) 11 0-12 % Eosinophils (%) (Auto) 8 0-10 % Basophils (%) (Auto) 1 0-10 % Neutrophils # (Auto) 3.7 1.8-7.8 X 10^3 Lymphocytes # (Auto) 1.1 1.0-4.0 X 10^3 Monocytes # (Auto) 0.7 0.0-1.0 X 10^3 Eosinophils # (Auto) 0.5 H 0.0-0.3 10^3/uL Basophils # (Auto) 0.1 0.0-0.1 10^3/uL Prothrombin Time 13.0 12.2-14.7 SEC INR Comment 0.9 0.8-1.4 Activated Partial Thromboplast Time 27 24-35 SEC Sodium Level 142 135-145 MMOL/L Potassium Level 3.7 3.6-5.0 MMOL/L Chloride Level 109 H 98-107 MMOL/L Carbon Dioxide Level 19 L 21-32 MMOL/L Anion Gap 14 5-14 MMOL/L Blood Urea Nitrogen 16 7-18 MG/DL Creatinine 0.97 0.60-1.30 MG/DL Estimat Glomerular Filtration Rate > 60 BUN/Creatinine Ratio 16 Glucose Level 98 70-105 MG/DL Calcium Level 10.1 8.5-10.1 MG/DL Corrected Calcium 9.7 8.5-10.1 MG/DL Magnesium Level 2.0 1.8-2.4 MG/DL Total Bilirubin 1.2 H 0.1-1.0 MG/DL Aspartate Amino Transf (AST/SGOT) 20 5-34 U/L Alanine Aminotransferase (ALT/SGPT) 18 0-55 U/L Alkaline Phosphatase 58 40-136 U/L Myoglobin 92.5 H 10.0-92.0 NG/ML Troponin I < 0.028 < 0.028 <0.028 NG/ML B-Type Natriuretic Peptide 72.3 <100.0 PG/ML Total Protein 7.3 6.4-8.2 GM/DL Albumin 4.5 3.2-4.5 GM/DL My Orders Orders - ELAN PALACIOS Ekg Tracing (01/01/19 08:33) Cbc With Automated Diff (01/01/19 08:52) Magnesium (01/01/19 08:52) Chest 1 View, Ap/Pa Only (01/01/19 08:52) Cardiac Profile 1 (01/01/19 08:52) Comprehensive Metabolic Panel (01/01/19 08:52) Myoglobin Serum (01/01/19 08:52) Protime With Inr (01/01/19 08:52) Partial Thromboplastin Time (01/01/19 08:52) O2 (01/01/19 08:52) Monitor-Rhythm Ecg Trace Only (01/01/19 08:52) Lipid Panel (01/02/19 06:00) Ed Iv/Invasive Line Start (01/01/19 08:52) BNP (01/01/19 08:52) Aspirin Chewable Tablet (Baby Aspirin Ch (01/01/19 09:00) Orthostatic Vital Signs (Adult (01/01/19 08:52) Ua Culture If Indicated (01/01/19 08:52) Ed Iv/Invasive Line Start (01/01/19 08:52) Ct Head Wo (01/01/19 08:56) Ed Iv/Invasive Line Start (01/01/19 08:57) Ns Iv 500 Ml (Sodium Chloride 0.9%) (01/01/19 08:57) Ns Iv 1000 Ml (Sodium Chloride 0.9%) (01/01/19 08:57) Troponin I (01/01/19 10:35) General/Regular (01/01/19 Breakfast) Medications Given in ED Current Medications Medications Dose Ordered Sig/Imelda Route Start Time Stop Time Status Last Admin Dose Admin Sodium Chloride 500 ml @ 0 mls/hr Q0M ONCE IV 01/01/19 08:57 01/01/19 08:59 DC 01/01/19 10:00 1,000 MLS/HR Vital Signs/I&O 01/01/19 01/01/19 01/01/19 08:40 08:50 10:17 Temp 97.6 Pulse 105 90 93 96 Resp 19 B/P (MAP) 131/89 (103) 149/85 (106) 137/91 (106) 132/87 (102) 138/84 (102) 118/80 (93) 132/81 (98) Pulse Ox 99 Progress Progress Note #1: Time: 09:06 Progress Note Patient presents with what sounds like near syncope with palpitations. Orthostatic vital signs are positive. Plan to give him a 1500 cc bolus which would approximate 30 mL/kg. He has refused the aspirin. We will obtain a CT, chest x-ray and basic labs including troponin and BNP. Patient is tachycardic which would be consistent with his possibly being hypovolemic due to overexertion, not drinking leading to orthostatic hypotension. We have suggested to him that it would be reasonable to do observation stay and trend troponins since his symptoms began so recently. He denies any chest pain. Progress Note #2: Time: 10:35 Progress Note Repeat orthostatics after his fluid bolus are normal. Patient is indicated that he would prefer not to stay in the hospital. Patient states he feels like he is back to normal has been up walking around going the bathroom several times to urinate. Still no chest pain. Nothing on telemetry. Repeat troponin ordered. W e'll allow him to eat and his repeat troponin is okay we will allow him to go home. He has a appointment at [address] Larson, oncology. We'll set him up for a follow up outpatient with cardiology. Initial ECG Impression Date: January 01, 2019 Initial ECG Impression Time: 08:31 Initial ECG Rate: 106 Initial ECG Rhythm: S.Tach Initial ECG Intervals: Normal Initial ECG Impression: Normal Initial ECG Comparisson: No Previous ECG Available Comment Sinus tachycardia without ST elevation or depression. Diagnostic Imaging Diagonstic Imaging: Xray Plain Films/CT/US/NM/MRI: chest (1v) Comments [facility] [place], [place] NAME: ABNER LEVY [facility] REC#: [id number] PT STATUS: REG ER : 1950 PHYSICIAN: ELAN PALACIOS MD ADMIT DATE: 01/01/19/ER Draft Date of Exam:01/01/19 CHEST 1 VIEW, AP/PA ONLY INDICATION: Weakness and palpitations Frontal chest obtained at 9:37 a.m. Heart is normal in size. Mediastinal silhouette is unremarkable. There is hyperinflation compatible with COPD. There is no focal infiltrate or pneumothorax or pleural fluid. IMPRESSION: COPD changes with no acute process in the chest. Dictated on workstation # [id number] Dict: 01/01/1945 Trans: 01/01/19 0948 [facility] [id number] Interpreted by: BRETT PARKS MD Electronically signed by: Reviewed: Reviewed by Me Diagonstic Imaging: CT (noncontrast) Plain Films/CT/US/NM/MRI: head Comments No acute intracranial hemorrhage, calvarial fracture, tumor or mass effect. [facility], [facility]. [place], [place] NAME: ABNER LEVY [facility] REC#: [id number] PT STATUS: REG ER : 1950 PHYSICIAN: ELAN PALACIOS MD ADMIT DATE: 01/01/19/ER Draft Date of Exam:01/01/19 CT HEAD WO PROCEDURE: CT head without contrast. TECHNIQUE: Multiple contiguous axial images were obtained through the brain without the use of intravenous contrast. Auto Exposure Controls were utilized during the CT exam to meet ALARA standards for radiation dose reduction. INDICATION: Anxiety, weakness and palpitation. CT HEAD: CT images of the head were obtained. FINDINGS: Ventricles and sulci are within normal limits for size. There is no intracranial hemorrhage identified. There is no abnormal mass effect or shift of midline structures. IMPRESSION: Unremarkable CT of the head. Dictated on workstation # [id number] Dict: 01/01/19 0953 Trans: 01/01/19 1000 [id number] Interpreted by: LYUDMILA GRAMAJO MD Electronically signed by: Reviewed: Reviewed by Md Departure Communication (PCP) Dr Guajardo updated and will still see the patient at scheduled appt. Impression Primary Impression: Rapid palpitations Additional Impressions: Syncope, near Orthostatic hypotension Disposition: 01 HOME, SELF-CARE Condition: Improved Departure-Patient Inst. Decision time for Depature: 11:20 Referrals: PÉREZ GREEN DO (PCP/Family) Primary Care Physician Patient Instructions: Orthostatic Hypotension (DC) Add. Discharge Instructions: Make sure you're drinking plenty of fluids over the next couple days. Return to the nearest ER if you begin to experience chest pain or other worrisome symptoms such as shortness of breath. Follow-up with Dr. Chery, cardiology tomorrow, 01/02/2019 @ 1:00 PM. Keep your follow-up appointment today with Dr. Guajardo. All discharge instructions reviewed with patient and/or family. Voiced understanding. ELAN PALACIOS January 01, 2019 08:56
[2019-01-01] MEDS ORDERED: NS IV 500 ML 500 ML IV ONE (08:57)
[2019-01-01] MEDS ORDERED: NS IV 1000 ML 1,000 ML IV SCH (08:57)
[2019-01-01] MEDS ORDERED: ASPIRIN 81 MG CHEW (CHILDREN'S ASA) PO ONE (09:00)
[2019-01-01 09:09] LABS: BASOPHILS # (AUTO) 0.1 10^3/uL (0.0-0.1); BASOPHILS % (AUTO) 1 % (0-10); EOSINOPHILS # (AUTO) 0.5 10^3/uL (0.0-0.3); EOSINOPHILS % (AUTO) 8 % (0-10); HEMATOCRIT 42 % (40-54); HEMOGLOBIN 14.8 G/DL (13.3-17.7); LYMPHOCYTES # (AUTO) 1.1 X 10^3 (1.0-4.0); LYMPHOCYTES % (AUTO) 18 % (12-44); MEAN CORPUSCULAR HEMOGLOBIN 32 PG (25-34); MEAN CORPUSCULAR HGB CONC 35 G/DL (32-36); MEAN CORPUSCULAR VOLUME 92 FL (80-99); MEAN PLATELET VOLUME 9.7 FL (7.4-10.4); MONOCYTES # (AUTO) 0.7 X 10^3 (0.0-1.0); MONOCYTES % (AUTO) 11 % (0-12); NEUTROPHILS # (AUTO) 3.7 X 10^3 (1.8-7.8); NEUTROPHILS % (AUTO) 63 % (42-75); PLATELET COUNT 241 10^3/uL (130-400); RED CELL DISTRIBUTION WIDTH 14.1 % (10.0-14.5); WHITE BLOOD COUNT 5.9 10^3/uL (4.3-11.0)
[2019-01-01 09:13] LABS: INR 0.9 (0.8-1.4)
[2019-01-01 09:21] LABS: ALANINE AMINOTRANSFERASE 18 U/L (0-55); ALBUMIN 4.5 GM/DL (3.2-4.5); ALKALINE PHOSPHATASE 58 U/L (40-136); BILIRUBIN,TOTAL 1.2 MG/DL (0.1-1.0); BUN/CREATININE RATIO 16; CALCIUM 10.1 MG/DL (8.5-10.1); CARBON DIOXIDE 19 MMOL/L (21-32); CHLORIDE 109 MMOL/L (98-107); CREATININE SERUM 0.97 MG/DL (0.60-1.30); GFR ESTIMATED > 60; GLUCOSE 98 MG/DL (70-105); POTASSIUM 3.7 MMOL/L (3.6-5.0); SODIUM 142 MMOL/L (135-145); TOTAL PROTEIN 7.3 GM/DL (6.4-8.2)
--- OUTSIDE RECORDS SUMMARY | 2019-01-01 09:30 | XMS REPORT | Continuity of Care Document ---
Author Organization Unknown Address Unknown Allergies Active Description Code Type Severity Reaction Onset Reported/Identified Relationship to Patient Clinical Status Yes epinephrine [id number] Drug Allergy Unknown N/A 10/28/2015 Yes epinephrine HCl [id number] Drug Allergy Unknown N/A 10/28/2015 Yes lidocaine [id number] Drug Allergy Unknown N/A 10/28/2015 Medications There is no data. 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, I 07/13/1104 JENIFFER PEREZ MD Ot C77.3 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 07/13/1104 JENIFFER PEREZ MD Ot Z51.11 ENCOUNTER FOR ANTINEOPLASTIC CHEMOTHERAP 07/13/1418 RUBY ANGULO MD, Ot 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, I 07/13/1418 RUBY ANGULO MD Ot C77.3 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 07/13/1418 RUBY ANGULO MD Ot 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 07/13/1418 RUBY ANGULO MD Ot F41.9 ANXIETY DISORDER, UNSPECIFIED 07/13/1418 KEV ERVIN, RUBY Ot Z51.11 ENCOUNTER FOR ANTINEOPLASTIC CHEMOTHERAP 07/13/1418 KEV ERVIN, RUBY Ot Z79.899 OTHER FPC (CURRENT) DRUG THERAPY 07/13/1425 JONATHAN, MECHE Toure Ot 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, I 07/13/1425 MECHE CASTILLO Mesfin Ot C77.3 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 07/13/1425 MECHE CASTILLO Mesfin Ot 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 07/13/1425 MECHE CASTILLO Mesfin Ot F41.9 ANXIETY DISORDER, UNSPECIFIED 07/13/1425 MECHE CASTILLO Mesfin Ot Z51.11 ENCOUNTER FOR ANTINEOPLASTIC CHEMOTHERAP 07/13/1425 MECHE CASTILLO Mesfin Ot Z79.899 OTHER FPC (CURRENT) DRUG THERAPY 2012 Ot 914.0 ABRASION HAND 2012 Ot [...] OF THE SKIN AND SUBCUTANEOUS TI 11/23/2015 PATRICK ERVIN, JAMIE James Ot Z01.818 ENCOUNTER FOR OTHER PREPROCEDURAL EXAMIN 11/25/2015 PATRICK ERVIN, JAMIE James Ot C43.62 11/26/2015 PATRICK ERVIN, JAMIE James [...] LEFT UPPER LIMB, I 02/03/2016 PRICILLA CURRAN SQL DEVELOPER DBA Ot 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, I 02/14/2016 JENIFFER PEREZ MD Ot 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, I 02/18/2016 PRICILLA CURRAN SQL DEVELOPER DBA Ot 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, I 02/19/2016 PRICILLA CURRAN SQL DEVELOPER DBA Ot 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, I 02/19/2016 PATRICK ERVIN, JAMIE James Ot 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, I 02/19/2016 PRICILLA CURRAN Ot 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, I 02/19/2016 CHRIS ERVIN, JENIFFER Dia Ot 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, I 03/07/2016 CHRIS ERVIN, JENIFFER Dia Ot 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, I 03/15/2016 CHRIS ERVIN, JENIFFER Dia Ot 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, I 04/29/2016 JENIFFER PEREZ MD Ot 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, I 06/12/2016 JENIFFER PEREZ MD Ot 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, I 06/12/2016 JENIFFER PEREZ MD, Ot C77.3 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 06/13/2016 JENIFFER PEREZ MD Ot 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, I 06/13/2016 JENIFFER PEREZ MD Ot C77.3 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 06/14/2016 JENIFFER PEREZ MD Ot C43.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 [...] LIMB, I 07/27/2016 JENIFFER PEREZ MD Ot 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 08/03/2016 JENIFFER PEREZ MD Ot 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, I 08/18/2016 PATRICK ERVIN, JAMIE James Ot 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 08/18/2016 PATRICK ERVIN, JAMIE James Ot Z01.818 ENCOUNTER FOR OTHER PREPROCEDURAL EXAMIN 08/18/2016 JAMIE NGUYEN MD Ot Z11.2 ENCOUNTER FOR SCREENING FOR OTHER BACTER 08/18/2016 JENIFFER PEREZ MD Ot 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, I 08/18/2016 CHRIS ERVIN, JENIFFER Dia Ot C79.9 SECONDARY [...] LEFT UPPER LIMB, I 10/12/2016 JENIFFER PEREZ MD Ot C77.3 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 11/01/2016 PATRICK ERVIN, JAMIE James Ot 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, I 11/01/2016 PRICILLA CURRAN Ot 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, I 11/01/2016 JENIFFER PEREZ MD, Ot 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, I 11/01/2016 JENIFFER PEREZ MD, Ot 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 11/01/2016 JENIFFER PEREZ MD, Ot 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, I 11/01/2016 JENIFFER PEREZ MD, Ot 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, I 11/01/2016 JENIFFER PEREZ MD, Ot C77.3 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 11/01/2016 JENIFFER PEREZ MD, Ot Z51.11 ENCOUNTER FOR ANTINEOPLASTIC CHEMOTHERAP 11/01/2016 JENIFFER PEREZ MD, Ot 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, I 11/01/2016 JENIFFER PEREZ MD, Ot 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 [...] NEOPLASM OF AXILLA AN 01/10/2017 JENIFFER PEREZ MD, Ot Z51.11 ENCOUNTER FOR ANTINEOPLASTIC CHEMOTHERAP 01/16/2017 [...] MALIGNANT NEOPLASM OF UNSPECIF 01/16/2017 JENIFFER PEREZ MD, Ot C43.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 [...] LEFT UPPER LIMB, I 01/19/2017 JENIFFER PEREZ MD Ot C77.3 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 01/19/2017 JENIFFER PEREZ MD Ot Z51.11 ENCOUNTER FOR ANTINEOPLASTIC CHEMOTHERAP 01/19/2017 JENIFFER PEREZ MD, Ot 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, I 01/19/2017 JENIFFER PEREZ MD, Ot C77.3 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 01/19/2017 JENIFFER PEREZ MD Ot Z51.11 ENCOUNTER FOR ANTINEOPLASTIC CHEMOTHERAP 01/24/2017 JENIFFER PEREZ MD, Ot 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, I 01/24/2017 JENIFFER PEREZ MD, Ot C77.3 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 01/24/2017 JENIFFER PEREZ MD, Ot Z51.11 ENCOUNTER FOR ANTINEOPLASTIC CHEMOTHERAP 02/07/2017 JENIFFER PEREZ MD, Ot C43.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 [...] MELANOCYTIC NEVI OF TRUNK 02/17/2017 JENIFFER PEREZ MD, Ot F41.9 ANXIETY DISORDER, UNSPECIFIED 02/17/2017 JENIFFER PEREZ MD, Ot K08.89 OTHER SPECIFIED DISORDERS OF TEETH AND S 02/17/2017 JENIFFER PEREZ MD Ot Z51.11 ENCOUNTER FOR ANTINEOPLASTIC CHEMOTHERAP 02/17/2017 JENIFFER PEREZ MD Ot Z79.899 OTHER FPC (CURRENT) DRUG THERAPY 03/10/2017 JENIFFER PEREZ MD, Ot 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, I 03/10/2017 JENIFFER PEREZ MD Ot M85.88 OTH DISRD [...] ENCOUNTER FOR ANTINEOPLASTIC CHEMOTHERAP 03/14/2017 JENIFFER PEREZ MD Ot Z79.899 OTHER HAND SCRAPER (CURRENT) DRUG THERAPY 03/15/2017 JENIFEFR PEREZ MD, Ot 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, I 03/15/2017 JENIFFER PEREZ MD, Ot C77.3 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 03/15/2017 JENIFFER PEREZ MD Ot 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 03/15/2017 JENIFFER PEREZ MD Ot F41.9 ANXIETY DISORDER, UNSPECIFIED 03/15/2017 JENIFFER PEREZ MD Ot K08.89 OTHER SPECIFIED DISORDERS OF TEETH AND S 03/15/2017 JENIFFER PEREZ MD Ot Z51.11 ENCOUNTER FOR ANTINEOPLASTIC CHEMOTHERAP 03/15/2017 JENIFFER PEREZ MD Ot Z79.899 OTHER HAND SCRAPER (CURRENT) DRUG THERAPY 03/22/2017 MECHE CASTILLO Ot [...] MELANOMA OF LEFT UPPER LIMB, I 04/06/2017 JENIFFER PEREZ MD, Ot C77.3 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 04/06/2017 JENIFFER PEREZ MD Ot F41.9 ANXIETY DISORDER, UNSPECIFIED 04/06/2017 JENIFFER PEREZ MD Ot Z51.0 ENCOUNTER FOR ANTINEOPLASTIC RADIATION T 04/06/2017 CHRIS ERVIN, JENIFFER Dia Ot Z51.11 ENCOUNTER FOR ANTINEOPLASTIC CHEMOTHERAP 04/06/2017 CHRIS ERVIN, JENIFFER Dia Ot Z79.899 OTHER FPC (CURRENT) DRUG THERAPY 05/02/2017 PATRICK ERVIN, JAMIE James Ot L98.9 DISORDER OF THE SKIN AND SUBCUTANEOUS TI 05/02/2017 PATRICK ERVIN, JAMIE James Ot Z01.818 ENCOUNTER FOR OTHER PREPROCEDURAL EXAMIN 05/02/2017 JAMIE NGUYEN MD Ot Z85.820 PERSONAL HISTORY OF MALIGNANT MELANOMA O 05/05/2017 PATRICK ERVIN, JAMIE James Ot D23.71 OTH BENIGN NEOPLASM SKIN/ RIGHT LOWER LI 05/05/2017 JAMIE NGUYEN MD Ot L57.0 ACTINIC KERATOSIS 05/05/2017 JAMIE NGUYEN [...] Z79.899 OTHER FPC (CURRENT) DRUG THERAPY 05/09/2017 PATRICK ERVIN, JAMIE James Ot D23.71 OTH BENIGN NEOPLASM SKIN/ RIGHT LOWER LI 05/09/2017 JAMIE NGUYEN MD Ot L57.0 ACTINIC KERATOSIS 05/09/2017 JAMIE NGUYEN MD Ot L82.1 OTHER SEBORRHEIC KERATOSIS 05/09/2017 JAMIE NGUYEN MD Ot Z85.820 PERSONAL HISTORY OF MALIGNANT MELANOMA O 05/11/2017 JAMIE NGUYEN MD Ot D23.71 OTH BENIGN NEOPLASM SKIN/ RIGHT LOWER LI 05/11/2017 PATRICK ERVIN, JAMIE James Ot L57.0 ACTINIC KERATOSIS 05/11/2017 PATRICK ERVIN, JAMIE James Ot L82.1 OTHER SEBORRHEIC KERATOSIS 05/11/2017 PATRICK ERVIN, JAMIE James Ot Z85.820 PERSONAL HISTORY OF MALIGNANT MELANOMA O 05/11/2017 MECHE CASTILLO N Ot 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, I 05/11/2017 JONATHANMECHE EDWARD N Ot C77.3 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 05/11/2017 JONATHAN, BOBAN N Ot 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 05/11/2017 JONATHAN, [facility] N Ot F41.9 ANXIETY DISORDER, UNSPECIFIED 05/11/2017 JONATHANMECHE EDWARD N Ot K08.89 OTHER SPECIFIED DISORDERS OF TEETH AND S 05/11/2017 JONATHAN, BOBAN N Ot Z51.11 ENCOUNTER FOR ANTINEOPLASTIC CHEMOTHERAP 05/11/2017 JONATHAN, BOBAN N Ot Z79.899 OTHER HAND SCRAPER (CURRENT) DRUG THERAPY 05/17/2017 MECHE CASTILLO N Ot 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, I 05/17/2017 JONATHANMECHE EDWARD N Ot C77.3 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 05/17/2017 MECHE CASTILLO N Ot 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 05/17/2017 MECHE CASTILLO N Ot F41.9 ANXIETY DISORDER, UNSPECIFIED 05/17/2017 JONATHAN BOBAN N Ot Z51.11 ENCOUNTER FOR ANTINEOPLASTIC CHEMOTHERAP 05/17/2017 JONATHAN BOBAN N Ot Z79.899 OTHER HAND SCRAPER (CURRENT) DRUG THERAPY 05/17/2017 PATRICK ERVIN, JAMIE James Ot D23.71 OTH BENIGN NEOPLASM SKIN/ RIGHT LOWER LI 05/17/2017 PATRICK ERVIN, JAMIE James Ot L57.0 ACTINIC KERATOSIS 05/17/2017 PATRICK ERVIN, JAMIE James Ot L82.1 OTHER SEBORRHEIC KERATOSIS 05/17/2017 PATRICK ERVIN, JAMIE James Ot Z85.820 PERSONAL HISTORY OF MALIGNANT MELANOMA O 06/12/2017 JONATHAN [facility] N Ot 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, I 06/12/2017 JONATHAN, MECHE N Ot C77.9 SECONDARY AND UNSP MALIGNANT NEOPLASM OF 06/14/2017 PATRICK ERVIN, JAMIE James Ot D23.71 OTH BENIGN NEOPLASM SKIN/ RIGHT LOWER LI 06/14/2017 PATRICK ERVIN, JAMIE James Ot L57.0 ACTINIC KERATOSIS 06/14/2017 PATRICK ERVIN, JAMIE James Ot L82.1 OTHER SEBORRHEIC KERATOSIS 06/14/2017 PATRICK ERVIN, JAMIE James Ot Z85.820 PERSONAL HISTORY OF MALIGNANT MELANOMA O 06/27/2017 JONATHANMECHE EDWARD N Ot 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, I 06/27/2017 JONATHAN, BOBAN N Ot C77.3 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 06/27/2017 JONATHAN, BOBAN N Ot 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 06/27/2017 JONATHAN, BOBAN N Ot F41.9 ANXIETY DISORDER, UNSPECIFIED 06/27/2017 JONATHAN, BOBAN N Ot Z51.11 ENCOUNTER FOR ANTINEOPLASTIC CHEMOTHERAP 06/27/2017 JONATHAN, BOBAN N Ot Z79.899 OTHER FPC (CURRENT) DRUG THERAPY 06/30/2017 JONATHAN [facility] N Ot 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, I 06/30/2017 JONATHAN, BOBAN N Ot C77.9 SECONDARY AND UNSP MALIGNANT NEOPLASM OF 07/07/2017 JONATHAN [facility] N Ot 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, I 07/07/2017 JONATHAN, BOBAN N Ot C77.3 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 07/07/2017 JONATHAN, BOBAN N Ot 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 07/07/2017 JONATHAN, BOBAN N Ot F41.9 ANXIETY DISORDER, UNSPECIFIED 07/07/2017 JONATHAN, BOBAN N Ot Z51.11 ENCOUNTER FOR ANTINEOPLASTIC CHEMOTHERAP 07/07/2017 JONATHAN, BOBAN N Ot Z79.899 OTHER HAND SCRAPER (CURRENT) DRUG THERAPY 07/11/2017 JONATHAN BOBAN N Ot 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, I 07/11/2017 JONATHAN, BOBAN N Ot C77.3 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 07/11/2017 MECHE CASTILLO N Ot 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 07/11/2017 MECHE CASTILLO Mesfin Ot F41.9 ANXIETY DISORDER, UNSPECIFIED 07/11/2017 MECHE CASTILLO N Ot Z51.11 ENCOUNTER FOR ANTINEOPLASTIC CHEMOTHERAP 07/11/2017 MECHE CASTILLO N Ot Z79.899 OTHER HAND SCRAPER (CURRENT) DRUG THERAPY 07/26/2017 PATRICK ERVIN, JAMIE James Ot 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, I 07/26/2017 PRICILLA CURRANP Ot 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, I 07/26/2017 CHRIS ERVIN, JENIFFER Dia Ot 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, I 07/26/2017 CHRIS ERVIN, JENIFFER Dia Ot 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 07/26/2017 JENIFFER PEREZ MD Ot 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, I 07/26/2017 JENIFFER PEREZ MD Ot 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, I 07/26/2017 CHRIS ERVIN, JENIFFER Dia Ot M85.88 OTH DISRD OF BONE DENSITY AND STRUCTURE, 07/26/2017 CHRIS ERVIN, JENIFFER Dia Ot R91.8 OTHER NONSPECIFIC ABNORMAL FINDING OF ROMEO 07/26/2017 JONATHAN MECHE Toure Ot 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, I 07/26/2017 JONATHAN MECHE Toure Ot C77.3 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 07/26/2017 MECHE CASTILLO Mesfin Ot 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 07/26/2017 JONATHAN MECHE N Ot F41.9 ANXIETY DISORDER, UNSPECIFIED 07/26/2017 MECHE CASTILLO N Ot Z51.11 ENCOUNTER FOR ANTINEOPLASTIC CHEMOTHERAP 07/26/2017 JONATHANMECHE N Ot Z79.899 OTHER FPC (CURRENT) DRUG THERAPY 07/26/2017 MECHE CASTILLO N Ot 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, I 07/26/2017 JONATHAN SHANIMC N Ot C77.9 SECONDARY AND UNSP MALIGNANT NEOPLASM OF 08/09/2017 JONATHAN MECHE N Ot 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, I 08/09/2017 MECHE CASTILLO N Ot C77.3 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 08/09/2017 MECHE CASTILLO N Ot 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 08/09/2017 MECHE CASTILLO N Ot F41.9 ANXIETY DISORDER, UNSPECIFIED 08/09/2017 JONATHANMECHE N Ot Z51.11 ENCOUNTER FOR ANTINEOPLASTIC CHEMOTHERAP 08/09/2017 MECHE CASTILLO N Ot Z79.899 OTHER HAND SCRAPER (CURRENT) DRUG THERAPY 08/14/2017 MECHE CASTILLO N Ot 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, I 08/14/2017 MECHE CASTILLO N Ot C77.3 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 08/14/2017 MECHE CASTILLO N Ot 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 08/14/2017 MECHE CASTILLO N Ot F41.9 ANXIETY DISORDER, UNSPECIFIED 08/14/2017 JONATHANMECHE N Ot Z51.11 ENCOUNTER FOR ANTINEOPLASTIC CHEMOTHERAP 08/14/2017 MECHE CASTILLO N Ot Z79.899 OTHER FPC (CURRENT) DRUG THERAPY 08/16/2017 JONATHANMECHE N Ot 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, I 08/16/2017 MECHE CASTILLO N Ot C77.3 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 08/16/2017 MECHE CASTILLO N Ot 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 08/16/2017 MECHE CASTILLO N Ot F41.9 ANXIETY DISORDER, UNSPECIFIED 08/16/2017 JONATHANMECHE N Ot Z51.11 ENCOUNTER FOR ANTINEOPLASTIC CHEMOTHERAP 08/16/2017 JONATHANSHANIAN N Ot Z79.899 OTHER HAND SCRAPER (CURRENT) DRUG THERAPY 09/01/2017 PRICILLA CURRAN SQL DEVELOPER DBA Ot 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, I 09/01/2017 PRICILLA CURRAN SQL DEVELOPER DBA Ot 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, I 09/06/2017 PRICILLA CURRAN SQL DEVELOPER DBA Ot 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, I 09/12/2017 JONATHAN MECHE N Ot C43.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 OF LEFT [...] Z79.899 OTHER FPC (CURRENT) DRUG THERAPY 09/20/2017 JONATHAN, BOBAN N Ot 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, I 09/20/2017 JONATHAN, BOBAN N Ot C77.3 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 09/20/2017 JONATHAN, BOBAN N Ot 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 09/20/2017 JONATHAN, BOBAN N Ot F41.9 ANXIETY DISORDER, UNSPECIFIED 09/20/2017 JONATHAN, BOBAN N Ot Z51.11 ENCOUNTER FOR ANTINEOPLASTIC CHEMOTHERAP 09/20/2017 JONATHAN, BOBAN N Ot Z79.899 OTHER HAND SCRAPER (CURRENT) DRUG THERAPY 09/27/2017 PRICILLA CURRANP Ot 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, I 10/03/2017 JONATHAN, MECHE N Ot 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, I 10/03/2017 JONATHAN, BOBAN N Ot C77.3 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 10/03/2017 JONATHAN, BOBAN N Ot 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 10/03/2017 JONATHAN, BOBAN N Ot F41.9 ANXIETY DISORDER, UNSPECIFIED 10/03/2017 JONATHAN, BOBAN N Ot Z51.11 ENCOUNTER FOR ANTINEOPLASTIC CHEMOTHERAP 10/03/2017 JONATHAN, BOBAN N Ot Z79.899 OTHER FPC (CURRENT) DRUG THERAPY 10/09/2017 JONATHAN, BOBAN N Ot 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, I 10/09/2017 JONATHAN, BOBAN N Ot C77.3 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 10/09/2017 JONATHAN, BOBAN N Ot 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 10/09/2017 JONATHAN, BOBAN N Ot F41.9 ANXIETY DISORDER, UNSPECIFIED 10/09/2017 JONATHAN, BOBAN N Ot Z51.11 ENCOUNTER FOR ANTINEOPLASTIC CHEMOTHERAP 10/09/2017 JONATHAN, BOBAN N Ot Z79.899 OTHER HAND SCRAPER (CURRENT) DRUG THERAPY 11/20/2017 JONATHAN BOBAN N Ot 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, I 11/20/2017 JONATHAN, BOBAN N Ot C77.3 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 11/20/2017 JONATHAN, BOBAN N Ot 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 11/20/2017 JONATHAN, [facility] N Ot F41.9 ANXIETY DISORDER, UNSPECIFIED 11/20/2017 JONATHAN, BOBAN N Ot Z51.11 ENCOUNTER FOR ANTINEOPLASTIC CHEMOTHERAP 11/20/2017 JONATHAN, BOBAN N Ot Z79.899 OTHER HAND SCRAPER (CURRENT) DRUG THERAPY 11/22/2017 PRICILLA CURRAN Ot 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, I 11/27/2017 JONATHAN, BOBAN N Ot 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, I 11/27/2017 JONATHAN, BOBAN N Ot C77.3 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 11/27/2017 JONATHAN, MECHE N Ot 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 11/27/2017 JONATHANMECHE N Ot F41.9 ANXIETY DISORDER, UNSPECIFIED 11/27/2017 JONATHANMECHE N Ot Z51.11 ENCOUNTER FOR ANTINEOPLASTIC CHEMOTHERAP 11/27/2017 JONATHAN, BOBAN N Ot Z79.899 OTHER HAND SCRAPER (CURRENT) DRUG THERAPY 11/28/2017 JONATHAN, BOBAN N Ot 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, I 11/28/2017 JONATHAN, BOBAN N Ot C77.3 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 11/28/2017 JONATHAN, BOBAN N Ot 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 11/28/2017 JONATHAN, SHANIAN N Ot F41.9 ANXIETY DISORDER, UNSPECIFIED 11/28/2017 JONATHAN, BOBAN N Ot Z51.11 ENCOUNTER FOR ANTINEOPLASTIC CHEMOTHERAP 11/28/2017 MECHE CASTILLO Ot Z79.899 OTHER FPC (CURRENT) DRUG THERAPY 12/06/2017 MECHE CASTILLO Ot 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, I 12/06/2017 MECHE CASTILLO Ot R59.0 LOCALIZED ENLARGED LYMPH NODES 12/12/2017 PRICILLA CURRAN Ot 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, I 12/14/2017 PATRICK ERVIN, JAMIE James Ot Z01.818 ENCOUNTER FOR OTHER PREPROCEDURAL EXAMIN 12/14/2017 JAMIE NGUYEN MD Ot Z08 ENCNTR FOR FOLLOW-UP EXAM AFTER TRTMT FO 12/14/2017 JAMIE NGUYEN MD Ot Z85.820 PERSONAL HISTORY OF MALIGNANT MELANOMA O 12/14/2017 JAMIE NGUYEN MD, Ot C43.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 OF LEFT [...] ON DX IMAGING OF PRT D 12/20/2017 MECHE CASTILLO Ot 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, I 12/20/2017 MECHE CASTILLO Ot C77.3 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 12/20/2017 MECHE CASTILLO Ot 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 12/20/2017 MECHE CASTILLO Ot F41.9 ANXIETY DISORDER, UNSPECIFIED 12/20/2017 JONATHAN, BOBAN N Ot Z51.11 ENCOUNTER FOR ANTINEOPLASTIC CHEMOTHERAP 12/20/2017 JONATHAN BOBAN N Ot Z79.899 OTHER HAND SCRAPER (CURRENT) DRUG THERAPY 12/27/2017 JONATHAN SHANIAN N Ot 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, I 12/27/2017 JONATHAN, BOBAN N Ot R59.0 LOCALIZED ENLARGED LYMPH NODES 01/04/2018 PATRICK ERVIN, JAMIE James Ot R19.09 OTHER INTRA-ABDOMINAL AND PELVIC SWELLIN 01/04/2018 PATRICK ERVIN, JAMIE James Ot Z01.818 ENCOUNTER FOR OTHER PREPROCEDURAL EXAMIN 01/05/2018 JONATHAN, BOBAN N Ot 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, I 01/05/2018 JONATHAN BOBAN N Ot C77.3 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 01/05/2018 JONATHAN, BOBAN N Ot 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 01/05/2018 JONATHAN BOBAN N Ot F41.9 ANXIETY DISORDER, UNSPECIFIED 01/05/2018 JONATHAN BOBAN N Ot Z51.11 ENCOUNTER FOR ANTINEOPLASTIC CHEMOTHERAP 01/05/2018 JONATHAN, BOBAN N Ot Z79.899 OTHER HAND SCRAPER (CURRENT) DRUG THERAPY 01/24/2018 PATRICK ERVIN, JAMIE James Ot 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 01/24/2018 PATRICK ERVIN, JAMIE James Ot Z85.820 PERSONAL HISTORY OF MALIGNANT MELANOMA O 02/26/2018 JONATHANSHANIAN N Ot 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, I 02/26/2018 JONATHAN BOBAN N Ot C77.3 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 02/26/2018 JONATHAN BOBAN N Ot 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 02/26/2018 JONATHAN BOBAN N Ot F41.9 ANXIETY DISORDER, UNSPECIFIED 02/26/2018 JONATHAN, BOBAN N Ot Z51.11 ENCOUNTER FOR ANTINEOPLASTIC CHEMOTHERAP 02/26/2018 JONATHAN, BOBAN N Ot Z79.899 OTHER FPC (CURRENT) DRUG THERAPY 02/27/2018 JONATHAN SHANIAN N Ot 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, I 02/27/2018 JONATHAN, BOBAN N Ot C77.3 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 02/27/2018 JONATHAN SHANIAN N Ot 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 02/27/2018 JONATHAN MECHE N Ot F41.9 ANXIETY DISORDER, UNSPECIFIED 02/27/2018 JONATHANSHANIAN N Ot Z51.11 ENCOUNTER FOR ANTINEOPLASTIC CHEMOTHERAP 02/27/2018 JONATHANSHANIAN N Ot Z79.899 OTHER HAND SCRAPER (CURRENT) DRUG THERAPY 02/27/2018 JONATHAN MECHE N Ot 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, I 02/27/2018 JONATHAN, BOBAN N Ot C77.3 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 02/27/2018 JONATHAN MECHE N Ot 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 02/27/2018 JONATHANMECHE N Ot F41.9 ANXIETY DISORDER, UNSPECIFIED 02/27/2018 JONATHANMECHE N Ot Z51.11 ENCOUNTER FOR ANTINEOPLASTIC CHEMOTHERAP 02/27/2018 JONATHANSHANIAN N Ot Z79.899 OTHER HAND SCRAPER (CURRENT) DRUG THERAPY 03/02/2018 JONATHAN SHANIAN N Ot 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, I 03/02/2018 JONATHAN, SHANIAN N Ot C77.3 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 03/02/2018 JONATHAN SHANIAN N Ot 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 03/02/2018 JONATHANMECHE N Ot F41.9 ANXIETY DISORDER, UNSPECIFIED 03/02/2018 JONATHANMECHE N Ot Z51.11 ENCOUNTER FOR ANTINEOPLASTIC CHEMOTHERAP 03/02/2018 JONATHAN BOBAN N Ot Z79.899 OTHER HAND SCRAPER (CURRENT) DRUG THERAPY 03/05/2018 JONATHAN SHANIAN N Ot 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, I 03/05/2018 JONATHAN, SHANIAN N Ot C77.3 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 03/05/2018 JONATHAN SHANIAN N Ot 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 03/05/2018 JONATHANMECHE N Ot F41.9 ANXIETY DISORDER, UNSPECIFIED 03/05/2018 JONATHAN, BOBAN N Ot Z51.11 ENCOUNTER FOR ANTINEOPLASTIC CHEMOTHERAP 03/05/2018 JONATHAN, BOBAN N Ot Z79.899 OTHER FPC (CURRENT) DRUG THERAPY 03/05/2018 JONATHAN SHANIAN N Ot 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, I 03/05/2018 JONATHAN, BOBAN N Ot C77.3 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 03/05/2018 JONATHAN SHANIAN N Ot 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 03/05/2018 JONATHAN, BOBAN N Ot F41.9 ANXIETY DISORDER, UNSPECIFIED 03/05/2018 JONATHAN, BOBAN N Ot Z51.11 ENCOUNTER FOR ANTINEOPLASTIC CHEMOTHERAP 03/05/2018 JONATHAN, BOBAN N Ot Z79.899 OTHER FPC (CURRENT) DRUG THERAPY 03/05/2018 JONATHAN BOBAN N Ot 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, I 03/05/2018 JONATHAN, BOBAN N Ot C77.3 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 03/05/2018 JONATHAN, BOBAN N Ot 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 03/05/2018 JONATHAN, BOBAN N Ot F41.9 ANXIETY DISORDER, UNSPECIFIED 03/05/2018 JONATHAN, BOBAN N Ot Z51.11 ENCOUNTER FOR ANTINEOPLASTIC CHEMOTHERAP 03/05/2018 JONATHAN, BOBAN N Ot Z79.899 OTHER FPC (CURRENT) DRUG THERAPY 04/11/2018 JONATHAN SHANIAN N Ot 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, I 04/11/2018 JONATHAN BOBAN N Ot C77.3 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 04/11/2018 JONATHAN, BOBAN N Ot 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 04/11/2018 JNOATHAN, BOBAN N Ot F41.9 ANXIETY DISORDER, UNSPECIFIED 04/11/2018 JONATHAN, BOBAN N Ot Z51.11 ENCOUNTER FOR ANTINEOPLASTIC CHEMOTHERAP 04/11/2018 JONATHAN, BOBAN N Ot Z79.899 OTHER HAND SCRAPER (CURRENT) DRUG THERAPY 05/01/2018 JONATHAN SHANIAN N Ot 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, I 05/01/2018 JONATHAN, BOBAN N Ot C77.3 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 05/01/2018 MECHE CASTILLO Ot 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 05/01/2018 MECHE CASTILLO Mesfin Ot F41.9 ANXIETY DISORDER, UNSPECIFIED 05/01/2018 MECHE CASTILLO Ot Z51.11 ENCOUNTER FOR ANTINEOPLASTIC CHEMOTHERAP 05/01/2018 MECHE CASTILLO Mesfin Ot Z79.899 OTHER FPC (CURRENT) DRUG THERAPY 05/01/2018 RUBY ANGULO MD, Ot 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, I 05/01/2018 RUBY ANGULO MD, Ot C77.3 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 05/01/2018 RUBY ANGULO MD, Ot 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 05/01/2018 RUBY ANGULO MD Ot F41.9 ANXIETY DISORDER, UNSPECIFIED 05/01/2018 RUBY ANGULO MD Ot Z51.11 ENCOUNTER FOR ANTINEOPLASTIC CHEMOTHERAP 05/01/2018 RUBY ANGULO MD Ot Z79.899 OTHER FPC (CURRENT) DRUG THERAPY 05/13/2018 RUBY ANGULO MD, Ot 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, I 05/13/2018 RUBY ANGULO MD, Ot C77.3 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 05/13/2018 RUBY ANGULO MD Ot 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 05/13/2018 RUBY ANGULO MD Ot F41.9 ANXIETY DISORDER, UNSPECIFIED 05/13/2018 RUBY ANGULO MD Ot Z51.11 ENCOUNTER FOR ANTINEOPLASTIC CHEMOTHERAP 05/13/2018 RUBY ANGULO MD Ot Z79.899 OTHER HAND SCRAPER (CURRENT) DRUG THERAPY 06/12/2018 RUBY ANGULO MD, Ot 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, I 06/12/2018 RUBY ANGULO MD Ot C77.3 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 06/12/2018 RUBY ANGULO MD Ot 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 06/12/2018 RUBY ANGULO MD Ot F41.9 ANXIETY DISORDER, UNSPECIFIED 06/12/2018 KEV ERVIN, RUBY Ot Z51.11 ENCOUNTER FOR ANTINEOPLASTIC CHEMOTHERAP 06/12/2018 KEV ERVIN, RUBY Ot Z79.899 OTHER FPC (CURRENT) DRUG THERAPY 06/29/2018 JONATHAN, BOBAN N Ot 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, I 06/29/2018 JONATHAN, BOBAN N Ot 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 06/29/2018 JONATHAN, BOBAN N Ot K80.20 CALCULUS OF GALLBLADDER W/O CHOLECYSTITI 07/03/2018 JONATHAN, BOBAN N Ot 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, I 07/03/2018 JONATHAN, BOBAN N Ot C77.3 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 07/03/2018 JONATHAN, BOBAN N Ot 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 07/03/2018 JONATHAN, BOBAN N Ot F41.9 ANXIETY DISORDER, UNSPECIFIED 07/03/2018 JONATHAN, BOBAN N Ot Z51.11 ENCOUNTER FOR ANTINEOPLASTIC CHEMOTHERAP 07/03/2018 JONATHAN, BOBAN N Ot Z79.899 OTHER HAND SCRAPER (CURRENT) DRUG THERAPY 07/20/2018 JONATHAN, BOBAN N Ot 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, I 07/20/2018 JONATHAN, BOBAN N Ot 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 07/20/2018 JONATHAN, BOBAN N Ot K80.20 CALCULUS OF GALLBLADDER W/O CHOLECYSTITI 08/10/2018 JONATHAN, BOBAN N Ot 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, I 08/10/2018 JONATHAN, BOBAN N Ot C77.3 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 08/10/2018 JONATHAN, BOBAN N Ot 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 08/10/2018 JONATHAN, BOBAN N Ot F41.9 ANXIETY DISORDER, UNSPECIFIED 08/10/2018 JONATHAN, BOBAN N Ot Z51.11 ENCOUNTER FOR ANTINEOPLASTIC CHEMOTHERAP 08/10/2018 JONATHAN, BOBAN N Ot Z79.899 OTHER HAND SCRAPER (CURRENT) DRUG THERAPY 08/27/2018 CURRAN, HILAH S [employer] DEVELOPER DBA Ot 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, I 08/27/2018 CURRANPRICILLA Field S SQL DEVELOPER DBA Ot 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 08/27/2018 PRICILLA CURRAN SQL DEVELOPER DBA Ot K63.89 OTHER SPECIFIED DISEASES OF INTESTINE 08/28/2018 PATRICK ERVIN, JAMIE James Ot K80.20 CALCULUS OF GALLBLADDER W/O CHOLECYSTITI 09/05/2018 PATRICK ERVIN, JAMIE James Ot Z01.818 ENCOUNTER FOR OTHER PREPROCEDURAL EXAMIN 09/10/2018 MECHE CASTILLO Ot 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, I 09/10/2018 MECHE CASTILLO Ot C77.3 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 09/10/2018 MECHE CASTILLO Ot 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 09/10/2018 MECHE CASTILLO Ot F41.9 ANXIETY DISORDER, UNSPECIFIED 09/10/2018 MECHE CASTILLO Ot Z51.11 ENCOUNTER FOR ANTINEOPLASTIC CHEMOTHERAP 09/10/2018 MECHE CASTILLO Ot Z79.899 OTHER HAND SCRAPER (CURRENT) DRUG THERAPY 09/10/2018 PATRICK ERVIN, JAMIE James Ot Z01.818 ENCOUNTER FOR OTHER PREPROCEDURAL EXAMIN 09/10/2018 PATRICK ERVIN, JAMIE James Ot 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, I 09/10/2018 PATRICK ERVIN, JAMIE James Ot 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 09/10/2018 PATRICK ERVIN, JAMIE James Ot 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, SUBC 09/10/2018 PATRICK ERVIN, JAMIE James Ot D50.9 IRON DEFICIENCY ANEMIA, UNSPECIFIED 09/10/2018 PATRICK ERVIN, JAMIE James Ot E03.9 HYPOTHYROIDISM, UNSPECIFIED 09/10/2018 PATRICK ERVIN, JAMIE James Ot F41.9 ANXIETY DISORDER, UNSPECIFIED 09/10/2018 PATRICK ERVIN, JAMIE James Ot K80.20 CALCULUS OF GALLBLADDER W/O CHOLECYSTITI 09/10/2018 PATRICK ERVIN, JAMIE James Ot R33.9 RETENTION OF URINE, UNSPECIFIED 09/11/2018 MECHE CASTILLO Ot 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, I 09/11/2018 MECHE CASTILLO Ot C77.3 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 09/11/2018 JONATHANMECHE Ot 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 09/11/2018 JONATHANMECHE Ot F41.9 ANXIETY DISORDER, UNSPECIFIED 09/11/2018 JONATHANMECHE Ot Z51.11 ENCOUNTER FOR ANTINEOPLASTIC CHEMOTHERAP 09/11/2018 MECHE CASTILLO Ot Z79.899 OTHER FPC (CURRENT) DRUG THERAPY 09/13/2018 PATRICK ERVIN, JAMIE James Ot K80.20 CALCULUS OF GALLBLADDER W/O CHOLECYSTITI 09/17/2018 PRICILLA CURRAN SQL DEVELOPER DBA Ot 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, I 09/17/2018 PRICILLA CURRAN SQL DEVELOPER DBA Ot 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 09/17/2018 PRICILLA CURRAN SQL DEVELOPER DBA Ot K63.89 OTHER SPECIFIED DISEASES OF INTESTINE 10/11/2018 PRICILLA CURRAN SQL DEVELOPER DBA Ot Z79.899 OTHER HAND SCRAPER (CURRENT) DRUG THERAPY 10/26/2018 PRICILLA CURRAN S SQL DEVELOPER DBA Ot Z79.899 OTHER HAND SCRAPER (CURRENT) DRUG THERAPY 11/02/2018 MECHE CASTILLO Ot 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, I 11/02/2018 MECHE CASTILLO Ot C77.3 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 11/02/2018 JONATHANMECHE Ot 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 11/02/2018 MECHE CASTILLO Ot F41.9 ANXIETY DISORDER, UNSPECIFIED 11/02/2018 MECHE CASTILLO Ot Z51.11 ENCOUNTER FOR ANTINEOPLASTIC CHEMOTHERAP 11/02/2018 JONATHANMECHE N Ot Z79.899 OTHER HAND SCRAPER (CURRENT) DRUG THERAPY 11/20/2018 MECHE CASTILLO Ot C43.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, I 11/20/2018 JONATHAN MECHE Toure Ot C77.3 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 11/20/2018 JONATHANMECHE Ot 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 11/20/2018 MECHE CASTILLO Ot F41.9 ANXIETY DISORDER, UNSPECIFIED 11/20/2018 JONATHANMECHE N Ot Z51.11 ENCOUNTER FOR ANTINEOPLASTIC CHEMOTHERAP 11/20/2018 JONATHANMECHE EDWARD N Ot Z79.899 OTHER FPC (CURRENT) DRUG THERAPY 11/26/2018 MECHE CASTILLO N Ot C43.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, I 11/26/2018 JONATHANSHANI EDWARDAN N Ot C77.3 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 11/26/2018 JONATHANMECHE N Ot 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 11/26/2018 JONATHANMECHE N Ot F41.9 ANXIETY DISORDER, UNSPECIFIED 11/26/2018 JONATHANMECHE N Ot Z51.11 ENCOUNTER FOR ANTINEOPLASTIC CHEMOTHERAP 11/26/2018 JONATHANMECHE N Ot Z79.899 OTHER FPC (CURRENT) DRUG THERAPY 12/24/2018 MECHE CASTILLO N Ot 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, I 12/24/2018 MECHE CASTILLO N Ot C77.3 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 12/24/2018 JONATHANMECHE N Ot 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 12/24/2018 MECHE CASTILLO N Ot F41.9 ANXIETY DISORDER, UNSPECIFIED 12/24/2018 JONATHANMECHE N Ot Z51.11 ENCOUNTER FOR ANTINEOPLASTIC CHEMOTHERAP 12/24/2018 MECHE CASTILLO N Ot Z79.899 OTHER HAND SCRAPER (CURRENT) DRUG THERAPY 12/30/2018 MECHE CASTILLO N Ot 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, I 12/30/2018 JONATHAN BOBAN N Ot C77.3 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 12/30/2018 JONATHANSHANIAN N Ot 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 12/30/2018 MECHE CASTILLO N Ot F41.9 ANXIETY DISORDER, UNSPECIFIED 12/30/2018 JONATHAN BOBAN N Ot Z51.11 ENCOUNTER FOR ANTINEOPLASTIC CHEMOTHERAP 12/30/2018 JONATHAN BOBAN N Ot Z79.899 OTHER HAND SCRAPER (CURRENT) DRUG THERAPY Procedures Code Description Performed By Performed On [id number] EXCISION OF ILEUM, OPEN APPROACH 01/22/2018 [id number] ROBOTIC ASSISTED PROCEDURE OF TRUNK DONG 01/22/2018 [id number] EXCISION OF SMALL INTESTINE, PERC ENDO A 09/07/2018 [id number] RESECTION OF GALLBLADDER, PERCUTANEOUS E 09/07/2018 [id number] EXCISION OF R UP LEG SUBCU/FASCIA, PERC 09/07/2018 [id number] ROBOTIC ASSISTED PROCEDURE OF TRUNK, PER 09/07/2018 Results Test Result Range Methicillin resistant Staphylococcus aureus (MRSA) screening culture - 08/18/16 13:30 Methicillin resistant Staphylococcus aureus (MRSA) screening culture NEG NRG Methicillin resistant Staphylococcus aureus (MRSA) screening culture - 05/05/17 09:00 Methicillin resistant Staphylococcus aureus (MRSA) screening [...] Automated erythrocyte mean corpuscular hemoglobin concentration measurement (mass/volume) 34 g/dL 32-36 Automated erythrocyte distribution width ratio 12.8 % 10.0- 14.5 Automated blood platelet count (count/volume) 225 10*3/uL [...] Blood monocytes automated count (number/volume) 0.6 10*3 0.0- 1.0 Automated eosinophil count 0.2 10*3/uL 0.0-0.3 Automated [...] Serum or plasma aspartate aminotransferase measurement (enzymatic activity/volume) 20 U/L 5-34 Serum or plasma alanine aminotransferase measurement (enzymatic activity/volume) 16 U/L 0-55 Serum or plasma protein measurement (mass/volume) 7.0 g/dL 6.4-8.2 Serum or plasma albumin measurement (mass/volume) 3.7 g/dL 3.2-4.5 Lactate dehydrogenase 1 [enzymatic activity/volume] in serum or plasma - 08/09/17 13:50 Lactate dehydrogenase 1 [enzymatic activity/volume] in [...] Automated erythrocyte mean corpuscular hemoglobin concentration measurement (mass/volume) 32 g/dL 32-36 Automated erythrocyte distribution width ratio 14.3 % 10.0- 14.5 Automated blood platelet count (count/volume) 296 10*3/uL [...] Blood monocytes automated count (number/volume) 0.6 10*3 0.0- 1.0 Automated eosinophil count 0.1 10*3/uL 0.0-0.3 Automated blood basophil count (count/volume) 0.0 10*3/uL 0.0-0.1 Methicillin resistant Staphylococcus aureus (MRSA) screening culture - 01/22/18 06:30 Methicillin resistant Staphylococcus aureus (MRSA) screening culture NEG [facility] Complete blood count (CBC) with automated white blood cell (WBC) differential - 08/15/18 14:55 Blood leukocytes automated count (number/volume) 6.6 10*3/uL 4.3-11.0 Blood erythrocytes automated count (number/volume) 4.13 10*6/uL 4.35-5.85 Venous blood hemoglobin measurement (mass/volume) 12.7 g/dL 13.3-17.7 Blood hematocrit (volume fraction) 38 % 40-54 Automated erythrocyte mean corpuscular volume 92 [foz_us] 80-99 Automated erythrocyte mean corpuscular hemoglobin (mass per erythrocyte) 31 pg 25-34 Automated erythrocyte mean corpuscular hemoglobin concentration measurement (mass/volume) 33 g/dL 32-36 Automated erythrocyte distribution width ratio 14.3 % 10.0- 14.5 Automated blood platelet count (count/volume) 295 10*3/uL 130-400 Automated blood platelet mean volume measurement 9.2 [foz_us] 7.4-10.4 Automated blood neutrophils/100 leukocytes 70 % 42-75 Automated blood lymphocytes/100 leukocytes 18 % 12-44 Blood monocytes/100 leukocytes 10 % 0-12 Automated blood eosinophils/100 leukocytes 1 % 0-10 Automated blood basophils/100 leukocytes 1 % 0-10 Blood neutrophils automated count (number/volume) 4.7 10*3 1.8-7.8 Blood lymphocytes automated count (number/volume) 1.2 10*3 1.0-4.0 Blood monocytes automated count (number/volume) 0.7 10*3 0.0- 1.0 Automated eosinophil count 0.1 10*3/uL 0.0-0.3 Automated blood basophil count (count/volume) 0.0 10*3/uL 0.0-0.1 Comprehensive metabolic panel - 08/15/18 14:55 Serum or plasma sodium measurement (moles/volume) 141 mmol/L 135-145 Serum or plasma potassium measurement (moles/volume) 4.1 mmol/L 3.6-5.0 Serum or plasma chloride measurement (moles/volume) 105 mmol/L 98-107 Carbon dioxide 24 mmol/L 21-32 Serum or plasma anion gap determination (moles/volume) 12 mmol/L 5-14 Serum or plasma urea nitrogen measurement (mass/volume) 19 mg/dL 7-18 Serum or plasma creatinine measurement (mass/volume) 0.84 mg/dL 0.60-1.30 Serum or plasma urea nitrogen/creatinine mass ratio 23 NRG Serum or plasma creatinine measurement with calculation of estimated glomerular filtration rate > NRG Serum or plasma glucose measurement (mass/volume) 93 mg/dL 70-105 Serum or plasma calcium measurement (mass/volume) 9.4 mg/dL 8.5-10.1 Serum or plasma total bilirubin measurement (mass/volume) 0.6 mg/dL 0.1-1.0 Serum or plasma alkaline phosphatase measurement (enzymatic activity/volume) 62 U/L 40-136 Serum or plasma aspartate aminotransferase measurement (enzymatic activity/volume) 20 U/L 5-34 Serum or plasma alanine aminotransferase measurement (enzymatic activity/volume) 15 U/L 0-55 Serum or plasma protein measurement (mass/volume) 7.0 g/dL 6.4-8.2 Serum or plasma albumin measurement (mass/volume) 3.9 g/dL 3.2-4.5 CALCIUM CORRECTED 9.5 mg/dL 8.5-10.1 Lactate dehydrogenase 1 [enzymatic activity/volume] in serum or plasma - 08/15/18 14:55 Lactate dehydrogenase 1 [enzymatic activity/volume] in serum or plasma 184 U/L 125-220 Methicillin resistant Staphylococcus aureus (MRSA) screening culture - 09/04/18 09:22 Methicillin resistant Staphylococcus aureus (MRSA) screening culture NEG NRG Encounters ACCT No. Visit Date/Time Discharge Status Pt. Type Provider Facility Loc./Unit Complaint [id number] 12/25/2018 00:13:00 12/25/2018 23:59:59 CLS Preadmit MECHE CASTILLO [facility] ONC [id number] 12/11/2018 14:34:00 12/24/2018 00:01:00 DIS Outpatient MECHE CASTILLO [facility] ONC [id number] 09/07/2018 05:58:00 09/10/2018 15:20:00 DIS Inpatient JAMIE NGUYEN MD [facility] 4TH COLON LESION, GALLSTONES, LIPOMA [id number] 09/04/2018 14:49:00 09/10/2018 00:01:00 DIS Outpatient MECHE CASTILLO [facility] ONC [id number] 09/04/2018 08:46:00 09/04/2018 09:25:00 DIS Outpatient JAMIE NGUYEN MD [facility] PREOP ROBOTIC SM. BOWEL RESECTION, SAMMY. JAXON., [id number] 08/24/2018 08:30:00 08/24/2018 23:59:59 CLS Outpatient JAMIE NGUYEN MD [facility] RAD RUQ PAIN [id number] 08/21/2018 10:51:00 08/21/2018 23:59:59 CLS Outpatient PRICILLA CURRAN [facility] RAD SMALL BOWEL MASS [id number] 06/28/2018 11:45:00 06/28/2018 23:59:59 CLS Outpatient MECHE CASTILLO [facility] RAD MALIGNANT MELANOMA OF LEFT UPPER LIMB,INCL SHOULDR [id number] 05/22/2018 16:31:00 05/22/2018 23:59:59 CLS Preadmit MECHE CASTILLO [facility] RAD MALIGNANT MELANOMA OF LEFT UPPER LIMB,INC SHLDR [id number] 05/22/2018 14:02:00 05/22/2018 23:59:59 CLS Outpatient RUBY ANGULO MD [facility] ONC [id number] 05/01/2018 14:28:00 05/13/2018 00:01:00 DIS Outpatient RUBY ANGULO MD [facility] ONC [id number] 04/10/2018 14:15:00 05/01/2018 14:26:00 DIS Outpatient MECHE CASTILLO [facility] ONC [id number] 02/27/2018 14:43:00 03/05/2018 10:20:00 DIS Outpatient MECHE CASTILLO [facility] ONC [id number] 02/08/2018 09:11:00 02/26/2018 00:01:00 DIS Outpatient MECHE CASTILLO [facility] ONC [id number] 01/22/2018 11:28:00 01/24/2018 17:15:00 DIS Inpatient JAMIE NGUYEN MD [facility] 4TH PELVIC MASS [id number] 01/03/2018 05:42:00 01/03/2018 14:06:00 DIS Outpatient JAMIE NGUYEN MD [facility] PREOP PELVIC MASS [id number] 12/14/2017 07:08:00 12/14/2017 12:50:00 DIS Outpatient JAMIE NGUYEN MD [facility] ENDO ABNORMAL CT/ABNORMAL PET SCAN/ HX OF MALIGNANT DALI [id number] 12/13/2017 08:57:00 12/13/2017 09:40:00 DIS Outpatient JAMIE NGUYEN MD [facility] PREOP COLONOSCOPY [id number] 12/05/2017 07:59:00 12/05/2017 23:59:59 CLS Outpatient MECHE CASTILLO [facility] RAD R93.[address] SCAN [id number] 11/21/2017 10:48:00 11/21/2017 23:59:59 CLS Outpatient PRICILLA CURRAN S SQL DEVELOPER DBA [facility] CARD C43.62 [id number] 11/14/2017 14:21:00 11/20/2017 00:01:00 DIS Outpatient MECHE CASTILLO [facility] ONC [id number] 08/31/2017 11:15:00 08/31/2017 23:59:59 CLS Preadmit PRICILLA CURRAN S SQL DEVELOPER DBA [facility] RAD C43.62 MALIGNANT MELANOMA OF LT UPPER LIMB [id number] 08/31/2017 10:57:00 08/31/2017 23:59:59 CLS Outpatient PRICILLA CURRAN S SQL DEVELOPER DBA [facility] CARD C43.62 MALIGNANT MELANOMA OF LT UPPER LIMB [id number] 08/09/2017 13:43:00 08/14/2017 00:01:00 DIS Outpatient MECHE CASTILLO [facility] ONC [id number] 06/08/2017 10:50:00 06/08/2017 23:59:59 CLS Outpatient MECHE CASTILLO [facility] CARD MALIGNANT MELANOMA OF LT UPPER LIMB [id number] 05/02/2017 14:16:00 05/11/2017 13:24:00 DIS Outpatient MECHE CASTILLO [facility] ONC [id number] 05/05/2017 08:41:00 05/05/2017 12:30:00 DIS Outpatient JAMIE NGUYEN MD [facility] SKIN LESIONS/HX MELANOMA [id number] 05/02/2017 10:09:00 05/02/2017 10:43:00 DIS Outpatient JAMIE NGUYEN MD [facility] PREOP EXC. MULTIPLE LESIONS [id number] 03/08/2017 13:53:00 03/15/2017 16:23:00 DIS Outpatient JENIFFER PEREZ MD [facility] ONC [id number] 03/01/2017 13:28:00 03/01/2017 23:59:59 CLS Outpatient JENIFFER PEREZ MD [facility] RAD R59.0 AXILLARY LYMPHADENOPATHY [id number] 01/10/2017 11:15:00 01/16/2017 11:05:00 DIS Outpatient JENIFFER PEREZ MD [facility] ONC [id number] 01/03/2017 14:26:00 01/09/2017 00:01:00 DIS Outpatient JENIFFER PEREZ MD [facility] ONC [id number] 10/04/2016 14:08:00 10/10/2016 00:01:00 DIS Outpatient JENIFFER PEREZ MD [facility] ONC [id number] 08/24/2016 08:28:00 08/25/2016 12:50:00 DIS Outpatient JAMIE NGUYEN MD [facility] SDC METASTATIC MELANOMA LEFT AXILLA [id number] 08/18/2016 12:33:00 08/18/2016 14:08:00 DIS Outpatient JAMIE NGUYEN MD [facility] PREOP METASTATIC MELANOMA LEFT AXILLA [id number] 08/02/2016 14:02:00 08/02/2016 23:59:59 CLS Outpatient JENIFFER PEREZ MD [facility] RAD C43.62 [id number] 07/19/2016 08:15:00 07/19/2016 23:59:59 CLS Outpatient JENIFFER PEREZ MD [facility] RAD METASTATIC MELANOMA [id number] 03/14/2016 14:47:00 06/12/2016 00:01:00 DIS Outpatient JENIFFER PEREZ MD [facility] ONC [id number] 01/26/2016 14:26:00 02/14/2016 00:01:00 DIS Outpatient JENIFFER PEREZ MD [facility] ONC [id number] 02/02/2016 13:13:00 02/02/2016 23:59:59 CLS Outpatient PRICILLA CURRAN [facility] ONC [id number] 11/25/2015 06:22:00 11/26/2015 12:40:00 DIS Outpatient JAMIE NGUYEN MD [facility] RAD MELANOMA [id number] 11/23/2015 10:43:00 11/23/2015 14:11:00 DIS Outpatient JAMIE NGUYEN MD [facility] PREOP MELONMA [id number] 11/10/2015 10:13:00 11/10/2015 23:59:59 CLS Outpatient JAMIE NGUYEN MD [facility] RAD MELANOMA, LEFT ELBOW SKIN LESION [id number] 10/28/2015 09:56:00 10/28/2015 14:20:00 DIS Outpatient JAMIE NGUYEN MD [facility] SDC LESION LATERAL ASPECT LEFT ELBOW [id number] 10/27/2015 12:50:00 10/27/2015 14:50:00 DIS Outpatient JAMIE NGUYEN MD [facility] PREOP LESION OVER LATERAL ASPECT LEFT ELBOW [id number] 2012 07:20:00 Document Registration
[2019-01-01 09:42] LABS: BILIRUBIN,URINE NEGATIVE (NEGATIVE); CLARITY,URINE CLEAR; COLOR,URINE YELLOW; GLUCOSE, URINE (UA) NEGATIVE (NEGATIVE); KETONES,URINE 1+ (NEGATIVE); LEUKOCYTE ESTERASE ,URINE NEGATIVE (NEGATIVE); NITRITE,URINE NEGATIVE (NEGATIVE); PH,URINE 7 (5-9); PROTEIN,URINE NEGATIVE (NEGATIVE); UROBILINOGEN,URINE NORMAL (NORMAL)
--- NOTE | 2019-01-01 09:48 | Diagnostic Imaging Report ---
INDICATION: Weakness and palpitations Frontal chest obtained at 9:37 a.m. Heart is normal in size. Mediastinal silhouette is unremarkable. There is hyperinflation compatible with COPD. There is no focal infiltrate or pneumothorax or pleural fluid. IMPRESSION: COPD changes with no acute process in the chest. Dictated by: Dictated on workstation # [id number]
[2019-01-01 10:00] LABS: BACTERIA,URINE NEGATIVE /HPF; RBC,URINE RARE /HPF; SQUAMOUS EPITHELIAL CELL,UR RARE /HPF
--- NOTE | 2019-01-01 10:00 | NUR ---
PT REFUSES TO HAVE MONITOR ON.
--- NOTE | 2019-01-01 10:00 | Diagnostic Imaging Report ---
PROCEDURE: CT head without contrast. TECHNIQUE: Multiple contiguous axial images were obtained through the brain without the use of intravenous contrast. Auto Exposure Controls were utilized during the CT exam to meet ALARA standards for radiation dose reduction. INDICATION: Anxiety, weakness and palpitation. CT HEAD: CT images of the head were obtained. FINDINGS: Ventricles and sulci are within normal limits for size. There is no intracranial hemorrhage identified. There is no abnormal mass effect or shift of midline structures. IMPRESSION: Unremarkable CT of the head. Dictated by: Dictated on workstation # [id number]
[2019-01-01 10:17] VITALS: BP_SYST 132; BP_SYST 137; BP_SYST 138; BP_DIAS 81; BP_DIAS 84; BP_DIAS 91
--- NOTE | 2019-01-01 10:46 | NUR ---
LUNCH ORDERED FOR PT.
[2019-01-01 11:39] VITALS: BP 145/81
== END 2019-01-01 11:44 | disposition home or self-care (01) ==
LOC: EDUNIT# 08:30 → ER 08:32
DX: R00.2 Palpitations (principal); R55 Syncope and collapse; I95.1 Orthostatic hypotension; F41.9 Anxiety disorder, unspecified; Z88.8 Allergy status to other drugs, medicaments and biological substances; Z88.4 Allergy status to anesthetic agent; Z82.49 Family history of ischemic heart disease and other diseases of the circulatory system; Z85.038 Personal history of other malignant neoplasm of large intestine; Z94.5 Skin transplant status; Z98.890 Other specified postprocedural states; Z85.820 Personal history of malignant melanoma of skin; Z87.19 Personal history of other diseases of the digestive system
CPT/HCPCS: 36415; 70450; 71045; 80053; 81000; 83735; 83874; 83880; 84484; 85025; 85610; 85730; 93005; 93041

== ENCOUNTER → 2019-01-18 | Outpatient (CLI) | payer MEDICARE, OTHER ==
[~2019-01-18] MED LIST changes: +CATHETER FLUSH 10 ML SYR IV PRN; +HOLD METFORMIN - RECEIVED CONTRAST 20 ML VIAL IV SCH; +IOHEXOL 350 MG/ML 100 ML (OMNIPAQUE 350) VIAL IV ONE; +NS 100 ML (IVPB) BAG IV ONE
--- NOTE | 2019-01-18 12:59 | Diagnostic Imaging Report ---
PROCEDURE: CT chest with contrast, CT abdomen and pelvis with and without contrast. TECHNIQUE: Pre and post intravenous contrast axial imaging of the abdomen and pelvis and post contrast axial imaging of the chest were performed. Auto Exposure Controls were utilized during the CT exam to meet ALARA standards for radiation dose reduction. INDICATION: Malignant melanoma of the left upper extremity. COMPARISON: Correlation is made with prior CT from 06/28/2018. CT CHEST: The right axilla is unremarkable. Multiple surgical clips in the left axilla are again seen. No mediastinal or hilar lymphadenopathy is detected. No pericardial or pleural fluid is detected. The lungs remain clear. No infiltrate, nodule, or mass is identified. Central airways are patent. IMPRESSION: Continued unremarkable CT of the chest, without evidence of thoracic lymphadenopathy or metastatic disease. CT ABDOMEN AND PELVIS: No discrete liver mass is identified. Gallbladder appears to be surgically absent. There is no biliary ductal dilatation. The pancreas and spleen are unremarkable. No adrenal mass is identified. Kidneys are unremarkable. Aorta remains unremarkable. There is no central retroperitoneal or mesenteric lymphadenopathy. Previously noted thick-walled small bowel loop in the left abdomen on prior exam is not appreciated on today's study. Bowel loops appear to be normal in caliber. There is no obstruction. There is a small amount of free fluid in the pelvis. The bladder and prostate are unremarkable. Bony structures are unremarkable. IMPRESSION: Unremarkable CT of the abdomen and pelvis. Previously noted abnormal thick-walled small bowel loop in the left abdomen is no longer appreciated and may be surgically absent. No abdominal or pelvic lymphadenopathy or evidence of metastatic disease is detected. Dictated by: Dictated on workstation # [id number]
--- NOTE | 2019-01-18 16:08 | Diagnostic Imaging Report ---
INDICATION: Melanoma. EXAMINATION: Patient was administered 26.2 mCi technetium 99m MDP intravenously and whole-body imaging was performed after a three-hour delay. COMPARISON: Correlation is made with prior whole body bone scan from 06/28/2018. FINDINGS: There is normal uptake of activity by the axial and appendicular skeleton. There is normal uptake of activity by the kidneys with excretion into the urinary bladder. No abnormal foci of tracer accumulation is identified to suggest osseous metastatic disease. IMPRESSION: No scintigraphic evidence of osseous metastatic disease. Dictated on workstation # [id number]
== END ==
LOC: CARD 11:48
PROVIDERS: ATTEND Internal Medicine Hematology & Oncology
DX: C43.62 Malignant melanoma of left upper limb, including shoulder (principal); C78.4 Secondary malignant neoplasm of small intestine
CPT/HCPCS: 71260; 74178; 78306

== ENCOUNTER 2019-03-26 14:15 | Outpatient (RCR) | payer MEDICARE, OTHER ==
[2019-01-22 14:27] LABS: BASOPHILS % (AUTO) 1 % (0-10); EOSINOPHILS # (AUTO) 0.2 10^3/uL (0.0-0.3); EOSINOPHILS % (AUTO) 4 % (0-10); HEMATOCRIT 40 % (40-54); HEMOGLOBIN 13.6 G/DL (13.3-17.7); LYMPHOCYTES # (AUTO) 1.2 X 10^3 (1.0-4.0); LYMPHOCYTES % (AUTO) 21 % (12-44); MEAN CORPUSCULAR HEMOGLOBIN 33 PG (25-34); MEAN CORPUSCULAR HGB CONC 34 G/DL (32-36); MEAN CORPUSCULAR VOLUME 97 FL (80-99); MONOCYTES # (AUTO) 0.6 X 10^3 (0.0-1.0); MONOCYTES % (AUTO) 11 % (0-12); NEUTROPHILS # (AUTO) 3.8 X 10^3 (1.8-7.8); NEUTROPHILS % (AUTO) 64 % (42-75); PLATELET COUNT 207 10^3/uL (130-400); RED CELL DISTRIBUTION WIDTH 13.3 % (10.0-14.5); WHITE BLOOD COUNT 5.9 10^3/uL (4.3-11.0)
[2019-01-22 15:02] LABS: ALANINE AMINOTRANSFERASE 14 U/L (0-55); ALBUMIN 4.3 GM/DL (3.2-4.5); ALKALINE PHOSPHATASE 58 U/L (40-136); BUN/CREATININE RATIO 21; CALCIUM 9.5 MG/DL (8.5-10.1); CARBON DIOXIDE 26 MMOL/L (21-32); CHLORIDE 106 MMOL/L (98-107); CREATININE SERUM 0.87 MG/DL (0.60-1.30); GFR ESTIMATED > 60; GLUCOSE 102 MG/DL (70-105); POTASSIUM 4.2 MMOL/L (3.6-5.0); SODIUM 141 MMOL/L (135-145)
[2019-01-22 15:28] LABS: BILIRUBIN,TOTAL 1.3 MG/DL (0.1-1.0)
[2019-02-12 14:49] LABS: BASOPHILS % (AUTO) 1 % (0-10); EOSINOPHILS # (AUTO) 0.3 10^3/uL (0.0-0.3); EOSINOPHILS % (AUTO) 5 % (0-10); HEMATOCRIT 38 % (40-54); HEMOGLOBIN 13.1 G/DL (13.3-17.7); LYMPHOCYTES # (AUTO) 1.1 X 10^3 (1.0-4.0); LYMPHOCYTES % (AUTO) 17 % (12-44); MEAN CORPUSCULAR HEMOGLOBIN 33 PG (25-34); MEAN CORPUSCULAR HGB CONC 34 G/DL (32-36); MEAN CORPUSCULAR VOLUME 97 FL (80-99); MEAN PLATELET VOLUME 9.6 FL (7.4-10.4); MONOCYTES # (AUTO) 0.6 X 10^3 (0.0-1.0); MONOCYTES % (AUTO) 10 % (0-12); NEUTROPHILS # (AUTO) 4.4 X 10^3 (1.8-7.8); NEUTROPHILS % (AUTO) 68 % (42-75); PLATELET COUNT 221 10^3/uL (130-400); WHITE BLOOD COUNT 6.6 10^3/uL (4.3-11.0)
[2019-02-12 15:07] LABS: ALANINE AMINOTRANSFERASE 14 U/L (0-55); ALKALINE PHOSPHATASE 44 U/L (40-136); BILIRUBIN,TOTAL 0.7 MG/DL (0.1-1.0); BUN/CREATININE RATIO 22; CALCIUM 9.2 MG/DL (8.5-10.1); CARBON DIOXIDE 28 MMOL/L (21-32); CHLORIDE 107 MMOL/L (98-107); CREATININE SERUM 0.87 MG/DL (0.60-1.30); GFR ESTIMATED > 60; GLUCOSE 105 MG/DL (70-105); POTASSIUM 4.2 MMOL/L (3.6-5.0); SODIUM 141 MMOL/L (135-145); TOTAL PROTEIN 6.7 GM/DL (6.4-8.2)
[2019-03-05 15:00] LABS: BASOPHILS % (AUTO) 1 % (0-10); EOSINOPHILS # (AUTO) 0.2 10^3/uL (0.0-0.3); EOSINOPHILS % (AUTO) 3 % (0-10); HEMATOCRIT 38 % (40-54); HEMOGLOBIN 12.8 G/DL (13.3-17.7); LYMPHOCYTES # (AUTO) 1.2 X 10^3 (1.0-4.0); LYMPHOCYTES % (AUTO) 20 % (12-44); MEAN CORPUSCULAR HEMOGLOBIN 33 PG (25-34); MEAN CORPUSCULAR HGB CONC 34 G/DL (32-36); MEAN CORPUSCULAR VOLUME 97 FL (80-99); MEAN PLATELET VOLUME 9.6 FL (7.4-10.4); MONOCYTES # (AUTO) 0.6 X 10^3 (0.0-1.0); MONOCYTES % (AUTO) 10 % (0-12); NEUTROPHILS % (AUTO) 66 % (42-75); PLATELET COUNT 212 10^3/uL (130-400); RED CELL DISTRIBUTION WIDTH 12.8 % (10.0-14.5); WHITE BLOOD COUNT 6.1 10^3/uL (4.3-11.0)
[2019-03-05 15:21] LABS: ALANINE AMINOTRANSFERASE 13 U/L (0-55); ALBUMIN 4.1 GM/DL (3.2-4.5); ALKALINE PHOSPHATASE 52 U/L (40-136); BILIRUBIN,TOTAL 0.8 MG/DL (0.1-1.0); BUN/CREATININE RATIO 21; CALCIUM 9.4 MG/DL (8.5-10.1); CARBON DIOXIDE 28 MMOL/L (21-32); CHLORIDE 104 MMOL/L (98-107); CREATININE SERUM 0.86 MG/DL (0.60-1.30); GFR ESTIMATED > 60; GLUCOSE 89 MG/DL (70-105); POTASSIUM 4.5 MMOL/L (3.6-5.0); SODIUM 139 MMOL/L (135-145); TOTAL PROTEIN 6.8 GM/DL (6.4-8.2)
[~2019-03-26] VITALS: Ht 182.9 cm; Wt 63.5 kg
[~2019-03-26 14:15] MED LIST changes: -CATHETER FLUSH 10 ML SYR IV PRN; -HOLD METFORMIN - RECEIVED CONTRAST 20 ML VIAL IV SCH; -IOHEXOL 350 MG/ML 100 ML (OMNIPAQUE 350) VIAL IV ONE; -NS 100 ML (IVPB) BAG IV ONE; +NS IV 500 ML (CANCER CENTER) IV SCH; +PEMBROLIZUMAB 200 MG in NS (IVPB) CANCER CENTER 50 ML IV SCH
[2019-03-26 14:36] LABS: BASOPHILS # (AUTO) 0.1 10^3/uL (0.0-0.1); BASOPHILS % (AUTO) 1 % (0-10); EOSINOPHILS # (AUTO) 0.2 10^3/uL (0.0-0.3); EOSINOPHILS % (AUTO) 3 % (0-10); HEMATOCRIT 40 % (40-54); HEMOGLOBIN 13.3 G/DL (13.3-17.7); LYMPHOCYTES # (AUTO) 1.1 X 10^3 (1.0-4.0); LYMPHOCYTES % (AUTO) 18 % (12-44); MEAN CORPUSCULAR HEMOGLOBIN 32 PG (25-34); MEAN CORPUSCULAR HGB CONC 34 G/DL (32-36); MEAN CORPUSCULAR VOLUME 96 FL (80-99); MEAN PLATELET VOLUME 9.5 FL (7.4-10.4); MONOCYTES # (AUTO) 0.7 X 10^3 (0.0-1.0); MONOCYTES % (AUTO) 11 % (0-12); NEUTROPHILS # (AUTO) 4.4 X 10^3 (1.8-7.8); NEUTROPHILS % (AUTO) 68 % (42-75); PLATELET COUNT 214 10^3/uL (130-400); RED CELL DISTRIBUTION WIDTH 12.5 % (10.0-14.5); WHITE BLOOD COUNT 6.4 10^3/uL (4.3-11.0)
[2019-03-26 14:51] LABS: ALANINE AMINOTRANSFERASE 16 U/L (0-55); ALKALINE PHOSPHATASE 60 U/L (40-136); BUN/CREATININE RATIO 19; CALCIUM 9.2 MG/DL (8.5-10.1); CARBON DIOXIDE 25 MMOL/L (21-32); CHLORIDE 108 MMOL/L (98-107); CREATININE SERUM 0.89 MG/DL (0.60-1.30); GFR ESTIMATED > 60; GLUCOSE 103 MG/DL (70-105); POTASSIUM 4.4 MMOL/L (3.6-5.0); SODIUM 142 MMOL/L (135-145); TOTAL PROTEIN 6.9 GM/DL (6.4-8.2)
== END 2019-04-01 | disposition home or self-care (01) ==
LOC: ONC 14:15
PROVIDERS: ATTEND Internal Medicine Hematology & Oncology
DX: Z51.11 Encounter for antineoplastic chemotherapy (principal); C43.62 Malignant melanoma of left upper limb, including shoulder; C77.3 Secondary and unspecified malignant neoplasm of axilla and upper limb lymph nodes; D22.5 Melanocytic nevi of trunk; F41.9 Anxiety disorder, unspecified; Z79.899 Other long term (current) drug therapy
CPT/HCPCS: 36415; 80053; 83615; 84443; 85025; 96413

== ENCOUNTER → 2019-04-30 | Outpatient (CLI) | payer MEDICARE, OTHER ==
[~2019-04-30] MED LIST changes: +CATHETER FLUSH 10 ML SYR IV PRN; +HOLD METFORMIN - RECEIVED CONTRAST 20 ML VIAL IV SCH; +IOHEXOL 350 MG/ML 100 ML (OMNIPAQUE 350) VIAL IV ONE; +NS 100 ML (IVPB) BAG IV ONE; -NS IV 500 ML (CANCER CENTER) IV SCH; -PEMBROLIZUMAB 200 MG in NS (IVPB) CANCER CENTER 50 ML IV SCH
--- NOTE | 2019-04-30 12:10 | Diagnostic Imaging Report ---
EXAMINATION: CT Chest with intravenous contrast, CT Abdomen and Pelvis without and with intravenous contrast. TECHNIQUE: Pre and post intravenous contrast axial imaging of the abdomen and pelvis and post contrast axial imaging of the chest were performed. All CT scans use one or more of the following dose optimizing techniques: automated exposure control, MA and/or KvP adjustment based on a patient size and exam type, or iterative reconstruction. HISTORY: Melanoma FINDINGS: Comparison of 01/18/2019. The lungs are clear without edema or pneumonia. No pleural effusion or pneumothorax. No suspicious nodules. Heart size is normal. No pericardial effusion. There is a mild ascending aortic aneurysm measuring 4.2 cm, unchanged. There is no axillary, supraclavicular or mediastinal lymphadenopathy. There has been a left axillary lymph node dissection. The liver is normal without focal lesion. No biliary ductal dilation. Gallbladder is absent. Pancreas, spleen and adrenal glands are normal. The kidneys are normal. No hydronephrosis. Urinary bladder is normal. There are no dilated loops of large or small bowel. No obstruction or inflammation. There has been a small bowel resection. There is a small amount of free fluid in the pelvis, unchanged from multiple prior exams. No abdominal or pelvic lymphadenopathy. Aorta is normal in caliber without aneurysm. There are no suspicious osseus lesions. Impression: 1. No evidence for metastatic disease in the chest, abdomen or pelvis. 2. Unchanged small volume free fluid in the pelvis. 3. Stable mild ascending aortic aneurysm. Dictated by: Dictated on workstation # [id number]
--- NOTE | 2019-04-30 14:40 | Diagnostic Imaging Report ---
INDICATION: Malignant melanoma of the left upper extremity. TECHNIQUE: Patient was administered 26.4 mCi of technetium-99m MDP intravenously, and whole body imaging was performed after a 3-hour delay. COMPARISON: Correlation is made with prior whole body bone scan from 01/18/2019. FINDINGS: Normal uptake of activity by the axial and appendicular skeleton is noted. There is uptake by the kidneys with excretion into the urinary bladder. No suspicious foci of tracer accumulation is seen. No findings to suggest osseous metastatic disease are identified. IMPRESSION: Continued stable whole body bone scan with no evidence of osseous metastatic disease. Dictated by: Dictated on workstation # [id number]
== END ==
LOC: CARD 10:52
PROVIDERS: ATTEND Nurse Practitioner Adult Health
DX: C43.62 Malignant melanoma of left upper limb, including shoulder (principal); C78.4 Secondary malignant neoplasm of small intestine; I71.2 Thoracic aortic aneurysm, without rupture; Z90.49 Acquired absence of other specified parts of digestive tract
CPT/HCPCS: 71260; 74178; 78306

== ENCOUNTER 2019-07-09 14:42 | Outpatient (RCR) | payer MEDICARE, OTHER ==
[2019-04-16 14:48] LABS: BASOPHILS % (AUTO) 1 % (0-10); EOSINOPHILS # (AUTO) 0.2 10^3/uL (0.0-0.3); EOSINOPHILS % (AUTO) 3 % (0-10); HEMATOCRIT 40 % (40-54); HEMOGLOBIN 13.6 G/DL (13.3-17.7); LYMPHOCYTES # (AUTO) 1.1 X 10^3 (1.0-4.0); LYMPHOCYTES % (AUTO) 17 % (12-44); MEAN CORPUSCULAR HEMOGLOBIN 33 PG (25-34); MEAN CORPUSCULAR HGB CONC 34 G/DL (32-36); MEAN CORPUSCULAR VOLUME 95 FL (80-99); MEAN PLATELET VOLUME 9.6 FL (7.4-10.4); MONOCYTES # (AUTO) 0.7 X 10^3 (0.0-1.0); MONOCYTES % (AUTO) 10 % (0-12); NEUTROPHILS # (AUTO) 4.6 X 10^3 (1.8-7.8); NEUTROPHILS % (AUTO) 70 % (42-75); PLATELET COUNT 220 10^3/uL (130-400); RED CELL DISTRIBUTION WIDTH 12.6 % (10.0-14.5); WHITE BLOOD COUNT 6.5 10^3/uL (4.3-11.0)
[2019-04-16 15:08] LABS: ALANINE AMINOTRANSFERASE 14 U/L (0-55); ALBUMIN 4.1 GM/DL (3.2-4.5); ALKALINE PHOSPHATASE 59 U/L (40-136); BUN/CREATININE RATIO 14; CALCIUM 9.3 MG/DL (8.5-10.1); CARBON DIOXIDE 27 MMOL/L (21-32); CHLORIDE 106 MMOL/L (98-107); CREATININE SERUM 0.94 MG/DL (0.60-1.30); GFR ESTIMATED > 60; GLUCOSE 105 MG/DL (70-105); POTASSIUM 4.4 MMOL/L (3.6-5.0); SODIUM 141 MMOL/L (135-145)
[2019-05-07 14:49] LABS: BASOPHILS # (AUTO) 0.1 10^3/uL (0.0-0.1); BASOPHILS % (AUTO) 1 % (0-10); EOSINOPHILS # (AUTO) 0.1 10^3/uL (0.0-0.3); EOSINOPHILS % (AUTO) 1 % (0-10); HEMATOCRIT 40 % (40-54); HEMOGLOBIN 13.4 G/DL (13.3-17.7); LYMPHOCYTES # (AUTO) 1.1 X 10^3 (1.0-4.0); LYMPHOCYTES % (AUTO) 17 % (12-44); MEAN CORPUSCULAR HEMOGLOBIN 32 PG (25-34); MEAN CORPUSCULAR HGB CONC 34 G/DL (32-36); MEAN CORPUSCULAR VOLUME 96 FL (80-99); MEAN PLATELET VOLUME 9.8 FL (7.4-10.4); MONOCYTES # (AUTO) 0.6 X 10^3 (0.0-1.0); MONOCYTES % (AUTO) 9 % (0-12); NEUTROPHILS # (AUTO) 4.6 X 10^3 (1.8-7.8); NEUTROPHILS % (AUTO) 72 % (42-75); PLATELET COUNT 232 10^3/uL (130-400); RED CELL DISTRIBUTION WIDTH 12.8 % (10.0-14.5); WHITE BLOOD COUNT 6.4 10^3/uL (4.3-11.0)
[2019-05-07 15:12] LABS: ALANINE AMINOTRANSFERASE 13 U/L (0-55); ALBUMIN 4.1 GM/DL (3.2-4.5); ALKALINE PHOSPHATASE 64 U/L (40-136); BILIRUBIN,TOTAL 1.2 MG/DL (0.1-1.0); BUN/CREATININE RATIO 21; CALCIUM 9.4 MG/DL (8.5-10.1); CARBON DIOXIDE 28 MMOL/L (21-32); CHLORIDE 106 MMOL/L (98-107); CREATININE SERUM 0.86 MG/DL (0.60-1.30); GFR ESTIMATED > 60; GLUCOSE 103 MG/DL (70-105); POTASSIUM 4.7 MMOL/L (3.6-5.0); SODIUM 140 MMOL/L (135-145); TOTAL PROTEIN 7.1 GM/DL (6.4-8.2)
[2019-05-27 15:04] LABS: BASOPHILS % (AUTO) 1 % (0-10); EOSINOPHILS # (AUTO) 0.2 10^3/uL (0.0-0.3); EOSINOPHILS % (AUTO) 2 % (0-10); HEMATOCRIT 40 % (40-54); HEMOGLOBIN 13.3 G/DL (13.3-17.7); LYMPHOCYTES # (AUTO) 1.1 X 10^3 (1.0-4.0); LYMPHOCYTES % (AUTO) 16 % (12-44); MEAN CORPUSCULAR HEMOGLOBIN 32 PG (25-34); MEAN CORPUSCULAR HGB CONC 34 G/DL (32-36); MEAN CORPUSCULAR VOLUME 95 FL (80-99); MEAN PLATELET VOLUME 9.5 FL (7.4-10.4); MONOCYTES # (AUTO) 0.8 X 10^3 (0.0-1.0); MONOCYTES % (AUTO) 12 % (0-12); NEUTROPHILS # (AUTO) 4.9 X 10^3 (1.8-7.8); NEUTROPHILS % (AUTO) 70 % (42-75); PLATELET COUNT 253 10^3/uL (130-400); RED CELL DISTRIBUTION WIDTH 12.9 % (10.0-14.5)
[2019-05-27 15:27] LABS: ALANINE AMINOTRANSFERASE 16 U/L (0-55); ALBUMIN 3.8 GM/DL (3.2-4.5); ALKALINE PHOSPHATASE 60 U/L (40-136); BILIRUBIN,TOTAL 0.8 MG/DL (0.1-1.0); BUN/CREATININE RATIO 17; CALCIUM 9.2 MG/DL (8.5-10.1); CARBON DIOXIDE 26 MMOL/L (21-32); CHLORIDE 104 MMOL/L (98-107); CREATININE SERUM 0.86 MG/DL (0.60-1.30); GFR ESTIMATED > 60; GLUCOSE 99 MG/DL (70-105); POTASSIUM 4.7 MMOL/L (3.6-5.0); SODIUM 140 MMOL/L (135-145); TOTAL PROTEIN 6.9 GM/DL (6.4-8.2)
[2019-06-18 14:49] LABS: BASOPHILS % (AUTO) 1 % (0-10); EOSINOPHILS # (AUTO) 0.2 10^3/uL (0.0-0.3); EOSINOPHILS % (AUTO) 3 % (0-10); HEMATOCRIT 39 % (40-54); HEMOGLOBIN 13.1 G/DL (13.3-17.7); LYMPHOCYTES # (AUTO) 1.1 X 10^3 (1.0-4.0); LYMPHOCYTES % (AUTO) 17 % (12-44); MEAN CORPUSCULAR HEMOGLOBIN 32 PG (25-34); MEAN CORPUSCULAR HGB CONC 33 G/DL (32-36); MEAN CORPUSCULAR VOLUME 95 FL (80-99); MEAN PLATELET VOLUME 9.1 FL (7.4-10.4); MONOCYTES # (AUTO) 0.8 X 10^3 (0.0-1.0); MONOCYTES % (AUTO) 12 % (0-12); NEUTROPHILS # (AUTO) 4.5 X 10^3 (1.8-7.8); NEUTROPHILS % (AUTO) 68 % (42-75); PLATELET COUNT 246 10^3/uL (130-400); RED CELL DISTRIBUTION WIDTH 12.8 % (10.0-14.5); WHITE BLOOD COUNT 6.7 10^3/uL (4.3-11.0)
[2019-06-18 15:12] LABS: ALANINE AMINOTRANSFERASE 16 U/L (0-55); ALBUMIN 3.9 GM/DL (3.2-4.5); ALKALINE PHOSPHATASE 62 U/L (40-136); BILIRUBIN,TOTAL 0.9 MG/DL (0.1-1.0); BUN/CREATININE RATIO 20; CARBON DIOXIDE 27 MMOL/L (21-32); CHLORIDE 106 MMOL/L (98-107); GFR ESTIMATED > 60; GLUCOSE 95 MG/DL (70-105); POTASSIUM 4.4 MMOL/L (3.6-5.0); SODIUM 139 MMOL/L (135-145); TOTAL PROTEIN 6.8 GM/DL (6.4-8.2)
[~2019-07-09 14:42] MED LIST changes: -CATHETER FLUSH 10 ML SYR IV PRN; -HOLD METFORMIN - RECEIVED CONTRAST 20 ML VIAL IV SCH; -IOHEXOL 350 MG/ML 100 ML (OMNIPAQUE 350) VIAL IV ONE; -NS 100 ML (IVPB) BAG IV ONE; +NS IV 500 ML (CANCER CENTER) IV SCH; +PEMBROLIZUMAB 200 MG in NS (IVPB) CANCER CENTER 50 ML IV SCH
[2019-07-09 15:00] LABS: BASOPHILS % (AUTO) 1 % (0-10); EOSINOPHILS # (AUTO) 0.2 10^3/uL (0.0-0.3); EOSINOPHILS % (AUTO) 2 % (0-10); HEMATOCRIT 38 % (40-54); HEMOGLOBIN 12.8 G/DL (13.3-17.7); LYMPHOCYTES # (AUTO) 1.1 X 10^3 (1.0-4.0); LYMPHOCYTES % (AUTO) 15 % (12-44); MEAN CORPUSCULAR HEMOGLOBIN 32 PG (25-34); MEAN CORPUSCULAR HGB CONC 34 G/DL (32-36); MEAN CORPUSCULAR VOLUME 94 FL (80-99); MONOCYTES # (AUTO) 0.8 X 10^3 (0.0-1.0); MONOCYTES % (AUTO) 11 % (0-12); NEUTROPHILS # (AUTO) 5.1 X 10^3 (1.8-7.8); NEUTROPHILS % (AUTO) 71 % (42-75); PLATELET COUNT 255 10^3/uL (130-400); RED CELL DISTRIBUTION WIDTH 12.5 % (10.0-14.5); WHITE BLOOD COUNT 7.2 10^3/uL (4.3-11.0)
[2019-07-09 15:16] LABS: ALANINE AMINOTRANSFERASE 15 U/L (0-55); ALBUMIN 3.8 GM/DL (3.2-4.5); ALKALINE PHOSPHATASE 57 U/L (40-136); BILIRUBIN,TOTAL 0.8 MG/DL (0.1-1.0); BUN/CREATININE RATIO 21; CALCIUM 9.1 MG/DL (8.5-10.1); CARBON DIOXIDE 25 MMOL/L (21-32); CHLORIDE 106 MMOL/L (98-107); CREATININE SERUM 0.87 MG/DL (0.60-1.30); GFR ESTIMATED > 60; GLUCOSE 92 MG/DL (70-105); POTASSIUM 4.5 MMOL/L (3.6-5.0); SODIUM 140 MMOL/L (135-145); TOTAL PROTEIN 6.6 GM/DL (6.4-8.2)
== END 2019-07-15 | disposition home or self-care (01) ==
LOC: ONC 14:42
PROVIDERS: ATTEND Internal Medicine Hematology & Oncology
DX: Z51.11 Encounter for antineoplastic chemotherapy (principal); C43.62 Malignant melanoma of left upper limb, including shoulder; C77.3 Secondary and unspecified malignant neoplasm of axilla and upper limb lymph nodes; D22.5 Melanocytic nevi of trunk; F41.9 Anxiety disorder, unspecified; Z79.899 Other long term (current) drug therapy
CPT/HCPCS: 36415; 80053; 83615; 84443; 85025; 96413

== ENCOUNTER → 2019-09-05 | Outpatient (CLI) | payer MEDICARE, OTHER ==
[~2019-09-05] MED LIST changes: +BARIUM SUSPENSION 2.1% (VANILLA SILQ) 450 ML PO ONE; +CATHETER FLUSH 10 ML SYR IV PRN; +HOLD METFORMIN - RECEIVED CONTRAST 20 ML VIAL IV SCH; +IOHEXOL 350 MG/ML 100 ML (OMNIPAQUE 350) VIAL IV ONE; +NS 100 ML (IVPB) BAG IV ONE; -NS IV 500 ML (CANCER CENTER) IV SCH; -PEMBROLIZUMAB 200 MG in NS (IVPB) CANCER CENTER 50 ML IV SCH; -TRAM50TA2 PO; +TRM50T PO
--- NOTE | 2019-09-05 12:59 | Diagnostic Imaging Report ---
PROCEDURE: CT chest with contrast, CT abdomen and pelvis with and without contrast. TECHNIQUE: Pre and post intravenous contrast axial imaging of the abdomen and pelvis and post contrast axial imaging of the chest were performed. Auto Exposure Controls were utilized during the CT exam to meet ALARA standards for radiation dose reduction. All CT scans use one or more of the following dose optimizing techniques: automated exposure control, MA and/or KvP adjustment based on patient size and exam type or iterative reconstruction. INDICATION: Malignant melanoma. FINDINGS: The CT chest, abdomen, and pelvis exam performed on 04/30/2019 failed to show any sign of metastatic disease related to the patient's diagnosis of melanoma. The whole-body bone scan performed on the same day was also felt to be unremarkable. The images through the thorax show that the lungs are generally clear. There is no evidence for failure, pneumonia or for pleural effusion to indicate an acute abnormality. There is no parenchymal lung mass identified either. The heart is stable in size. Coronary artery calcifications are again noted. The aorta is not abnormally dilated and there is no sign of a dissection. The prior exam did note mild aneurysmal dilatation of the ascending aorta. The aorta measures 4.2 cm in maximum diameter. On this exam, the ascending aorta now measures only 4.1 mm. There is no sign of dissection. The pulmonary arteries are not fully opacified and consequently difficult to assess for pulmonary embolus. There is no obvious pulmonary embolus evident. There is no mediastinal or hilar adenopathy. The thyroid gland is generally unremarkable. Surgical clips are again seen in the left axilla. The images through the abdomen and pelvis show the liver and spleen are homogeneous and not enlarged. The pancreas, adrenals, kidneys, aorta and inferior vena cava are unremarkable for an acute abnormality. The stomach is not well-distended and consequently difficult to assess. As reported on the prior exam, the gallbladder is absent. There does seem to be generalized thickening of several segments of small bowel low in the pelvis. A small amount of free fluid is also developed low in the pelvis since the prior exam. These findings are nonspecific but does suggest enteritis. There is a fair amount of fecal material throughout the colon. There does not appear any significant thickening of the wall of colon but there is a faint groundglass density about the splenic flexure and descending colon. This finding is nonspecific. The possibility that there is a mild colitis present should also be considered, however. The appendix is not well-visualized. There are no indirect signs of acute appendicitis. The urinary bladder and prostate gland are grossly unremarkable. The bone windows show no sign of a fracture or of a destructive lesion. IMPRESSION: 1. There is still no evidence for neoplastic disease involving the chest, abdomen, or pelvis. 2. The segments of small bowel with wall thickening low in the pelvis and the free fluid are suspicious for enteritis. There could be an element of mild colitis involving the descending colon as well. Clinical follow-up is recommended. Dictated by: Dictated on workstation # [id number]
--- NOTE | 2019-09-05 16:37 | Diagnostic Imaging Report ---
INDICATION: Melanoma. EXAMINATION: Whole body bone scan. 26.5 mCi of technetium 99m MDP was given intravenously. Whole body bone scan was obtained after a 2-1/2 hour delay. FINDINGS: There is activity seen in both kidneys. There is activity in the bladder. There is normal uptake of isotope throughout the axial and appendicular skeleton. IMPRESSION: Normal whole body bone scan. Stable since 04/30/2019. Dictated by: Dictated on workstation # [id number]
== END ==
LOC: CARD 11:41
PROVIDERS: ATTEND Nurse Practitioner Adult Health
DX: Z01.89 Encounter for other specified special examinations (principal); C43.62 Malignant melanoma of left upper limb, including shoulder; C78.4 Secondary malignant neoplasm of small intestine
CPT/HCPCS: 71260; 74178; 78306

== ENCOUNTER → 2019-09-17 | Outpatient (CLI) | payer MEDICARE, OTHER ==
[~2019-09-17] MED LIST changes: -BARIUM SUSPENSION 2.1% (VANILLA SILQ) 450 ML PO ONE; -CATHETER FLUSH 10 ML SYR IV PRN; -HOLD METFORMIN - RECEIVED CONTRAST 20 ML VIAL IV SCH; -IOHEXOL 350 MG/ML 100 ML (OMNIPAQUE 350) VIAL IV ONE; -NS 100 ML (IVPB) BAG IV ONE
--- NOTE | 2019-09-17 13:38 | Diagnostic Imaging Report ---
INDICATION: Malignant melanoma. Study is performed for restaging. TECHNIQUE: Serum blood glucose level at the time of injection is 94 mg/dL. Patient was administered 13.9 mCi of F-18 FDG intravenously and whole body PET imaging was performed. Noncontrast CT was also performed for attenuation correction and anatomic correlation. Correlation is made with prior PET/CT study from 08/21/2018. FINDINGS: There is symmetric activity throughout the brain. Soft tissues of the neck are unremarkable. No definite mediastinal or hilar hypermetabolism is seen. No pulmonary parenchymal hypermetabolism is identified. Abdomen and pelvis demonstrates physiologic activity within the GI and tract. There are postop changes in the left abdomen. Previously noted area of hypermetabolism associated with small bowel loops in the left abdomen is no longer appreciated; however, there is a new focus of intense hypermetabolism in the midline pelvis just cephalad to the urinary bladder. This demonstrates an SUV max of approximately 27. This appears to represent markedly thick-walled small bowel loops on the CT portion of the exam. There is a small amount of free fluid present. No definite hypermetabolic lymphadenopathy is seen. The lower extremities are unremarkable. IMPRESSION: New intense hypermetabolism in the midline pelvis just cephalad to the urinary bladder involving segment of small bowel loops. Again this could be secondary to neoplastic or lymphomatous process. No other significant abnormality is detected. Dictated by: Dictated on workstation # [id number]
== END ==
LOC: RAD 10:17
PROVIDERS: ATTEND Internal Medicine Hematology & Oncology
DX: C43.62 Malignant melanoma of left upper limb, including shoulder (principal); C78.4 Secondary malignant neoplasm of small intestine; R93.89 Abnormal findings on diagnostic imaging of other specified body structures

== ENCOUNTER 2019-09-18 09:25 | Outpatient (RCR) | payer MEDICARE, OTHER ==
[2019-07-30 14:15] LABS: BASOPHILS # (AUTO) 0.1 10^3/uL (0.0-0.1); BASOPHILS % (AUTO) 1 % (0-10); EOSINOPHILS # (AUTO) 0.1 10^3/uL (0.0-0.3); EOSINOPHILS % (AUTO) 2 % (0-10); HEMATOCRIT 37 % (40-54); HEMOGLOBIN 12.7 G/DL (13.3-17.7); LYMPHOCYTES # (AUTO) 0.9 X 10^3 (1.0-4.0); LYMPHOCYTES % (AUTO) 13 % (12-44); MEAN CORPUSCULAR HEMOGLOBIN 32 PG (25-34); MEAN CORPUSCULAR HGB CONC 34 G/DL (32-36); MEAN CORPUSCULAR VOLUME 93 FL (80-99); MEAN PLATELET VOLUME 8.9 FL (7.4-10.4); MONOCYTES # (AUTO) 0.7 X 10^3 (0.0-1.0); MONOCYTES % (AUTO) 9 % (0-12); NEUTROPHILS # (AUTO) 5.4 X 10^3 (1.8-7.8); NEUTROPHILS % (AUTO) 75 % (42-75); PLATELET COUNT 284 10^3/uL (130-400); RED CELL DISTRIBUTION WIDTH 12.7 % (10.0-14.5); WHITE BLOOD COUNT 7.2 10^3/uL (4.3-11.0)
[2019-07-30 14:40] LABS: ALANINE AMINOTRANSFERASE 15 U/L (0-55); ALBUMIN 3.8 GM/DL (3.2-4.5); ALKALINE PHOSPHATASE 57 U/L (40-136); BILIRUBIN,TOTAL 0.9 MG/DL (0.1-1.0); BUN/CREATININE RATIO 23; CALCIUM 8.9 MG/DL (8.5-10.1); CARBON DIOXIDE 24 MMOL/L (21-32); CHLORIDE 106 MMOL/L (98-107); CREATININE SERUM 0.88 MG/DL (0.60-1.30); GFR ESTIMATED > 60; GLUCOSE 102 MG/DL (70-105); POTASSIUM 4.2 MMOL/L (3.6-5.0); SODIUM 140 MMOL/L (135-145); TOTAL PROTEIN 6.6 GM/DL (6.4-8.2)
[2019-08-19 14:56] LABS: BASOPHILS # (AUTO) 0.1 10^3/uL (0.0-0.1); BASOPHILS % (AUTO) 1 % (0-10); EOSINOPHILS # (AUTO) 0.1 10^3/uL (0.0-0.3); EOSINOPHILS % (AUTO) 1 % (0-10); HEMATOCRIT 38 % (40-54); HEMOGLOBIN 12.3 G/DL (13.3-17.7); LYMPHOCYTES # (AUTO) 1.1 X 10^3 (1.0-4.0); LYMPHOCYTES % (AUTO) 13 % (12-44); MEAN CORPUSCULAR HEMOGLOBIN 31 PG (25-34); MEAN CORPUSCULAR HGB CONC 33 G/DL (32-36); MEAN CORPUSCULAR VOLUME 94 FL (80-99); MEAN PLATELET VOLUME 8.9 FL (7.4-10.4); MONOCYTES % (AUTO) 11 % (0-12); NEUTROPHILS # (AUTO) 6.4 X 10^3 (1.8-7.8); NEUTROPHILS % (AUTO) 74 % (42-75); PLATELET COUNT 292 10^3/uL (130-400); RED CELL DISTRIBUTION WIDTH 12.8 % (10.0-14.5); WHITE BLOOD COUNT 8.7 10^3/uL (4.3-11.0)
[2019-08-19 15:15] LABS: ALANINE AMINOTRANSFERASE 12 U/L (0-55); ALBUMIN 3.8 GM/DL (3.2-4.5); ALKALINE PHOSPHATASE 52 U/L (40-136); BILIRUBIN,TOTAL 0.7 MG/DL (0.1-1.0); BUN/CREATININE RATIO 20; CALCIUM 9.3 MG/DL (8.5-10.1); CARBON DIOXIDE 26 MMOL/L (21-32); CHLORIDE 105 MMOL/L (98-107); CREATININE SERUM 0.83 MG/DL (0.60-1.30); GFR ESTIMATED > 60; GLUCOSE 96 MG/DL (70-105); POTASSIUM 4.5 MMOL/L (3.6-5.0); SODIUM 139 MMOL/L (135-145); TOTAL PROTEIN 6.9 GM/DL (6.4-8.2)
[2019-09-10 15:15] LABS: BASOPHILS % (AUTO) 1 % (0-10); EOSINOPHILS # (AUTO) 0.1 10^3/uL (0.0-0.3); EOSINOPHILS % (AUTO) 2 % (0-10); HEMATOCRIT 36 % (40-54); HEMOGLOBIN 11.8 G/DL (13.3-17.7); LYMPHOCYTES # (AUTO) 1.1 X 10^3 (1.0-4.0); LYMPHOCYTES % (AUTO) 14 % (12-44); MEAN CORPUSCULAR HEMOGLOBIN 30 PG (25-34); MEAN CORPUSCULAR HGB CONC 33 G/DL (32-36); MEAN CORPUSCULAR VOLUME 92 FL (80-99); MEAN PLATELET VOLUME 9.2 FL (7.4-10.4); MONOCYTES # (AUTO) 0.8 X 10^3 (0.0-1.0); MONOCYTES % (AUTO) 10 % (0-12); NEUTROPHILS # (AUTO) 5.8 X 10^3 (1.8-7.8); NEUTROPHILS % (AUTO) 74 % (42-75); PLATELET COUNT 291 10^3/uL (130-400); RED CELL DISTRIBUTION WIDTH 12.9 % (10.0-14.5); WHITE BLOOD COUNT 7.8 10^3/uL (4.3-11.0)
[2019-09-10 15:34] LABS: ALBUMIN 3.7 GM/DL (3.2-4.5); BILIRUBIN,TOTAL 0.6 MG/DL (0.1-1.0); CALCIUM 9.1 MG/DL (8.5-10.1); CARBON DIOXIDE 25 MMOL/L (21-32); CHLORIDE 106 MMOL/L (98-107); CREATININE SERUM 0.86 MG/DL (0.60-1.30); GFR ESTIMATED > 60; GLUCOSE 94 MG/DL (70-105); POTASSIUM 4.1 MMOL/L (3.6-5.0); SODIUM 140 MMOL/L (135-145)
[2019-09-10 16:20] LABS: ALANINE AMINOTRANSFERASE 15 U/L (0-55); ALKALINE PHOSPHATASE 53 U/L (40-136); BUN/CREATININE RATIO 21
[~2019-09-18 09:25] MED LIST changes: +NS IV 500 ML (CANCER CENTER) IV SCH; +PEMBROLIZUMAB 200 MG in NS (IVPB) CANCER CENTER 50 ML IV SCH
== END 2019-10-28 | disposition home or self-care (01) ==
LOC: ONC 09:25
PROVIDERS: ATTEND Internal Medicine Hematology & Oncology
DX: Z51.11 Encounter for antineoplastic chemotherapy (principal); C43.62 Malignant melanoma of left upper limb, including shoulder; C77.3 Secondary and unspecified malignant neoplasm of axilla and upper limb lymph nodes; D22.5 Melanocytic nevi of trunk; F41.9 Anxiety disorder, unspecified; Z79.899 Other long term (current) drug therapy
CPT/HCPCS: 36415; 80053; 83615; 84443; 85025; 96413; 99213

== ENCOUNTER 2020-01-10 06:03 | Emergency (ER) | payer MEDICARE, OTHER ==
[~2020-01-10] VITALS: Ht 182 cm; Wt 64.0 kg
[~2020-01-10 06:03] MED LIST changes: -NS IV 500 ML (CANCER CENTER) IV SCH; -PEMBROLIZUMAB 200 MG in NS (IVPB) CANCER CENTER 50 ML IV SCH
--- NOTE | 2020-01-10 06:37 | ED Lower Extremity ---
General Chief Complaint: Lower Extremity Stated Complaint: 3RD TOE ON LEFT FOOT IS VERY PAINFUL Nursing Triage Note: c/o pain in 3rd left toe. appears to be a purple color. Nursing Sepsis Screen: No Definite Risk Source: patient Exam Limitations: no limitations History of Present Illness Date Seen by Provider: January 10, 2020 Time Seen by Provider: 06:15 Initial Comments This anxious 69-year-old gentleman presents to the emergency room with pain and discoloration of the third toe on the left foot. He noticed the pain yesterday and woke this morning with more intense pain and discoloration. He does not recall injuring his foot or being bitten by anything. He is not diabetic. There is good capillary refill distal to the affected area which is at the base of the and nailbed. He is afebrile. Allergies and Home Medications Allergies Coded Allergies: epinephrine (Verified Allergy, Unknown, 01/01/19) epinephrine HCl (Verified Allergy, Unknown, 01/01/19) lidocaine (Unverified Allergy, Unknown, 01/01/19) Home Medications Ferrous Sulfate, Dried Unknown Strength Tablet.er, 65 MG PO BID, (Reported) Hydrocodone Bit/Acetaminophen 1 Tab Tab, 1-2 TAB PO Q6H PRN for PAIN-MODERATE Prescribed by: JAMIE NGUYEN on 09/10/18 1151 Hydrocodone Bit/Acetaminophen 1 Tab Tab, 1-2 TAB PO Q6H PRN for PAIN-MODERATE Prescribed by: JAMIE NGUYEN on 09/10/18 1156 Multivitamin 1 Each Tablet, 1 TAB PO DAILY, (Reported) Aiken 3 Polyunsat Fatty Acids 1,000 Mg Cap, 1,000 MG PO DAILY, (Reported) Tamsulosin HCl 0.4 Mg Cap.er.24h, 0.4 MG PO DAILY, (Reported) Patient Home Medication List Home Medication List Reviewed: Yes Review of Systems Constitutional: no symptoms reported EENTM: no symptoms reported Respiratory: no symptoms reported Cardiovascular: no symptoms reported Gastrointestinal: no symptoms reported Genitourinary: no symptoms reported Musculoskeletal: no symptoms reported Skin: see HPI Psychiatric/Neurological: See HPI Past Lnudtec-Didrqo-Gbtemg Hx Past Med/Social Hx: Reviewed Nursing Past Med/Soc Hx Patient Social History Alcohol Use: Denies Use Recreational Drug Use: No Smoking Status: Never a Smoker 2nd Hand Smoke Exposure: No Recent Foreign Travel: No Contact w/Someone Who Travel: No Recent Infectious Disease Expo: No Recent Hopitalizations: No Physical Abuse: No Sexual Abuse: No Mistreated: No Fear: No Immunizations Up To Date Tetanus Booster (TDap): More than 5yrs PED Vaccines UTD: No Seasonal Allergies Seasonal Allergies: No Past Medical History Surgeries: Yes (small bowel sx, melanoma removed from elbow x2, axillary lymph node removed) Abdominal, Bowel Surgery Respiratory: No Currently Using CPAP: No Currently Using BIPAP: No Cardiac: No (FAST HEART RATE AT TIMES) Neurological: No Reproductive Disorders: No Sexually Transmitted Disease: No HIV/AIDS: No Genitourinary: No Gastrointestinal: Yes (colon lesion) Gall Bladder Disease Musculoskeletal: No (MILD) Arthritis Endocrine: No HEENT: No Loss of Vision: Denies Hearing Impairment: Denies Cancer: Yes (ON ELBOW) Melanoma Psychosocial: Yes Anxiety Integumentary: No Blood Disorders: No Adverse Reaction/Blood Tranf: No Family Medical History Cardiovascular disease 19 MOTHER Physical Exam Vital Signs Vital Signs - First Documented 01/10/20 06:18 Temp 36.6 Pulse 96 Resp 20 B/P (MAP) 163/84 (110) Pulse Ox 99 Capillary Refill : Less Than 3 Seconds Height, Weight, BMI Height: 6'1.00" Weight: 135lbs. 9.0oz. 61.180069of; 19.00 BMI Method:Stated General Appearance: WD/WN, mild distress HEENT: normal ENT inspection Neck: normal inspection Cardiovascular: normal peripheral pulses, regular rate, rhythm, no edema, no murmur Respiratory: lungs clear, normal breath sounds, no respiratory distress Ankles: left ankle non-tender, left ankle normal inspection, left ankle normal range of motion Feet: left foot normal range of motion, left foot other (normal left pedal pulse. There is dark erythema proximal to the nail on the dorsal aspect of the left third toe. Distal sensation and capillary refill intact. 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 However, patient insists there was no recent injury. Given the dusky appearance and dark central appearance of the area in question, I'm concerned spider bite may be the cause. My working diagnosis at this time is cellulitis. Doxycycline was prescribed. Patient's last tetanus immunization was 2011. He is receiving a booster today. Patient was asked to call the clinic today to make a follow-up appointment. Patient expressed concern that this may be related to his history of melanoma. I explained to him it is unlikely that it is related because of the abrupt onset. However, I did recommend follow-up in the clinic. Diagnostic Imaging Diagonstic Imaging: Xray Plain Films/CT/US/NM/MRI: other (left toes) Comments X-rays of the left toes viewed by me and report reviewed. See report below: NAME: ABNER [facility]EVY [facility] REC#: [id number] PT STATUS: REG ER : 1950 PHYSICIAN: BRENT PITTS MD ADMIT DATE: 01/10/20/ER Draft Date of Exam:01/10/20 TOE(S) EXAM: TOE(S) INDICATION: Discoloration of the 3rd left toe with pain. COMPARISON: None. FINDINGS/ IMPRESSION: Tiny osseous fragment along the dorsal aspect of the left 3rd DIP joint suspicious for an avulsion fracture. This is seen only on the lateral view. Soft tissue shadows are unremarkable. Dictated on workstation # [id number] Dict: 01/10/20 0648 Trans: 01/10/20 0652 [facility] [id number] Interpreted by: RAY MCRAE MD Departure Impression Primary Impression: Cellulitis of toe of left foot Disposition: 01 HOME, SELF-CARE Condition: Improved Departure-Patient Inst. Decision time for Depature: 07:44 Referrals: PÉREZ FIORE DO (PCP/Family) Primary Care Physician Patient Instructions: Cellulitis (Skin Infection), Adult (DC), Spider Bites Add. Discharge Instructions: The inflamed area of your toe may be related to infection (cellulitis) and/or a spider bite. It is less likely related to an injury since you do not recall in treating your foot. Complete your antibiotics as prescribed. Take your antibiotics with food or milk to avoid stomach irritation. This antibiotic may cause sun sensitivity so protect herself from the sun while you are taking it. Please call Dr. Fiore's office this morning to schedule a follow-up appointment for early next week. You may use Tylenol (acetaminophen) and/or ibuprofen for pain. It may take several days to show significant improvement after you start antibiotics. Please start antibiotics this morning. Return to the emergency room if you have worsening symptoms or if you develop new symptoms such as fever. All discharge instructions reviewed with patient and/or family. Voiced unders tanding. Scripts Doxycycline Hyclate (Doxycycline Hyclate) 100 Mg Tablet 100 MG PO BID, #20 TAB 0 Refills Prov: BRENT PITTS MD 01/10/20 Copy Copies To 1: PÉREZ FIORE JOSHUA T MD January 10, 2020 06:37
--- NOTE | 2020-01-10 06:52 | Diagnostic Imaging Report ---
EXAM: TOE(S) INDICATION: Discoloration of the 3rd left toe with pain. COMPARISON: None. FINDINGS/ IMPRESSION: Tiny osseous fragment along the dorsal aspect of the left 3rd DIP joint suspicious for an avulsion fracture. This is seen only on the lateral view. Soft tissue shadows are unremarkable. Dictated by: Dictated on workstation # [id number]
--- NOTE | 2020-01-10 07:05 | NUR ---
REPORT FROM [facility]
[2020-01-10] MEDS ORDERED: DOXY100T2 PO (07:50)
[2020-01-10] MEDS ORDERED: TETANUS,DIPTH,PERTUSS P/F (BOOSTRIX) 0.5 ML VIAL IM ONE (08:00)
[2020-01-10 08:14] VITALS: BP 163/84
--- OUTSIDE RECORDS SUMMARY | 2020-01-10 08:33 | XMS REPORT | CCD ---
Author Author Lc Fiore D.O. Organization PÉREZ FIORE DO [facility] Address [address] [place] [address] Phone Care Team Providers Care Nib Finisher Name Role Phone PP Unavailable CCM Unavailable Summary Purpose Interface Exchange Insurance Providers Payer name Policy type / Coverage type Covered alliance party ID Effective Begin Date Effective End Date WPS MEDICARE PART B [place] Medicare Part B [id number] Unknown CIGNA Medicare Part B [id number] Unknown Family history Brother Diagnosis Age At Onset Alcoholism Unknown Mother Diagnosis Age At Onset Cardiomyopathy Unknown Cerebrovascular disease Unknown Father Diagnosis Age At Onset Prostatitis Unknown Social History Social History Element Codes Description Effective Dates Marital status Unknown 10/15/2015 Number of children Unknown 1 10/15/2015 Employment Unknown Currently employed [employer] 250 10/15/[address]: 822189494 Has never smoked or chewed tobacco 10/15/[address]: 771935121 Never drinks alcohol 2015 Has the patient ever used illegal drugs? Unknown Has nev er used illegal drugs 10/15/2015 Allergies, Adverse Reactions, Alerts Substance Reaction Codes Entered Date Inactivated Date Status * NO KNOWN ENVIRONMENTAL ALLERGIES Unknown 10/15/2015 N o Inactive Date Active _ Unknown 01/19/2016 No Inactive Date Active * NO KNOWN FOOD ALLERGIES Unknown 10/15/2015 No Inactiv e Date Active * NO KNOWN DRUG ALLERGIES Unknown 01/19/2016 No Inactiv e Date Active Problems Condition Codes Effective Dates Condition Status Metastatic melanoma ICD-9: 172.9 ICD-10: C79.9 10/28/2019 Active S/P small bowel resection ICD-9: V45.89 ICD-10: Z90.49 10/28/2019 Active Encounter for general adult medical examination withou t abnormal findings ICD-9: V70.9 ICD-10: Z00.00 10/15/2015 Active Malignant melanoma of left upper limb, including shoul lennox ICD-9: 172.6 ICD-10: C43.62 01/18/2016 Active Localized enlarged lymph nodes ICD-9: 785.6 ICD-10: R59.0 07/13/2016 Active Onycholysis ICD-9: 703.8 ICD-10: L60.1 07/13/2016 Active 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 07/13/2016 Active Hyperglycemia, unspecified ICD-9: 790.29 ICD-10: R73.9 10/15/2015 Active Other fatigue ICD-9: 780.79 ICD-10: R53.83 10/15/2015 Active Melanocytic nevi of left upper limb, including shoulde r ICD-9: 216.6 ICD-10: D22.62 10/14/2015 Active Medications Medication Codes Instructions Start Date Stop Date Status Fill Instructions Fish Oil 1,000 mg capsule RxNorm: 1 Capsule(s) PO QD No Start Date Active acyclovir 5 % topical cream RxNorm: 684700 1 Application TOP QD (Dr Smith) No Start Date Active Multivitamin & Mineral Formula tablet RxNorm: 1 Tablet(s) PO Q D No Start Date Active Medication Administered No Medication Administered data Immunizations No Immunization data Results Observation Observation Code Item Item Code Result Date S [facility] Location GLYCOSYLATED HEMOGLOBIN TEST 24919 A1C HPLC 71308-8 5.0 % 0 10/19/2015 Unknown GFR CALC 1946052 GFR AA >60 ML/MIN 10/16/2015 Unknown GFR CALC 8602842 GFR NON-AA >60 ML/MIN 10/16/2015 Unknown THYROID STIMULATING HORMONE 34555 TSH 3.599 uIU/ML 10/16/2015 Unknown FREE T4 01989 FREE T4 0.80 NG/DL 10/16/2015 Unknown COMPLETE BLOOD COUNT [id number] WBC 6.3 10e9/L 10/16/19 16 Unknown COMPLETE BLOOD COUNT 2008659 RBC 4.57 10e12/L 2015 Unknown COMPLETE BLOOD COUNT 3851596 HGB 15.1 g/dL 6 Unknown COMPLETE BLOOD COUNT 4430188 HCT DET 43.7 % 6 Unknown COMPLETE BLOOD COUNT 5903590 MCV 95.6 fL 6 Unknown COMPLETE BLOOD COUNT 8551593 MCH 33.0 pg 6 Unknown COMPLETE BLOOD COUNT 1220521 MCHC 34.6 g/dL 6 Unknown COMPLETE BLOOD COUNT 9241356 PLT 232 10e9/L 10/16/19 16 Unknown COMPLETE BLOOD COUNT 8629802 MPV 10.8 fL 6 Unknown COMPLETE BLOOD COUNT 6936308 NAYAN % 70.1 % 6 Unknown COMPLETE BLOOD COUNT 4046857 LY % 19.8 % 6 Unknown COMPLETE BLOOD COUNT 2541530 MON % 8.9 % 6 Unknown COMPLETE BLOOD COUNT 1479776 EOS % 0.9 % 6 Unknown COMPLETE BLOOD COUNT 3869617 BASO % 0.3 % 6 Unknown COMPLETE BLOOD COUNT 8463397 RDW 13.8 % 6 Unknown COMPLETE BLOOD COUNT 9350916 ABS NAYAN 4.42 10e9/L 016 Unknown COMPLETE BLOOD COUNT 3838050 ABS LYMPH 1.25 10e9/L 016 Unknown COMPLETE BLOOD COUNT 8644330 ABS MONO 0.56 10e9/L 016 Unknown COMPLETE BLOOD COUNT 1150125 ABS EOS 0.06 10e9/L 016 Unknown COMPLETE BLOOD COUNT 3147534 ABS BASO 0.02 10e9/L 016 Unknown COMPLETE BLOOD COUNT 2995291 RDW-SD 46.3 fL 6 Unknown COMPREHENSIVE METABOLIC 27800 AST 24 U/L 2015 Unknown COMPREHENSIVE METABOLIC 70758 ALT 16 IU/L 2015 Unknown COMPREHENSIVE METABOLIC 24810 BUN 20 MG/DL 2015 Unknown COMPREHENSIVE METABOLIC 89955 ALBUMIN 4.7 GM/DL 2015 Unknown COMPREHENSIVE METABOLIC 80691 CHLORIDE 106 MMOL/L 10/15 Unknown COMPREHENSIVE METABOLIC 12055 BILI TOT 1.5 MG/DL 2015 Unknown COMPREHENSIVE METABOLIC 64643 ALK PHOS 45 U/L 2015 Unknown COMPREHENSIVE METABOLIC 92774 SODIUM 140 MMOL/L 10/15 Unknown COMPREHENSIVE METABOLIC 62012 CREATININE 0.97 MG/DL 11/2015 Unknown COMPREHENSIVE METABOLIC 75950 CALCIUM 9.7 MG/DL 2015 Unknown COMPREHENSIVE METABOLIC 18539 POTASSIUM 4.3 MMOL/L 10/15 Unknown COMPREHENSIVE METABOLIC 57470 PROT TOT 7.2 GM/DL 2015 Unknown COMPREHENSIVE METABOLIC 68830 Glucose 108 MG/DL 2015 Unknown COMPREHENSIVE METABOLIC 59130 BICARB 28 MMOL/L 2015 Unknown COMPREHENSIVE METABOLIC 47576 ANION GAP 6 MEQ/L 2015 Unknown LIPID GROUP 97968 HDL TEST 61 MG/DL 10/16/2015 Unknown LIPID GROUP 75531 TRIG 55 MG/DL 10/16/2015 Unknown LIPID GROUP 39722 TEST LDL 126 MG/DL 10/16/2015 Unknown LIPID GROUP 51952 CHOL 198 MG/DL 10/16/2015 Unknown LIPID GROUP 61839 RCHOL/HDL 3.25 RATIO 10/16/2015 Unknow n LIPID GROUP 07420 NON-HDL CH 137 MG/DL 10/16/2015 Unknow n IRON 70822 IRON TEST 108 UG/DL 10/16/2015 Unknown VITAMIN B 12 74581 VIT B 12 709 PG/ML 10/16/2015 Unknow n TESTOSTERONE TOTAL 11111 TESTOS TO 353 NG/DL 10/16/2015 Unknown Procedures Procedure Codes Date INITIAL PREVENTIVE EXAM CPT-4: G0402 03/06/2017 ROUTINE VENIPUNCTURE CPT-4: 73555 10/16/2015 ASSAY OF FREE THYROXINE CPT-4: 31470 10/16/2015 ASSAY THYROID STIM HORMONE CPT-4: 01926 10/16/2015 COMPREHEN METABOLIC PANEL CPT-4: 17031 10/16/2015 COMPLETE CBC W/AUTO DIFF WBC CPT-4: 22230 10/16/2015 LIPID PANEL CPT-4: 47404 10/16/2015 ASSAY OF IRON CPT-4: 67220 10/16/2015 TESTOSTERONE TOTAL - MALE CPT-4: 40275 10/16/2015 VITAMIN B-12 CPT-4: 83701 10/16/2015 A1C HPLC CPT-4: 98824 10/16/2015 Vital Signs Date Vital 10/28/2019 Blood Pressure 1: 126/78 Code: 8480-6 Heart Rate 1: 84 bpm Respiratory Rate: 20 bpm SpO2: 100% Temperature: 36.9 (C) / 98.5 (F) We ight: 134 lbs 03/06/2017 Blood Pressure 1: 138/84 Code: 8480-6 BMI: 19.5 Code: 98756-3 Heart Rate 1: 76 bpm Height: 6' Respiratory Rate: 24 bpm SpO2: 98% Tempera ture: 36.4 (C) / 97.6 (F) Weight: 144 lbs 07/14/2016 Blood Pressure 1: 158/74 Code: 8480-6 BMI: 19.4 Code: 82879-9 Heart Rate 1: 100 bpm Height: 6' Respiratory Rate: 20 bpm SpO2: 98% Tempera ture: 37.4 (C) / 99.4 (F) Weight: 143 lbs 01/19/2016 Blood Pressure 1: 130/78 Code: 8480-6 BMI: 19.7 Code: 85705-4 Heart Rate 1: 76 bpm Height: 6' Respiratory Rate: 20 bpm Temperature: 36 .8 (C) / 98.2 (F) Weight: 145 lbs 10/15/2015 Blood Pressure 1: 140/74 Code: 8480-6 BMI: 19.5 Code: 73100-8 Heart Rate 1: 96 bpm Height: 6' Respiratory Rate: 20 bpm Temperature: 37 .2 (C) / 99.0 (F) Weight: 144 lbs Functional Status No Functional Status data Reason For Visit Reason For Visit Effective Dates Notes follow up 10/28/2019 melanoma 03/06/2017 Patient currently re ceiving treatment by Dr Mayberry and has completed radiation lymph node enlargement/mass 07/14/2016 To right ind ex finger, patient had trauma to nail bed back in May follow up 01/19/2016 lab draw 10/16/2015 ~generic 10/15/2015 New Patient---[facility] Encounters Encounter Performer Location Codes Date (55174) OFFICE/OUTPATIENT VISIT EST Diagnosis: S/P small bowel resection[ICD10: Z90.49] Diagnosis: Metastatic melanoma[ICD10: C79.9] Pérez Clarke [employer] CPT-4: 98250 10/28/2019 (11019) OFFICE/OUTPATIENT VISIT EST Diagnosis: Onycholysis[ICD10: L60.1] Diagnosis: Localized enlarged lymph nodes[ICD10: R59.0] 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] Pérez Klein [email or web address] CPT-4: 59832 07/14/2016 OFFICE/OUTPATIENT VISIT EST Diagnosis: Malignant melanoma of left upper limb, 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] Pérez FIORE [employer] CPT-4: 75478 01/19/2016 ([id number]) OFFICE/OUTPATIENT VISIT EST Diagnosis: Encounter for general adult medical examination without abnormal findings[ICD10: Z00.00] Diagnosis: Other fatigue[ICD10: R53.83] Diagnosis: Hyperglycemia, unspecified[ICD10: R73.9] Pérez FIORE [employer] CPT-4: 97438 10/16/2015 (59776) INIT PM E/M NEW PAT 65+ YRS Diagnosis: Encounter for general adult medical examination without abnormal findings[ICD10: Z00.00] Diagnosis: Other fatigue[ICD10: R53.83] Diagnosis: Melanocytic nevi of left upper limb, including shoulder[ICD10: D22.62] Pérez FIORE [employer] CPT-4: 07841 10/15/2015 Plan of Care Planned Activity Notes Codes Status Date Visit Diagnosis Plan: S/P small bowel resection Discus yasmin: Patient wants referral to surgeon for staple removal and ongoing surgical needs ICD-9 : V45.89 ICD-10 : Z90.49 10/28/2019 Care Plan: Referral Order SNOMED-CT : 30 [id number] Pending 10/28/2019 Appointment: Pérez Fiore WPtel: [facility] Patient called and canceled his annual a ppt on 03/08/18, he states [facility] from cancer center told him he didn't need they appointment. mm Robin ANCELED 03/08/2018 Visit Diagnosis Plan: Malignant melanoma of left upper limb, including shoulder Discussion: Following with oncololgy routinely ICD-9 : 172.6 ICD-10 : C43.62 03/06/2017 Visit Diagnosis Plan: Encounter for gene ral adult medical examination without abnormal findings Discussion: Discussed more protein in di et ICD-9 : V70.9 ICD-10 : Z00.00 03/06/2017 Appointment: Pérez Fiore WPtel: [phone] [facility] 03/02 confirmed~sl WELCOME TO MEDICARE 03/06/2017 Patient Education: Patient Medication Summary Completed 03/06/2017 Patient Education: Cancer Prevention and Diet Completed 03/06/2017 Visit Plan: Check bilirubin in 1month--m ay be benign Gilbert's disease Observe right fingernail and let grow out--discussed may come off--notify if pain/redness develop Has PET scan scheduled next week 07/14/2016 Appointment: Pérez Fiore WPtel: [address] [place], [place] [address] 07/13 confirmed `sl FOLLOW UP 07/14/2016 Patient Education: Patient Medication Summary Completed 07/14/2016 Referral: Petey Monae WPtel: [phone] [id number] [place] Referral Initiated 02/23/2016 Visit Plan: Spent a longtime--at least 2 5-30minutes in discussion with both the patient and his He sees Dr. Mayberry next week and plans on starting interferon He had numerous questions about diet Scheduled with Dermatology for Derm mapping of other moles/lesions Will return in 1year for routine checkup Discussed that needs to let Dr. Mayberry know about any supplements or extremes in his diet that he is doing so she is aware of this with the interferon treatment--the patient has been eating at least 3 cloves of garlic a day and large amounts of broccoli 01/19/2016 Appointment: Pérez Fiore WPtel: [address] [place], [place] [id number] 01/17 lm-sp FOLLOW UP 01/19/2016 Patient Education: Patient Medication Summary Completed 01/19/2016 Care Plan: Referral Order SNOMED-CT : 30 [id number] Pending 01/19/2016 Appointment: Pérez Fiore WPtel: [address] [place], [place] [phone] SPECIAL 10/19/2015 Appointment: Pérez Fiore WPtel: [address] [place], [place] [id number] LAB 10/16/2015 Patient Education: Patient Medication Summary Completed 10/16/2015 Visit Plan: Return in AM for fasting lab --wants screened for cancers but explained that can't do bloodwork screen for all cancers Patient is seeing Dr. Smith for prostate and PSA See Dr. Acevedo today for removal of left arm lesion--very concerning for melanoma 10/15/2015 Appointment: Pérez Fiore WPtel: [phone] [id number] 10/13 confirmed-SP NEW PATIENT 10/15/2015 Patient Education: Patient Medication Summary Completed 10/15/2015 Referral: Joss Clifford WPtel: [address] [place] [address] [place] [id number] [place] Referral Appointment Requested Referral: Letha Petey WPtel: [address] [id number] [place] Referral Appointment Requested Instructions Comment . Check bilirubin in 1month--may be carrillo gn Gilbert's disease Observe right fingernail and let grow out--discussed may come off--notify if pain/redness develop Has PET scan scheduled next week . Spent a longtime--at least 25-30minute s in discussion with both the patient and his He sees Dr. Mayberry next week and plans on starting interferon He had numerous questions about diet Scheduled with Dermatology for Derm mapping of other moles/lesions Will return in 1year for routine checkup Discussed that needs to let Dr. Mayberry know about any supplements or extremes in his diet that he is doing so she is aware of this with the interferon treatment--the patient has been eating at least 3 cloves of garlic a day and large amounts of broccoli . Return in AM for fasting lab--wants sc reened for cancers but explained that can't do bloodwork screen for all cancers Patient is seeing Dr. Smith for prostate and PSA See Dr. Acevedo today for removal of left arm lesion--very concerning for melanoma Medical Equipment No Medical Equipment data Health Concerns Section Health Concerns data not found Goals Section Goals data not found Interventions Section Interventions data not found Health Status Evaluations/Outcomes Section Health Status Evaluations/Outcomes data not found Advance Directives No Advance Directive data
--- OUTSIDE RECORDS SUMMARY | 2020-01-10 08:33 | XMS REPORT | CCD ---
Author Author Lc Fiore D.O. Organization PÉREZ FIORE DO [facility] Address [address] [place] [address] Phone Care Team Providers Care Maintenance Groundman Name Role Phone PP Unavailable CCM Unavailable Summary Purpose Interface Exchange Insurance Providers Payer name Policy type / Coverage type Covered libertarian ID Effective Begin Date Effective End Date WPS MEDICARE PART B [place] Medicare Part B [id number] Unknown CIGNA Medicare Part B [id number] Unknown Family history Brother Diagnosis Age At Onset Alcoholism Unknown Mother Diagnosis Age At Onset Cardiomyopathy Unknown Cerebrovascular disease Unknown Father Diagnosis Age At Onset Prostatitis Unknown Social History Social History Element Codes Description Effective Dates Marital status Unknown 10/15/2015 Number of children Unknown 1 10/15/2015 Employment Unknown Currently employed [employer] 250 10/15/[address]: 828081766 Has never smoked or chewed tobacco 10/15/[address]: 159780320 Never drinks alcohol 2015 Has the patient [...] Active acyclovir 5 % topical cream RxNorm: 826364 1 Application TOP QD (Dr Smith) No Start Date Active Multivitamin & Mineral Formula tablet RxNorm: 1 Tablet(s) PO Q D No Start Date Active Medication Administered No Medication Administered data Immunizations No Immunization data Results Observation Observation Code Item Item Code Result Date S [facility] Location GLYCOSYLATED HEMOGLOBIN TEST 32092 A1C HPLC 39475-7 5.0 % 0 10/19/2015 Unknown GFR CALC 6631864 GFR AA >60 ML/MIN 10/16/2015 Unknown GFR CALC 4980473 GFR NON-AA >60 ML/MIN 10/16/2015 Unknown THYROID STIMULATING HORMONE 47888 TSH 3.599 uIU/ML 10/16/2015 Unknown FREE T4 04551 FREE T4 0.80 NG/DL 10/16/2015 Unknown COMPLETE BLOOD COUNT 3060063 WBC 6.3 10e9/L 10/16/19 16 Unknown COMPLETE BLOOD COUNT 8310828 RBC 4.57 10e12/L 2015 Unknown COMPLETE BLOOD COUNT 9411883 HGB 15.1 g/dL 6 Unknown COMPLETE BLOOD COUNT 8406880 HCT DET 43.7 % 6 Unknown COMPLETE BLOOD COUNT 5696021 MCV 95.6 fL 6 Unknown COMPLETE BLOOD COUNT 2090249 MCH 33.0 pg 6 Unknown COMPLETE BLOOD COUNT 4853020 MCHC 34.6 g/dL 6 Unknown COMPLETE BLOOD COUNT 2663795 PLT 232 10e9/L 10/16/19 16 Unknown COMPLETE BLOOD COUNT 4731441 MPV 10.8 fL 6 Unknown COMPLETE BLOOD COUNT 5660146 NAYAN % 70.1 % 6 Unknown COMPLETE BLOOD COUNT 2017675 LY % 19.8 % 6 Unknown COMPLETE BLOOD COUNT 1227375 MON % 8.9 % 6 Unknown COMPLETE BLOOD COUNT 7699655 EOS % 0.9 % 6 Unknown COMPLETE BLOOD COUNT 3166076 BASO % 0.3 % 6 Unknown COMPLETE BLOOD COUNT 9705428 RDW 13.8 % 6 Unknown COMPLETE BLOOD COUNT 4035536 ABS NAYAN 4.42 10e9/L 016 Unknown COMPLETE BLOOD COUNT 4300084 ABS LYMPH 1.25 10e9/L 016 Unknown COMPLETE BLOOD COUNT 0633228 ABS MONO 0.56 10e9/L 016 Unknown COMPLETE BLOOD COUNT 9522288 ABS EOS 0.06 10e9/L 016 Unknown COMPLETE BLOOD COUNT 1483725 ABS BASO 0.02 10e9/L 016 Unknown COMPLETE BLOOD COUNT 5661764 RDW-SD 46.3 fL 6 Unknown COMPREHENSIVE METABOLIC 92389 AST 24 U/L 2015 Unknown COMPREHENSIVE METABOLIC 95239 ALT 16 IU/L 2015 Unknown COMPREHENSIVE METABOLIC 65541 BUN 20 MG/DL 2015 Unknown COMPREHENSIVE METABOLIC 36875 ALBUMIN 4.7 GM/DL 2015 Unknown COMPREHENSIVE METABOLIC 07754 CHLORIDE 106 MMOL/L 10/15 Unknown COMPREHENSIVE METABOLIC 56365 BILI TOT 1.5 MG/DL 2015 Unknown COMPREHENSIVE METABOLIC 11755 ALK PHOS 45 U/L 2015 Unknown COMPREHENSIVE METABOLIC 29875 SODIUM 140 MMOL/L 10/15 Unknown COMPREHENSIVE METABOLIC 76264 CREATININE 0.97 MG/DL 11/2015 Unknown COMPREHENSIVE METABOLIC 65609 CALCIUM 9.7 MG/DL 2015 Unknown COMPREHENSIVE METABOLIC 85973 POTASSIUM 4.3 MMOL/L 10/15 Unknown COMPREHENSIVE METABOLIC 16207 PROT TOT 7.2 GM/DL 2015 Unknown COMPREHENSIVE METABOLIC 03916 Glucose 108 MG/DL 2015 Unknown COMPREHENSIVE METABOLIC 16498 BICARB 28 MMOL/L 2015 Unknown COMPREHENSIVE METABOLIC 21063 ANION GAP 6 MEQ/L 2015 Unknown LIPID GROUP 09321 HDL TEST 61 MG/DL 10/16/2015 Unknown LIPID GROUP 82665 TRIG 55 MG/DL 10/16/2015 Unknown LIPID GROUP 97640 TEST LDL 126 MG/DL 10/16/2015 Unknown LIPID GROUP 57892 CHOL 198 MG/DL 10/16/2015 Unknown LIPID GROUP 81099 RCHOL/HDL 3.25 RATIO 10/16/2015 Unknow n LIPID GROUP 87693 NON-HDL CH 137 MG/DL 10/16/2015 Unknow n IRON 15096 IRON TEST 108 UG/DL 10/16/2015 Unknown VITAMIN B 12 95032 VIT B 12 709 PG/ML 10/16/2015 Unknow n TESTOSTERONE TOTAL 38249 TESTOS TO 353 NG/DL 10/16/2015 Unknown Procedures Procedure Codes Date INITIAL PREVENTIVE EXAM CPT-4: G0402 03/06/2017 ROUTINE VENIPUNCTURE CPT-4: 13491 10/16/2015 ASSAY OF FREE THYROXINE CPT-4: 99545 10/16/2015 ASSAY THYROID STIM HORMONE CPT-4: 20081 10/16/2015 COMPREHEN METABOLIC PANEL CPT-4: 19637 10/16/2015 COMPLETE CBC W/AUTO DIFF WBC CPT-4: 18801 10/16/2015 LIPID PANEL CPT-4: 67024 10/16/2015 ASSAY OF IRON CPT-4: 80594 10/16/2015 TESTOSTERONE TOTAL - MALE CPT-4: 65687 10/16/2015 VITAMIN B-12 CPT-4: 84980 10/16/2015 A1C HPLC CPT-4: 65558 10/16/2015 Vital Signs Date Vital 10/28/2019 Blood Pressure 1: 126/78 Code: 8480-6 Heart Rate 1: 84 bpm Respiratory Rate: 20 bpm SpO2: 100% Temperature: 36.9 (C) / 98.5 (F) We ight: 134 lbs 03/06/2017 Blood Pressure 1: 138/84 Code: 8480-6 BMI: 19.5 Code: 13704-4 Heart Rate 1: 76 bpm Height: 6' Respiratory Rate: 24 bpm SpO2: 98% Tempera ture: 36.4 (C) / 97.6 (F) Weight: 144 lbs 07/14/2016 Blood Pressure 1: 158/74 Code: 8480-6 BMI: 19.4 Code: 71254-9 Heart Rate 1: 100 bpm Height: 6' Respiratory Rate: 20 bpm SpO2: 98% Tempera ture: 37.4 (C) / 99.4 (F) Weight: 143 lbs 01/19/2016 Blood Pressure 1: 130/78 Code: 8480-6 BMI: 19.7 Code: 95536-3 Heart Rate 1: 76 bpm Height: 6' Respiratory Rate: 20 bpm Temperature: 36 .8 (C) / 98.2 (F) Weight: 145 lbs 10/15/2015 Blood Pressure 1: 140/74 Code: 8480-6 BMI: 19.5 Code: 60790-8 Heart Rate 1: 96 bpm Height: 6' [...] lab draw 10/16/2015 ~generic 10/15/2015 New [facility] Encounters Encounter Performer Location Codes Date (87494) OFFICE/OUTPATIENT VISIT EST Diagnosis: S/P small bowel resection[ICD10: Z90.49] Diagnosis: Metastatic melanoma[ICD10: C79.9] Pérez Clarke [employer] CPT-4: 27293 10/28/2019 (72360) OFFICE/OUTPATIENT VISIT EST Diagnosis: Onycholysis[ICD10: L60.1] Diagnosis: Localized enlarged lymph nodes[ICD10: R59.0] 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] Pérez Klein [employer] CPT-4: 54190 07/14/2016 OFFICE/OUTPATIENT VISIT EST Diagnosis: Malignant melanoma of left upper limb, 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] Pérez FIORE [employer] [place] CPT-4: 69500 01/19/2016 (57016) OFFICE/OUTPATIENT VISIT EST Diagnosis: Encounter for general adult medical examination without abnormal findings[ICD10: Z00.00] Diagnosis: Other fatigue[ICD10: R53.83] Diagnosis: Hyperglycemia, unspecified[ICD10: R73.9] Pérez FIORE [employer] [place] CPT-4: 26160 10/16/2015 (72606) INIT PM E/M NEW PAT 65+ YRS Diagnosis: Encounter for general adult medical examination without abnormal findings[ICD10: Z00.00] Diagnosis: Other fatigue[ICD10: R53.83] Diagnosis: Melanocytic nevi of left upper limb, including shoulder[ICD10: D22.62] Pérez FIORE [employer] [place] CPT-4: 11080 10/15/2015 Plan of Care Planned Activity Notes Codes Status Date Visit Diagnosis Plan: S/P small bowel resection Discus yasmin: Patient wants referral to surgeon for staple removal and ongoing surgical needs ICD-9 : V45.89 ICD-10 : Z90.49 10/28/2019 Care Plan: Referral Order SNOMED-CT : 30 [id number] Pending 10/28/2019 Appointment: Pérez Fiore WPtel: [facility] Patient called and canceled his annual a ppt on 03/08/18, he states [facility] from cancer center told him he didn't [...] Z00.00 03/06/2017 Appointment: Pérez Fiore WPtel: [phone] [facility] 03/02 confirmed~sl WELCOME TO MEDICARE 03/06/2017 Patient Education: Patient Medication Summary Completed 03/06/2017 Patient Education: Cancer Prevention and Diet Completed 03/06/2017 Visit Plan: Check bilirubin in 1month--m ay be benign Gilbert's disease Observe right fingernail and let grow out--discussed may come off--notify if pain/redness develop Has PET scan scheduled next week 07/14/2016 Appointment: Pérez Fiore WPtel: [address] [place], [place] [address] 07/13 confirmed `sl FOLLOW UP 07/14/2016 Patient [...] of broccoli 01/19/2016 Appointment: Pérez Fiore WPtel: [address] [place], [place] [address] 01/17 lm-sp FOLLOW UP 01/19/2016 Patient Education: Patient Medication Summary Completed 01/19/2016 Care Plan: Referral Order SNOMED-CT : 30 [id number] Pending 01/19/2016 Appointment: Pérez Fiore WPtel: [address] [place], [place] [phone] SPECIAL 10/19/2015 Appointment: Pérez Fiore WPtel: [address] [place] [id number] LAB 10/16/2015 Patient Education: Patient Medication Summary Completed 10/16/2015 Visit Plan: Return in AM for fasting lab --wants screened for cancers but explained that can't do bloodwork screen for all cancers Patient is seeing Dr. Smith for prostate and PSA See Dr. Acevedo today for removal of left arm lesion--very concerning for melanoma 10/15/2015 Appointment: Pérez Fiore WPtel: [phone] [place] [id number] 10/13 confirmed-SP NEW PATIENT 10/15/2015 Patient Education: Patient Medication Summary Completed 10/15/2015 Referral: Joss Clifford WPtel: [address] [place] [address] A [id number] [place] Referral Appointment Requested Referral: Letha Petey [...]
--- OUTSIDE RECORDS SUMMARY | 2020-01-10 08:33 | XMS REPORT | CCD ---
Author Author Lc Fiore D.O. Organization PÉREZ FIORE DO [facility] Address [address] [place] [address] Phone Care Team Providers Care Pega Developer Name Role Phone PP Unavailable CCM Unavailable Summary Purpose Interface Exchange Insurance Providers Payer name Policy type / Coverage type Covered libertarian ID Effective Begin Date Effective End Date WPS MEDICARE PART B [place] Medicare Part B [id number] Unknown CIGNA Medicare Part B [id number] Unknown Family history Brother Diagnosis Age At Onset Alcoholism Unknown Mother Diagnosis Age At Onset Cardiomyopathy Unknown Cerebrovascular disease Unknown Father Diagnosis Age At Onset Prostatitis Unknown Social History Social History Element Codes Description Effective Dates Marital status Unknown 10/15/2015 Number of children Unknown 1 10/15/2015 Employment Unknown Currently employed USD 250 10/15/[address]: 728627366 Has never smoked or chewed tobacco 10/15/[address]: 291315154 Never drinks alcohol 2015 Has the patient [...] Active acyclovir 5 % topical cream RxNorm: 182488 1 Application TOP QD (Dr Smith) No Start Date Active Multivitamin & Mineral Formula tablet RxNorm: 1 Tablet(s) PO Q D No Start Date Active Medication Administered No Medication Administered data Immunizations No Immunization data Results Observation Observation Code Item Item Code Result Date S [facility] Location GLYCOSYLATED HEMOGLOBIN TEST 64817 A1C HPLC 69321-9 5.0 % 0 10/19/2015 Unknown GFR CALC 5539819 GFR AA >60 ML/MIN 10/16/2015 Unknown GFR CALC 0804026 GFR NON-AA >60 ML/MIN 10/16/2015 Unknown THYROID STIMULATING HORMONE 07287 TSH 3.599 uIU/ML 10/16/2015 Unknown FREE T4 91882 FREE T4 0.80 NG/DL 10/16/2015 Unknown COMPLETE BLOOD COUNT 2547808 WBC 6.3 10e9/L 10/16/19 16 Unknown COMPLETE BLOOD COUNT [id number] RBC 4.57 10e12/L 2015 Unknown COMPLETE BLOOD COUNT 8336805 HGB 15.1 g/dL 6 Unknown COMPLETE BLOOD COUNT 7444435 HCT DET 43.7 % 6 Unknown COMPLETE BLOOD COUNT 8717357 MCV 95.6 fL 6 Unknown COMPLETE BLOOD COUNT 2364803 MCH 33.0 pg 6 Unknown COMPLETE BLOOD COUNT 7227418 MCHC 34.6 g/dL 6 Unknown COMPLETE BLOOD COUNT 6769972 PLT 232 10e9/L 10/16/19 16 Unknown COMPLETE BLOOD COUNT 7636794 MPV 10.8 fL 6 Unknown COMPLETE BLOOD COUNT 4960705 NAYAN % 70.1 % 6 Unknown COMPLETE BLOOD COUNT 0688874 LY % 19.8 % 6 Unknown COMPLETE BLOOD COUNT 4988524 MON % 8.9 % 6 Unknown COMPLETE BLOOD COUNT 3042163 EOS % 0.9 % 6 Unknown COMPLETE BLOOD COUNT 6495819 BASO % 0.3 % 6 Unknown COMPLETE BLOOD COUNT 9312891 RDW 13.8 % 6 Unknown COMPLETE BLOOD COUNT 5202453 ABS NAYAN 4.42 10e9/L 016 Unknown COMPLETE BLOOD COUNT 6228572 ABS LYMPH 1.25 10e9/L 016 Unknown COMPLETE BLOOD COUNT 3875207 ABS MONO 0.56 10e9/L 016 Unknown COMPLETE BLOOD COUNT [id number] ABS EOS 0.06 10e9/L 016 Unknown COMPLETE BLOOD COUNT 0892254 ABS BASO 0.02 10e9/L 016 Unknown COMPLETE BLOOD COUNT 4470538 RDW-SD 46.3 fL 6 Unknown COMPREHENSIVE METABOLIC 05994 AST 24 U/L 2015 Unknown COMPREHENSIVE METABOLIC 87867 ALT 16 IU/L 2015 Unknown COMPREHENSIVE METABOLIC 27347 BUN 20 MG/DL 2015 Unknown COMPREHENSIVE METABOLIC 41543 ALBUMIN 4.7 GM/DL 2015 Unknown COMPREHENSIVE METABOLIC 17051 CHLORIDE 106 MMOL/L 10/15 Unknown COMPREHENSIVE METABOLIC 14452 BILI TOT 1.5 MG/DL 2015 Unknown COMPREHENSIVE METABOLIC 63372 ALK PHOS 45 U/L 2015 Unknown COMPREHENSIVE METABOLIC 01355 SODIUM 140 MMOL/L 10/15 Unknown COMPREHENSIVE METABOLIC 48369 CREATININE 0.97 MG/DL 11/2015 Unknown COMPREHENSIVE METABOLIC 54047 CALCIUM 9.7 MG/DL 2015 Unknown COMPREHENSIVE METABOLIC 83537 POTASSIUM 4.3 MMOL/L 10/15 Unknown COMPREHENSIVE METABOLIC 38924 PROT TOT 7.2 GM/DL 2015 Unknown COMPREHENSIVE METABOLIC 05517 Glucose 108 MG/DL 2015 Unknown COMPREHENSIVE METABOLIC 39762 BICARB 28 MMOL/L 2015 Unknown COMPREHENSIVE METABOLIC 76485 ANION GAP 6 MEQ/L 2015 Unknown LIPID GROUP 22678 HDL TEST 61 MG/DL 10/16/2015 Unknown LIPID GROUP 67297 TRIG 55 MG/DL 10/16/2015 Unknown LIPID GROUP 01600 TEST LDL 126 MG/DL 10/16/2015 Unknown LIPID GROUP 13009 CHOL 198 MG/DL 10/16/2015 Unknown LIPID GROUP 39929 RCHOL/HDL 3.25 RATIO 10/16/2015 Unknow n LIPID GROUP 63067 NON-HDL CH 137 MG/DL 10/16/2015 Unknow n IRON 55300 IRON TEST 108 UG/DL 10/16/2015 Unknown VITAMIN B 12 78655 VIT B 12 709 PG/ML 10/16/2015 Unknow n TESTOSTERONE TOTAL 59744 TESTOS TO 353 NG/DL 10/16/2015 Unknown Procedures Procedure Codes Date INITIAL PREVENTIVE EXAM CPT-4: G0402 03/06/2017 ROUTINE VENIPUNCTURE CPT-4: 73639 10/16/2015 ASSAY OF FREE THYROXINE CPT-4: 20655 10/16/2015 ASSAY THYROID STIM HORMONE CPT-4: 14902 10/16/2015 COMPREHEN METABOLIC PANEL CPT-4: 43095 10/16/2015 COMPLETE CBC W/AUTO DIFF WBC CPT-4: 63835 10/16/2015 LIPID PANEL CPT-4: 35520 10/16/2015 ASSAY OF IRON CPT-4: 31793 10/16/2015 TESTOSTERONE TOTAL - MALE CPT-4: 55181 10/16/2015 VITAMIN B-12 CPT-4: 80364 10/16/2015 A1C HPLC CPT-4: 04302 10/16/2015 Vital Signs Date Vital 10/28/2019 Blood Pressure 1: 126/78 Code: 8480-6 Heart Rate 1: 84 bpm Respiratory Rate: 20 bpm SpO2: 100% Temperature: 36.9 (C) / 98.5 (F) We ight: 134 lbs 03/06/2017 Blood Pressure 1: 138/84 Code: 8480-6 BMI: 19.5 Code: 77862-0 Heart Rate 1: 76 bpm Height: 6' Respiratory Rate: 24 bpm SpO2: 98% Tempera ture: 36.4 (C) / 97.6 (F) Weight: 144 lbs 07/14/2016 Blood Pressure 1: 158/74 Code: 8480-6 BMI: 19.4 Code: 53491-3 Heart Rate 1: 100 bpm Height: 6' Respiratory Rate: 20 bpm SpO2: 98% Tempera ture: 37.4 (C) / 99.4 (F) Weight: 143 lbs 01/19/2016 Blood Pressure 1: 130/78 Code: 8480-6 BMI: 19.7 Code: 40265-7 Heart Rate 1: 76 bpm Height: 6' Respiratory Rate: 20 bpm Temperature: 36 .8 (C) / 98.2 (F) Weight: 145 lbs 10/15/2015 Blood Pressure 1: 140/74 Code: 8480-6 BMI: 19.5 Code: 49826-8 Heart Rate 1: 96 bpm Height: 6' [...] lab draw 10/16/2015 ~generic 10/15/2015 [facility] Encounters Encounter Performer Location Codes Date (93005) OFFICE/OUTPATIENT VISIT EST Diagnosis: S/P small bowel resection[ICD10: Z90.49] Diagnosis: Metastatic melanoma[ICD10: C79.9] Pérez Clarke efw[employer]suhlEzra [employer]yn[employer]ALAIN[employer]hir [employer] CPT-4: 36361 10/28/2019 ([id number]) OFFICE/OUTPATIENT VISIT EST Diagnosis: Onycholysis[ICD10: L60.1] Diagnosis: Localized enlarged lymph nodes[ICD10: R59.0] 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] Pérez Klein [employer] CPT-4: 55189 07/14/2016 OFFICE/OUTPATIENT VISIT EST Diagnosis: Malignant melanoma of left upper limb, 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] Pérez FIORE [employer] CPT-4: 00881 01/19/2016 ([id number]) OFFICE/OUTPATIENT VISIT EST Diagnosis: Encounter for general adult medical examination without abnormal findings[ICD10: Z00.00] Diagnosis: Other fatigue[ICD10: R53.83] Diagnosis: Hyperglycemia, unspecified[ICD10: R73.9] Pérez FIORE [employer] CPT-4: 43311 10/16/2015 ([id number]) INIT PM E/M NEW PAT 65+ YRS Diagnosis: Encounter for general adult medical examination without abnormal findings[ICD10: Z00.00] Diagnosis: Other fatigue[ICD10: R53.83] Diagnosis: Melanocytic nevi of left upper limb, including shoulder[ICD10: D22.62] Pérez FIORE [employer] CPT-4: 40747 10/15/2015 Plan of Care Planned Activity Notes Codes Status Date Visit Diagnosis Plan: S/P small bowel resection Discus yasmin: Patient wants referral to surgeon for staple removal and ongoing surgical needs ICD-9 : V45.89 ICD-10 : Z90.49 10/28/2019 Care Plan: Referral Order SNOMED-CT : 30 [id number] Pending 10/28/2019 Appointment: Pérez Fiore WPtel[facility] Patient called and canceled his annual a ppt on 03/08/18, he states [facility] from cancer center told him he [...] Z00.00 03/06/2017 Appointment: Pérez Fiore WPtel[facility] [phone] [facility] 03/02 confirmed~sl WELCOME TO MEDICARE 03/06/2017 Patient Education: Patient Medication Summary Completed 03/06/2017 Patient Education: Cancer Prevention and Diet Completed 03/06/2017 Visit Plan: Check bilirubin in 1month--m ay be benign Gilbert's disease Observe right fingernail and let grow out--discussed may come off--notify if pain/redness develop Has PET scan scheduled next week 07/14/2016 Appointment: Pérez Fiore WPtel: [address] [place], [place] [id number] 07/13 confirmed `sl FOLLOW UP 07/14/2016 Patient [...] of broccoli 01/19/2016 Appointment: Pérez Fiore WPtel: [address] [place] [id number] 01/17 lm-sp FOLLOW UP 01/19/2016 Patient Education: Patient Medication Summary Completed 01/19/2016 Care Plan: Referral Order SNOMED-CT : 30 [id number] Pending 01/19/2016 Appointment: Pérez Fiore WPtel: [address] [place], [place] [phone] SPECIAL 10/19/2015 Appointment: Pérez Fiore WPtel: [address] [place] [id number] LAB 10/16/2015 Patient Education: Patient Medication Summary Completed 10/16/2015 Visit Plan: Return in AM for fasting lab --wants screened for cancers but explained that can't do bloodwork screen for all cancers Patient is seeing Dr. Smith for prostate and PSA See Dr. Acevedo today for removal of left arm lesion--very concerning for melanoma 10/15/2015 Appointment: Pérez Fiore WPtel: [phone] [id number] 10/13 confirmed-SP NEW PATIENT 10/15/2015 Patient Education: Patient Medication Summary Completed 10/15/2015 Referral: Joss Clifford WPtel: [address] [place] [address] A [id number] [place] Referral Appointment Requested Referral: Letha Petey [...]
--- OUTSIDE RECORDS SUMMARY | 2020-01-10 08:33 | XMS REPORT | CCD ---
Author Author Lc Fiore D.O. Organization PÉREZ FIORE DO [facility] Address [address] [place] [address] Phone Care Team Providers Care Credit Reporting Clerk Name Role Phone PP Unavailable CCM Unavailable Summary Purpose Interface Exchange Insurance Providers Payer name Policy type / Coverage type Covered libertarian ID Effective Begin Date Effective End Date WPS MEDICARE PART B [place] Medicare Part B [id number] Unknown CIGNA Medicare Part B [id number] Unknown Family history Brother Diagnosis Age At Onset Alcoholism Unknown Mother Diagnosis Age At Onset Cardiomyopathy Unknown Cerebrovascular disease Unknown Father Diagnosis Age At Onset Prostatitis Unknown Social History Social History Element Codes Description Effective Dates Marital status Unknown 10/15/2015 Number of children Unknown 1 10/15/2015 Employment Unknown Currently employed USD 250 10/15/[address]: 301494618 Has never smoked or chewed tobacco 10/15/[address]: 756971970 Never drinks alcohol 2015 Has the patient [...] Active acyclovir 5 % topical cream RxNorm: 070387 1 Application TOP QD (Dr Smith) No Start Date Active Multivitamin & Mineral Formula tablet RxNorm: 1 Tablet(s) PO Q D No Start Date Active Medication Administered No Medication Administered data Immunizations No Immunization data Results Observation Observation Code Item Item Code Result Date S [facility] Location GLYCOSYLATED HEMOGLOBIN TEST 97041 A1C HPLC 74511-7 5.0 % 0 10/19/2015 Unknown GFR CALC 7803095 GFR AA >60 ML/MIN 10/16/2015 Unknown GFR CALC 4894069 GFR NON-AA >60 ML/MIN 10/16/2015 Unknown THYROID STIMULATING HORMONE 82004 TSH 3.599 uIU/ML 10/16/2015 Unknown FREE T4 44303 FREE T4 0.80 NG/DL 10/16/2015 Unknown COMPLETE BLOOD COUNT 6523287 WBC 6.3 10e9/L 10/16/19 16 Unknown COMPLETE BLOOD COUNT 7384464 RBC 4.57 10e12/L 2015 Unknown COMPLETE BLOOD COUNT 1442200 HGB 15.1 g/dL 6 Unknown COMPLETE BLOOD COUNT 1571736 HCT DET 43.7 % 6 Unknown COMPLETE BLOOD COUNT 7174247 MCV 95.6 fL 6 Unknown COMPLETE BLOOD COUNT 1278937 MCH 33.0 pg 6 Unknown COMPLETE BLOOD COUNT 2782927 MCHC 34.6 g/dL 6 Unknown COMPLETE BLOOD COUNT 6124519 PLT 232 10e9/L 10/16/19 16 Unknown COMPLETE BLOOD COUNT 3828299 MPV 10.8 fL 6 Unknown COMPLETE BLOOD COUNT 7751080 NAYAN % 70.1 % 6 Unknown COMPLETE BLOOD COUNT 9093061 LY % 19.8 % 6 Unknown COMPLETE BLOOD COUNT 6529595 MON % 8.9 % 6 Unknown COMPLETE BLOOD COUNT 2260938 EOS % 0.9 % 6 Unknown COMPLETE BLOOD COUNT 9606185 BASO % 0.3 % 6 Unknown COMPLETE BLOOD COUNT 0933108 RDW 13.8 % 6 Unknown COMPLETE BLOOD COUNT 9583241 ABS NAYAN 4.42 10e9/L 016 Unknown COMPLETE BLOOD COUNT 5159646 ABS LYMPH 1.25 10e9/L 016 Unknown COMPLETE BLOOD COUNT 3074128 ABS MONO 0.56 10e9/L 016 Unknown COMPLETE BLOOD COUNT 9664206 ABS EOS 0.06 10e9/L 016 Unknown COMPLETE BLOOD COUNT 5265012 ABS BASO 0.02 10e9/L 016 Unknown COMPLETE BLOOD COUNT 4618157 RDW-SD 46.3 fL 6 Unknown COMPREHENSIVE METABOLIC 63206 AST 24 U/L 2015 Unknown COMPREHENSIVE METABOLIC 66263 ALT 16 IU/L 2015 Unknown COMPREHENSIVE METABOLIC 33018 BUN 20 MG/DL 2015 Unknown COMPREHENSIVE METABOLIC 41250 ALBUMIN 4.7 GM/DL 2015 Unknown COMPREHENSIVE METABOLIC 95796 CHLORIDE 106 MMOL/L 10/15 Unknown COMPREHENSIVE METABOLIC 90855 BILI TOT 1.5 MG/DL 2015 Unknown COMPREHENSIVE METABOLIC 48255 ALK PHOS 45 U/L 2015 Unknown COMPREHENSIVE METABOLIC 63553 SODIUM 140 MMOL/L 10/15 Unknown COMPREHENSIVE METABOLIC 07901 CREATININE 0.97 MG/DL 11/2015 Unknown COMPREHENSIVE METABOLIC 36516 CALCIUM 9.7 MG/DL 2015 Unknown COMPREHENSIVE METABOLIC 61302 POTASSIUM 4.3 MMOL/L 10/15 Unknown COMPREHENSIVE METABOLIC 38319 PROT TOT 7.2 GM/DL 2015 Unknown COMPREHENSIVE METABOLIC 05758 Glucose 108 MG/DL 2015 Unknown COMPREHENSIVE METABOLIC 90235 BICARB 28 MMOL/L 2015 Unknown COMPREHENSIVE METABOLIC 64103 ANION GAP 6 MEQ/L 2015 Unknown LIPID GROUP 57610 HDL TEST 61 MG/DL 10/16/2015 Unknown LIPID GROUP 61000 TRIG 55 MG/DL 10/16/2015 Unknown LIPID GROUP 71547 TEST LDL 126 MG/DL 10/16/2015 Unknown LIPID GROUP 57185 CHOL 198 MG/DL 10/16/2015 Unknown LIPID GROUP 35037 RCHOL/HDL 3.25 RATIO 10/16/2015 Unknow n LIPID GROUP 43691 NON-HDL CH 137 MG/DL 10/16/2015 Unknow n IRON 96784 IRON TEST 108 UG/DL 10/16/2015 Unknown VITAMIN B 12 80443 VIT B 12 709 PG/ML 10/16/2015 Unknow n TESTOSTERONE TOTAL 51835 TESTOS TO 353 NG/DL 10/16/2015 Unknown Procedures Procedure Codes Date INITIAL PREVENTIVE EXAM CPT-4: G0402 03/06/2017 ROUTINE VENIPUNCTURE CPT-4: 64962 10/16/2015 ASSAY OF FREE THYROXINE CPT-4: 22181 10/16/2015 ASSAY THYROID STIM HORMONE CPT-4: 79293 10/16/2015 COMPREHEN METABOLIC PANEL CPT-4: 55302 10/16/2015 COMPLETE CBC W/AUTO DIFF WBC CPT-4: 69025 10/16/2015 LIPID PANEL CPT-4: 11772 10/16/2015 ASSAY OF IRON CPT-4: 51044 10/16/2015 TESTOSTERONE TOTAL - MALE CPT-4: 81226 10/16/2015 VITAMIN B-12 CPT-4: 75167 10/16/2015 A1C HPLC CPT-4: 54422 10/16/2015 Vital Signs Date Vital 10/28/2019 Blood Pressure 1: 126/78 Code: 8480-6 Heart Rate 1: 84 bpm Respiratory Rate: 20 bpm SpO2: 100% Temperature: 36.9 (C) / 98.5 (F) We ight: 134 lbs 03/06/2017 Blood Pressure 1: 138/84 Code: 8480-6 BMI: 19.5 Code: 03004-1 Heart Rate 1: 76 bpm Height: 6' Respiratory Rate: 24 bpm SpO2: 98% Tempera ture: 36.4 (C) / 97.6 (F) Weight: 144 lbs 07/14/2016 Blood Pressure 1: 158/74 Code: 8480-6 BMI: 19.4 Code: 78564-5 Heart Rate 1: 100 bpm Height: 6' Respiratory Rate: 20 bpm SpO2: 98% Tempera ture: 37.4 (C) / 99.4 (F) Weight: 143 lbs 01/19/2016 Blood Pressure 1: 130/78 Code: 8480-6 BMI: 19.7 Code: 27783-9 Heart Rate 1: 76 bpm Height: 6' Respiratory Rate: 20 bpm Temperature: 36 .8 (C) / 98.2 (F) Weight: 145 lbs 10/15/2015 Blood Pressure 1: 140/74 Code: 8480-6 BMI: 19.5 Code: 82656-7 Heart Rate 1: 96 bpm Height: 6' [...] lab draw 10/16/2015 ~generic 10/15/2015 [facility] Encoun[facility] Encounter Performer Location Codes Date (75028) OFFICE/OUTPATIENT VISIT EST Diagnosis: S/P small bowel resection[ICD10: Z90.49] Diagnosis: Metastatic melanoma[ICD10: C79.9] Pérez Clarke [employer] CPT-4: 35412 10/28/2019 ([id number]) OFFICE/OUTPATIENT VISIT EST Diagnosis: Onycholysis[ICD10: L60.1] Diagnosis: Localized enlarged lymph nodes[ICD10: R59.0] 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] Pérez Klein [employer] CPT-4: 70536 07/14/2016 OFFICE/OUTPATIENT VISIT EST Diagnosis: Malignant melanoma of left upper limb, 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] Pérez FIORE [employer] CPT-4: 96861 01/19/2016 (33926) OFFICE/OUTPATIENT VISIT EST Diagnosis: Encounter for general adult medical examination without abnormal findings[ICD10: Z00.00] Diagnosis: Other fatigue[ICD10: R53.83] Diagnosis: Hyperglycemia, unspecified[ICD10: R73.9] Pérez FIORE [employer] CPT-4: 56989 10/16/2015 (60154) INIT PM E/M NEW PAT 65+ YRS Diagnosis: Encounter for general adult medical examination without abnormal findings[ICD10: Z00.00] Diagnosis: Other fatigue[ICD10: R53.83] Diagnosis: Melanocytic nevi of left upper limb, including shoulder[ICD10: D22.62] Pérez FIORE [employer] CPT-4: 73500 10/15/2015 Plan of Care Planned Activity Notes Codes Status Date Visit Diagnosis Plan: S/P small bowel resection Discus yasmin: Patient wants referral to surgeon for staple removal and ongoing surgical needs ICD-9 : V45.89 ICD-10 : Z90.49 10/28/2019 Care Plan: Referral Order SNOMED-CT : 30 [id number] Pending 10/28/2019 Appointment: [facility] Patient called and canceled his annual a ppt on 03/08/18, he states [facility] from cancer center told him he didn't [...] Z00.00 03/06/2017 Appointment: [facility] [phone] [facility] [facility] confirmed~sl WELCOME TO MEDICARE 03/06/2017 Patient Education: Patient Medication Summary Completed 03/06/2017 Patient Education: Cancer Prevention and Diet Completed 03/06/2017 Visit Plan: Check bilirubin in 1month--m ay be benign Gilbert's disease Observe right fingernail and let grow out--discussed may come off--notify if pain/redness develop Has PET scan scheduled next week 07/14/2016 Appointment: Pérez Fiore WPtel: [address] [place], [place] [id number] 07/13 confirmed `sl FOLLOW UP 07/14/2016 Patient [...] of broccoli 01/19/2016 Appointment: Pérez Fiore WPtel: [address] [place], [place] [id number] 01/17 lm-sp FOLLOW UP 01/19/2016 Patient Education: Patient Medication Summary Completed 01/19/2016 Care Plan: Referral Order SNOMED-CT : 30 [id number] Pending 01/19/2016 Appointment: Pérez Fiore WPtel: [address] [place], [place] [phone] SPECIAL 10/19/2015 Appointment: Pérez Fiore WPtel: [address] [place] [id number] LAB 10/16/2015 Patient Education: Patient Medication Summary Completed 10/16/2015 Visit Plan: Return in AM for fasting lab --wants screened for cancers but explained that can't do bloodwork screen for all cancers Patient is seeing Dr. Smith for prostate and PSA See Dr. Acevedo today for removal of left arm lesion--very concerning for melanoma 10/15/2015 Appointment: Pérez Fiore WPtel: [phone] [id number] 10/13 confirmed-SP NEW PATIENT 10/15/2015 Patient Education: Patient Medication Summary Completed 10/15/2015 Referral: Joss Clifford WPtel: [address] [place] [address] A [id number] [place] Referral Appointment Requested Referral: Letha Petey [...]
--- OUTSIDE RECORDS SUMMARY | 2020-01-10 08:34 | XMS REPORT | Continuity of Care Document ---
Author Organization Unknown Address Unknown Phone Unavailable Allergies Active Description Code Type Severity Reaction Onset Reported/Identified Relationship to Patient Clinical Status Yes epinephrine [id number] Drug Aller gy Unknown N/A 01/01/2019 Yes epinephrine HCl [id number] D rug Allergy Unknown N/A 01/01/2019 Yes lidocaine [id number] Drug Allergy Unknown N/A 01/01/2019 Medications There is no data. 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 62 MALIGNANT MELANOMA OF LEFT UPPER LIMB, I 07/13/1418 RUBY ANGULO MD, Ot C77. 3 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 07/13/1418 RUBY ANGULO MD Ot D22. 5 MELANOCYTIC NEVI OF TRUNK 07/13/1418 RUBY ANGULO MD, Ot F41. 9 ANXIETY DISORDER, UNSPECIFIED 07/13/1418 RUBY ANGULO MD Ot Z51. 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 07/13/1425 MECHE CASTILLO Mesfin Ot F41.9 ANXIETY DISORDER, UNSPECIFIED 07/13/1425 MECHE CASTILLO Mesfin Ot Z51.11 ENCOUNTER FOR ANTINEOPLASTIC CHEMOTHERAP 07/13/1425 MECHE CASTILLO Mesfin Ot Z79.899 OTHER CHIEF GUARD (CURRENT) DRUG THERAPY 2012 Ot 914.0 NIKA NIKI HAND 2012 Ot E000.8 OTH ER EXTERNAL CAUSE STATUS 2012 Ot E849.0 ACC IDENT IN HOME 2012 Ot E888.9 FAL L NOS 2012 Ot V03.7 TETA NUS TOXOID INOCULAT 10/27/2015 PATRICK ERVIN, JAMIE James [...] LEFT UPPER LIMB, I 02/03/2016 PRICILLA CURRAN TACK PULLER MACHINE Ot 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, I 02/14/2016 CHRIS ERVIN, JENIFFER Dia Ot 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, I 02/18/2016 PRICILLA CURRAN TACK PULLER MACHINE Ot 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, I 02/19/2016 PRICILLA CURRAN TACK PULLER MACHINE Ot 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, I 02/19/2016 PATRICK ERVIN, JAMIE James Ot 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] 03/14/2017 JENIFFER PEREZ MD Ot Z79.899 OTHER CHIEF GUARD (CURRENT) DRUG THERAPY 03/15/2017 JENIFFER PEREZ MD, [...] 03/15/2017 JENIFFER PEREZ MD Ot Z79.899 OTHER CHIEF GUARD (CURRENT) DRUG THERAPY 03/22/2017 MECHE CASTILLO Ot [...] CHEMOTHERAP 03/22/2017 MECHE CASTILLO Ot Z79.899 OTHER CHIEF GUARD (CURRENT) DRUG THERAPY 03/23/2017 JENIFFER PEREZ MD, Ot 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, I 03/23/2017 JENIFFER PEREZ MD Ot M85.88 OTH DISRD OF BONE DENSITY AND STRUCTURE, 03/23/2017 JENIFFER PEREZ MD Ot R91.8 OTHER NONSPECIFIC ABNORMAL FINDING OF ROMEO 04/06/2017 JENIFFER PEREZ MD, Ot 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, I 04/06/2017 JENIFFER PEREZ MD Ot C77.3 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 04/06/2017 JENIFFER PEREZ MD Ot F41.9 ANXIETY DISORDER, UNSPECIFIED 04/06/2017 JENIFFER PEREZ MD Ot Z51.0 ENCOUNTER FOR ANTINEOPLASTIC RADIATION T 04/06/2017 JENIFFER PEREZ MD Ot Z51.11 ENCOUNTER FOR ANTINEOPLASTIC CHEMOTHERAP 04/06/2017 JENIFFER PEREZ MD Ot Z79.899 OTHER CHIEF GUARD (CURRENT) DRUG THERAPY 05/02/2017 JAMIE NGUYEN MD Ot L98.9 DISORDER OF THE SKIN AND SUBCUTANEOUS TI 05/02/2017 JAMIE NGUYEN MD Ot Z01.818 ENCOUNTER FOR OTHER PREPROCEDURAL EXAMIN 05/02/2017 JAMIE NGUYEN MD Ot Z85.820 PERSONAL HISTORY OF MALIGNANT MELANOMA O 05/05/2017 JAMIE NGUYEN MD Ot D23.71 OTH BENIGN [...] CHEMOTHERAP 05/05/2017 MECHE CASTILLO Ot Z79.899 OTHER CHIEF GUARD (CURRENT) DRUG THERAPY 05/09/2017 JAMIE NGUYEN MD [...] PERSONAL HISTORY OF MALIGNANT MELANOMA O 05/11/2017 JONATHAN, BOBAN N Ot 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, I 05/11/2017 JONATHAN BOBAN N Ot C77.3 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 05/11/2017 JONATHAN BOBAN N Ot 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 05/11/2017 JONATHAN BOBAN N Ot F41.9 ANXIETY DISORDER, UNSPECIFIED 05/11/2017 JONATHAN BOBAN N Ot K08.89 OTHER SPECIFIED DISORDERS OF TEETH AND S 05/11/2017 JONATHAN, BOBAN N Ot Z51.11 ENCOUNTER FOR ANTINEOPLASTIC CHEMOTHERAP 05/11/2017 JONATHAN BOBAN N Ot Z79.899 OTHER CORRECTION (CURRENT) DRUG THERAPY 05/17/2017 JONATHAN BOBAN N Ot 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, I 05/17/2017 JONATHAN BOBAN N Ot C77.3 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 05/17/2017 JONATHAN BOBAN N Ot 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 05/17/2017 JONATHAN, BOBAN N Ot F41.9 ANXIETY DISORDER, UNSPECIFIED 05/17/2017 JONATHAN BOBAN N Ot Z51.11 ENCOUNTER FOR ANTINEOPLASTIC CHEMOTHERAP 05/17/2017 JONATHAN, BOBAN N Ot Z79.899 OTHER CORRECTION (CURRENT) DRUG THERAPY 05/17/2017 PATRICK ERVIN, JAMIE James Ot D23.71 OTH BENIGN NEOPLASM SKIN/ RIGHT LOWER LI 05/17/2017 PATRICK ERVIN, JAMIE James Ot L57.0 ACTINIC KERATOSIS 05/17/2017 PATRICK ERVIN, JAMIE James Ot L82.1 OTHER SEBORRHEIC KERATOSIS 05/17/2017 PATRICK ERVIN, JAMIE James Ot Z85.820 PERSONAL HISTORY OF MALIGNANT MELANOMA O 06/12/2017 JONATHAN, BOBAN N Ot 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, I 06/12/2017 JONATHANSHANI EDWARDAN N Ot C77.9 SECONDARY AND UNSP MALIGNANT NEOPLASM OF 06/14/2017 PATRICK ERVIN, JAMIE James Ot D23.71 OTH BENIGN NEOPLASM SKIN/ RIGHT LOWER LI 06/14/2017 PATRICK ERVIN, JAMIE James Ot L57.0 ACTINIC KERATOSIS 06/14/2017 PATRICK ERVIN, JAMIE James Ot L82.1 OTHER SEBORRHEIC KERATOSIS 06/14/2017 PATRICK ERVIN, JAMIE James Ot Z85.820 PERSONAL HISTORY OF MALIGNANT MELANOMA O 06/27/2017 JONATHANSHANI EDWARDAN N Ot 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, I 06/27/2017 JONATHAN, BOBAN N Ot C77.3 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 06/27/2017 JONATHAN, BOBAN N Ot 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 06/27/2017 JONATHAN BOBAN N Ot F41.9 ANXIETY DISORDER, UNSPECIFIED 06/27/2017 JONATHAN, BOBAN N Ot Z51.11 ENCOUNTER FOR ANTINEOPLASTIC CHEMOTHERAP 06/27/2017 JONATHAN, BOBAN N Ot Z79.899 OTHER CHIEF GUARD (CURRENT) DRUG THERAPY 06/30/2017 JONATHAN BOBAN N Ot 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, I 06/30/2017 JONATHAN, BOBAN N Ot C77.9 SECONDARY AND UNSP MALIGNANT NEOPLASM OF 07/07/2017 JONATHAN BOBAN N Ot 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, I 07/07/2017 JONATHAN BOBAN N Ot C77.3 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 07/07/2017 JONATHAN, BOBAN N Ot 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 07/07/2017 JONATHAN, BOBAN N Ot F41.9 ANXIETY DISORDER, UNSPECIFIED 07/07/2017 JONATHAN, BOBAN N Ot Z51.11 ENCOUNTER FOR ANTINEOPLASTIC CHEMOTHERAP 07/07/2017 JONATHAN, BOBAN N Ot Z79.899 OTHER CHIEF GUARD (CURRENT) DRUG THERAPY 07/11/2017 JONATHAN BOBAN N Ot 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, I 07/11/2017 JONATHAN, BOBAN N Ot C77.3 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 07/11/2017 MECHE CASTILLO N Ot 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 07/11/2017 MECHE CASTILLO N Ot F41.9 ANXIETY DISORDER, UNSPECIFIED 07/11/2017 MECHE CASTILLO N Ot Z51.11 ENCOUNTER FOR ANTINEOPLASTIC CHEMOTHERAP 07/11/2017 MECHE CASTILLO N Ot Z79.899 OTHER CORRECTION (CURRENT) DRUG THERAPY 07/26/2017 PATRICK ERVIN, JAMIE M Ot C43.62 MALIGNANT [...] ABNORMAL FINDING OF ROMEO 07/26/2017 JONATHAN MECHE N Ot 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, I 07/26/2017 JONATHAN SHANIMC Mesfin Ot C77.3 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 07/26/2017 MECHE CASTILLO Mesfin Ot 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 07/26/2017 JONATHAN SHANIMC N Ot F41.9 ANXIETY DISORDER, UNSPECIFIED 07/26/2017 MECHE CASTILLO N Ot Z51.11 ENCOUNTER FOR ANTINEOPLASTIC CHEMOTHERAP 07/26/2017 JONATHAN SHANIMC N Ot Z79.899 OTHER CORRECTION (CURRENT) DRUG THERAPY 07/26/2017 JONATHAN SHANIMC N Ot C43.62 MALIGNANT MELANOMA [...] N Ot F41.9 ANXIETY DISORDER, UNSPECIFIED 08/09/2017 MECHE CASTILLO N Ot Z51.11 ENCOUNTER FOR ANTINEOPLASTIC CHEMOTHERAP 08/09/2017 MECHE CASTILLO N Ot Z79.899 OTHER CHIEF GUARD (CURRENT) DRUG THERAPY 08/14/2017 MECHE CASTILLO N Ot 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, I 08/14/2017 MECHE CASTILLO N Ot C77.3 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 08/14/2017 MECHE CASTILLO N Ot 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 08/14/2017 MECHE CASTILLO N Ot F41.9 ANXIETY DISORDER, UNSPECIFIED 08/14/2017 JONATHANMECHE EDWARD N Ot Z51.11 ENCOUNTER FOR ANTINEOPLASTIC CHEMOTHERAP 08/14/2017 MECHE CASTILLO N Ot Z79.899 OTHER CORRECTION (CURRENT) DRUG THERAPY 08/16/2017 MECHE CASTILLO N [...] 08/16/2017 JONATHAN BOBAN N Ot Z79.899 OTHER CORRECTION (CURRENT) DRUG THERAPY 09/01/2017 PRICILLA CURRAN TACK PULLER MACHINE Ot 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, I 09/01/2017 PRICILLA CURRAN TACK PULLER MACHINE Ot 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, I 09/06/2017 PRICILLA CURRAN TACK PULLER MACHINE Ot 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, I 09/12/2017 JONATHAN, BOBAN N Ot 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, I 09/12/2017 JONATHAN, BOBAN N Ot C77.3 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 09/12/2017 JONATHAN, BOBAN N Ot 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 09/12/2017 JONATHAN, BOBAN N Ot F41.9 ANXIETY DISORDER, UNSPECIFIED 09/12/2017 JONATHAN, BOBAN N Ot Z51.11 ENCOUNTER FOR ANTINEOPLASTIC CHEMOTHERAP 09/12/2017 JONATHAN, BOBAN N Ot Z79.899 OTHER CHIEF GUARD (CURRENT) DRUG THERAPY 09/20/2017 JONATHAN, BOBAN N [...] 09/20/2017 JONATHAN, BOBAN N Ot Z79.899 OTHER CORRECTION (CURRENT) DRUG THERAPY 09/27/2017 PRICILLA CURRAN Ot 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, I 10/03/2017 JONATHAN, SHANIAN N Ot 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, I 10/03/2017 JONATHAN, BOBAN N Ot C77.3 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 10/03/2017 JONATHAN, BOBAN N Ot 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 10/03/2017 JONATHAN, BOBAN N Ot F41.9 ANXIETY DISORDER, UNSPECIFIED 10/03/2017 JONATHAN, BOBAN N Ot Z51.11 ENCOUNTER FOR ANTINEOPLASTIC CHEMOTHERAP 10/03/2017 JONATHAN, BOBAN N Ot Z79.899 OTHER CHIEF GUARD (CURRENT) DRUG THERAPY 10/09/2017 JONATHAN, BOBAN N Ot 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, I 10/09/2017 JONATHAN, BOBAN N Ot C77.3 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 10/09/2017 JONATHANSHANIAN N Ot 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 10/09/2017 JONATHANMECHE N Ot F41.9 ANXIETY DISORDER, UNSPECIFIED 10/09/2017 JONATHAN, BOBAN N Ot Z51.11 ENCOUNTER FOR ANTINEOPLASTIC CHEMOTHERAP 10/09/2017 JONATHAN BOBAN N Ot Z79.899 OTHER CORRECTION (CURRENT) DRUG THERAPY 11/20/2017 JONATHAN SHANIAN N Ot 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, I 11/20/2017 JONATHAN, BOBAN N Ot C77.3 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 11/20/2017 JONATHAN, BOBAN N Ot 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 11/20/2017 JONATHANMECHE N Ot F41.9 ANXIETY DISORDER, UNSPECIFIED 11/20/2017 JONATHAN BOBAN N Ot Z51.11 ENCOUNTER FOR ANTINEOPLASTIC CHEMOTHERAP 11/20/2017 JONATHAN BOBAN N Ot Z79.899 OTHER CHIEF GUARD (CURRENT) DRUG THERAPY 11/22/2017 PRICILLA CURRAN TACK PULLER MACHINE Ot 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, I 11/27/2017 JONATHAN, BOBAN N Ot 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, I 11/27/2017 JONATHAN, MECHE N Ot C77.3 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 11/27/2017 JONATHAN MECHE N Ot 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 11/27/2017 JONATHANMECHE N Ot F41.9 ANXIETY DISORDER, UNSPECIFIED 11/27/2017 JONATHANMECHE N Ot Z51.11 ENCOUNTER FOR ANTINEOPLASTIC CHEMOTHERAP 11/27/2017 JONATHAN BOBAN N Ot Z79.899 OTHER CHIEF GUARD (CURRENT) DRUG THERAPY 11/28/2017 JONATHAN BOBMC N Ot 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, I 11/28/2017 JONATHAN, BOBAN N Ot C77.3 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 11/28/2017 JONATHAN, BOBAN N Ot 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 11/28/2017 JONATHANMECHE N Ot F41.9 ANXIETY DISORDER, UNSPECIFIED 11/28/2017 MECHE CASTILLO Ot Z51.11 ENCOUNTER FOR ANTINEOPLASTIC CHEMOTHERAP 11/28/2017 MECHE CASTILLO Ot Z79.899 OTHER CHIEF GUARD (CURRENT) DRUG THERAPY 12/06/2017 MECHE CASTILLO Ot 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, I 12/06/2017 MECHE CASTILLO Ot R59.0 LOCALIZED ENLARGED LYMPH NODES 12/12/2017 PRICILLA CURRAN TACK PULLER MACHINE Ot 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, I 12/14/2017 PATRICK ERVIN, JAMIE James Ot Z01.818 ENCOUNTER FOR OTHER PREPROCEDURAL EXAMIN 12/14/2017 JAMIE NGUYEN MD Ot Z0 8 ENCNTR FOR FOLLOW-UP EXAM AFTER TRTMT FO [...] Ot Z51.11 ENCOUNTER FOR ANTINEOPLASTIC CHEMOTHERAP 12/20/2017 JONATHAN, BOBAN N Ot Z79.899 OTHER CORRECTION (CURRENT) DRUG THERAPY 12/27/2017 JONATHAN BOBAN N Ot 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, I 12/27/2017 JONATHANSHANIAN N Ot R59.0 LOCALIZED ENLARGED LYMPH NODES 01/04/2018 PATRICK ERVIN, JAMIE James Ot R19.09 OTHER INTRA-ABDOMINAL AND PELVIC SWELLIN 01/04/2018 APTRICK ERVIN, JAMIE James Ot Z01.818 ENCOUNTER FOR OTHER PREPROCEDURAL EXAMIN 01/05/2018 JONATHAN BOBAN N Ot 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, I 01/05/2018 JONATHAN BOBAN N Ot C77.3 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 01/05/2018 JONATHAN, BOBAN N Ot 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 01/05/2018 JONATHAN BOBAN N Ot F41.9 ANXIETY DISORDER, UNSPECIFIED 01/05/2018 JONATHAN, BOBAN N Ot Z51.11 ENCOUNTER FOR ANTINEOPLASTIC CHEMOTHERAP 01/05/2018 JONATHAN, BOBAN N Ot Z79.899 OTHER CORRECTION (CURRENT) DRUG THERAPY 01/24/2018 PATRICK ERVIN, JAMIE James Ot 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 01/24/2018 PATRICK ERVIN, JAMIE James Ot Z85.820 PERSONAL HISTORY OF MALIGNANT MELANOMA O 02/26/2018 JONATHANSHANIAN N Ot 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, I 02/26/2018 JONATHAN BOBAN N Ot C77.3 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 02/26/2018 JONATHAN, BOBAN N Ot 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 02/26/2018 JONATHAN BOBAN N Ot F41.9 ANXIETY DISORDER, UNSPECIFIED 02/26/2018 JONATHAN, BOBAN N Ot Z51.11 ENCOUNTER FOR ANTINEOPLASTIC CHEMOTHERAP 02/26/2018 JONATHAN, BOBAN N Ot Z79.899 OTHER CHIEF GUARD (CURRENT) DRUG THERAPY 02/27/2018 JONATHAN BOBAN N Ot 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, I 02/27/2018 JONATHANMECHE N Ot C77.3 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 02/27/2018 JONATHAN MECHE N Ot 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 02/27/2018 JONATHAN MECHE N Ot F41.9 ANXIETY DISORDER, UNSPECIFIED 02/27/2018 JONATHAN SHANIAN N Ot Z51.11 ENCOUNTER FOR ANTINEOPLASTIC CHEMOTHERAP 02/27/2018 JONATHAN SHANIAN N Ot Z79.899 OTHER CHIEF GUARD (CURRENT) DRUG THERAPY 02/27/2018 JONATHAN MECHE N Ot C43.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, I 02/27/2018 JONATHAN, SHANIAN N Ot C77.3 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 02/27/2018 JONATHAN, MECHE N Ot 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 02/27/2018 JONATHANMECHE N Ot F41.9 ANXIETY DISORDER, UNSPECIFIED 02/27/2018 JONATHANMECHE N Ot Z51.11 ENCOUNTER FOR ANTINEOPLASTIC CHEMOTHERAP 02/27/2018 JONATHAN, SHANIAN N Ot Z79.899 OTHER CHIEF GUARD (CURRENT) DRUG THERAPY 03/02/2018 JONATHAN MECHE N Ot C43.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, I 03/02/2018 JONATHAN, MECHE N Ot C77.3 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 03/02/2018 JONATHAN SHANIMC N Ot 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 03/02/2018 JONATHANMECHE N Ot F41.9 ANXIETY DISORDER, UNSPECIFIED 03/02/2018 JONATHANMECHE N Ot Z51.11 ENCOUNTER FOR ANTINEOPLASTIC CHEMOTHERAP 03/02/2018 JONATHANSHANIAN N Ot Z79.899 OTHER CORRECTION (CURRENT) DRUG THERAPY 03/05/2018 JONATHAN MECHE N Ot C43.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, I 03/05/2018 JONATHAN, BOBAN N Ot C77.3 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 03/05/2018 JONATHAN, SHANIAN N Ot 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 03/05/2018 JONATHANMECHE N Ot F41.9 ANXIETY DISORDER, UNSPECIFIED 03/05/2018 JONATHAN, BOBAN N Ot Z51.11 ENCOUNTER FOR ANTINEOPLASTIC CHEMOTHERAP 03/05/2018 JONATHAN, BOBAN N Ot Z79.899 OTHER CHIEF GUARD (CURRENT) DRUG THERAPY 03/05/2018 JONATHAN SHANIAN N Ot C43.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, I 03/05/2018 JONATHAN BOBAN N Ot C77.3 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 03/05/2018 JONATHAN BOBAN N Ot 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 03/05/2018 JONATHAN, BOBAN N Ot F41.9 ANXIETY DISORDER, UNSPECIFIED 03/05/2018 JONATHAN, BOBAN N Ot Z51.11 ENCOUNTER FOR ANTINEOPLASTIC CHEMOTHERAP 03/05/2018 JONATHAN, BOBAN N Ot Z79.899 OTHER CHIEF GUARD (CURRENT) DRUG THERAPY 03/05/2018 JONATHAN BOBAN N [...] 03/05/2018 JONATHAN, BOBAN N Ot Z79.899 OTHER CHIEF GUARD (CURRENT) DRUG THERAPY 04/11/2018 JONATHAN MECHE N Ot C43.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, I 04/11/2018 JONATHAN, BOBAN N Ot C77.3 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 04/11/2018 JONATHAN, BOBAN N Ot 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 04/11/2018 JONATHAN, BOBAN N Ot F41.9 ANXIETY DISORDER, UNSPECIFIED 04/11/2018 JONATHAN, BOBAN N Ot Z51.11 ENCOUNTER FOR ANTINEOPLASTIC CHEMOTHERAP 04/11/2018 JONATHAN, BOBAN N Ot Z79.899 OTHER CHIEF GUARD (CURRENT) DRUG THERAPY 05/01/2018 JONATHAN SHANIAN N Ot C43.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 62 MALIGNANT MELANOMA OF LEFT UPPER LIMB, I 05/01/2018 RUBY ANGULO MD, Ot C77. 3 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 05/01/2018 RUBY ANGULO MD Ot D22. 5 MELANOCYTIC NEVI OF TRUNK 05/01/2018 RUBY ANGULO MD Ot F41. 9 ANXIETY DISORDER, UNSPECIFIED 05/01/2018 RUBY ANGULO MD Ot Z51. 11 ENCOUNTER FOR ANTINEOPLASTIC CHEMOTHERAP 05/01/2018 RUBY ANGULO MD Ot Z79.899 OTHER CORRECTION (CURRENT) DRUG THERAPY 05/13/2018 RUBY ANGULO MD, Ot C43. 62 MALIGNANT MELANOMA OF LEFT UPPER LIMB, I 05/13/2018 RUBY ANGULO MD Ot C77. 3 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 05/13/2018 RUBY ANGULO MD Ot D22. 5 MELANOCYTIC NEVI OF TRUNK 05/13/2018 RUBY ANGULO MD Ot F41. 9 ANXIETY DISORDER, UNSPECIFIED 05/13/2018 RUBY ANGULO MD Ot Z51. 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 5 MELANOCYTIC NEVI OF TRUNK 06/12/2018 RUBY ANGULO MD Ot F41. 9 ANXIETY DISORDER, UNSPECIFIED 06/12/2018 RUBY ANGULO MD Ot Z51. 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 07/03/2018 JONATHAN, BOBAN N Ot 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 07/03/2018 JONTAHAN BOBAN N Ot F41.9 ANXIETY DISORDER, UNSPECIFIED 07/03/2018 JONATHAN, BOBAN N Ot Z51.11 ENCOUNTER FOR ANTINEOPLASTIC CHEMOTHERAP 07/03/2018 JONATHAN, BOBAN N Ot Z79.899 OTHER CHIEF GUARD (CURRENT) DRUG THERAPY 07/20/2018 JONATHAN BOBAN N Ot C43.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, I 07/20/2018 JONATHAN, BOBAN N Ot 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 07/20/2018 JONATHAN, BOBAN N Ot K80.20 CALCULUS OF GALLBLADDER W/O CHOLECYSTITI 08/10/2018 JONATHANMECHE N Ot C43.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, I 08/10/2018 JONATHAN, BOBAN N Ot C77.3 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 08/10/2018 JONATHAN, BOBAN N Ot 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 08/10/2018 JONATHAN [facility]OB[facility] N Ot F41.9 ANXIETY DISORDER, UNSPECIFIED 08/10/2018 JONATHAN, BOBAN N Ot Z51.11 ENCOUNTER FOR ANTINEOPLASTIC CHEMOTHERAP 08/10/2018 JONATHAN, SHANIAN N Ot Z79.899 OTHER CORRECTION (CURRENT) DRUG THERAPY 08/27/2018 CURRAN, HILAH S TACK PULLER MACHINE Ot C43.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, I 08/27/2018 PRICILLA CURRAN TACK PULLER MACHINE Ot 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 08/27/2018 PRICILLA CURRAN TACK PULLER MACHINE Ot K63.89 OTHER SPECIFIED DISEASES OF INTESTINE [...] CHEMOTHERAP 09/10/2018 MECHE CASTILLO Ot Z79.899 OTHER CORRECTION (CURRENT) DRUG THERAPY 09/10/2018 PATRICK ERVIN, JAMIE [...] MELANOMA OF LEFT UPPER LIMB, I 09/11/2018 JONATHANMECHE Ot C77.3 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 09/11/2018 JONATHANMECHE Ot 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 09/11/2018 MECHE CASTILLO Ot F41.9 ANXIETY DISORDER, UNSPECIFIED 09/11/2018 JONATHANMECHE Ot Z51.11 ENCOUNTER FOR ANTINEOPLASTIC CHEMOTHERAP 09/11/2018 MECHE CASTILLO Ot Z79.899 OTHER CHIEF GUARD (CURRENT) DRUG THERAPY 09/13/2018 PATRICK ERVIN, JAMIE James Ot K80.20 CALCULUS OF GALLBLADDER W/O CHOLECYSTITI 09/17/2018 PRICILLA CURRANP Ot C43.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, I 09/17/2018 PRICILLA CURRAN TACK PULLER MACHINE Ot 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 09/17/2018 PRICILLA CURRAN TACK PULLER MACHINE Ot K63.89 OTHER SPECIFIED DISEASES OF INTESTINE 10/11/2018 PRICILLA CURRAN TACK PULLER MACHINE Ot Z79.899 OTHER CORRECTION (CURRENT) DRUG THERAPY 10/26/2018 PRICILLA CURRAN TACK PULLER MACHINE Ot Z79.899 OTHER CORRECTION (CURRENT) DRUG THERAPY 11/02/2018 MECHE CASTILLO Ot C43.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, I 11/02/2018 MECHE CASTILLO Ot C77.3 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 11/02/2018 MECHE CASTILLO Ot 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 11/02/2018 MECHE CASTILLO Ot F41.9 ANXIETY DISORDER, UNSPECIFIED 11/02/2018 MECHE CASTILLO Ot Z51.11 ENCOUNTER FOR ANTINEOPLASTIC CHEMOTHERAP 11/02/2018 MECHE CASTILLO N Ot Z79.899 OTHER CHIEF GUARD (CURRENT) DRUG THERAPY 11/20/2018 MECHE CASTILLO Ot C43.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, I 11/20/2018 MECHE CASTILLO Ot C77.3 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 11/20/2018 MECHE CASTILLO Ot 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 11/20/2018 JONATHAN, BOBAN N Ot F41.9 ANXIETY DISORDER, UNSPECIFIED 11/20/2018 JONATHAN BOBAN N Ot Z51.11 ENCOUNTER FOR ANTINEOPLASTIC CHEMOTHERAP 11/20/2018 JONATHANSHANIAN N Ot Z79.899 OTHER CORRECTION (CURRENT) DRUG THERAPY 11/26/2018 JONATHANMECHE N Ot C43.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, I 11/26/2018 JONATHANSHANIAN N Ot C77.3 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 11/26/2018 JONATHANMECHE N Ot 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 11/26/2018 JONATHANMECHE N Ot F41.9 ANXIETY DISORDER, UNSPECIFIED 11/26/2018 JONATHAN BOBAN N Ot Z51.11 ENCOUNTER FOR ANTINEOPLASTIC CHEMOTHERAP 11/26/2018 JONATHAN BOBAN N Ot Z79.899 OTHER CORRECTION (CURRENT) DRUG THERAPY 12/24/2018 JONATHAN SHANIMC N Ot C43.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, I 12/24/2018 JONATHAN SHANIMC N Ot C77.3 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 12/24/2018 JONATHANSHANIAN N Ot 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 12/24/2018 JONATHAN SHNAIMC N Ot F41.9 ANXIETY DISORDER, UNSPECIFIED 12/24/2018 JONATHAN BOBAN N Ot Z51.11 ENCOUNTER FOR ANTINEOPLASTIC CHEMOTHERAP 12/24/2018 JONATHAN BOBAN N Ot Z79.899 OTHER CHIEF GUARD (CURRENT) DRUG THERAPY 12/30/2018 JONATHAN SHANIMC N Ot 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, I 12/30/2018 JONATHAN BOBAN N Ot C77.3 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 12/30/2018 JONATHAN BOBAN N Ot 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 12/30/2018 JONATHAN SHANIAN N Ot F41.9 ANXIETY DISORDER, UNSPECIFIED 12/30/2018 JONATHAN, BOBAN N Ot Z51.11 ENCOUNTER FOR ANTINEOPLASTIC CHEMOTHERAP 12/30/2018 JONATHAN, BOBAN N Ot Z79.899 OTHER CORRECTION (CURRENT) DRUG THERAPY 01/01/2019 JONATHAN SHANIAN N Ot C43.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 9 ANXIETY DISORDER, UNSPECIFIED 01/01/2019 ELAN PALACIOS MD Ot I95. 1 ORTHOSTATIC HYPOTENSION 01/01/2019 ELAN PALACIOS MD Ot R00. 2 PALPITATIONS 01/01/2019 ELAN PALACIOS MD Ot R53. 1 WEAKNESS 01/01/2019 ELAN PALACIOS MD Ot R55 SYNCOPE AND COLLAPSE 01/01/2019 ELAN PALACIOS MD Ot Z82. 49 FAMILY HX OF ISCHEM HEART DIS AND OTH DI 01/01/2019 ELAN PALACIOS MD Ot Z85.038 PERSONAL HISTORY OF MALIGNANT NEOPLASM O 01/01/2019 ELAN PALACIOS MD Ot Z85.820 PERSONAL HISTORY OF MALIGNANT MELANOMA O 01/01/2019 ELAN PALACIOS MD Ot Z87. 19 PERSONAL HISTORY OF OTHER DISEASES OF TH 01/01/2019 ELAN PALACIOS MD Ot Z88. 4 ALLERGY STATUS TO ANESTHETIC AGENT STATU 01/01/2019 ELAN PALACIOS MD Ot Z88. 8 ALLERGY STATUS TO OTH DRUG/MEDS/BIOL SUB 01/01/2019 ELAN PALACIOS MD Ot Z94. 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 9 ANXIETY DISORDER, UNSPECIFIED 01/03/2019 ELAN PALACIOS MD Ot I95. 1 ORTHOSTATIC HYPOTENSION 01/03/2019 ELAN PALACIOS MD Ot R00. 2 PALPITATIONS 01/03/2019 ELAN PALACIOS MD Ot R53. 1 WEAKNESS 01/03/2019 ELAN PALACIOS MD Ot R55 SYNCOPE AND COLLAPSE 01/03/2019 ELAN PALACIOS MD Ot Z82. 49 FAMILY HX OF ISCHEM HEART DIS AND OTH DI 01/03/2019 ELAN PALACIOS MD Ot Z85.038 PERSONAL HISTORY OF MALIGNANT NEOPLASM O 01/03/2019 ELAN PALACIOS MD Ot Z85.820 PERSONAL HISTORY OF MALIGNANT MELANOMA O 01/03/2019 ELAN PALACIOS MD Ot Z87. 19 PERSONAL HISTORY OF OTHER DISEASES OF TH 01/03/2019 ELAN PALACIOS MD Ot Z88. 4 ALLERGY STATUS TO ANESTHETIC AGENT STATU 01/03/2019 ELAN PALACIOS MD Ot Z88. 8 ALLERGY STATUS TO OTH DRUG/MEDS/BIOL SUB 01/03/2019 ELAN PALACIOS MD Ot Z94. 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 01/30/2019 MECHE CASTILLO Ot F41.9 ANXIETY DISORDER, UNSPECIFIED 01/30/2019 JONATHAN MECHE N Ot Z51.11 ENCOUNTER FOR ANTINEOPLASTIC CHEMOTHERAP 01/30/2019 JONATHAN SHANIAN N Ot Z79.899 OTHER CHIEF GUARD (CURRENT) DRUG THERAPY 02/05/2019 JONATHAN MECHE N Ot C43.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, I 02/05/2019 JONATHAN MECHE N Ot C77.3 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 02/05/2019 JONATHAN MECHE N Ot 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 02/05/2019 JONATHANMECHE N Ot F41.9 ANXIETY DISORDER, UNSPECIFIED 02/05/2019 JONATHANSHANIAN N Ot Z51.11 ENCOUNTER FOR ANTINEOPLASTIC CHEMOTHERAP 02/05/2019 JONATHANMECHE N Ot Z79.899 OTHER CORRECTION (CURRENT) DRUG THERAPY 02/07/2019 JONATHAN MECHE N Ot C43.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, I 02/07/2019 JONATHANMECHE EDWARD N Ot 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 02/12/2019 JONATHANMECHE N Ot C43.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, I 02/12/2019 JONATHANMECHE N Ot C77.3 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 02/12/2019 JONATHANMECHE N Ot 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 02/12/2019 JONATHANMECHE N Ot F41.9 ANXIETY DISORDER, UNSPECIFIED 02/12/2019 JONATHANMECHE N Ot Z51.11 ENCOUNTER FOR ANTINEOPLASTIC CHEMOTHERAP 02/12/2019 JONATHANMECHE N Ot Z79.899 OTHER CORRECTION (CURRENT) DRUG THERAPY 04/01/2019 JONATHAN MECHE N Ot C43.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, I 04/01/2019 JONATHANMECHE N Ot C77.3 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 04/01/2019 JONATHANSHANIAN N Ot 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 04/01/2019 JONATHANMECHE N Ot F41.9 ANXIETY DISORDER, UNSPECIFIED 04/01/2019 JONATHANMECHE N Ot Z51.11 ENCOUNTER FOR ANTINEOPLASTIC CHEMOTHERAP 04/01/2019 JONATHAN BOBAN N Ot Z79.899 OTHER CORRECTION (CURRENT) DRUG THERAPY 04/02/2019 JONATHANSHANIAN N Ot C43.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, I 04/02/2019 JONATHAN, BOBAN N Ot C77.3 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 04/02/2019 JONATHAN BOBAN N Ot 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 04/02/2019 JONATHAN BOBAN N Ot F41.9 ANXIETY DISORDER, UNSPECIFIED 04/02/2019 JONATHAN, BOBAN N Ot Z51.11 ENCOUNTER FOR ANTINEOPLASTIC CHEMOTHERAP 04/02/2019 JONATHAN, BOBAN N Ot Z79.899 OTHER CORRECTION (CURRENT) DRUG THERAPY 04/07/2019 JONATHANMECHE N Ot C43.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, I 04/07/2019 JONATHAN, BOBAN N Ot C77.3 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 04/07/2019 JONATHAN, BOBAN N Ot 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 04/07/2019 JONATHAN, BOBAN N Ot F41.9 ANXIETY DISORDER, UNSPECIFIED 04/07/2019 JONATHAN, BOBAN N Ot Z51.11 ENCOUNTER FOR ANTINEOPLASTIC CHEMOTHERAP 04/07/2019 JONATHAN, BOBAN N Ot Z79.899 OTHER CORRECTION (CURRENT) DRUG THERAPY 05/08/2019 JONATHAN BOBAN N Ot C43.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, I 05/08/2019 JONATHAN BOBAN N Ot C77.3 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 05/08/2019 JONATHAN, BOBAN N Ot 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 05/08/2019 JONATHAN BOBAN N Ot F41.9 ANXIETY DISORDER, UNSPECIFIED 05/08/2019 JONATHAN, BOBAN N Ot Z51.11 ENCOUNTER FOR ANTINEOPLASTIC CHEMOTHERAP 05/08/2019 JONATHAN, BOBAN N Ot Z79.899 OTHER CORRECTION (CURRENT) DRUG THERAPY 05/24/2019 PRICILLA CURRAN TACK PULLER MACHINE Ot C43.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, I 05/24/2019 PRICILLA CURRAN TACK PULLER MACHINE Ot 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 05/24/2019 PRICILLA CURRAN TACK PULLER MACHINE Ot 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, 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 05/24/2019 PRICILLA CURRAN TACK PULLER MACHINE Ot Z90.49 ACQUIRED ABSENCE OF OTHER SPECIFIED PART 05/27/2019 JONATHANSHANI EDWARDAN N Ot C43.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, I 05/27/2019 JONATHAN BOBAN N Ot C77.3 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 05/27/2019 JONATHAN BOBAN N Ot 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 05/27/2019 JONATHAN BOBAN N Ot F41.9 ANXIETY DISORDER, UNSPECIFIED 05/27/2019 JONATHAN BOBAN N Ot Z51.11 ENCOUNTER FOR ANTINEOPLASTIC CHEMOTHERAP 05/27/2019 JONATHAN BOBAN N Ot Z79.899 OTHER CHIEF GUARD (CURRENT) DRUG THERAPY 06/10/2019 JONATHAN BOBAN N Ot C43.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, I 06/10/2019 JONATHAN BOBAN N Ot C77.3 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 06/10/2019 JONATHAN BOBAN N Ot 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 06/10/2019 JONATHAN, BOBAN N Ot F41.9 ANXIETY DISORDER, UNSPECIFIED 06/10/2019 JONATHAN, BOBAN N Ot Z51.11 ENCOUNTER FOR ANTINEOPLASTIC CHEMOTHERAP 06/10/2019 JONATHAN BOBAN N Ot Z79.899 OTHER CHIEF GUARD (CURRENT) DRUG THERAPY 06/19/2019 JONATHAN, MECHE N Ot C43.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, I 06/19/2019 JONATHAN BOBAN N Ot C77.3 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 06/19/2019 JONATHAN BOBAN N Ot 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 06/19/2019 JONATHAN BOBAN N Ot F41.9 ANXIETY DISORDER, UNSPECIFIED 06/19/2019 JONATHAN, BOBAN N Ot Z51.11 ENCOUNTER FOR ANTINEOPLASTIC CHEMOTHERAP 06/19/2019 JONATHAN, BOBAN N Ot Z79.899 OTHER CORRECTION (CURRENT) DRUG THERAPY 07/15/2019 JONATHAN BOBAN N Ot C43.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, I 07/15/2019 JONATHAN, MECHE N Ot C77.3 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 07/15/2019 JONATHANMECHE N Ot 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 07/15/2019 JONATHAN MECHE N Ot F41.9 ANXIETY DISORDER, UNSPECIFIED 07/15/2019 JONATHAN MECHE N Ot Z51.11 ENCOUNTER FOR ANTINEOPLASTIC CHEMOTHERAP 07/15/2019 JONATHAN MECHE N Ot Z79.899 OTHER CHIEF GUARD (CURRENT) DRUG THERAPY 07/16/2019 JONATHAN SHANIMC N Ot C43.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, I 07/16/2019 JONATHAN, MECHE N Ot C77.3 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 07/16/2019 JONATHAN, MECHE N Ot 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 07/16/2019 JONATHANMECHE N Ot F41.9 ANXIETY DISORDER, UNSPECIFIED 07/16/2019 JONATHANMECHE N Ot Z51.11 ENCOUNTER FOR ANTINEOPLASTIC CHEMOTHERAP 07/16/2019 JONATHAN, SHANIAN N Ot Z79.899 OTHER CORRECTION (CURRENT) DRUG THERAPY 08/21/2019 JONATHAN SHANIMC N Ot C43.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 OF LEFT UPPER LIMB, I 08/21/2019 JONATHAN, MECHE N Ot C77.3 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 08/21/2019 JONATHAN MECHE N Ot 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 08/21/2019 JONATHANMECHE N Ot F41.9 ANXIETY DISORDER, UNSPECIFIED 08/21/2019 JONATHANSHANIAN N Ot Z51.11 ENCOUNTER FOR ANTINEOPLASTIC CHEMOTHERAP 08/21/2019 JONATHANSHANIAN N Ot Z79.899 OTHER CHIEF GUARD (CURRENT) DRUG THERAPY 09/09/2019 JONATHAN MECHE N Ot C43.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, I 09/09/2019 JONATHAN, BOBAN N Ot C77.3 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 09/09/2019 JONATHAN, SHANIAN N Ot 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 09/09/2019 JONATHANMECHE N Ot F41.9 ANXIETY DISORDER, UNSPECIFIED 09/09/2019 MECHE CASTILLO N Ot Z51.11 ENCOUNTER FOR ANTINEOPLASTIC CHEMOTHERAP 09/09/2019 MECHE CASTILLO N Ot Z79.899 OTHER CHIEF GUARD (CURRENT) DRUG THERAPY 09/18/2019 JONATHAN SHANIMC N Ot C43.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, I 09/18/2019 JONATHAN, MECHE N Ot C77.3 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 09/18/2019 JONATHANMECHE N Ot 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 09/18/2019 JONATHANMECHE N Ot F41.9 ANXIETY DISORDER, UNSPECIFIED 09/18/2019 JONATHAN MECHE N Ot Z51.11 ENCOUNTER FOR ANTINEOPLASTIC CHEMOTHERAP 09/18/2019 JONATHAN SHANIMC N Ot Z79.899 OTHER CHIEF GUARD (CURRENT) DRUG THERAPY 09/18/2019 JONATHAN MECHE N Ot C43.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, I 09/18/2019 JONATHANMECHE N Ot 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 09/18/2019 JONATHAN SHANIMC N Ot R93.89 ABNORMAL FINDINGS ON DX IMAGING OF OTH B 10/01/2019 PRICILLA CURRAN TACK PULLER MACHINE Ot C43.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, I 10/01/2019 PRICILLA CURRAN TACK PULLER MACHINE Ot 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 10/01/2019 PRICILLA CURRAN TACK PULLER MACHINE Ot Z01.89 ENCOUNTER FOR OTHER SPECIFIED SPECIAL EX 10/08/2019 JONATHAN MECHE N Ot C43.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, I 10/08/2019 JONATHANMECHE N Ot 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 10/28/2019 W Z90.49 S/P small bowel resection Orender, Maribel S. 10/28/2019 W C79.9 [place] static melanoma Orender, Maribel S. 10/28/2019 W Z90.49 S/P small bowel resection Orender, Maribel S. 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 OF LEFT UPPER LIMB, I 11/14/2019 MECHE CASTILLO Ot C77.3 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 11/14/2019 MECHE CASTILLO Ot 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 11/14/2019 MECHE CASTILLO Ot 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 11/14/2019 MECHE CASTILLO Ot F41.9 ANXIETY DISORDER, UNSPECIFIED 11/14/2019 MECHE CASTILLO Ot Z79.899 OTHER CORRECTION (CURRENT) DRUG THERAPY 11/14/2019 MECHE CASTILLO Ot Z90.49 ACQUIRED ABSENCE OF OTHER SPECIFIED PART 11/14/2019 MECHE CASTILLO Ot Z98.890 OTHER SPECIFIED POSTPROCEDURAL STATES 12/05/2019 MECHE CASTILLO Ot C43.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, I 12/05/2019 MECHE CASTILLO Ot C77.3 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 12/05/2019 MECHE CASTILLO Ot 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 12/05/2019 MECHE CASTILLO Ot 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 12/05/2019 MECHE CASTILLO Ot F41.9 ANXIETY DISORDER, UNSPECIFIED 12/05/2019 MECHE CASTILLO Ot Z79.899 OTHER CHIEF GUARD (CURRENT) DRUG THERAPY 12/05/2019 MECHE CASTILLO Ot Z90.49 ACQUIRED ABSENCE OF OTHER SPECIFIED PART 12/05/2019 MECHE CASTILLO Ot Z98.890 OTHER SPECIFIED POSTPROCEDURAL STATES Procedures Code Description Performed By Per formed On [id number] EX CISION OF ILEUM, OPEN APPROACH 01/22/2018 [id number] RO BOTIC ASSISTED PROCEDURE OF TRUNK DONG 01/22/2018 [id number] EX CISION OF SMALL INTESTINE, PERC ENDO A 09/07/2018 [id number] RE SECTION OF GALLBLADDER, PERCUTANEOUS E 09/07/2018 [id number] EX CISION OF R UP LEG SUBCU/FASCIA, PERC 09/07/2018 [id number] RO BOTIC ASSISTED PROCEDURE OF TRUNK, PER 09/07/2018 Results Test Result Range Methicillin resistant Staphylococcus aur eus (MRSA) screening culture - 08/18/16 13:30 Methicillin resistant Staphylococcus aureus (MRSA) scr eening culture NEG NRG Methicillin resistant Staphylococcus aur eus (MRSA) screening culture - 05/05/17 09:00 Methicillin resistant Staphylococcus aureus (MRSA) scr eening culture NEG NRG Complete blood count (CBC) with automate d white blood cell (WBC) differential - 08/09/17 13:50 Blood leukocytes automated count (number/volume) 6.8 10*3/uL 4.3-11.0 Blood erythrocytes automated count (number/volume) 4.16 10*6/uL 4.35-5.85 Venous blood hemoglobin measurement (mass/volume) 13.0 g/dL 13.3-17.7 Blood hematocrit (volume fraction) 39 % 40-54 Automated erythrocyte mean corpuscular volume 93 [ foz_us] 80-99 Automated erythrocyte mean corpuscular h emoglobin (mass per erythrocyte) 31 pg 25-34 Automated erythrocyte mean corpuscular h emoglobin concentration measurement (mass/volume) 34 g/dL 32-36 Automated erythrocyte distribution width ratio 12. 8 % 10.0- 14.5 Automated blood platelet count [...] 10*3 1.0-4.0 Blood monocytes automated count (number/volume) 0. 6 10*3 0.0-1.0 Automated eosinophil count 0.2 10*3/uL 0 .0-0.3 Automated blood basophil count (count/volume) 0.0 10*3/uL 0.0-0.1 Comprehensive metabolic panel - 08/09/17 13:50 Serum or plasma sodium measurement (moles/volume) 142 mmol/L 135-145 Serum or plasma potassium measurement (moles/volume) 4.2 mmol/L 3.6-5.0 Serum or plasma chloride measurement (moles/volume) 108 mmol/L 98-107 Carbon dioxide 25 mmol/L 21-32 Serum or plasma anion gap determination (moles/volume) 9 mmol/L 5-14 Serum or plasma urea nitrogen measurement (mass/volume ) 21 mg/dL 7-18 Serum or plasma creatinine measurement (mass/volume) 0.81 mg/dL 0.60-1.30 Serum or plasma urea nitrogen/creatinine mass ratio 26 NRG Serum or plasma creatinine measurement w ith calculation of estimated glomerular filtration rate > NRG Serum or plasma glucose measurement (mass/volume) 117 mg/dL 70-105 Serum or plasma calcium measurement (mass/volume) 8.9 mg/dL 8.5-10.1 Serum or plasma total bilirubin measurement (mass/volu me) 0.6 mg/dL 0.1-1.0 Serum or plasma alkaline phosphatase vida surement (enzymatic activity/volume) 60 U/L 40-136 Serum or plasma aspartate aminotransfera se measurement (enzymatic activity/volume) 20 U/L 5-34 Serum or plasma alanine aminotransferase measurement (enzymatic activity/volume) 16 U/L 0-55 Serum or plasma protein measurement (mass/volume) 7.0 g/dL 6.4-8.2 Serum or plasma albumin measurement (mass/volume) 3.7 g/dL 3.2-4.5 Lactate dehydrogenase 1 [enzymatic activ ity/volume] in serum or plasma - 08/09/17 13:50 Lactate dehydrogenase 1 [enzymatic activ ity/volume] in serum or plasma 159 U/L 125-220 THYROID STIMULATING HORMONE - 08/09/17 1 3:50 THYROID STIMULATING HORMONE 5.00 u[iU]/mL 0.35-4.94 Complete blood count (CBC) with automate d white blood cell (WBC) differential - 01/22/18 06:30 Blood leukocytes automated count (number/volume) 5.1 10*3/uL 4.3-11.0 Blood erythrocytes automated count (number/volume) 4.08 10*6/uL 4.35-5.85 Venous blood hemoglobin measurement (mass/volume) 10.5 g/dL 13.3-17.7 Blood hematocrit (volume fraction) 32 % 40-54 Automated erythrocyte mean corpuscular volume 79 [ foz_us] 80-99 Automated erythrocyte mean corpuscular h emoglobin (mass per erythrocyte) 26 pg 25-34 Automated erythrocyte mean corpuscular h emoglobin concentration measurement (mass/volume) 32 g/dL 32-36 Automated erythrocyte distribution width ratio 14. 3 % 10.0- 14.5 Automated blood platelet count [...] 10*3 1.0-4.0 Blood monocytes automated count (number/volume) 0. 6 10*3 0.0-1.0 Automated eosinophil count 0.1 10*3/uL 0 .0-0.3 Automated blood basophil count (count/volume) 0.0 10*3/uL 0.0-0.1 Methicillin resistant Staphylococcus aur eus (MRSA) screening culture - 01/22/18 06:30 Methicillin resistant Staphylococcus aureus (MRSA) scr eening culture NEG NRG Complete blood count (CBC) with automate d white blood cell (WBC) differential - 08/15/18 14:55 Blood leukocytes automated count (number/volume) 6.6 10*3/uL 4.3-11.0 Blood erythrocytes automated count (number/volume) 4.13 10*6/uL 4.35-5.85 Venous blood hemoglobin measurement (mass/volume) 12.7 g/dL 13.3-17.7 Blood hematocrit (volume fraction) 38 % 40-54 Automated erythrocyte mean corpuscular volume 92 [ foz_us] 80-99 Automated erythrocyte mean corpuscular h emoglobin (mass per erythrocyte) 31 pg 25-34 Automated erythrocyte mean corpuscular h emoglobin concentration measurement (mass/volume) 33 g/dL 32-36 Automated erythrocyte distribution width ratio 14. 3 % 10.0- 14.5 Automated blood platelet count [...] 10*3 1.0-4.0 Blood monocytes automated count (number/volume) 0. 7 10*3 0.0-1.0 Automated eosinophil count 0.1 10*3/uL 0 .0-0.3 Automated blood basophil count (count/volume) 0.0 10*3/uL 0.0-0.1 Comprehensive metabolic panel - 01/02/19 14:55 Serum or plasma sodium measurement (moles/volume) 141 mmol/L 135-145 Serum or plasma potassium measurement (moles/volume) 4.1 mmol/L 3.6-5.0 Serum or plasma chloride measurement (moles/volume) 105 mmol/L 98-107 Carbon dioxide 24 mmol/L 21-32 Serum or plasma anion gap determination (moles/volume) 12 mmol/L 5-14 Serum or plasma urea nitrogen measurement (mass/volume ) 19 mg/dL 7-18 Serum or plasma creatinine measurement (mass/volume) 0.84 mg/dL 0.60-1.30 Serum or plasma urea nitrogen/creatinine mass ratio 23 NRG Serum or plasma creatinine measurement w ith calculation of estimated glomerular filtration rate > NRG Serum or plasma glucose measurement (mass/volume) 93 mg/dL 70-105 Serum or plasma calcium measurement (mass/volume) 9.4 mg/dL 8.5-10.1 Serum or plasma total bilirubin measurement (mass/volu me) 0.6 mg/dL 0.1-1.0 Serum or plasma alkaline phosphatase vida surement (enzymatic activity/volume) 62 U/L 40-136 Serum or plasma aspartate aminotransfera se measurement (enzymatic activity/volume) 20 U/L 5-34 Serum or plasma alanine aminotransferase measurement (enzymatic activity/volume) 15 U/L 0-55 Serum or plasma protein measurement (mass/volume) 7.0 g/dL 6.4-8.2 Serum or plasma albumin measurement (mass/volume) 3.9 g/dL 3.2-4.5 CALCIUM CORRECTED 9.5 mg/dL 8.5-10.1 Lactate dehydrogenase 1 [enzymatic activ ity/volume] in serum or plasma - 08/15/18 14:55 Lactate dehydrogenase 1 [enzymatic activ ity/volume] in serum or plasma 184 U/L 125-220 Methicillin resistant Staphylococcus aur eus (MRSA) screening culture - 09/04/18 09:22 Methicillin resistant Staphylococcus aureus (MRSA) scr eening culture NEG NRG Complete urinalysis with reflex to cultu re - 01/01/19 08:35 Urine color determination YELLOW NRG Urine clarity determination CLEAR NR G Urine pH measurement by test strip 7 5-9 Specific gravity of urine by test strip 1.005 1.016-1.022 Urine protein assay by test strip, semi-quantitative NEGATIVE NEGATIVE Urine glucose detection by automated test strip NE GATIVE NEGATIVE Erythrocytes detection in urine sediment by light micr oscopy NEGATIVE NEGATIVE Urine ketones detection by automated test strip 1+ NEGATIVE Urine nitrite detection by test strip NEGATIVE NEGATIVE Urine total bilirubin detection by test strip NEGA TIVE NEGATIVE Urine urobilinogen measurement by automated test strip (mass/volume) NORMAL NORMAL Urine leukocyte esterase detection by dipstick NEG ATIVE NEGATIVE Automated urine sediment erythrocyte cou nt by microscopy (number/high power field) RARE NRG Automated urine sediment leukocyte count by microscopy (number/high power field) NONE NRG Bacteria detection in urine sediment by light microsco py NEGATIVE NRG Squamous epithelial cells detection in u rine sediment by light microscopy RARE NRG Crystals detection in urine sediment by light microsco py NONE NRG Casts detection in urine sediment by light microscopy NONE NRG Mucus detection in urine sediment by light microscopy NEGATIVE NRG Complete urinalysis with reflex to culture NO NRG Complete blood count (CBC) with automate d white blood cell (WBC) differential - 01/01/19 08:39 Blood leukocytes automated count (number/volume) 5.9 10*3/uL 4.3-11.0 Blood erythrocytes automated count (number/volume) 4.60 10*6/uL 4.35-5.85 Venous blood hemoglobin measurement (mass/volume) 14.8 g/dL 13.3-17.7 Blood hematocrit (volume fraction) 42 % 40-54 Automated erythrocyte mean corpuscular volume 92 [ foz_us] 80-99 Automated erythrocyte mean corpuscular h emoglobin (mass per erythrocyte) 32 pg 25-34 Automated erythrocyte mean corpuscular h emoglobin concentration measurement (mass/volume) 35 g/dL 32-36 Automated erythrocyte distribution width ratio 14. 1 % 10.0- 14.5 Automated blood platelet count (count/volume) 241 10*3/uL 130-400 Automated blood platelet mean volume measurement 9.7 [foz_us] 7.4-10.4 Automated blood neutrophils/100 leukocytes 63 % 42-75 Automated blood lymphocytes/100 leukocytes 18 % 12-44 Blood monocytes/100 leukocytes 11 % 0-12 Automated blood eosinophils/100 leukocytes 8 % 0-10 Automated blood basophils/100 leukocytes 1 % 0-10 Blood neutrophils automated count (number/volume) 3.7 10*3 1.8-7.8 Blood lymphocytes automated count (number/volume) 1.1 10*3 1.0-4.0 Blood monocytes automated count (number/volume) 0. 7 10*3 0.0-1.0 Automated eosinophil count 0.5 10*3/uL 0 .0-0.3 Automated blood basophil count (count/volume) 0.1 10*3/uL 0.0-0.1 PT panel in platelet poor plasma by coag ulation assay - 01/01/19 08:39 Prothrombin time (PT) in platelet poor plasma by coagu lation assay 13.0 s 12.2-14.7 INR in platelet poor plasma or blood by coagulation as say 0.9 0.8-1.4 Activated partial thromboplastin time (a PTT) in platelet poor plasma bycoagulation assay - 01/01/19 08:39 Activated partial thromboplastin time (a PTT) in platelet poor plasma bycoagulation assay 27 s 24-35 Comprehensive metabolic panel - 01/01/19 08:39 Serum or plasma sodium measurement (moles/volume) 142 mmol/L 135-145 Serum or plasma potassium measurement (moles/volume) 3.7 mmol/L 3.6-5.0 Serum or plasma chloride measurement (moles/volume) 109 mmol/L 98-107 Carbon dioxide 19 mmol/L 21-32 Serum or plasma anion gap determination (moles/volume) 14 mmol/L 5-14 Serum or plasma urea nitrogen measurement (mass/volume ) 16 mg/dL 7-18 Serum or plasma creatinine measurement (mass/volume) 0.97 mg/dL 0.60-1.30 Serum or plasma urea nitrogen/creatinine mass ratio 16 NRG Serum or plasma creatinine measurement w ith calculation of estimated glomerular filtration rate > NRG Serum or plasma glucose measurement (mass/volume) 98 mg/dL 70-105 Serum or plasma calcium measurement (mass/volume) 10.1 mg/dL 8.5-10.1 Serum or plasma total bilirubin measurement (mass/volu me) 1.2 mg/dL 0.1-1.0 Serum or plasma alkaline phosphatase vida surement (enzymatic activity/volume) 58 U/L 40-136 Serum or plasma aspartate aminotransfera se measurement (enzymatic activity/volume) 20 U/L 5-34 Serum or plasma alanine aminotransferase measurement (enzymatic activity/volume) 18 U/L 0-55 Serum or plasma protein measurement (mass/volume) 7.3 g/dL 6.4-8.2 Serum or plasma albumin measurement (mass/volume) 4.5 g/dL 3.2-4.5 CALCIUM CORRECTED 9.7 mg/dL 8.5-10.1 Magnesium - 01/01/19 08:39 Magnesium 2.0 mg/dL 1.8-2.4 Serum or plasma troponin i.cardiac measu rement (mass/volume) - 01/01/19 08:39 Serum or plasma troponin i.cardiac measurement (mass/v olume) < ng/mL <0.028 Myoglobin, serum - 01/01/19 08:39 Myoglobin, serum 92.5 ng/mL 10.0-92.0 Serum or plasma lithium measurement (mol es/volume) - 01/01/19 08:39 BNP level 72.3 pg/mL <100.0 Serum or plasma troponin i.cardiac measu rement (mass/volume) - 01/01/19 10:47 Serum or plasma troponin i.cardiac measurement (mass/v olume) < ng/mL <0.028 Complete blood count (CBC) with automate d white blood cell (WBC) differential - 05/27/19 14:50 Blood leukocytes automated count (number/volume) 7.0 10*3/uL 4.3-11.0 Blood erythrocytes automated count (number/volume) 4.16 10*6/uL 4.35-5.85 Venous blood hemoglobin measurement (mass/volume) 13.3 g/dL 13.3-17.7 Blood hematocrit (volume fraction) 40 % 40-54 Automated erythrocyte mean corpuscular volume 95 [ foz_us] 80-99 Automated erythrocyte mean corpuscular h emoglobin (mass per erythrocyte) 32 pg 25-34 Automated erythrocyte mean corpuscular h emoglobin concentration measurement (mass/volume) 34 g/dL 32-36 Automated erythrocyte distribution width ratio 12. 9 % 10.0- 14.5 Automated blood platelet count (count/volume) 253 10*3/uL 130-400 Automated blood platelet mean volume measurement 9.5 [foz_us] 7.4-10.4 Automated blood neutrophils/100 leukocytes 70 % 42-75 Automated blood lymphocytes/100 leukocytes 16 % 12-44 Blood monocytes/100 leukocytes 12 % 0-12 Automated blood eosinophils/100 leukocytes 2 % 0-10 Automated blood basophils/100 leukocytes 1 % 0-10 Blood neutrophils automated count (number/volume) 4.9 10*3 1.8-7.8 Blood lymphocytes automated count (number/volume) 1.1 10*3 1.0-4.0 Blood monocytes automated count (number/volume) 0. 8 10*3 0.0-1.0 Automated eosinophil count 0.2 10*3/uL 0 .0-0.3 Automated blood basophil count (count/volume) 0.0 10*3/uL 0.0-0.1 Comprehensive metabolic panel - 05/27/19 14:50 Serum or plasma sodium measurement (moles/volume) 140 mmol/L 135-145 Serum or plasma potassium measurement (moles/volume) 4.7 mmol/L 3.6-5.0 Serum or plasma chloride measurement (moles/volume) 104 mmol/L 98-107 Carbon dioxide 26 mmol/L 21-32 Serum or plasma anion gap determination (moles/volume) 10 mmol/L 5-14 Serum or plasma urea nitrogen measurement (mass/volume ) 15 mg/dL 7-18 Serum or plasma creatinine measurement (mass/volume) 0.86 mg/dL 0.60-1.30 Serum or plasma urea nitrogen/creatinine mass ratio 17 NRG Serum or plasma creatinine measurement w ith calculation of estimated glomerular filtration rate > NRG Serum or plasma glucose measurement (mass/volume) 99 mg/dL 70-105 Serum or plasma calcium measurement (mass/volume) 9.2 mg/dL 8.5-10.1 Serum or plasma total bilirubin measurement (mass/volu me) 0.8 mg/dL 0.1-1.0 Serum or plasma alkaline phosphatase vida surement (enzymatic activity/volume) 60 U/L 40-136 Serum or plasma aspartate aminotransfera se measurement (enzymatic activity/volume) 25 U/L 5-34 Serum or plasma alanine aminotransferase measurement (enzymatic activity/volume) 16 U/L 0-55 Serum or plasma protein measurement (mass/volume) 6.9 g/dL 6.4-8.2 Serum or plasma albumin measurement (mass/volume) 3.8 g/dL 3.2-4.5 CALCIUM CORRECTED 9.4 mg/dL 8.5-10.1 Serum ragweed IgE antibody assay - 05/27 14:50 Serum ragweed IgE antibody assay 198 U/L 125-220 THYROID STIMULATING HORMONE - 05/27/19 1 4:50 THYROID STIMULATING HORMONE 4.10 u[iU]/mL 0.35-4.94 Encounters ACCT No. Visit Date/Time Discharge Status Pt. Type Provider Facility Loc./Unit Complaint 09/201603/05/2018 09:17:27 03/05/2018 23:59 :59 CLS Outpatient [id number] 10/28/2019 15:24:00 Document Registration [id number] 09/18/2019 09:25:00 00:01:00 DIS Outpatient MECHE CASTILLO [facility] ONC [id number] 09/17/2019 10:17:00 23:59:59 CLS Outpatient MECHE CASTILLO [facility] RAD ABN CT SCAN,MALIGNANT M ELANOMA OF LEFT UPPER LIMB [id number] 09/05/2019 11:41:00 23:59:59 CLS Outpatient PRICILLA CURRANP [facility] CARD MALIGNANT MELAN TOYA OF LEFT UPPER LIMB [id number] 07/09/2019 14:42:00 00:01:00 DIS Outpatient MECHE CASTILLO [facility] ONC [id number] 04/30/2019 10:52:00 23:59:59 CLS Outpatient PRICILLA CURRAN [employer] [facility] CARD MALGINANT MELAN TOYA OF LEFT UPPER LIMB [id number] 03/26/2019 14:15:00 00:01:00 DIS Outpatient MECHE CASTILLO [facility] ONC [id number] 01/18/2019 11:48:00 23:59:59 CLS Outpatient MECHE CASTILLO [facility] CARD MALIGNANT MELANOMA OF L EFT UPPER LIMB [id number] 01/02/2019 14:28:00 23:59:59 CLS Preadmit MAXINE ERVIN FACC, DANNY BAILEY CCDS [facility] CARD PALPITATIONS, D IZZINESS [id number] 01/02/2019 14:26:00 23:59:59 CLS Preadmit MAXINE ERVIN FACC, DANNY BAILEY CCDS [facility] CARD PALPITATIONS, D IZZINESS [id number] 01/01/2019 15:39:00 23:59:59 CLS Preadmit MECHE CASTILLO [facility] RAD MALGINANT MELANOMA OF L EFT UPPER LIMB [id number] 01/01/2019 08:32:00 11:44:00 DIS Emergency SUZANNE ERVIN, ELAN Foss [facility] ER WEAKNESS [id number] 12/11/2018 14:34:00 00:01:00 DIS Outpatient MECHE CASTILLO [facility] ONC [id number] 09/07/2018 05:58:00 15:20:00 DIS Inpatient PATRICK ERVIN, JAMIE James [facility] 4TH COLON LESION, GALLSTONE S, LIPOMA [id number] 09/04/2018 14:49:00 00:01:00 DIS Outpatient MECHE CASTILLO [facility] ONC [id number] 09/04/2018 08:46:00 09:25:00 DIS Outpatient JAMIE NGUYEN MD [facility] PREOP ROBOTIC SM. BOWEL RESE CTROB. MEENA JAXON., [id number] 08/24/2018 08:30:00 23:59:59 CLS Outpatient JAMIE NGUYEN MD [facility] RAD RUQ PAIN [id number] 08/21/2018 10:51:00 23:59:59 CLS Outpatient PRICILLA CURRAN [employer] [facility] RAD SMALL BOWEL MAS S [id number] 06/28/2018 11:45:00 23:59:59 CLS Outpatient MECHE CASTILLO [facility] RAD MALIGNANT MELANOMA OF L EFT UPPER LIMB,INCL SHOULDR [id number] 05/22/2018 16:31:00 018 23:59:59 CLS Preadmit MECHE CASTILLO [facility] RAD MALIGNANT MELANOMA OF L EFT UPPER LIMB,INC SHLDR [id number] 05/22/2018 14:02:00 018 23:59:59 CLS Outpatient RUBY ANGULO MD [facility] ONC [id number] 05/01/2018 14:28:00 018 00:01:00 DIS Outpatient RUBY ANGULO MD [facility] ONC [id number] 04/10/2018 14:15:00 018 14:26:00 DIS Outpatient MECHE CASTILLO [facility] ONC [id number] 02/27/2018 14:43:00 018 10:20:00 DIS Outpatient MECHE CASTILLO [facility] ONC [id number] 02/08/2018 09:11:00 018 00:01:00 DIS Outpatient MECHE CASTILLO [facility] ONC [id number] 01/22/2018 11:28:00 018 17:15:00 DIS Inpatient JAMIE NGUYEN MD [facility] 4TH PELVIC MASS [id number] 01/03/2018 05:42:00 018 14:06:00 DIS Outpatient JAMIE NGUYEN MD [facility] PREOP PELVIC MASS [id number] 12/14/2017 07:08:00 018 12:50:00 DIS Outpatient JAMIE NGUYEN MD [facility] ENDO ABNORMAL CT/ABNORMAL P ET SCAN/ HX OF MALIGNANT DALI [id number] 12/13/2017 08:57:00 018 09:40:00 DIS Outpatient JAMIE NGUYEN MD [facility] PREOP COLONOSCOPY [id number] 12/05/2017 07:59:00 018 23:59:59 CLS Outpatient MECHE CASTILLO V [facility] RAD R93.[address] SCAN [id number] 11/21/2017 10:48:00 018 23:59:59 CLS Outpatient PRICILLA CURRAN [employer] [facility] CARD C43.62 [id number] 11/14/2017 14:21:00 018 00:01:00 DIS Outpatient MECHE CASTILLO [facility] ONC [id number] 08/31/2017 11:15:00 018 23:59:59 CLS Preadmit PRICILLA CURRAN S [employer] [facility] RAD C43.62 MALIGNANT MELANO MA OF LT UPPER LIMB [id number] 08/31/2017 10:57:00 018 23:59:59 CLS Outpatient PRICILLA CURRAN S [employer] [facility] CARD C43.62 MALIGNAN T MELANOMA OF LT UPPER LIMB [id number] 08/09/2017 13:43:00 018 00:01:00 DIS Outpatient MECHE CASTILLO [facility] ONC [id number] 06/08/2017 10:50:00 017 23:59:59 CLS Outpatient MECHE CASTILLO [facility] CARD MALIGNANT MELANOMA OF L T UPPER LIMB [id number] 05/02/2017 14:16:00 017 13:24:00 DIS Outpatient MECHE CASTILLO [facility] ONC [id number] 05/05/2017 08:41:00 017 12:30:00 DIS Outpatient JAMIE NGUYEN MD [facility] SKIN LESIONS/HX MELANO MA [id number] 05/02/2017 10:09:00 017 10:43:00 DIS Outpatient JAMIE NGUYEN MD [facility] PREOP EXC. 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 [id number] 01/10/2017 11:15:00 017 11:05:00 DIS Outpatient JENIFFER PEREZ MD [facility] ONC [id number] 01/03/2017 14:26:00 017 00:01:00 DIS Outpatient JENIFFER PEREZ MD [facility] ONC [id number] 10/04/2016 14:08:00 017 00:01:00 DIS Outpatient JENIFFER PEREZ MD [facility] ONC [id number] 08/24/2016 08:28:00 017 12:50:00 DIS Outpatient JAMIE NGUYEN MD [facility] SDC METASTATIC MELANOMA LE FT AXILLA [id number] 08/18/2016 12:33:00 017 14:08:00 DIS Outpatient JAMIE NGUYEN MD [facility] PREOP METASTATIC MELANOMA LE FT AXILLA [id number] 08/02/2016 14:02:00 016 23:59:59 CLS Outpatient JENIFFER PEREZ MD [facility] RAD C43.62 [id number] 07/19/2016 08:15:00 016 23:59:59 CLS Outpatient JENIFFER PEREZ MD [facility] RAD METASTATIC MELANOMA [id number] 03/14/2016 14:47:00 016 00:01:00 DIS Outpatient JENIFFER PEREZ MD [facility] ONC [id number] 01/26/2016 14:26:00 016 00:01:00 DIS Outpatient JENIFFER PEREZ MD [facility] ONC [id number] 02/02/2016 13:13:00 016 23:59:59 CLS Outpatient CURRANPRICILLA FieldP [facility] ONC [id number] 11/25/2015 06:22:00 12:40:00 DIS Outpatient PATRICK ERVIN, JAMIE James [facility] RAD MELANOMA [id number] 11/23/2015 10:43:00 14:11:00 DIS Outpatient PATRICK ERVIN, JAMIE James [facility] PREOP MELONMA [id number] 11/10/2015 10:13:00 23:59:59 CLS Outpatient PATRICK ERVIN, JAMIE James [facility] RAD MELANOMA, LEFT ELBOW S KIN LESION [id number] 10/28/2015 09:56:00 016 14:20:00 DIS Outpatient JAMIE NGUYEN MD [facility] SDC LESION LATERAL ASPECT LEFT ELBOW [id number] 10/27/2015 12:50:00 14:50:00 DIS Outpatient PATRICK ERVIN, JAMIE James [facility] PREOP LESION OVER LATERAL PECT LEFT ELBOW [id number] 01/07/2020 16:50:[address] Outpatient MECHE CASTILLO [facility] ONC [id number] 07:20:00 Document Registration
== END 2020-01-10 08:15 | disposition home or self-care (01) ==
LOC: EDUNIT# 06:03 → ER 06:06
DX: L03.032 Cellulitis of left toe (principal); Z88.8 Allergy status to other drugs, medicaments and biological substances; Z85.820 Personal history of malignant melanoma of skin; Z82.49 Family history of ischemic heart disease and other diseases of the circulatory system
CPT/HCPCS: 73660; 90471; 90715

== ENCOUNTER 2020-01-28 13:30 | Outpatient (RCR) | payer MEDICARE, OTHER ==
[2019-11-11 14:43] LABS: BASOPHILS % (AUTO) 1 % (0-10); EOSINOPHILS # (AUTO) 0.2 10^3/uL (0.0-0.3); EOSINOPHILS % (AUTO) 4 % (0-10); HEMATOCRIT 39 % (40-54); HEMOGLOBIN 12.4 G/DL (13.3-17.7); LYMPHOCYTES # (AUTO) 1.1 X 10^3 (1.0-4.0); LYMPHOCYTES % (AUTO) 24 % (12-44); MEAN CORPUSCULAR HEMOGLOBIN 29 PG (25-34); MEAN CORPUSCULAR HGB CONC 32 G/DL (32-36); MEAN CORPUSCULAR VOLUME 90 FL (80-99); MEAN PLATELET VOLUME 9.3 FL (7.4-10.4); MONOCYTES # (AUTO) 0.5 X 10^3 (0.0-1.0); MONOCYTES % (AUTO) 11 % (0-12); NEUTROPHILS # (AUTO) 2.9 X 10^3 (1.8-7.8); NEUTROPHILS % (AUTO) 61 % (42-75); PLATELET COUNT 261 10^3/uL (130-400); WHITE BLOOD COUNT 4.8 10^3/uL (4.3-11.0)
[2019-11-11 15:06] LABS: ALANINE AMINOTRANSFERASE 11 U/L (0-55); ALBUMIN 4.1 GM/DL (3.2-4.5); ALKALINE PHOSPHATASE 49 U/L (40-136); BILIRUBIN,TOTAL 0.6 MG/DL (0.1-1.0); BUN/CREATININE RATIO 18; CALCIUM 9.1 MG/DL (8.5-10.1); CARBON DIOXIDE 28 MMOL/L (21-32); CHLORIDE 103 MMOL/L (98-107); GFR ESTIMATED > 60; GLUCOSE 91 MG/DL (70-105); POTASSIUM 4.8 MMOL/L (3.6-5.0); SODIUM 139 MMOL/L (135-145); TOTAL PROTEIN 7.2 GM/DL (6.4-8.2)
[2019-11-26 15:10] LABS: BASOPHILS % (AUTO) 1 % (0-10); EOSINOPHILS # (AUTO) 0.3 10^3/uL (0.0-0.3); EOSINOPHILS % (AUTO) 4 % (0-10); HEMATOCRIT 40 % (40-54); HEMOGLOBIN 13.1 G/DL (13.3-17.7); LYMPHOCYTES % (AUTO) 17 % (12-44); MEAN CORPUSCULAR HEMOGLOBIN 30 PG (25-34); MEAN CORPUSCULAR HGB CONC 33 G/DL (32-36); MEAN CORPUSCULAR VOLUME 91 FL (80-99); MEAN PLATELET VOLUME 9.4 FL (7.4-10.4); MONOCYTES # (AUTO) 0.6 X 10^3 (0.0-1.0); MONOCYTES % (AUTO) 10 % (0-12); NEUTROPHILS # (AUTO) 4.2 X 10^3 (1.8-7.8); NEUTROPHILS % (AUTO) 69 % (42-75); PLATELET COUNT 231 10^3/uL (130-400); RED CELL DISTRIBUTION WIDTH 15.7 % (10.0-14.5); WHITE BLOOD COUNT 6.1 10^3/uL (4.3-11.0)
[2019-11-26 15:29] LABS: ALANINE AMINOTRANSFERASE 12 U/L (0-55); ALBUMIN 4.3 GM/DL (3.2-4.5); ALKALINE PHOSPHATASE 53 U/L (40-136); BILIRUBIN,TOTAL 0.9 MG/DL (0.1-1.0); BUN/CREATININE RATIO 26; CALCIUM 9.1 MG/DL (8.5-10.1); CARBON DIOXIDE 27 MMOL/L (21-32); CHLORIDE 106 MMOL/L (98-107); CREATININE SERUM 0.84 MG/DL (0.60-1.30); GFR ESTIMATED > 60; GLUCOSE 81 MG/DL (70-105); SODIUM 141 MMOL/L (135-145); TOTAL PROTEIN 7.2 GM/DL (6.4-8.2)
[2019-12-17 14:46] LABS: BASOPHILS # (AUTO) 0.1 10^3/uL (0.0-0.1); BASOPHILS % (AUTO) 1 % (0-10); EOSINOPHILS # (AUTO) 0.3 10^3/uL (0.0-0.3); EOSINOPHILS % (AUTO) 5 % (0-10); HEMATOCRIT 39 % (40-54); LYMPHOCYTES % (AUTO) 19 % (12-44); MEAN CORPUSCULAR HEMOGLOBIN 30 PG (25-34); MEAN CORPUSCULAR HGB CONC 33 G/DL (32-36); MEAN CORPUSCULAR VOLUME 91 FL (80-99); MEAN PLATELET VOLUME 9.3 FL (7.4-10.4); MONOCYTES # (AUTO) 0.5 X 10^3 (0.0-1.0); MONOCYTES % (AUTO) 10 % (0-12); NEUTROPHILS # (AUTO) 3.4 X 10^3 (1.8-7.8); NEUTROPHILS % (AUTO) 65 % (42-75); PLATELET COUNT 220 10^3/uL (130-400); WHITE BLOOD COUNT 5.3 10^3/uL (4.3-11.0)
[2019-12-17 15:06] LABS: ALANINE AMINOTRANSFERASE 12 U/L (0-55); ALBUMIN 4.1 GM/DL (3.2-4.5); ALKALINE PHOSPHATASE 51 U/L (40-136); BILIRUBIN,TOTAL 0.9 MG/DL (0.1-1.0); BUN/CREATININE RATIO 19; CALCIUM 8.9 MG/DL (8.5-10.1); CARBON DIOXIDE 23 MMOL/L (21-32); CHLORIDE 109 MMOL/L (98-107); CREATININE SERUM 0.83 MG/DL (0.60-1.30); GFR ESTIMATED > 60; GLUCOSE 101 MG/DL (70-105); POTASSIUM 4.3 MMOL/L (3.6-5.0); SODIUM 141 MMOL/L (135-145); TOTAL PROTEIN 6.9 GM/DL (6.4-8.2)
[2020-01-07 14:15] LABS: BASOPHILS # (AUTO) 0.1 10^3/uL (0.0-0.1); BASOPHILS % (AUTO) 1 % (0-10); EOSINOPHILS # (AUTO) 0.2 10^3/uL (0.0-0.3); EOSINOPHILS % (AUTO) 4 % (0-10); HEMATOCRIT 39 % (40-54); HEMOGLOBIN 13.3 G/DL (13.3-17.7); LYMPHOCYTES % (AUTO) 18 % (12-44); MEAN CORPUSCULAR HEMOGLOBIN 31 PG (25-34); MEAN CORPUSCULAR HGB CONC 34 G/DL (32-36); MEAN CORPUSCULAR VOLUME 91 FL (80-99); MEAN PLATELET VOLUME 9.3 FL (7.4-10.4); MONOCYTES # (AUTO) 0.5 X 10^3 (0.0-1.0); MONOCYTES % (AUTO) 10 % (0-12); NEUTROPHILS # (AUTO) 3.6 X 10^3 (1.8-7.8); NEUTROPHILS % (AUTO) 67 % (42-75); PLATELET COUNT 221 10^3/uL (130-400); RED CELL DISTRIBUTION WIDTH 16.1 % (10.0-14.5); WHITE BLOOD COUNT 5.3 10^3/uL (4.3-11.0)
[2020-01-07 14:44] LABS: ALANINE AMINOTRANSFERASE 12 U/L (0-55); ALKALINE PHOSPHATASE 53 U/L (40-136); BILIRUBIN,TOTAL 1.2 MG/DL (0.1-1.0); BUN/CREATININE RATIO 22; CALCIUM 8.9 MG/DL (8.5-10.1); CARBON DIOXIDE 25 MMOL/L (21-32); CHLORIDE 109 MMOL/L (98-107); CREATININE SERUM 0.85 MG/DL (0.60-1.30); GFR ESTIMATED > 60; GLUCOSE 101 MG/DL (70-105); POTASSIUM 4.3 MMOL/L (3.6-5.0); SODIUM 142 MMOL/L (135-145); TOTAL PROTEIN 6.7 GM/DL (6.4-8.2)
[~2020-01-28 13:30] MED LIST changes: +DOXY100T2 PO; +NS IV 500 ML (CANCER CENTER) IV SCH; +PEMBROLIZUMAB 200 MG in NS (IVPB) CANCER CENTER 50 ML IV SCH
[2020-01-28 13:59] LABS: BASOPHILS # (AUTO) 0.1 10^3/uL (0.0-0.1); BASOPHILS % (AUTO) 1 % (0-10); EOSINOPHILS # (AUTO) 0.4 10^3/uL (0.0-0.3); EOSINOPHILS % (AUTO) 7 % (0-10); HEMATOCRIT 39 % (40-54); HEMOGLOBIN 13.3 G/DL (13.3-17.7); LYMPHOCYTES # (AUTO) 1.5 X 10^3 (1.0-4.0); LYMPHOCYTES % (AUTO) 25 % (12-44); MEAN CORPUSCULAR HEMOGLOBIN 32 PG (25-34); MEAN CORPUSCULAR HGB CONC 34 G/DL (32-36); MEAN CORPUSCULAR VOLUME 92 FL (80-99); MEAN PLATELET VOLUME 9.5 FL (7.4-10.4); MONOCYTES # (AUTO) 0.7 X 10^3 (0.0-1.0); MONOCYTES % (AUTO) 11 % (0-12); NEUTROPHILS # (AUTO) 3.4 X 10^3 (1.8-7.8); NEUTROPHILS % (AUTO) 56 % (42-75); PLATELET COUNT 213 10^3/uL (130-400); RED CELL DISTRIBUTION WIDTH 15.4 % (10.0-14.5)
[2020-01-28 14:22] LABS: ALANINE AMINOTRANSFERASE 13 U/L (0-55); ALBUMIN 4.1 GM/DL (3.2-4.5); ALKALINE PHOSPHATASE 53 U/L (40-136); BUN/CREATININE RATIO 17; CALCIUM 9.1 MG/DL (8.5-10.1); CARBON DIOXIDE 25 MMOL/L (21-32); CHLORIDE 107 MMOL/L (98-107); CREATININE SERUM 0.82 MG/DL (0.60-1.30); GFR ESTIMATED > 60; GLUCOSE 94 MG/DL (70-105); POTASSIUM 4.3 MMOL/L (3.6-5.0); SODIUM 140 MMOL/L (135-145); TOTAL PROTEIN 6.9 GM/DL (6.4-8.2)
== END 2020-02-09 | disposition still patient (30) ==
LOC: ONC 13:30
PROVIDERS: ATTEND Internal Medicine Hematology & Oncology
DX: C43.62 Malignant melanoma of left upper limb, including shoulder (principal); C77.3 Secondary and unspecified malignant neoplasm of axilla and upper limb lymph nodes; C78.4 Secondary malignant neoplasm of small intestine; F41.9 Anxiety disorder, unspecified; D22.5 Melanocytic nevi of trunk; Z79.899 Other long term (current) drug therapy; Z98.890 Other specified postprocedural states; Z90.49 Acquired absence of other specified parts of digestive tract
CPT/HCPCS: 80053; 83615; 85025; G0463; 36415; 84443; 96413; 99213

== ENCOUNTER → 2020-03-05 | Outpatient (CLI) | payer MEDICARE, OTHER ==
[~2020-03-05] MED LIST changes: +BARIUM SUSPENSION 2.1% (VANILLA SILQ) 450 ML PO ONE; +HOLD METFORMIN - RECEIVED CONTRAST 20 ML VIAL IV SCH; +IOHEXOL 350 MG/ML 100 ML (OMNIPAQUE 350) VIAL IV ONE; +NS 100 ML (IVPB) BAG IV ONE; -NS IV 500 ML (CANCER CENTER) IV SCH; -PEMBROLIZUMAB 200 MG in NS (IVPB) CANCER CENTER 50 ML IV SCH
[2020-03-05] MEDS: CATHETER FLUSH 10 ML SYR IV PRN ×2 (11:04→11:24)
--- NOTE | 2020-03-05 11:55 | Diagnostic Imaging Report ---
EXAMINATION: CT Chest with intravenous contrast, CT Abdomen and Pelvis without and with intravenous contrast. TECHNIQUE: Pre and post intravenous contrast axial imaging of the abdomen and pelvis and post contrast axial imaging of the chest were performed. All CT scans use one or more of the following dose optimizing techniques: automated exposure control, MA and/or KvP adjustment based on a patient size and exam type, or iterative reconstruction. HISTORY: Melanoma COMPARISON: 09/05/2019 FINDINGS: There is no edema or pneumonia. No pleural effusion. No pneumothorax. No suspicious nodules. Heart size is normal. There are mild coronary artery calcifications. No pericardial effusion. Aorta is normal in caliber. There has been a left axillary lymph node dissection. There is no mediastinal lymphadenopathy. The liver is normal without focal lesion. There is no biliary ductal dilation. Gallbladder is not seen. Pancreas is normal. Spleen is normal. Adrenal glands are normal. The kidneys are normal. There is no hydronephrosis. Urinary bladder is normal. Visualized bowel is normal in caliber without obstruction or inflammation. There is no small bowel resection. There is a short segment transient intussusception only present on the delayed image. No free fluid or air. No abdominal or pelvic lymphadenopathy. Aorta is normal in caliber without aneurysm. There are no suspicious osseus lesions. IMPRESSION: 1. No metastatic disease seen in the chest, abdomen or pelvis. Dictated by: Dictated on workstation # [id number]
--- NOTE | 2020-03-05 14:59 | Diagnostic Imaging Report ---
INDICATION: Malignant melanoma. TECHNIQUE: The patient was administered 27.4 mCi of technetium 99m MDP intravenously and whole-body imaging was performed after a 3 hour delay. COMPARISON: Correlation is made with the prior whole body bone scan from 09/05/2019. FINDINGS: Normal uptake of activity by the axial and appendicular skeleton is noted. There is uptake by the kidneys with excretion into the urinary bladder. No abnormal uptake is identified to suggest osseous metastatic disease. IMPRESSION: No scintigraphic evidence of osseous metastatic disease. Dictated by: Dictated on workstation # [id number]
== END ==
LOC: CARD 10:55
PROVIDERS: ATTEND Internal Medicine Hematology & Oncology
DX: C43.62 Malignant melanoma of left upper limb, including shoulder (principal); C78.4 Secondary malignant neoplasm of small intestine
CPT/HCPCS: 71260; 74178; 78306; A9503

== ENCOUNTER 2020-04-11 14:49 | Emergency (ER) | payer MEDICARE, OTHER ==
[~2020-04-11] VITALS: Ht 185.8 cm; Wt 63.3 kg
[~2020-04-11 14:49] MED LIST changes: -BARIUM SUSPENSION 2.1% (VANILLA SILQ) 450 ML PO ONE; -HOLD METFORMIN - RECEIVED CONTRAST 20 ML VIAL IV SCH; -IOHEXOL 350 MG/ML 100 ML (OMNIPAQUE 350) VIAL IV ONE; -NS 100 ML (IVPB) BAG IV ONE
--- NOTE | 2020-04-11 17:12 | ED GU-Male ---
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 Source: patient Exam Limitations: no limitations History of Present Illness Date Seen by Provider: Apr 11, 2020 Time Seen by Provider: 15:30 Initial Comments Lc Hines is a well appearing 69 yo male who presented for c/o of lesion on his penis. States this is a chronic issue and he was recently treated with Acyclovir by Dr. Zhong on April 02. However, he feels the Acyclovir made the area worse and he has stopped taking the medication. He reports that this lesion is typically resolved with oral antibiotics. Denies issues with urination, discharge from penis, testicular pain, swelling, fever, chills, nausea/vomiting. Timing/Duration: intermittent Severity/Quality: mild Location: other (Right side of penis shaft ) Radiation: none Activities at Onset: none Modifying Factors: Improves With Other (Worsened after taking Acyclovir ) Associated Symptoms: denies symptoms Allergies and Home Medications Allergies Coded Allergies: epinephrine (Verified Allergy, Unknown, 01/01/19) epinephrine HCl (Verified Allergy, Unknown, 01/01/19) lidocaine (Unverified Allergy, Unknown, 01/01/19) Home Medications Cephalexin 500 Mg Capsule, 500 MG PO TID Prescribed by: JG WILLIAMSON on 04/11/20 1731 Doxycycline Hyclate 100 Mg Tablet, 100 MG PO BID Prescribed by: BRENT MAHER on 01/10/20 0750 Ferrous Sulfate, Dried Unknown Strength Tablet.er, 65 MG PO BID, (Reported) Hydrocodone Bit/Acetaminophen 1 Tab Tab, 1-2 TAB PO Q6H PRN for PAIN-MODERATE Prescribed by: JAMIE NGUYEN on 09/10/18 1151 Hydrocodone Bit/Acetaminophen 1 Tab Tab, 1-2 TAB PO Q6H PRN for PAIN-MODERATE Prescribed by: JAMIE NGUYEN on 09/10/18 1156 Multivitamin 1 Each Tablet, 1 TAB PO DAILY, (Reported) [place] 3 Polyunsat Fatty Acids 1,000 Mg Cap, 1,000 MG PO DAILY, (Reported) Tamsulosin HCl 0.4 Mg Cap.er.24h, 0.4 MG PO DAILY, (Reported) Patient Home Medication List Home Medication List Reviewed: Yes Review of Systems Review of Systems Constitutional: no symptoms reported EENTM: no symptoms reported Respiratory: no symptoms reported Cardiovascular: no symptoms reported Gastrointestinal: no symptoms reported Genitourinary: denies burning, denies discharge, denies dysuria, denies hematuria, denies incontinence, denies pain; other (rash on right side of penis shaft ) Musculoskeletal: no symptoms reported Skin: see HPI Psychiatric/Neurological: No Symptoms Reported Endocrine: No Symptoms Reported Hematologic/Lymphatic: No Symptoms Reported Past Avzjqsn-Qdyfyy-Iytcli Hx Patient Social History Alcohol Use: Denies Use Recreational Drug Use: No Smoking Status: Never a Smoker 2nd Hand Smoke Exposure: No Recent Foreign Travel: No Contact w/Someone Who Travel: No Recent Infectious Disease Expo: No Recent Hopitalizations: No Physical Abuse: No Sexual Abuse: No Mistreated: No Fear: No Immunizations Up To Date Tetanus Booster (TDap): More than 5yrs PED Vaccines UTD: No Seasonal Allergies Seasonal Allergies: No Past Medical History Surgeries: Yes (small bowel sx, melanoma removed from elbow x2, axillary lymph node removed) Abdominal, Bowel Surgery Respiratory: No Currently Using CPAP: No Currently Using BIPAP: No Cardiac: No (FAST HEART RATE AT TIMES) Neurological: No Reproductive Disorders: No Sexually Transmitted Disease: No HIV/AIDS: No Genitourinary: Yes (chronic skin issue on penis ) Gastrointestinal: Yes (colon lesion) Gall Bladder Disease Musculoskeletal: No (MILD) Arthritis Endocrine: No HEENT: No Loss of Vision: Denies Hearing Impairment: Denies Cancer: Yes (ON ELBOW) Melanoma Psychosocial: Yes Anxiety Integumentary: No Blood Disorders: No Adverse Reaction/Blood Tranf: No Family Medical History Cardiovascular disease 19 MOTHER Physical Exam Vital Signs Vital Signs - First Documented 04/11/20 04/11/20 15:05 17:43 Temp 36.9 Pulse 82 Resp 16 B/P (MAP) 82/ Pulse Ox 99 O2 Flow Rate 162.00 Capillary Refill : Less Than 3 Seconds Height, Weight, BMI Height: 6'1.00" Weight: 135lbs. 9.0oz. 61.546800md; 18.00 BMI Method:Stated General Appearance: WD/WN, no apparent distress HEENT: PERRL/EOMI, normal ENT inspection Neck: non-tender, full range of motion Cardiovascular: normal peripheral pulses, regular rate, rhythm, no murmur Respiratory: lungs clear, normal breath sounds, no respiratory distress Gastrointestinal: non tender, soft Rectal: deferred Male: No erythema, No inguinal tenderness, No testicular tenderness; other Genital/Rectal: No blood at urethral meatus; other (small white ulceratied area on right side of penis shaft with surruound erythema. ) Extremities: normal range of motion, non-tender Neurologic/Psychiatric: no motor/sensory deficits, alert, oriented x 3 Skin: normal color, warm/dry Progress/Results/Core Measures Suspected Sepsis Recent Fever Within 48 Hours: No Infection Criteria Present: None New/Unexplained Altered Menta: No Sepsis Screen: No Definite Risk SIRS Temperature: Pulse: 82 Respiratory Rate: 16 Blood Pressure 82 / Mean: Results/Orders My Orders Orders - JG WILLIAMSON APRN Ceftriaxone For Im Use (Rocephin For Im (04/11/20 17:15) Vital Signs/I&O 04/11/20 04/11/20 15:05 17:43 Temp 36.9 36.9 Pulse 82 82 Resp 16 16 B/P (MAP) 82/ 162/82 Pulse Ox 99 O2 Flow Rate 162.00 Capillary Refill : Less Than 3 Seconds Progress Note : Progress Note Surrounding redness to ulceration could be indicative of cellulitis from excessive handling of penis. I offered Rocephin injection in ED but he refused stating he would prefer oral antibiotics. Discussed following up with Dr. Zhong on Monday for further evaluation. Verbalized understanding. Departure Impression Primary Impression: Lesion of penis Additional Impression: Cellulitis Disposition: HOME, SELF-CARE Condition: Stable/Unchanged Departure-Patient Inst. Referrals: PÉREZ GREEN DO (PCP/Family) Primary Care Physician Add. Discharge Instructions: Plan: 1. Discharge home. 2. Take antibiotics as directed and complete full course. 3. Follow up with Dr. Zhong on Monday. 4. Return for any new or concerning symptoms. All discharge instructions reviewed with patient and/or family. Voiced understanding. Scripts Cephalexin (Keflex) 500 Mg Capsule 500 MG PO TID for 10 Days, #30 CAP 0 Refills Prov: JG WILLIAMSON APRN 04/11/20 JG WILLIAMSON APRN Apr 11, 2020 17:12
[2020-04-11] MEDS ORDERED: cefTRIAXone 1,000 MG/2.86 ml vial (IM ONLY) ONE (17:15)
[2020-04-11] MEDS ORDERED: WATER (STERILE) FOR INJECTION 10 ML ONE (17:16)
[2020-04-11] MEDS ORDERED: CEPH-507 PO (17:31)
[2020-04-11 17:43] VITALS: BP 162/82
== END 2020-04-11 17:44 | disposition home or self-care (01) ==
LOC: EDUNIT# 14:49 → ER 14:50
DX: N48.22 Cellulitis of corpus cavernosum and penis (principal); Z88.8 Allergy status to other drugs, medicaments and biological substances; Z85.820 Personal history of malignant melanoma of skin; Z82.49 Family history of ischemic heart disease and other diseases of the circulatory system
CPT/HCPCS: 99281

== ENCOUNTER 2020-05-12 14:24 | Outpatient (RCR) | payer MEDICARE, OTHER ==
[2020-02-18 14:28] LABS: BASOPHILS # (AUTO) 0.1 10^3/uL (0.0-0.1); BASOPHILS % (AUTO) 1 % (0-10); EOSINOPHILS # (AUTO) 1.7 10^3/uL (0.0-0.3); EOSINOPHILS % (AUTO) 24 % (0-10); HEMATOCRIT 41 % (40-54); HEMOGLOBIN 13.8 G/DL (13.3-17.7); LYMPHOCYTES # (AUTO) 1.2 X 10^3 (1.0-4.0); LYMPHOCYTES % (AUTO) 18 % (12-44); MEAN CORPUSCULAR HEMOGLOBIN 31 PG (25-34); MEAN CORPUSCULAR HGB CONC 34 G/DL (32-36); MEAN CORPUSCULAR VOLUME 93 FL (80-99); MEAN PLATELET VOLUME 9.4 FL (7.4-10.4); MONOCYTES # (AUTO) 0.6 X 10^3 (0.0-1.0); MONOCYTES % (AUTO) 9 % (0-12); NEUTROPHILS # (AUTO) 3.3 X 10^3 (1.8-7.8); NEUTROPHILS % (AUTO) 48 % (42-75); PLATELET COUNT 202 10^3/uL (130-400); WHITE BLOOD COUNT 6.8 10^3/uL (4.3-11.0)
[2020-02-18 15:01] LABS: ALANINE AMINOTRANSFERASE 13 U/L (0-55); ALBUMIN 4.2 GM/DL (3.2-4.5); ALKALINE PHOSPHATASE 55 U/L (40-136); BILIRUBIN,TOTAL 1.3 MG/DL (0.1-1.0); BUN/CREATININE RATIO 19; CALCIUM 9.5 MG/DL (8.5-10.1); CARBON DIOXIDE 27 MMOL/L (21-32); CHLORIDE 106 MMOL/L (98-107); CREATININE SERUM 0.89 MG/DL (0.60-1.30); GFR ESTIMATED > 60; GLUCOSE 99 MG/DL (70-105); POTASSIUM 4.4 MMOL/L (3.6-5.0); SODIUM 139 MMOL/L (135-145); TOTAL PROTEIN 6.9 GM/DL (6.4-8.2)
[2020-03-10 13:10] LABS: BASOPHILS % (AUTO) 1 % (0-10); EOSINOPHILS # (AUTO) 0.7 10^3/uL (0.0-0.3); EOSINOPHILS % (AUTO) 12 % (0-10); HEMATOCRIT 40 % (40-54); HEMOGLOBIN 13.7 G/DL (13.3-17.7); LYMPHOCYTES # (AUTO) 1.4 X 10^3 (1.0-4.0); LYMPHOCYTES % (AUTO) 24 % (12-44); MEAN CORPUSCULAR HEMOGLOBIN 33 PG (25-34); MEAN CORPUSCULAR HGB CONC 35 G/DL (32-36); MEAN CORPUSCULAR VOLUME 95 FL (80-99); MEAN PLATELET VOLUME 9.6 FL (7.4-10.4); MONOCYTES # (AUTO) 0.4 X 10^3 (0.0-1.0); MONOCYTES % (AUTO) 8 % (0-12); NEUTROPHILS # (AUTO) 3.2 X 10^3 (1.8-7.8); NEUTROPHILS % (AUTO) 55 % (42-75); PLATELET COUNT 198 10^3/uL (130-400); WHITE BLOOD COUNT 5.7 10^3/uL (4.3-11.0)
[2020-03-10 13:30] LABS: ALANINE AMINOTRANSFERASE 13 U/L (0-55); ALBUMIN 4.1 GM/DL (3.2-4.5); ALKALINE PHOSPHATASE 55 U/L (40-136); BILIRUBIN,TOTAL 1.2 MG/DL (0.1-1.0); BUN/CREATININE RATIO 19; CALCIUM 9.1 MG/DL (8.5-10.1); CARBON DIOXIDE 25 MMOL/L (21-32); CHLORIDE 107 MMOL/L (98-107); CREATININE SERUM 0.98 MG/DL (0.60-1.30); GFR ESTIMATED > 60; GLUCOSE 102 MG/DL (70-105); POTASSIUM 4.2 MMOL/L (3.6-5.0); SODIUM 140 MMOL/L (135-145); TOTAL PROTEIN 6.8 GM/DL (6.4-8.2)
[2020-04-21 14:18] LABS: BASOPHILS % (AUTO) 1 % (0-10); EOSINOPHILS # (AUTO) 0.3 10^3/uL (0.0-0.3); EOSINOPHILS % (AUTO) 5 % (0-10); HEMATOCRIT 39 % (40-54); HEMOGLOBIN 13.2 G/DL (13.3-17.7); LYMPHOCYTES # (AUTO) 1.2 X 10^3 (1.0-4.0); LYMPHOCYTES % (AUTO) 21 % (12-44); MEAN CORPUSCULAR HEMOGLOBIN 33 PG (25-34); MEAN CORPUSCULAR HGB CONC 34 G/DL (32-36); MEAN CORPUSCULAR VOLUME 96 FL (80-99); MEAN PLATELET VOLUME 9.7 FL (7.4-10.4); MONOCYTES # (AUTO) 0.6 X 10^3 (0.0-1.0); MONOCYTES % (AUTO) 11 % (0-12); NEUTROPHILS # (AUTO) 3.4 X 10^3 (1.8-7.8); NEUTROPHILS % (AUTO) 61 % (42-75); PLATELET COUNT 200 10^3/uL (130-400); WHITE BLOOD COUNT 5.5 10^3/uL (4.3-11.0)
[2020-04-21 14:37] LABS: ALANINE AMINOTRANSFERASE 15 U/L (0-55); ALKALINE PHOSPHATASE 52 U/L (40-136); BILIRUBIN,TOTAL 0.8 MG/DL (0.1-1.0); BUN/CREATININE RATIO 20; CALCIUM 8.8 MG/DL (8.5-10.1); CARBON DIOXIDE 25 MMOL/L (21-32); CHLORIDE 108 MMOL/L (98-107); CREATININE SERUM 0.91 MG/DL (0.60-1.30); GFR ESTIMATED > 60; GLUCOSE 110 MG/DL (70-105); POTASSIUM 4.5 MMOL/L (3.6-5.0); SODIUM 139 MMOL/L (135-145)
[~2020-05-12 14:24] MED LIST changes: +CEPH-507 PO; +NS IV 500 ML (CANCER CENTER) IV SCH; +PEMBROLIZUMAB 200 MG in NS (IVPB) CANCER CENTER 50 ML IV SCH
== END 2020-05-18 | disposition home or self-care (01) ==
LOC: ONC 14:24
PROVIDERS: ATTEND Internal Medicine Hematology & Oncology
DX: Z51.11 Encounter for antineoplastic chemotherapy (principal); C43.62 Malignant melanoma of left upper limb, including shoulder; C77.3 Secondary and unspecified malignant neoplasm of axilla and upper limb lymph nodes; C78.4 Secondary malignant neoplasm of small intestine; F41.9 Anxiety disorder, unspecified; D22.5 Melanocytic nevi of trunk; E03.9 Hypothyroidism, unspecified; Z79.899 Other long term (current) drug therapy; Z98.890 Other specified postprocedural states; Z90.49 Acquired absence of other specified parts of digestive tract; Z92.3 Personal history of irradiation
CPT/HCPCS: 36415; 80053; 83615; 84443; 85025; 96413

== ENCOUNTER → 2020-05-26 | Outpatient (CLI) | payer MEDICARE, OTHER ==
[~2020-05-26] MED LIST changes: +BARIUM SUSPENSION 2.1% (VANILLA SILQ) 450 ML PO ONE; +CATHETER FLUSH 10 ML SYR IV PRN; +HOLD METFORMIN - RECEIVED CONTRAST 20 ML VIAL IV SCH; +IOHEXOL 350 MG/ML 100 ML (OMNIPAQUE 350) VIAL IV ONE; +NS 100 ML (IVPB) BAG IV ONE; -NS IV 500 ML (CANCER CENTER) IV SCH; -PEMBROLIZUMAB 200 MG in NS (IVPB) CANCER CENTER 50 ML IV SCH
--- NOTE | 2020-05-26 12:21 | Diagnostic Imaging Report ---
PROCEDURE: CT chest with contrast, CT abdomen and pelvis with and without contrast. TECHNIQUE: Pre and post intravenous contrast axial imaging of the abdomen and pelvis and post contrast axial imaging of the chest were performed. Auto Exposure Controls were utilized during the CT exam to meet ALARA standards for radiation dose reduction. INDICATION: Malignant melanoma. COMPARISON: Correlation is made with prior CT from 03/05/2020. FINDINGS: CT chest: Postsurgical changes of left axillary lymph node dissection are noted. No axillary lymphadenopathy is identified. No definite mediastinal or hilar lymphadenopathy is detected. No pericardial or pleural fluid is identified. No pulmonary nodule, infiltrate or mass is detected. Bony structures are unremarkable. IMPRESSION: Stable CT chest. No thoracic lymphadenopathy or evidence of pulmonary metastatic disease is identified. CT abdomen and pelvis: No discrete liver mass is detected. Gallbladder appears to be surgically absent. The pancreas and spleen are unremarkable. No adrenal mass is detected. Kidneys are unremarkable. Aorta is non-aneurysmal. No central retroperitoneal or mesenteric lymphadenopathy is detected. The small and large bowel loops are normal caliber. No obstruction. No free fluid or fluid collection is seen. Bladder and prostate are unremarkable. No definite pelvic lymphadenopathy is seen. The bony structures are unremarkable. IMPRESSION: Stable CT abdomen and pelvis since study from 03/05/2020. No abdominal or pelvic lymphadenopathy or evidence of metastatic disease is identified. Dictated by: Dictated on workstation # [id number]
--- NOTE | 2020-05-26 14:58 | Diagnostic Imaging Report ---
INDICATION: Melanoma. TECHNIQUE: Patient was administered 26.0 mCi technetium 99m MDP intravenously and whole body imaging was performed after a three-hour delay. COMPARISON: Correlation is made with prior whole body bone scan from 03/05/2020. FINDINGS: The bone scan remains unremarkable. No suspicious foci are identified to suggest metastatic disease. There is normal physiologic uptake by the kidneys with excretion into the urinary bladder. IMPRESSION: Stable whole body bone scan. There are no findings to suggest osseous metastatic disease. Dictated by: Dictated on workstation # [id number]
== END ==
LOC: CARD 10:45
PROVIDERS: ATTEND Internal Medicine Hematology & Oncology
DX: C43.62 Malignant melanoma of left upper limb, including shoulder (principal); C78.4 Secondary malignant neoplasm of small intestine
CPT/HCPCS: 71260; 74178; 78306; A9503

== ENCOUNTER → 2020-07-31 | Outpatient (CLI) | payer MEDICARE, OTHER ==
[~2020-07-31] MED LIST changes: -BARIUM SUSPENSION 2.1% (VANILLA SILQ) 450 ML PO ONE; -CATHETER FLUSH 10 ML SYR IV PRN; -HOLD METFORMIN - RECEIVED CONTRAST 20 ML VIAL IV SCH; -IOHEXOL 350 MG/ML 100 ML (OMNIPAQUE 350) VIAL IV ONE; -NS 100 ML (IVPB) BAG IV ONE
== END ==
LOC: LABNPT 06:10
PROVIDERS: ATTEND Family Medicine
DX: Z01.812 Encounter for preprocedural laboratory examination (principal); Z20.828 Contact with and (suspected) exposure to other viral communicable diseases
CPT/HCPCS: 87635

== ENCOUNTER 2020-08-11 14:16 | Outpatient (RCR) | payer MEDICARE, OTHER ==
[2020-06-02 13:22] LABS: BASOPHILS # (AUTO) 0.1 10^3/uL (0.0-0.1); BASOPHILS % (AUTO) 1 % (0-10); EOSINOPHILS # (AUTO) 0.2 10^3/uL (0.0-0.3); EOSINOPHILS % (AUTO) 3 % (0-10); HEMATOCRIT 43 % (40-54); HEMOGLOBIN 14.6 g/dL (13.3-17.7); LYMPHOCYTES # (AUTO) 1.4 10^3/uL (1.0-4.0); LYMPHOCYTES % (AUTO) 24 % (12-44); MEAN CORPUSCULAR HEMOGLOBIN 33 pg (25-34); MEAN CORPUSCULAR HGB CONC 34 g/dL (32-36); MEAN CORPUSCULAR VOLUME 96 fL (80-99); MEAN PLATELET VOLUME 9.7 fL (9.0-12.2); MONOCYTES # (AUTO) 0.6 10^3/uL (0.0-1.0); MONOCYTES % (AUTO) 10 % (0-12); NEUTROPHILS # (AUTO) 3.7 10^3/uL (1.8-7.8); NEUTROPHILS % (AUTO) 63 % (42-75); PLATELET COUNT 218 10^3/uL (130-400); WHITE BLOOD COUNT 5.8 10^3/uL (4.3-11.0)
[2020-06-02 13:42] LABS: ALANINE AMINOTRANSFERASE 16 U/L (0-55); ALBUMIN 4.2 GM/DL (3.2-4.5); ALKALINE PHOSPHATASE 54 U/L (40-136); BILIRUBIN,TOTAL 1.5 MG/DL (0.1-1.0); BUN/CREATININE RATIO 15; CALCIUM 9.2 MG/DL (8.5-10.1); CARBON DIOXIDE 29 MMOL/L (21-32); CHLORIDE 104 MMOL/L (98-107); CREATININE SERUM 0.86 MG/DL (0.60-1.30); GFR ESTIMATED > 60; GLUCOSE 111 MG/DL (70-105); POTASSIUM 4.1 MMOL/L (3.6-5.0); SODIUM 140 MMOL/L (135-145); TOTAL PROTEIN 7.1 GM/DL (6.4-8.2)
[2020-07-14 14:13] LABS: BASOPHILS # (AUTO) 0.1 10^3/uL (0.0-0.1); BASOPHILS % (AUTO) 1 % (0-10); EOSINOPHILS # (AUTO) 0.1 10^3/uL (0.0-0.3); EOSINOPHILS % (AUTO) 2 % (0-10); HEMATOCRIT 41 % (40-54); LYMPHOCYTES # (AUTO) 0.9 10^3/uL (1.0-4.0); LYMPHOCYTES % (AUTO) 16 % (12-44); MEAN CORPUSCULAR HEMOGLOBIN 33 pg (25-34); MEAN CORPUSCULAR HGB CONC 34 g/dL (32-36); MEAN CORPUSCULAR VOLUME 96 fL (80-99); MEAN PLATELET VOLUME 9.5 fL (9.0-12.2); MONOCYTES # (AUTO) 0.6 10^3/uL (0.0-1.0); MONOCYTES % (AUTO) 11 % (0-12); NEUTROPHILS # (AUTO) 3.8 10^3/uL (1.8-7.8); NEUTROPHILS % (AUTO) 71 % (42-75); PLATELET COUNT 224 10^3/uL (130-400); WHITE BLOOD COUNT 5.4 10^3/uL (4.3-11.0)
[2020-07-14 14:33] LABS: ALANINE AMINOTRANSFERASE 17 U/L (0-55); ALBUMIN 4.2 GM/DL (3.2-4.5); ALKALINE PHOSPHATASE 54 U/L (40-136); BILIRUBIN,TOTAL 1.5 MG/DL (0.1-1.0); BUN/CREATININE RATIO 20; CALCIUM 9.4 MG/DL (8.5-10.1); CARBON DIOXIDE 28 MMOL/L (21-32); CHLORIDE 107 MMOL/L (98-107); CREATININE SERUM 0.85 MG/DL (0.60-1.30); GFR ESTIMATED > 60; GLUCOSE 111 MG/DL (70-105); POTASSIUM 4.4 MMOL/L (3.6-5.0); SODIUM 141 MMOL/L (135-145); TOTAL PROTEIN 6.9 GM/DL (6.4-8.2)
[~2020-08-11 14:16] MED LIST changes: +NS IV 500 ML (CANCER CENTER) IV SCH; +PEMBROLIZUMAB 200 MG in NS (IVPB) CANCER CENTER 50 ML IV SCH
== END 2020-08-21 14:10 | disposition home or self-care (01) ==
LOC: ONC 14:16
PROVIDERS: ATTEND Internal Medicine Hematology & Oncology
DX: Z51.11 Encounter for antineoplastic chemotherapy (principal); C43.62 Malignant melanoma of left upper limb, including shoulder; C77.3 Secondary and unspecified malignant neoplasm of axilla and upper limb lymph nodes; C78.4 Secondary malignant neoplasm of small intestine; F41.9 Anxiety disorder, unspecified; D22.5 Melanocytic nevi of trunk; E03.9 Hypothyroidism, unspecified; Z79.899 Other long term (current) drug therapy; Z98.890 Other specified postprocedural states; Z90.49 Acquired absence of other specified parts of digestive tract; Z92.3 Personal history of irradiation
CPT/HCPCS: 80053; 83615; 84443; 85025; 96413; G0463; 36415

== ENCOUNTER → 2020-08-20 | Outpatient (CLI) | payer MEDICARE, OTHER ==
[~2020-08-20] MED LIST changes: +CATHETER FLUSH 10 ML SYR IV PRN; +HOLD METFORMIN - RECEIVED CONTRAST 20 ML VIAL IV SCH; +IOHEXOL 350 MG/ML 100 ML (OMNIPAQUE 350) VIAL IV ONE; +NS 100 ML (IVPB) BAG IV ONE; -NS IV 500 ML (CANCER CENTER) IV SCH; -PEMBROLIZUMAB 200 MG in NS (IVPB) CANCER CENTER 50 ML IV SCH
--- NOTE | 2020-08-20 12:11 | Diagnostic Imaging Report ---
PROCEDURE: CT chest, abdomen, and pelvis with contrast. TECHNIQUE: Multiple contiguous axial images were obtained through the chest, abdomen, and pelvis after the administration of intravenous contrast. Auto Exposure Controls were utilized during the CT exam to meet ALARA standards for radiation dose reduction. INDICATION: Malignant neoplasm of the small intestine, follow-up. COMPARISON: Correlation is made with prior CT from 05/26/2020. FINDINGS: CT CHEST: Surgical clips are noted in the left axilla. No axillary lymphadenopathy is seen on the right or left. No mediastinal or hilar lymphadenopathy is identified. There is no pericardial or pleural fluid detected. No pulmonary infiltrates, nodules, or masses are seen. Bony structures are unremarkable. IMPRESSION: Stable CT chest. No thoracic lymphadenopathy or pulmonary metastatic disease is identified. CT ABDOMEN AND PELVIS: The liver remains unremarkable. No mass is detected. There is no biliary ductal dilatation. Pancreas and spleen are unremarkable. No adrenal mass is detected. Kidneys are unremarkable. Aorta is nonaneurysmal. There is no central retroperitoneal or mesenteric lymphadenopathy. Bowel loops are normal in caliber. No mass is seen. There is no obstruction. No free fluid is detected. Bladder is unremarkable. No pelvic lymphadenopathy is seen. Bony structures are nonacute. IMPRESSION: Stable CT abdomen and pelvis. No lymphadenopathy or evidence of metastatic disease is detected. Dictated by: Dictated on workstation # [id number]
--- NOTE | 2020-08-20 14:52 | Diagnostic Imaging Report ---
Indication: Secondary malignancy of small intestine. Patient was administered 25.4 mCi technetium 99m MDP intravenously and whole-body imaging was performed after 3 hour delay. Correlation is made with prior whole body bone scan from 05/26/2020. Bone scan remains unremarkable. No suspicious foci are identified to suggest osseous metastatic disease. There is normal uptake by the kidneys with excretion into the urinary bladder. IMPRESSION: Continued stable whole body bone scan. There is no scintigraphic evidence of osseous metastatic disease. Dictated by: Dictated on workstation # [id number]
== END ==
LOC: CARD 10:44
PROVIDERS: ATTEND Internal Medicine Hematology & Oncology
DX: C17.9 Malignant neoplasm of small intestine, unspecified (principal); C78.4 Secondary malignant neoplasm of small intestine; C79.89 Secondary malignant neoplasm of other specified sites
CPT/HCPCS: 71260; 74177; 78306; A9503

== ENCOUNTER → 2020-11-23 | Outpatient (CLI) | payer MEDICARE, OTHER ==
[~2020-11-23] MED LIST changes: +BARIUM SUSPENSION 2.1% (VANILLA SILQ) 450 ML PO ONE
--- NOTE | 2020-11-23 13:04 | Diagnostic Imaging Report ---
PROCEDURE: CT chest with contrast, CT abdomen and pelvis with and without contrast. TECHNIQUE: Pre and post intravenous contrast axial imaging of the abdomen and pelvis and post contrast axial imaging of the chest were performed. Auto Exposure Controls were utilized during the CT exam to meet ALARA standards for radiation dose reduction. INDICATION: Malignant melanoma. Comparison is made with prior CT from 08/20/2020. CT CHEST: Surgical clips are again noted in the left axilla. No axillary lymphadenopathy is detected. No mediastinal or hilar lymphadenopathy is seen. No significant pericardial or pleural fluid is identified. No pulmonary nodules are identified to suggest metastatic disease. There is no infiltrate or mass. IMPRESSION: Stable CT chest since 08/20/2020. There is no evidence of thoracic lymphadenopathy or pulmonary metastatic disease. CT ABDOMEN AND PELVIS: No discrete liver mass is identified. Gallbladder appears to be surgically absent. The pancreas and spleen are unremarkable. No adrenal or renal masses are seen. There is no central retroperitoneal or mesenteric lymphadenopathy detected. Aorta remains normal in caliber. Bowel loops are normal in caliber. There is no ascites. There is no obstruction or free air. No pelvic lymphadenopathy is seen. Bony structures are nonacute. IMPRESSION: Stable unremarkable CT abdomen and pelvis since 08/20/2020. No lymphadenopathy or metastatic disease is detected. Dictated by: Dictated on workstation # [id number]
--- NOTE | 2020-11-23 15:24 | Diagnostic Imaging Report ---
INDICATION: Malignant melanoma. TECHNIQUE: The patient was administered 27.2 mCi of technetium 99m MDP intravenously and whole-body imaging was performed after a 3 hour delay. COMPARISON: Correlation is made with the prior whole body bone scan from 08/20/2020. FINDINGS: Normal uptake of activity by the axial and appendicular skeleton is noted. There is uptake by the kidneys with excretion into the urinary bladder. There is mild uptake involving the right aspect of the mandible, nonspecific. This could be odontogenic. No other suspicious abnormality is seen. IMPRESSION: Mild uptake in the right mandible. The study is otherwise unremarkable. Dictated by: Dictated on workstation # [id number]
== END ==
LOC: CARD 11:00
PROVIDERS: ATTEND Nurse Practitioner Adult Health
DX: C43.62 Malignant melanoma of left upper limb, including shoulder (principal); C78.4 Secondary malignant neoplasm of small intestine
CPT/HCPCS: 71260; 74178; 78306; A9503

== ENCOUNTER 2020-11-24 13:24 | Outpatient (RCR) | payer MEDICARE, OTHER ==
[2020-09-01 14:37] LABS: BASOPHILS # (AUTO) 0.1 10^3/uL (0.0-0.1); BASOPHILS % (AUTO) 1 % (0-10); EOSINOPHILS # (AUTO) 0.2 10^3/uL (0.0-0.3); EOSINOPHILS % (AUTO) 3 % (0-10); HEMATOCRIT 41 % (40-54); HEMOGLOBIN 14.2 g/dL (13.3-17.7); LYMPHOCYTES # (AUTO) 0.9 10^3/uL (1.0-4.0); LYMPHOCYTES % (AUTO) 15 % (12-44); MEAN CORPUSCULAR HEMOGLOBIN 33 pg (25-34); MEAN CORPUSCULAR HGB CONC 35 g/dL (32-36); MEAN CORPUSCULAR VOLUME 95 fL (80-99); MEAN PLATELET VOLUME 9.4 fL (9.0-12.2); MONOCYTES # (AUTO) 0.6 10^3/uL (0.0-1.0); MONOCYTES % (AUTO) 10 % (0-12); NEUTROPHILS # (AUTO) 4.4 10^3/uL (1.8-7.8); NEUTROPHILS % (AUTO) 72 % (42-75); PLATELET COUNT 208 10^3/uL (130-400); WHITE BLOOD COUNT 6.1 10^3/uL (4.3-11.0)
[2020-09-01 14:57] LABS: ALANINE AMINOTRANSFERASE 16 U/L (0-55); ALBUMIN 4.2 GM/DL (3.2-4.5); ALKALINE PHOSPHATASE 50 U/L (40-136); BILIRUBIN,TOTAL 0.6 MG/DL (0.1-1.0); BUN/CREATININE RATIO 19; CALCIUM 9.3 MG/DL (8.5-10.1); CARBON DIOXIDE 23 MMOL/L (21-32); CHLORIDE 106 MMOL/L (98-107); CREATININE SERUM 0.86 MG/DL (0.60-1.30); GFR ESTIMATED > 60; GLUCOSE 94 MG/DL (70-105); POTASSIUM 4.1 MMOL/L (3.6-5.0); SODIUM 140 MMOL/L (135-145); TOTAL PROTEIN 7.1 GM/DL (6.4-8.2)
[2020-10-13 14:37] LABS: BASOPHILS # (AUTO) 0.1 10^3/uL (0.0-0.1); BASOPHILS % (AUTO) 1 % (0-10); EOSINOPHILS # (AUTO) 0.2 10^3/uL (0.0-0.3); EOSINOPHILS % (AUTO) 3 % (0-10); HEMATOCRIT 39 % (40-54); HEMOGLOBIN 13.2 g/dL (13.3-17.7); LYMPHOCYTES # (AUTO) 1.2 10^3/uL (1.0-4.0); LYMPHOCYTES % (AUTO) 24 % (12-44); MEAN CORPUSCULAR HEMOGLOBIN 33 pg (25-34); MEAN CORPUSCULAR HGB CONC 34 g/dL (32-36); MEAN CORPUSCULAR VOLUME 96 fL (80-99); MEAN PLATELET VOLUME 9.6 fL (9.0-12.2); MONOCYTES # (AUTO) 0.6 10^3/uL (0.0-1.0); MONOCYTES % (AUTO) 12 % (0-12); NEUTROPHILS # (AUTO) 3.1 10^3/uL (1.8-7.8); NEUTROPHILS % (AUTO) 60 % (42-75); PLATELET COUNT 209 10^3/uL (130-400); WHITE BLOOD COUNT 5.1 10^3/uL (4.3-11.0)
[2020-10-13 15:11] LABS: ALANINE AMINOTRANSFERASE 15 U/L (0-55); ALBUMIN 4.1 GM/DL (3.2-4.5); ALKALINE PHOSPHATASE 54 U/L (40-136); BILIRUBIN,TOTAL 1.2 MG/DL (0.1-1.0); BUN/CREATININE RATIO 17; CALCIUM 8.9 MG/DL (8.5-10.1); CARBON DIOXIDE 25 MMOL/L (21-32); CHLORIDE 108 MMOL/L (98-107); CREATININE SERUM 0.87 MG/DL (0.60-1.30); GFR ESTIMATED > 60; GLUCOSE 83 MG/DL (70-105); POTASSIUM 4.5 MMOL/L (3.6-5.0); SODIUM 140 MMOL/L (135-145); TOTAL PROTEIN 7.4 GM/DL (6.4-8.2)
[2020-11-23 10:23] LABS: BASOPHILS # (AUTO) 0.1 10^3/uL (0.0-0.1); BASOPHILS % (AUTO) 1 % (0-10); EOSINOPHILS # (AUTO) 0.2 10^3/uL (0.0-0.3); EOSINOPHILS % (AUTO) 3 % (0-10); HEMATOCRIT 44 % (40-54); HEMOGLOBIN 14.6 g/dL (13.3-17.7); LYMPHOCYTES # (AUTO) 1.6 10^3/uL (1.0-4.0); LYMPHOCYTES % (AUTO) 30 % (12-44); MEAN CORPUSCULAR HEMOGLOBIN 32 pg (25-34); MEAN CORPUSCULAR HGB CONC 34 g/dL (32-36); MEAN CORPUSCULAR VOLUME 96 fL (80-99); MEAN PLATELET VOLUME 9.3 fL (9.0-12.2); MONOCYTES # (AUTO) 0.6 10^3/uL (0.0-1.0); MONOCYTES % (AUTO) 11 % (0-12); NEUTROPHILS % (AUTO) 55 % (42-75); PLATELET COUNT 229 10^3/uL (130-400); WHITE BLOOD COUNT 5.4 10^3/uL (4.3-11.0)
[2020-11-23 10:48] LABS: ALANINE AMINOTRANSFERASE 15 U/L (0-55); ALBUMIN 4.3 GM/DL (3.2-4.5); ALKALINE PHOSPHATASE 59 U/L (40-136); BILIRUBIN,TOTAL 1.9 MG/DL (0.1-1.0); BUN/CREATININE RATIO 13; CARBON DIOXIDE 26 MMOL/L (21-32); CHLORIDE 106 MMOL/L (98-107); CREATININE SERUM 0.86 MG/DL (0.60-1.30); GFR ESTIMATED > 60; GLUCOSE 101 MG/DL (70-105); POTASSIUM 4.1 MMOL/L (3.6-5.0); SODIUM 140 MMOL/L (135-145); TOTAL PROTEIN 7.2 GM/DL (6.4-8.2)
[~2020-11-24 13:24] MED LIST changes: +ACYC-108 PO; -ACYC200C PO; -BARIUM SUSPENSION 2.1% (VANILLA SILQ) 450 ML PO ONE; -CATHETER FLUSH 10 ML SYR IV PRN; -HOLD METFORMIN - RECEIVED CONTRAST 20 ML VIAL IV SCH; -IOHEXOL 350 MG/ML 100 ML (OMNIPAQUE 350) VIAL IV ONE; -NS 100 ML (IVPB) BAG IV ONE; +NS IV 500 ML (CANCER CENTER) IV SCH; +PEMBROLIZUMAB 200 MG in NS (IVPB) CANCER CENTER 50 ML IV SCH
== END 2020-11-30 | disposition home or self-care (01) ==
LOC: ONC 13:24
PROVIDERS: ATTEND Internal Medicine Hematology & Oncology
DX: Z51.11 Encounter for antineoplastic chemotherapy (principal); C43.62 Malignant melanoma of left upper limb, including shoulder; C77.3 Secondary and unspecified malignant neoplasm of axilla and upper limb lymph nodes; C78.4 Secondary malignant neoplasm of small intestine; F41.9 Anxiety disorder, unspecified; D22.5 Melanocytic nevi of trunk; E03.9 Hypothyroidism, unspecified; Z79.899 Other long term (current) drug therapy; Z98.890 Other specified postprocedural states; Z90.49 Acquired absence of other specified parts of digestive tract; Z92.3 Personal history of irradiation
CPT/HCPCS: 80053; 83615; 84443; 85025; 96413; G0463; 36415

== ENCOUNTER → 2021-02-04 | Outpatient (CLI) | payer MEDICARE, OTHER ==
[~2021-02-04] MED LIST changes: +BARIUM SUSPENSION 2.1% (VANILLA SILQ) 450 ML PO ONE; +CATHETER FLUSH 10 ML SYR IV PRN; +HOLD METFORMIN - RECEIVED CONTRAST 20 ML VIAL IV SCH; +IOHEXOL 350 MG/ML 100 ML (OMNIPAQUE 350) VIAL IV ONE; +NS 100 ML (IVPB) BAG IV ONE; -NS IV 500 ML (CANCER CENTER) IV SCH; -PEMBROLIZUMAB 200 MG in NS (IVPB) CANCER CENTER 50 ML IV SCH
--- NOTE | 2021-02-04 14:42 | Diagnostic Imaging Report ---
PROCEDURE: CT chest with contrast, CT abdomen and pelvis with and without contrast. TECHNIQUE: Pre and post intravenous contrast axial imaging of the abdomen and pelvis and post contrast axial imaging of the chest were performed. Auto Exposure Controls were utilized during the CT exam to meet ALARA standards for radiation dose reduction. INDICATION: Melanoma, follow-up. COMPARISON: Correlation is made with prior CT from 11/23/2020. FINDINGS: CT CHEST: Multiple surgical clips in the left axilla are noted. The right axilla is unremarkable. No definite mediastinal or hilar lymphadenopathy is detected. No pericardial or pleural fluid is detected. No pulmonary nodules or masses are seen. Bony structures are unremarkable. IMPRESSION: Unremarkable CT of the chest. There is no evidence of lymphadenopathy or pulmonary metastatic disease. CT ABDOMEN AND PELVIS: The liver is unremarkable. Gallbladder may be surgically absent. There is no biliary ductal dilatation. Pancreas and spleen are unremarkable. No adrenal mass is detected. Kidneys are unremarkable. Aorta is nonaneurysmal. Bowel loops are nonobstructed. There is no free fluid or fluid collection. No definite abdominal or pelvic lymphadenopathy is seen. Bladder and prostate are unremarkable. Bony structures are without osteolytic or blastic lesions. IMPRESSION: Continued stable and unremarkable CT of the abdomen and pelvis when compared with exam from 11/23/2020. There is no evidence of lymphadenopathy or metastatic disease. Dictated by: Dictated on workstation # [id number]
--- NOTE | 2021-02-04 17:32 | Diagnostic Imaging Report ---
Examination: Nuclear medicine whole body bone scan Indication: Malignant melanoma. Evaluate for metastatic disease. Technique: Three hours following the intravenous administration of 24.4 mCi of Tc99m MDP, whole body imaging in the anterior and posterior views as well as spot imaging of the skull and bony thorax were performed. Comparison: Multiple priors, most recent performed on 11/23/2020 Findings: The previously reported increased activity in the right mandible is less pronounced, possibly related to periodontal disease. Mild increased activity in the shoulders, knees and right 1st MTP joint is likely degenerative in nature. Distribution of radionuclide is otherwise homogeneous throughout the visualized skeleton without focal areas of decreased or increased activity identified. Soft tissue activity is normal. Both kidneys excrete normally. Impression: No scintigraphic evidence of osteoblastic metastatic disease. No significant change from prior. Dictated by: Dictated on workstation # [id number]
== END ==
LOC: CARD 12:00
PROVIDERS: ATTEND Nurse Practitioner Adult Health
DX: C43.62 Malignant melanoma of left upper limb, including shoulder (principal)
CPT/HCPCS: 71260; 74178; 78306; A9503

== ENCOUNTER → 2021-02-18 | Outpatient (CLI) | payer MEDICARE, OTHER ==
[~2021-02-18] MED LIST changes: -BARIUM SUSPENSION 2.1% (VANILLA SILQ) 450 ML PO ONE
--- NOTE | 2021-02-18 17:02 | Diagnostic Imaging Report ---
PROCEDURE: CT neck soft tissue with contrast. TECHNIQUE: Multiple contiguous axial images were obtained through the neck after the administration of contrast. Auto Exposure Controls were utilized during the CT exam to meet ALARA standards for radiation dose reduction. INDICATION: Right jaw pain. History of melanoma. COMPARISON: PET/CT on 09/17/2019. FINDINGS: The posterior nasopharynx and oropharynx demonstrate appropriate symmetry. Bilateral tonsilloliths are seen without evidence of focal fluid collection. There is no displacement of the parapharyngeal fat planes. There is no abnormal process evident within the prevertebral or retropharyngeal space. There is no evidence of abnormal thickening of the epiglottis or aryepiglottic folds. The vocal folds appear symmetric. The parotid, submandibular and thyroid gland are unremarkable. No pathologically enlarged cervical lymph nodes are evident. No focal inflammatory changes are demonstrated. No soft tissue mass or fluid collection demonstrated. The vascular structures the neck demonstrate no evidence of high-grade stenosis on this nondedicated exam. The visualized lung apices are clear. The visualized intracranial contents demonstrate no evidence of pathologic intracranial enhancement or intracranial mass effect. Visualized orbital contents are unremarkable. The visualized paranasal sinuses are clear. The mastoids and middle ears are clear. The mandible is intact without evidence of fracture. No suspicious osseous lesion is seen. No acute osseous abnormality in the cervical spine. IMPRESSION: 1. Bilateral tonsilloliths with evidence of active inflammatory changes. No airway compromise or soft tissue mass. No pathologically enlarged lymphadenopathy. 2. The mandible is intact without evidence of fracture or suspicious osseous lesion. The bilateral TMJ are unremarkable. Dictated by: Dictated on workstation # [id number]
== END ==
LOC: RAD 13:15
PROVIDERS: ATTEND Internal Medicine Hematology & Oncology
DX: J35.8 Other chronic diseases of tonsils and adenoids (principal); Z85.820 Personal history of malignant melanoma of skin
CPT/HCPCS: 70491

== ENCOUNTER 2021-03-09 13:53 | Outpatient (RCR) | payer MEDICARE, OTHER ==
[2021-01-05 14:22] LABS: BASOPHILS # (AUTO) 0.1 10^3/uL (0.0-0.1); BASOPHILS % (AUTO) 1 % (0-10); EOSINOPHILS # (AUTO) 0.1 10^3/uL (0.0-0.3); EOSINOPHILS % (AUTO) 2 % (0-10); HEMATOCRIT 41 % (40-54); HEMOGLOBIN 14.1 g/dL (13.3-17.7); LYMPHOCYTES # (AUTO) 1.2 10^3/uL (1.0-4.0); LYMPHOCYTES % (AUTO) 19 % (12-44); MEAN CORPUSCULAR HEMOGLOBIN 33 pg (25-34); MEAN CORPUSCULAR HGB CONC 35 g/dL (32-36); MEAN CORPUSCULAR VOLUME 97 fL (80-99); MEAN PLATELET VOLUME 9.1 fL (9.0-12.2); MONOCYTES # (AUTO) 0.5 10^3/uL (0.0-1.0); MONOCYTES % (AUTO) 8 % (0-12); NEUTROPHILS # (AUTO) 4.3 10^3/uL (1.8-7.8); NEUTROPHILS % (AUTO) 69 % (42-75); PLATELET COUNT 242 10^3/uL (130-400); WHITE BLOOD COUNT 6.3 10^3/uL (4.3-11.0)
[2021-01-05 14:43] LABS: ALANINE AMINOTRANSFERASE 13 U/L (0-55); ALBUMIN 4.1 GM/DL (3.2-4.5); ALKALINE PHOSPHATASE 55 U/L (40-136); BILIRUBIN,TOTAL 1.4 MG/DL (0.1-1.0); BUN/CREATININE RATIO 20; CARBON DIOXIDE 29 MMOL/L (21-32); CHLORIDE 105 MMOL/L (98-107); CREATININE SERUM 0.86 MG/DL (0.60-1.30); GFR ESTIMATED > 60; GLUCOSE 99 MG/DL (70-105); POTASSIUM 4.2 MMOL/L (3.6-5.0); SODIUM 139 MMOL/L (135-145); TOTAL PROTEIN 6.8 GM/DL (6.4-8.2)
[2021-02-16 14:35] LABS: BASOPHILS # (AUTO) 0.1 10^3/uL (0.0-0.1); BASOPHILS % (AUTO) 1 % (0-10); EOSINOPHILS # (AUTO) 0.1 10^3/uL (0.0-0.3); EOSINOPHILS % (AUTO) 2 % (0-10); HEMATOCRIT 40 % (40-54); HEMOGLOBIN 13.7 g/dL (13.3-17.7); LYMPHOCYTES # (AUTO) 1.2 10^3/uL (1.0-4.0); LYMPHOCYTES % (AUTO) 22 % (12-44); MEAN CORPUSCULAR HEMOGLOBIN 33 pg (25-34); MEAN CORPUSCULAR HGB CONC 34 g/dL (32-36); MEAN CORPUSCULAR VOLUME 96 fL (80-99); MEAN PLATELET VOLUME 9.3 fL (9.0-12.2); MONOCYTES # (AUTO) 0.5 10^3/uL (0.0-1.0); MONOCYTES % (AUTO) 9 % (0-12); NEUTROPHILS # (AUTO) 3.7 10^3/uL (1.8-7.8); NEUTROPHILS % (AUTO) 66 % (42-75); PLATELET COUNT 218 10^3/uL (130-400); WHITE BLOOD COUNT 5.6 10^3/uL (4.3-11.0)
[2021-02-16 14:56] LABS: ALANINE AMINOTRANSFERASE 16 U/L (0-55); ALBUMIN 4.1 GM/DL (3.2-4.5); ALKALINE PHOSPHATASE 51 U/L (40-136); BILIRUBIN,TOTAL 1.4 MG/DL (0.1-1.0); BUN/CREATININE RATIO 21; CALCIUM 9.4 MG/DL (8.5-10.1); CARBON DIOXIDE 27 MMOL/L (21-32); CHLORIDE 107 MMOL/L (98-107); GFR ESTIMATED > 60; GLUCOSE 118 MG/DL (70-105); SODIUM 140 MMOL/L (135-145); TOTAL PROTEIN 6.9 GM/DL (6.4-8.2)
[~2021-03-09 13:53] MED LIST changes: -CATHETER FLUSH 10 ML SYR IV PRN; -HOLD METFORMIN - RECEIVED CONTRAST 20 ML VIAL IV SCH; -IOHEXOL 350 MG/ML 100 ML (OMNIPAQUE 350) VIAL IV ONE; -NS 100 ML (IVPB) BAG IV ONE; +NS IV 500 ML (CANCER CENTER) IV SCH; +PEMBROLIZUMAB 200 MG in NS (IVPB) CANCER CENTER 50 ML IV SCH
== END 2021-03-15 | disposition home or self-care (01) ==
LOC: ONC 13:53
PROVIDERS: ATTEND Internal Medicine Hematology & Oncology
DX: Z51.11 Encounter for antineoplastic chemotherapy (principal); C43.62 Malignant melanoma of left upper limb, including shoulder; C77.3 Secondary and unspecified malignant neoplasm of axilla and upper limb lymph nodes; C78.4 Secondary malignant neoplasm of small intestine; F41.9 Anxiety disorder, unspecified; D22.5 Melanocytic nevi of trunk; E03.9 Hypothyroidism, unspecified; Z79.899 Other long term (current) drug therapy; Z98.890 Other specified postprocedural states; Z90.49 Acquired absence of other specified parts of digestive tract; Z92.3 Personal history of irradiation; Z79.890 Hormone replacement therapy
CPT/HCPCS: 36415; 80053; 83615; 84443; 85025; 96413

== ENCOUNTER → 2021-06-18 | Outpatient (CLI) | payer MEDICARE, OTHER ==
[~2021-06-18] MED LIST changes: +BARIUM SUSPENSION 2.1% (VANILLA SILQ) 450 ML PO ONE; +CATHETER FLUSH 10 ML SYR IV PRN; +HOLD METFORMIN - RECEIVED CONTRAST 20 ML VIAL IV SCH; +IOHEXOL 350 MG/ML 100 ML (OMNIPAQUE 350) VIAL IV ONE; +NS 100 ML (IVPB) BAG IV ONE; -NS IV 500 ML (CANCER CENTER) IV SCH; -PEMBROLIZUMAB 200 MG in NS (IVPB) CANCER CENTER 50 ML IV SCH
[2021-06-18] MEDS: CATHETER FLUSH 10 ML SYR IV PRN ×2 (10:45→11:42)
--- NOTE | 2021-06-18 12:57 | Diagnostic Imaging Report ---
PROCEDURE: CT Neck, Chest Abdomen and Pelvis with contrast, Abdomen and Pelvis without. TECHNIQUE: Multiple contiguous axial images were obtained through the neck, chest, abdomen, and pelvis after the uneventful bolus administration of intravenous contrast. Precontrast acquisitions through the abdomen and pelvis were performed. Sagittal and coronal reformations are then performed. Auto Exposure Controls were utilized during the CT exam to meet ALARA standards for radiation dose reduction. INDICATION: Malignant melanoma. Patient reportedly had a recent abnormal dental x-ray. Correlation is made with prior CT neck study from 02/18/[address] chest, abdomen and pelvis study from 02/04/2021. CT NECK: The visualized intracranial structures are unremarkable. Posterior nasopharynx and oropharynx are unremarkable. Residual fat planes are preserved. Epiglottis and larynx are unremarkable. No thyroid mass is detected. Submandibular and parotid glands appear to be symmetric bilaterally. No definite cervical lymphadenopathy is identified. Prevertebral and retropharyngeal tissues are unremarkable. There is a nonspecific lucency near the angle of the mandible on the right side measuring 12 mm in size. This is similar to CT neck study from February and is nonspecific. No other osseous abnormalities are identified. IMPRESSION: Overall stable CT soft tissue neck study when compared with exam from 02/18/2021. No lymphadenopathy is identified. There is a lucent lesion in the right mandible, similar to prior CT and indeterminate, it is also nonspecific. Continued followup would be recommended. CT CHEST: Surgical clips left axilla again noted. No lymphadenopathy is detected. Mediastinum and michel are unremarkable. Ascending aorta is somewhat dilated up to approximately 4 cm, stable. No dissection is seen. There is no pericardial or pleural fluid. No pulmonary infiltrates, nodules or masses are seen. IMPRESSION: Stable CT chest since 02/04/2021. No thoracic lymphadenopathy or pulmonary metastatic disease is identified. CT ABDOMEN AND PELVIS: Liver is unremarkable. There is no biliary duct dilatation. Pancreas and spleen are unremarkable. No adrenal mass is detected. There is no renal calculi or hydronephrosis. Aorta is nonaneurysmal. No definite central retroperitoneal or mesenteric lymphadenopathy is seen. Bowel loops are normal caliber. There is no ascites. Bladder and prostate are unremarkable. No pelvic lymphadenopathy is detected. Bony structures are nonacute. IMPRESSION: Stable unremarkable CT abdomen and pelvis since 02/04/2021. No lymphadenopathy or evidence of metastatic disease is detected. Dictated by: Dictated on workstation # [id number]
--- NOTE | 2021-06-18 14:52 | Diagnostic Imaging Report ---
INDICATION: Melanoma. TECHNIQUE: Patient was administered 27.2 mCi technetium 99m MDP intravenously and whole body imaging was performed after a three-hour delay. COMPARISON: Correlation is made with prior whole body bone scan from 02/04/2021. FINDINGS: Normal uptake of activity by the axial and appendicular skeletons noted. There is uptake by the kidneys with excretion into the urinary bladder. No abnormal uptake is identified. Views over the facial bones and mandible show no abnormal uptake to correlate with the lesion noted on CT in the right mandible. IMPRESSION: No scintigraphic evidence of osseous metastatic disease. Dictated by: Dictated on workstation # [id number]
== END ==
LOC: CARD 10:35
PROVIDERS: ATTEND Nurse Practitioner Adult Health
DX: C43.62 Malignant melanoma of left upper limb, including shoulder (principal); C78.4 Secondary malignant neoplasm of small intestine
CPT/HCPCS: 70491; 71260; 74178; 78306; A9503

== ENCOUNTER 2021-06-22 13:42 | Outpatient (RCR) | payer MEDICARE, OTHER ==
[2021-03-30 13:55] LABS: BASOPHILS # (AUTO) 0.1 10^3/uL (0.0-0.1); BASOPHILS % (AUTO) 1 % (0-10); EOSINOPHILS # (AUTO) 0.2 10^3/uL (0.0-0.3); EOSINOPHILS % (AUTO) 3 % (0-10); HEMATOCRIT 40 % (40-54); LYMPHOCYTES % (AUTO) 19 % (12-44); MEAN CORPUSCULAR HEMOGLOBIN 33 pg (25-34); MEAN CORPUSCULAR HGB CONC 35 g/dL (32-36); MEAN CORPUSCULAR VOLUME 96 fL (80-99); MEAN PLATELET VOLUME 9.5 fL (9.0-12.2); MONOCYTES # (AUTO) 0.6 10^3/uL (0.0-1.0); MONOCYTES % (AUTO) 10 % (0-12); NEUTROPHILS # (AUTO) 3.5 10^3/uL (1.8-7.8); NEUTROPHILS % (AUTO) 66 % (42-75); PLATELET COUNT 206 10^3/uL (130-400); WHITE BLOOD COUNT 5.3 10^3/uL (4.3-11.0)
[2021-03-30 14:17] LABS: ALBUMIN 4.2 GM/DL (3.2-4.5); BILIRUBIN,TOTAL 1.8 MG/DL (0.1-1.0); CALCIUM 9.7 MG/DL (8.5-10.1); CREATININE SERUM 0.86 MG/DL (0.60-1.30); POTASSIUM 4.6 MMOL/L (3.6-5.0); TOTAL PROTEIN 7.2 GM/DL (6.4-8.2)
[2021-05-11 14:34] LABS: BASOPHILS % (AUTO) 1 % (0-10); EOSINOPHILS # (AUTO) 0.2 10^3/uL (0.0-0.3); EOSINOPHILS % (AUTO) 3 % (0-10); HEMATOCRIT 38 % (40-54); HEMOGLOBIN 13.1 g/dL (13.3-17.7); LYMPHOCYTES % (AUTO) 21 % (12-44); MEAN CORPUSCULAR HEMOGLOBIN 33 pg (25-34); MEAN CORPUSCULAR HGB CONC 34 g/dL (32-36); MEAN CORPUSCULAR VOLUME 95 fL (80-99); MEAN PLATELET VOLUME 9.6 fL (9.0-12.2); MONOCYTES # (AUTO) 0.5 X 10^3 (0.0-1.0); MONOCYTES % (AUTO) 11 % (0-12); NEUTROPHILS % (AUTO) 64 % (42-75); PLATELET COUNT 201 10^3/uL (130-400); WHITE BLOOD COUNT 4.7 10^3/uL (4.3-11.0)
[2021-05-11 15:16] LABS: BILIRUBIN,TOTAL 1.5 MG/DL (0.1-1.0); CALCIUM 9.4 MG/DL (8.5-10.1); CREATININE SERUM 0.86 MG/DL (0.60-1.30); POTASSIUM 4.7 MMOL/L (3.6-5.0); TOTAL PROTEIN 6.8 GM/DL (6.4-8.2)
[~2021-06-22 13:42] MED LIST changes: -BARIUM SUSPENSION 2.1% (VANILLA SILQ) 450 ML PO ONE; -CATHETER FLUSH 10 ML SYR IV PRN; -HOLD METFORMIN - RECEIVED CONTRAST 20 ML VIAL IV SCH; -IOHEXOL 350 MG/ML 100 ML (OMNIPAQUE 350) VIAL IV ONE; -NS 100 ML (IVPB) BAG IV ONE; +NS IV 500 ML (CANCER CENTER) IV SCH; +PEMBROLIZUMAB 200 MG in NS (IVPB) CANCER CENTER 50 ML IV SCH
[2021-06-22 14:01] LABS: BASOPHILS % (AUTO) 1 % (0-10); EOSINOPHILS # (AUTO) 0.1 10^3/uL (0.0-0.3); EOSINOPHILS % (AUTO) 3 % (0-10); HEMATOCRIT 40 % (40-54); HEMOGLOBIN 13.6 g/dL (13.3-17.7); LYMPHOCYTES % (AUTO) 22 % (12-44); MEAN CORPUSCULAR HEMOGLOBIN 33 pg (25-34); MEAN CORPUSCULAR HGB CONC 34 g/dL (32-36); MEAN CORPUSCULAR VOLUME 97 fL (80-99); MEAN PLATELET VOLUME 9.4 fL (9.0-12.2); MONOCYTES # (AUTO) 0.5 10^3/uL (0.0-1.0); MONOCYTES % (AUTO) 10 % (0-12); NEUTROPHILS % (AUTO) 64 % (42-75); PLATELET COUNT 194 10^3/uL (130-400); WHITE BLOOD COUNT 4.7 10^3/uL (4.3-11.0)
[2021-06-22 14:47] LABS: ALBUMIN 4.2 GM/DL (3.2-4.5); BILIRUBIN,TOTAL 1.8 MG/DL (0.1-1.0); CALCIUM 9.4 MG/DL (8.5-10.1); CREATININE SERUM 0.92 MG/DL (0.60-1.30); POTASSIUM 4.5 MMOL/L (3.6-5.0)
== END 2021-06-28 | disposition home or self-care (01) ==
LOC: ONC 13:42
PROVIDERS: ATTEND Internal Medicine Hematology & Oncology
DX: Z51.11 Encounter for antineoplastic chemotherapy (principal); Z45.2 Encounter for adjustment and management of vascular access device; C43.62 Malignant melanoma of left upper limb, including shoulder; C77.3 Secondary and unspecified malignant neoplasm of axilla and upper limb lymph nodes; C78.4 Secondary malignant neoplasm of small intestine; C79.89 Secondary malignant neoplasm of other specified sites; F41.9 Anxiety disorder, unspecified; D22.5 Melanocytic nevi of trunk; E03.9 Hypothyroidism, unspecified; Z15.01 Genetic susceptibility to malignant neoplasm of breast; Z79.899 Other long term (current) drug therapy; Z98.890 Other specified postprocedural states; Z90.49 Acquired absence of other specified parts of digestive tract; Z92.3 Personal history of irradiation
CPT/HCPCS: 80053; 83615; 84443; 85025; 96413; G0463; 36415

== ENCOUNTER 2021-08-03 13:25 | Outpatient (RCR) | payer MEDICARE, OTHER ==
[2021-08-03 13:45] LABS: BASOPHILS # (AUTO) 0.1 10^3/uL (0.0-0.1); BASOPHILS % (AUTO) 1 % (0-10); EOSINOPHILS # (AUTO) 0.2 10^3/uL (0.0-0.3); EOSINOPHILS % (AUTO) 3 % (0-10); HEMATOCRIT 41 % (40-54); HEMOGLOBIN 14.1 g/dL (13.3-17.7); LYMPHOCYTES % (AUTO) 18 % (12-44); MEAN CORPUSCULAR HEMOGLOBIN 33 pg (25-34); MEAN CORPUSCULAR HGB CONC 34 g/dL (32-36); MEAN CORPUSCULAR VOLUME 98 fL (80-99); MEAN PLATELET VOLUME 9.6 fL (9.0-12.2); MONOCYTES # (AUTO) 0.5 10^3/uL (0.0-1.0); MONOCYTES % (AUTO) 10 % (0-12); NEUTROPHILS # (AUTO) 3.7 10^3/uL (1.8-7.8); NEUTROPHILS % (AUTO) 68 % (42-75); PLATELET COUNT 205 10^3/uL (130-400); WHITE BLOOD COUNT 5.5 10^3/uL (4.3-11.0)
[2021-08-03 14:03] LABS: ALBUMIN 4.1 GM/DL (3.2-4.5); BILIRUBIN,TOTAL 1.1 MG/DL (0.1-1.0); CALCIUM 9.3 MG/DL (8.5-10.1); CREATININE SERUM 0.86 MG/DL (0.60-1.30); POTASSIUM 4.5 MMOL/L (3.6-5.0); TOTAL PROTEIN 7.4 GM/DL (6.4-8.2)
== END 2021-08-13 | disposition home or self-care (01) ==
LOC: ONC 13:25
PROVIDERS: ATTEND Internal Medicine Hematology & Oncology
DX: Z51.11 Encounter for antineoplastic chemotherapy (principal); Z45.2 Encounter for adjustment and management of vascular access device; C43.62 Malignant melanoma of left upper limb, including shoulder; C77.3 Secondary and unspecified malignant neoplasm of axilla and upper limb lymph nodes; C78.4 Secondary malignant neoplasm of small intestine; C79.89 Secondary malignant neoplasm of other specified sites; F41.9 Anxiety disorder, unspecified; D22.5 Melanocytic nevi of trunk; E03.9 Hypothyroidism, unspecified; Z15.01 Genetic susceptibility to malignant neoplasm of breast; Z79.899 Other long term (current) drug therapy; Z98.890 Other specified postprocedural states; Z90.49 Acquired absence of other specified parts of digestive tract; Z92.3 Personal history of irradiation
CPT/HCPCS: 80053; 84443; 85025; 96413

== ENCOUNTER 2021-08-24 13:50 | Outpatient (RCR) | payer MEDICARE, OTHER | END 2021-09-13 | disposition home or self-care (01) | LOC: ONC 13:50 | PROVIDERS: ATTEND Internal Medicine Hematology & Oncology | DX: Z51.11 Encounter for antineoplastic chemotherapy (principal); C43.62 Malignant melanoma of left upper limb, including shoulder; C77.3 Secondary and unspecified malignant neoplasm of axilla and upper limb lymph nodes; C78.4 Secondary malignant neoplasm of small intestine; C79.89 Secondary malignant neoplasm of other specified sites; E03.9 Hypothyroidism, unspecified; Z15.01 Genetic susceptibility to malignant neoplasm of breast; Z79.899 Other long term (current) drug therapy; Z98.890 Other specified postprocedural states; Z90.49 Acquired absence of other specified parts of digestive tract; Z92.3 Personal history of irradiation; Z45.2 Encounter for adjustment and management of vascular access device | CPT/HCPCS: 96413 ==

== ENCOUNTER → 2021-12-28 | Outpatient (CLI) | payer MEDICARE, OTHER ==
[~2021-12-28] VITALS: Ht 183 cm; Wt 60.5 kg
[~2021-12-28] MED LIST changes: -NS IV 500 ML (CANCER CENTER) IV SCH; -PEMBROLIZUMAB 200 MG in NS (IVPB) CANCER CENTER 50 ML IV SCH
== END | disposition home or self-care (01) ==
LOC: PREOP 05:28
PROVIDERS: ATTEND Surgery
DX: Z01.818 Encounter for other preprocedural examination (principal)

== ENCOUNTER 2021-12-31 08:16 | Day surgery (SDC) | payer MEDICARE, OTHER ==
[~2021-12-31] VITALS: Ht 183 cm; Wt 60.5 kg
[2021-12-31] VITALS (8 sets, daily range): BP systolic 95–139; BP diastolic 68–92
[2021-12-31] MEDS ORDERED: ceFAZolin 2 GM IV Premixed 50 ML IV ONE (08:45)
[2021-12-31] MEDS ORDERED: LACTATED RINGERS 1,000 ML IV PRN (08:45)
[2021-12-31] MEDS ORDERED: 0.9% SODIUM CHLORIDE PF INJ 20 ML VIAL ONE (09:47)
[2021-12-31] MEDS ORDERED: HEParin (CENTRAL IV FLUSH) 500 UNIT/5 ML SYR ONE (09:48)
[2021-12-31] MEDS ORDERED: LIDOCAINE/EPI 2% 1:200,00 (XYLOCAINE) 20 ML VIAL ONE ×2 (09:48→09:57)
--- NOTE | 2021-12-31 09:49 | Progress Note-Pre Operative ---
Pre-Operative Progress Note H&P Reviewed The H&P was reviewed, patient examined and no changes noted. Time Seen by Provider: 09:48 Date H&P Reviewed: December 31, 2021 Time H&P Reviewed: 09:48 Pre-Operative Diagnosis: Venous Insufficiency, Malignant melanoma HALLIE SALAS DO December 31, 2021 09:49
[2021-12-31] MEDS ORDERED: MIDAZOLAM 2 MG/2 ML (VERSED) VIAL ONE (10:31)
[2021-12-31] MEDS ORDERED: PROPOFOL INJECTION 50 ML IV ONE (10:31)
[2021-12-31] MEDS ORDERED: fentaNYL INJ 100 MCG/2 ML AMP ONE (10:31)
[2021-12-31] MEDS ORDERED: ONDANSETRON 4 MG/2 ML (SDV) Z0FRAN IVP PRN (13:00)
[2021-12-31] MEDS ORDERED: morphine INJ 10 MG/ML 1ML (SYR OR VIAL) IVP ONE (13:00)
--- NOTE | 2021-12-31 13:27 | Diagnostic Imaging Report ---
INDICATION: Port-A-Cath placement. COMPARISON: None TOTAL FLUOROSCOPY TIME: 5 seconds TOTAL NUMBER OF FLUOROSCOPIC IMAGES SAVED: 1 FINDINGS: Single frontal radiographic view of the chest was obtained during Port-A-Cath placement. Images provided show right subclavian approach. Central tip appears to terminate in the right innominate vein. Evaluation for pneumothorax is suboptimal given fluoroscopic modality. Please note, interpreting radiologist was not present during the procedure. IMPRESSION:. Fluoroscopic guidance provided during Port-A-Cath placement as above Dictated by: Dictated on workstation # [id number]
[2021-12-31] MEDS ORDERED: IRON18TA PO (13:41)
--- NOTE | 2021-12-31 13:45 | Anesthesia-General Post-Op ---
MAC Patient Condition Mental Status/LOC: Same as Preop Cardiovascular: Satisfactory Nausea/Vomiting: Absent Respiratory: Satisfactory Pain: Controlled Complications: Absent Post Op Complications Complications None Follow Up Care/Instructions Patient Instructions None needed. Anesthesiology Discharge Order Discharge Order Patient is doing well, no complaints, stable vital signs, no apparent adverse anesthesia problems. JAMI MORGAN DO December 31, 2021 13:45
--- NOTE | 2021-12-31 14:00 | Progress Note-Post Operative ---
Post-Operative Progess Note Surgeon (s)/Cutter Inspector (s) Surgeon HALLIE SALAS DO Cutter Inspector: none Pre-Operative Diagnosis Venous Insufficiency, Malignant melanoma Post-Operative Diagnosis same Procedure & Operative Findings Date of Procedure 12/31/21 Procedure Performed/Findings PROCEDURE: The patient was taken to the operating suite, was prepped and draped in the sterile fashion. A surgical pause was performed. Local anesthetic was infiltrated at the clavicle and along the tract to the right anterior chest, where more local was placed so the pocket could be created. Using an 18 gauge finder needle with negative inspiration the right subclavian vein was accessed on the first attempt and dark nonpulsatile blood was withdrawn. The wire was inserted and fluoroscopy assured proper placement. The needle was removed. The regular wire was inserted and fluoroscopy assured proper placement. The wire was then secured. A #11 blade scalpel was used to make an incision over the right chest and along guidewire. Cautery was used to dissect down to the pectoral fascia. A pocket was created with blunt dissection. The dilator sheath was then advanced over the wire under fluoroscopy and the dilator and wire were removed. The Groshong catheter was inserted through the sheath and the sheath was then removed. The Groshong wire was removed. The catheter was then tunneled to the right chest pocket. Fluoroscopy was used to cut to length and this was then attached to the port which was then placed within the pocket. The port was then accessed without difficulty. It was then flushed with saline and then heparin. The subcutaneous tissues were then reapproximated using 3-0 Vicryl. Finally the skin was closed with 4-0 undyed monocryl, 3 interrupted sutures. The areas were then washed and dried. Skin Affix was placed over incision. The insertion point of the neck Skin Affix was placed over the incision. The patient tolerated the procedure well without complication and was taken to recovery room in stable condition. Anesthesia Type IV sedation by Anesthesia Estimated Blood Loss Estimated blood loss (mL): scant Specimens/Packing Specimens Removed none HALLIE SALAS DO December 31, 2021 14:00
--- NOTE | 2021-12-31 14:01 | Discharge Inst-Surgical ---
Discharge Inst-Surgical Depart Medication/Instructions New, Converted or Re-Newed RX: Other (use home meds) Patient Instructions Follow up Appt: Make appointment for 1 week. [phone] Instructions: No lifting greater than 20 pounds. No strenuous activity. May shower in 24 hours, no tub bath or soaking. Use incentive spirometer at home as directed. No Smoking Skin/Wound Care: May remove bandages in am. You need to leave the Dermabond on incision it will fall off on it's own. Symptoms to Report: Appetite Changes, Extremity Discoloration, Numbness/Tingling, Swelling Increased, Bleeding Excessive, Eyesight Changes, Pain Increased, Urine Color Change, Constipation(Persistent), Fever over 101 degree F, Pain/Pressure in chest, Urinating Difficulty, Cough Up/Vomit Blood, Heart Beat Irreg/Pounding, Pain/Pressure in jaw, Cramps in feet or legs, Lightheadedness, Pain/Pressure in shoulder, Diarrhea(Persistent), Memory Changes Suddenly, Questions/Concerns, Weight gain consecutive days, Dizziness/Fainting, Nausea/Vomiting, Shortness of Breath, Weight gain over 2 pounds If questions or concerns contact your physician Or seek help at emergency department. Activity Activity as Tolerated: Yes Activity Instructions: Avoid Stress to Incision Driving Instructions: You May Drive Diet Discharge Diet: No Restrictions Diet After 24 Hours: Clear Liquid if Nauseous If Any Problems/Questions/Issu: Contact Your Physician, Go to Emergency Room Skin/Wound Care Infection Signs and Symptoms: Increased Redness, Foul Odor of Wound, Increased Drainage, Skin Itchy or Has a Rash, Increased Swelling, Temperature Above 101 F Bathing Instructions: Shower Stitches/[place]/Dermabond Dis: HALLIE Miranda DO December 31, 2021 14:01
== END 2021-12-31 14:36 | disposition home or self-care (01) ==
LOC: SDC 08:16
PROVIDERS: ATTEND Surgery
DX: I87.2 Venous insufficiency (chronic) (peripheral) (principal); C43.9 Malignant melanoma of skin, unspecified; C79.9 Secondary malignant neoplasm of unspecified site
CPT/HCPCS: 36561; 76000; 87081; C1788

== ENCOUNTER 2022-10-26 16:12 | Emergency (ER) | payer MEDICARE, OTHER ==
[~2022-10-26] VITALS: Ht 185 cm; Wt 59.0 kg
[~2022-10-26 16:12] MED LIST changes: +IRON18TA PO
[2022-10-26 16:23] VITALS: BP 135/76
--- NOTE | 2022-10-26 16:56 | ED EENT ---
History of Present Illness General Chief Complaint: Ear Problems Stated Complaint: RIGHT EAR WAX Nursing Triage Note: PT CO OF R EAR BEING CLOGGED AND NEEDING CLEANED Source: patient Exam Limitations: no limitations History of Present Illness Date Seen by Provider: Oct 26, 2022 Time Seen by Provider: 16:37 Initial Comments Patient is a 72-year-old male who presents to the emergency room with a chief complaint of right ear being "clogged" and needing the earwax removed. He states he was unable to get into his ENT doctor. He request that we not use ir rigation and that I use a tool to remove the wax. He states he has significantly decreased hearing in the right ear. No fevers chills or upper respiratory tract symptoms. Timing/Duration: gradual Location: ear (R) Prearrival Treatment: no prearrival treatment Associated Symptoms: change in hearing Allergies and Home Medications Allergies Coded Allergies: epinephrine (Verified Allergy, Unknown, 01/01/19) epinephrine HCl (Verified Allergy, Unknown, 01/01/19) lidocaine (Unverified Allergy, Unknown, 01/01/19) Patient Home Medication List Home Medication List Reviewed: Yes Iron (Iron) 18 Mg Tablet, 10 MG PO DAILY, (Reported) Entered as Reported by: GERI JOLLY on 12/31/21 1341 Multivitamin (Multi-Vitamin Daily) 1 Each Tablet, 1 TAB PO DAILY, (Reported) Entered as Reported by: WARD VAZQUEZ on 10/27/15 1330 [place] 3 Polyunsat Fatty Acids (Fish Oil 1,000 mg Capsule) 1,000 Mg Cap, 1,000 MG PO DAILY, (Reported) Entered as Reported by: WARD VAZQUEZ on 10/27/15 1330 Review of Systems Review of Systems Constitutional: see HPI Ears: Other (right ear fullness) Nose: no symptoms reported Throat: no symptoms reported Respiratory: no symptoms reported Cardiovascular: no symptoms reported Past Pwivtkx-Cnqjey-Chrseh Hx Patient Social History Tobacco Use?: No Substance use?: No Alcohol Use?: No Pt feels they are or have been: No Immunizations Up To Date Tetanus Booster (TDap): More than 5yrs PED Vaccines UTD: No Influenza Vaccine Up-to-Date: Yes; Up-to-Date First/Initial COVID19 Vaccinat: 2020 Second COVID19 Vaccination Macario: 2020 Third COVID19 Vaccination Date: 2020 Seasonal Allergies Seasonal Allergies: No Past Medical History Surgery/Hospitalization HX: MELANOMA, Surgeries: Yes (small bowel sx, melanoma removed from elbow x2, axillary lymph node removed) Abdominal, Bowel Surgery Respiratory: No Currently Using CPAP: No Currently Using BIPAP: No Cardiac: Yes (FAST HEART RATE AT TIMES) Hypertension Neurological: No Reproductive Disorders: No Sexually Transmitted Disease: No HIV/AIDS: No Genitourinary: Yes (chronic skin issue on penis ) Gastrointestinal: Yes (colon lesion, PAGET'S) Gall Bladder Disease Musculoskeletal: No (MILD) Arthritis Endocrine: No HEENT: No Loss of Vision: Denies Hearing Impairment: Denies Cancer: Yes (ON ELBOW) Melanoma Psychosocial: Yes Anxiety Integumentary: No Blood Disorders: No Adverse Reaction/Blood Tranf: No Family Medical History Cardiovascular disease 19 MOTHER Physical Exam Vital Signs Vital Signs - First Documented 10/26/22 16:23 Temp 36.5 Pulse 83 Resp 16 B/P (MAP) 135/76 (95) Pulse Ox 97 Height, Weight, BMI Height: 6'1.00" Weight: 135lbs. 9.0oz. 61.057440wa; 17.00 BMI Method:Stated General Appearance: WD/WN, no apparent distress Eyes: bilateral eye normal inspection, bilateral eye PERRL, bilateral eye EOMI Ears: bilateral ear auricle normal, bilateral ear canal normal, bilateral ear TM normal Nose: normal inspection Mouth/Throat: normal mouth inspection Respiratory: no respiratory distress, no accessory muscle use Progress/Results/Core Measures Results/Orders Vital Signs/I&O 10/26/22 16:23 Temp 36.5 Pulse 83 Resp 16 B/P (MAP) 135/76 (95) Pulse Ox 97 Blood Pressure Mean: 95 Progress Progress Note : Time: 16:52 Progress Note Cerumen spoon/scoop used to remove small amount of ear wax from the right canal. Patient states he felt much better after. Departure Impression Primary Impression: Impacted cerumen, right ear Disposition: 01 HOME, SELF-CARE Condition: Improved Departure-Patient Inst. Decision time for Depature: 16:54 Referrals: PÉREZ GREEN DO (PCP/Family) Primary Care Physician Add. Discharge Instructions: Use an over the counter Ear Wax system such as MURINE EAR WAX REMOVAL SYSTEM. please follow packaging instructions. Return to the emergency department for any new, concerning or emergent symptoms. Copy Copies To 1: PÉREZ GREEN KATHRYN M MD Oct 26, 2022 16:56
== END 2022-10-26 17:02 | disposition home or self-care (01) ==
LOC: EDUNIT# 16:12 → ER 16:14
DX: H61.21 Impacted cerumen, right ear (principal); I10 Essential (primary) hypertension
CPT/HCPCS: 99281